=== PATIENT | female | born 1995 | race Caucasian/White ===

== ENCOUNTER 2024-06-26 19:00 | Outpatient (CLI) | payer OTHER, SELFPAY ==
[2024-06-26 19:23] VITALS: BP 116/61; PULSE 96; RESP 14; TEMP 36.6
[2024-06-26 19:30] VITALS: BMI 21.6
--- NOTE | 2024-06-30 08:58 | OB.TRI.NOTE ---
HPI - General General Date of Service: 06/26/24 Chief Complaint: fall [facility] Narrative DIANA CARMICHAEL, is a 28 F who presents after a fall on her deck onto her buttock and back. She did not hit her head or abdomen. She has no symptoms. No vb, lof, cramping, pain. Assessment & Plan (1) 21 weeks gestation of : (2) Fall: PLAN: Pt fell onto buttock and back on her deck. No trauma to abdomen. Rh positive blood type. She is asymptomatic. RN obtained FHT. D/c home with return precautions.
== END 2024-06-26 19:40 | disposition home or self-care (01) ==
LOC: WPOUT 19:14 → WP 19:14
PROVIDERS: Visit Provider Obstetrics & Gynecology
DX: Z04.3 Encounter for examination and observation following other accident (principal); W18.30XA Fall on same level, unspecified, initial encounter; Y92.008 Other place in unspecified non-institutional (private) residence as the place of occurrence of the external cause
CPT/HCPCS: 99221; G0378

== ENCOUNTER → 2024-09-05 | Outpatient (CLI) | payer OTHER, SELFPAY ==
--- NOTE | 2024-09-05 13:25 | CT_ITS ---
PROCEDURE: CTA CHEST W/WO CONTRAST 09/05/2024 REASON FOR EXAM: LEIGH TECHNIQUE: CTA axial imaging of the chest with intravenous contrast. Coronal and Sagittal reconstruction series were provided. 3D, 3D post processing, 3D reconstructions, Maximum intensity projection (MIPs) Volume rendering and Shaded surface rendering was provided. PATIENT PREPARATION: Per protocol CONTRAST: Isovue 370 VOLUME: 100 mL Gauge IV One or more dose reduction techniques were used (e.g., Automated exposure control, adjustment of the mA and/or kV according to patient size, use of iterative reconstruction technique). RADIATION DOSE SUMMARY: DLP: 356 mGycm COMPARISON: None FINDINGS: Lymph nodes: No mediastinal, hilar, or axillary lymphadenopathy. Heart: Normal heart size. No pericardial effusion. RV/LV Diameter Ratio: Subjectively normal. Thoracic Aorta: No thoracic aortic aneurysm or dissection. Pulmonary Vessels: No evidence of acute pulmonary emboli through the major subsegmental branches. Lungs and Airways: The lungs are normally expanded and clear. Pleura: No pleural effusion. No pneumothorax. Upper Abdomen: Visualized portions of the upper abdominal viscera are unremarkable. Bones: Normal thoracic vertebral alignment. CT/CTA Chest W/WO Contrast IMPRESSION: No pulmonary artery filling defect to suggest embolus. No acute abnormal finding in the chest. Reading Location: [facility]
== END | disposition home or self-care (01) ==
LOC: CT 12:57
PROVIDERS: PCP Family Medicine; Referring Provider Family Medicine; Visit Provider Family Medicine
DX: R06.09 Other forms of dyspnea (principal)
CPT/HCPCS: 71275; Q9967

== ENCOUNTER → 2024-09-20 | Outpatient (CLI) | payer OTHER, SELFPAY ==
[2024-09-20 11:42] LABS: Absolute Lymphocyte Count 1.82 X10^3/uL (0.83-4.51); Absolute Neutrophil Count 7.4 X10^3/uL (2.0-7.7); Basophil# 0.02 X10^3/uL; Basophil% 0.2 % (0-1); Eosinophil# 0.06 X10^3/uL; Eosinophils% 0.6 % (0-5); Hemoglobin 11.1 g/dL (12.0-15.0); Lymphocyte # 1.82 X10^3/ul (0.83-4.51); Lymphocyte % 18.3 % (19-41); Mean Corp Hgb Conc 31.7 g/dL (32-36); Mean Corpuscular Hgb 27.5 pg (27.0-32.0); Mean Corpuscular Volume 86.6 fL (81-99); Mean Platelet Vol. 9.6 fl (6.2-12.0); Monocyte# 0.58 X10^3/uL; Monocyte% 5.8 % (0-10); NRBC Flagged by Analyzer 0 % (0-5); Neutrophil # 7.41 X10^3/uL (2.7-7.7); Neutrophil % 74.6 % (47-70); Platelet Count 274 K/mm3 (150-450); RBC Distribution Width CV 13.8 % (11.6-14.6); RBC Distribution Width SD 42.2 fl (35.1-43.9); Red Blood Count 4.04 M/mm3 (4.2-5.4); White Blood Count 9.9 K/mm3 (4.4-11.0)
== END | disposition home or self-care (01) ==
LOC: LAB 11:08
PROVIDERS: PCP Family Medicine; Referring Provider Nurse Practitioner Women's Health; Visit Provider Nurse Practitioner Women's Health
DX: R53.83 Other fatigue (principal)
CPT/HCPCS: 36415; 85025

== ENCOUNTER → 2024-10-05 | Outpatient (CLI) | payer OTHER, SELFPAY | END | disposition home or self-care (01) | LOC: LABSPEC 15:48 | PROVIDERS: PCP Family Medicine; Referring Provider Obstetrics & Gynecology; Visit Provider Obstetrics & Gynecology | DX: Z34.03 Encounter for supervision of normal first pregnancy, third trimester (principal) | CPT/HCPCS: 87081 ==

== ENCOUNTER 2024-11-04 01:50 | Outpatient (CLI) | payer OTHER, SELFPAY ==
--- OUTSIDE RECORDS SUMMARY | 2024-11-04 01:56 | XMS RPT_ITS | CCD ---
Author Organization [facility] Care Team Providers Care Laboratory Machinist Name Role Phone SUZY LEON Unavailable Unavailable SUZY LEON Unavailable Unavailable CHRIS COLLINS Unavailable Unavailable CHRIS COLLINS Unavailable Unavailable Christina Salter DO Primary Care Provider [phone] Christina Salter DO Primary Care Provider Christina Salter Primary Care Provider CITLALI BAUER Attending Unavailable GAETANO, CHRISTINA L Primary Care Unavailable CITLALI BAUER Referring Unavailable GAETANO, CHRISTINA L Primary Care Unavailable NANCY AGUILAR Referring Unavailable GAETANO, CHRISTINA L Primary Care Unavailable ZENAIDA MITCHELL Attending Unavailable JEFF NANCY Aleksandr Referring Unavailable GAETANO, CHRISTINA L Primary Care Unavailable ZENAIDA MITCHELL Referring Unavailable GAETANO, CHRISTINA L Primary Care Unavailable NANCY AGUILAR Referring Unavailable GAETANO, CHRISTINA L Primary Care Unavailable XENIA MARIE Attending Unavailable GAETANO, CHRISTINA L Primary Care Unavailable JEFF NANCY Aleksandr Referring Unavailable GAETANO, CHRISTINA L Primary Care Unavailable NANCY AGUILAR Attending Unavailable GAETANO, CHRISTINA L Primary Care Unavailable YENNIFER COUCH Attending Unavailable GAETANO, CHRISTINA L Primary Care Unavailable ZENAIDA MITCHELL Attending Unavailable NANCY AGUILAR Attending Unavailable GAETANO, CHRISTINA L Primary Care Unavailable KATHY CLANCY Attending Unavailable GAETANO, CHRISTINA L Primary Care Unavailable GAETANO, CHRISTINA L Primary Care Unavailable Christina Salter Primary Care Provider Dr. Christina Salter DO [facility] er Gaetano MONZON, Dr. Christina Sandoval Attending Provider Dr. Jayne Carmona DO Attending Provider Chao MIGUEL, Dr. Cardoso Attending Provider [phone] Gaetano MONZON, Dr. Christina Sandoval Referring Provider Salomon DOCKET CLERK-C, Maureen Attending Provider [phone] Salomon DOCKET CLERK-C, Maureen Referring Provider Filiberto Gonzales DO, Dr. Michaels Attending Provider Filiberto Gonzales DO, Dr. Michaels Referring Provider Mable Ashley CNM Attending Provider [phone] Gaetano MONZON, Dr. Christina Sandoval [facility] er Gaetano MONZON, Dr. Christina Sandoval Attending [facility] Referring Unavailabl e Gaetano, Christina Lori Attending Unavailabl e Gaetano, [facility] Primary Care [facility] Unav[facility] Salomon DOCKET CLERKMaureen Referring Unavailable [place] DOCKET CLERKMaureen Attending Unavailable Gaetano, [facility] Unavailabl e Mable Ashley Attending Unavailable Janae Guidry Attending Un[facility] Gaet[facility] Referring Unavailabl e Mable Ashley Attending Unavailable [facility] Unavailabl e Gaetano, [facility] Referring Unavailabl e [place] DOCKET CLERKMaureen Attending Unavailable [facility] Referring Unavailabl e Janae Guidry Attending Unavailable [facility] Care Unavailabl e Gaetano, [facility] Referring Unavailabl e Xenia Edouard Attending Unavailabl e Gaetano, [facility] Unavailabl e Gaetano, [facility] Referring Unavailabl Mable Olmstead Attending Unavailable Gaetano, [facility] Referring Unavailabl e Janae Guidry Attending Unavailable Gaetano, [facility] Primary [facility] Unavailabl e Gaetano, [facility] Primary Care Unavailabl e Gaetano, [facility] Attending Unavailabl e Gaetano, [facility] Attending Unavailabl e Gaetano, [facility] Primary Care Unavailabl e Gaetano, [facility] Attending Unavailabl e Gaetano, [facility] Care Unavailabl e Gaetano, [facility] Unavailabl e Janae Guidry Attending Unavailable Gaetano, [facility] Attending Unavailabl e Gaetano, [facility] Unavailabl e Jayne Carmona Attending Unavailable Xenia Edouard Referring Unavailabl e Xenia Edouard Attending Unavailabl e Gaetano, [facility] Unavailabl e Allergies Allergy Classification Reported Allergen(s) Allergy Type Date of Onset Reaction(s) Facility (14 sources) Latex; Translations: [LATEX] Drug Allergy 03-22-2024 [facility] (6 sources) natural latex rubber Allergy to substance 10-05-2024 [facility] (1 source) natural latex rubber Drug allergy (disorder) 11-01-2024 [facility] Repository Medications Current Medications Medication Drug Class(es) Dates Sig (Normalized) Sig (Original) aspirin 81 mg delayed release oral tablet (18 sources) Platelet Aggregation Inhibitor, Nonsteroidal Anti-inflammatory Drug Start: 03-25-2024 take 1 tablet by mouth once daily Aspirin 81 mg tablet,delayed release (DR/EC) Active 81 mg PO daily September 02, 2024 12:00am cholecalciferol 0.05 mg oral capsule (6 sources) Vitamin D Start: 09-02-2024 take 1 capsule by mouth once daily Cholecalciferol (Vitamin D3) 50 mcg (2,000 unit) capsule Active 50 ug PO daily September 02, 2024 12:00am choline bitartrate 250 mg oral tablet (6 sources) Start: 09-02-2024 take 1 tablet by mouth once daily Choline 250 mg tablet Active 110 mg PO daily September 02, 2024 12:00am Ethinyl Estradiol / Ferrous fumarate / Norethindrone (2 sources) Estrogen Start: 06-12-2021 take 1 tablet by mouth once daily Norethin Kwame-Eth Estrad-FE (BLISOVI 24 FE) 1-20 MG-MCG(24) TABS TAKE 1 TABLET BY MOUTH DAILY ACTIVE PILLS ONLY 84 tablet 5 06/12/2021 Active ferrous sulfate 325 mg oral tablet (6 sources) Start: 09-02-2024 take 1 tablet by mouth every other day Ferrous Sulfate 325 mg (65 mg iron) tablet Active 325 mg PO every other day September 02, 2024 12:00am hydrOXYzine pamoate 25 mg oral capsule (6 sources) Antihistamine Start: 09-22-2024 take 1 capsule by mouth every six hours as needed for anxiety Hydroxyzine Pamoate (Vistaril) 25 mg capsule Active 25 mg PO EVERY 6 HOURS as needed for anxiety 120 September 22, 2024 12:00am 1-2 every 6 hours as needed ibuprofen 800 mg oral tablet (2 sources) Nonsteroidal Anti-inflammatory Drug Start: 10-14-2018 take 1 tablet by mouth every eight hours as needed ibuprofen (ADVIL;MOTRIN) 800 MG tablet TAKE 1 TABLET BY MOUTH EVERY 8 HOURS NEEDED 2 10/14/2018 Active Mv-Mins 33-Rdpp-Pjayu No.1-Dha (Pnv-Tollhouse) 28-1-300 mg capsule (6 sources) Start: 09-02-2024 Mv-Mins 02-Xjnu-Jlqzo No.1-Dha (Pnv-Tollhouse) 28-1-300 mg capsule Active NMA PO September 02, 2024 12:00am ondansetron 4 mg oral tablet (11 sources) Serotonin-3 Receptor Antagonist Start: 04-26-2024 take 1 tablet by mouth every eight hours as needed for nausea ondansetron (ZOFRAN) 4 mg tablet Indications: Nausea and vomiting during (HCC) Take 1 tablet by mouth every 8 hours as needed for nausea/vomiting. 30 tablet 1 04/26/2024 Active NO.167-FOLIC ACID-DHA ORAL (12 sources) NO.167-FOLIC ACID-DHA ORAL Take by mouth. Active pyridoxine HCl, vitamin B6, (VITAMIN B-6 ORAL) (6 sources) pyridoxine HCl, vitamin B6, (VITAMIN B-6 ORAL) Take by mouth once daily. Active vitamin b6 100 mg oral tablet (6 sources) Start: 09-02-2024 take 1 tablet by mouth once daily Pyridoxine (Vitamin B6) 100 mg tablet Active 100 mg PO daily September 02, 2024 12:00am zinc acetate 50 mg oral capsule (6 sources) Start: 09-02-2024 take 1 capsule by mouth once daily Zinc Acetate 50 mg (zinc) capsule Active 50 mg PO daily September 02, 2024 12:00am Completed/Discontinued Medications Medication Drug Class(es) Dates Sig (Normalized) Sig (Original) iopamidol (ISOVUE-370) 76 % injection 75 mL (1 source) Start: 11-19-2021 End: 11-19-2021 iopamidol (ISOVUE-370) 76 % injection 75 mL norethindrone-e.est radiol-iron (BLISOVI 24 FE ORAL) (2 sources) End: 03-25-2024 norethindrone-e.estr adiol-iron (BLISOVI 24 FE ORAL) Take by mouth. 03/25/2024 Discontinued norethindrone-e. estradiol-iron (BLISOVI 24 FE ORAL) Take by mouth. Active Problems Active Problems Problem Classification Problem Date Documented Da te Episodic/Chronic Abdominal pain (1 source) Right lower quadrant pain; Translations: [Right lower quadrant pain] Onset: 12-10-2017 Episodic Anxiety disorders (20 sources) Mixed anxiety and depressive disorder; Translations: [Anxiety disorder, unspecified] Onset: 10-27-2024 09-22-2024 Chronic Comment on above: start vistaril. if n o improvement recommend starting SSRI Failed buspar. Enc magnesium. referred for therapy. recommend starting medical leave now due to POTS and anxiety, severe symptoms. Appendicitis and other appendiceal conditions (2 sources) Other acute appendicitis; Translations: [Acute appendicitis with localized peritonitis] Onset: 12-10-2017 Episodic Cardiac dysrhythmias (20 sources) Postural orthostatic tachycardia syndrome ; Translations: [POTS (postural orthostatic tachycardia syndrome)] Onset: 03-25-2024 03-25-2024 Chronic Cardiac dysrhythmias (1 source) Tachycardia, unspecified; Translations: [Tachycardia, unspecified] Onset: 12-10-2017 Episodic Diseases of white blood cells (1 source) Elevated white blood cell count, unspecified; Translations: [Elevated white blood cell count, unspecified] Onset: 12-10-2017 Chronic E Codes: Fall (10 sources) Fall; Translations: [Unspecified fall, initial encounter] 09-05-2024 Episodic Genitourinary symptoms and ill-defined conditions (3 sources) Increased frequency of urination; Translations: [Frequency of micturition] Episodic Malaise and fatigue (20 sources) Fatigue; Translations: [Other fatigue] Onset: 10-27-2024 09-20-2024 Episodic Comment on above: discussed nutrition, iron supplement. Mood disorders (1 source) Mood disorders; Translations: [Depression, unspecified] Onset: 10-27-2024 Nausea and vomiting (1 source) Nausea; Translations: [Nausea] Onset: 12-10-2017 Episodic Other circulatory disease (1 source) Postural orthostatic tachycardia syndrome ; Translations: [Postural orthostatic tachycardia syndrome [POTS]] Onset: 10-27-2024 Episodic Other complications of ; puerperium affecting management of mother (20 sources) Central nervous system malformation in fetus affecting obstetrical care; Translations: [Choroid plexus cyst of fetus affecting care of mother, antepartum] 09-05-2024 Episodic Other complications of (20 sources) Maternal obesity complicating , childbirth and the puerperium, antepartum; Translations: [Obesity complicating , second trimester] Onset: 03-25-2024 05-27-2024 Chronic Other complications of (3 sources) Anemia in mother complicating , childbirth AND/OR puerperium; Translations: [Anemia complicating , third trimester] Onset: 08-12-2024 08-12-2024 Chronic Other complications of (20 sources) Anemia of ; Translations: [Anemia complicating , unspecified trimester] 09-20-2024 Chronic Other complications of (1 source) Obesity complicating , third trimester; Translations: [Obesity complicating , third trimester] Onset: 10-27-2024 Chronic Other complications of (1 source) Anemia complicating , third trimester; Translations: [Anemia complicating , third trimester] Onset: 10-27-2024 Chronic Other injuries and conditions due to external causes (1 source) Encounter for examination and observation following other accident; Translations: [Encounter for examination and observation following other accident] Onset: 09-01-2024 Episodic Other lower respiratory disease (1 source) Other forms of dyspnea; Translations: [Other forms of dyspnea] Onset: 09-09-2024 Episodic Other nutritional; endocrine; and metabolic disorders (3 sources) Body mass index 30+ - obesity; Translations: [Body mass index (BMI) 30.0-30.9, adult] Onset: 03-25-2024 03-25-2024 Chronic Other and delivery including normal (20 sources) Normal ; Translations: [Encounter for supervision of normal first , first trimester] Onset: 03-25-2024 03-25-2024 Episodic Comment on above: PRR , KHLOE , Cher' Mike QUENTIN from CC @ [facility] Other screening for suspected conditions (not mental disorders or infectious disease) (7 sources) Patient encounter status; Translations: [Encounter for screening, unspecified] Onset: 05-27-2024 04-26-2024 Episodic Residual codes; unclassified (1 source) Gestation period, 8 weeks; Translations: [8 weeks gestation of ] 03-25-2024 Episodic Residual codes; unclassified (1 source) Gestation period, 13 weeks; Translations: [13 weeks gestation of ] 04-26-2024 Episodic Residual codes; unclassified (1 source) Gestation period, 17 weeks; Translations: [17 weeks gestation of ] 05-27-2024 Episodic Residual codes; unclassified (2 sources) Gestation period, 20 weeks; Translations: [20 weeks gestation of ] 06-15-2024 Episodic Residual codes; unclassified (1 source) Gestation period, 24 weeks; Translations: [24 weeks gestation of ] 07-13-2024 Episodic Residual codes; unclassified (1 source) Gestation period, 28 weeks; Translations: [28 weeks gestation of ] 08-10-2024 Episodic Residual codes; unclassified (1 source) Gestation period, 30 weeks; Translations: [30 weeks gestation of ] 08-24-2024 Episodic Residual codes; unclassified (1 source) 13 weeks gestation of ; Translations: [13 weeks gestation of ] Onset: 06-15-2024 Episodic Residual codes; unclassified (6 sources) Family history of breast cancer; Translations: [Family history of malignant neoplasm of breast] 09-05-2024 Episodic Comment on above: Paternal Grandmother Residual codes; unclassified (4 sources) Gestation period, 21 weeks; Translations: [21 weeks gestation of ] 06-26-2024 Episodic Residual codes; unclassified (1 source) 39 weeks gestation of ; Translations: [39 weeks gestation of ] Onset: 10-27-2024 Episodic Residual codes; unclassified (1 source) 38 weeks gestation of ; Translations: [38 weeks gestation of ] Onset: 10-18-2024 Episodic Residual codes; unclassified (1 source) 37 weeks gestation of ; Translations: [37 weeks gestation of ] Onset: 10-12-2024 Episodic Residual codes; unclassified (1 source) 34 weeks gestation of ; Translations: [34 weeks gestation of ] Onset: 09-22-2024 Episodic Unclassified (1 source) Unknown / UNK(Unknown) Onset: 12-10-2017 Unclassified (1 source) Maternal care for (suspected) central nervous system malformation or damage in fetus, choroid plexus cysts, not applicable or unspecified; Translations: [Maternal care for (suspected) central nervous system malformation or damage in fetus, choroid plexus cysts, not applicable or unspecified] Onset: 10-27-2024 Past or Other Problems Problem Classification Problem Date Documented Da te Episodic/Chronic Appendicitis and other appendiceal conditions (1 source) Appendicitis and other appendiceal conditions Onset: 12-10-2017 Other complications of (12 sources) Vomiting of , unspecified; Translations: [Unspecified vomiting of , unspecified as to episode of care or not applicable] Onset: 05-27-2024 04-26-2024 Episodic Other complications of (14 sources) High risk ; Translations: [Supervision of high risk , unspecified, second trimester] Onset: 03-25-2024 05-27-2024 Episodic Other complications of (1 source) Supervision of high risk , unspecified, second trimester; Translations: [Supervision of high risk in second trimester] Onset: 05-27-2024 Episodic Residual codes; unclassified (1 source) 17 weeks gestation of ; Translations: [17 weeks gestation of ] Onset: 05-27-2024 Episodic Residual codes; unclassified (1 source) 8 weeks gestation of ; Translations: [8 weeks gestation of ] Onset: 03-25-2024 Episodic NEGATED: Highlighted row has been ruled out!Unclassified (1 source) No known active problems 12-10-2017 Results Test Name Value Interpretation Reference Range Facility Pump Assembler Office Visit Reporton 11-01-2024 Pump Assembler Office Visit Report [facility] [address], [address] [place] [address] OFFICE VISIT Date of Service: 11/01/24 MR#: [id number] Acct: [id number] Name: CANDICE CARMICHAEL Rep #: [id number] : 1995 Provider: STEPHANIE Wilhelm ams Age/Sex: 28/F [place] [facility] [place]: Signed Intake Vital Signs 09/20/24 10:23 10/27/24 10:23 11/01/24 14:06 Height 5 ft 2 in 5 ft 2 in 5 ft 2 in Weight: 199 lb 200 lb 2 oz BMI 36.3 36.6 BP 131/88 H 128/81 H Intake Visit Reasons: 40 WK OB Applications Manager Required: No Is patient in pain?: No Allergies Latex, Natural Rubber Allergy (Intermediate, Verified 11/01/24 14:10) Rash Medications ???Medication ???Instructions ???Recorded ???Confirmed ???Type aspirin 81 mg tablet,delayed 81 mg PO QDAY 09/02/24 11/01/24 Hi story release cholecalciferol (vitamin D3) 50 50 mcg PO QDAY 09/02/24 11/01/24 H istory mcg (2,000 unit) capsule choline 250 mg tablet 110 mg PO QDAY 09/02/24 11/01/24 H istory ferrous sulfate 325 mg (65 mg 325 mg PO Q OTHER DAY 09/02/2403/18 History iron) tablet multivit-min no.71-iron fum 28 cap PO 09/02/24 11/01/24 History mg-folate no.1 1 mg-dha 300 mg capsule (PNV-Tollhouse) pyridoxine (vitamin B6) 100 mg 100 mg PO QDAY 09/02/24 11/01/24 H istory tablet zinc acetate 50 mg (zinc) capsule 50 mg PO QDAY 09/02/24 11/01/24 H istory hydroxyzine pamoate 25 mg capsule 25 mg PO Q6H PRN anxiety 30 days 09/22/24 11/01/24 Rx (Vistaril) #120 caps Last Menstrual Period: 01/26/24 Zika: Zika virus screening: Negative : No PFSH PFSH Medical History Vocal cord dysfunction Tipped uterus Surgical History History of appendectomy Family History Grandmother Diabetes Paternal Breast cancer Paternal- age of onset unknown Alzheimer's dementia Maternal Grandfather Cancer, Onset Age: 75 Paternal- Lung Cancer COPD (chronic obstructive pulmonary disease) Paternal Other Sudden cardiac Social History adopted: No household members: significant other housing: house current occupational status: employed 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: No pets and animals: No history of recent travel: Yes ([place]) out of state: Yes out of country: No sexually active: Yes Smoking Status: Never smoker alcohol intake: current alcohol intake frequency: holidays/special occasions only details: Not while substance use type: does not use well-balanced diet: about half the time caffeine: Yes Type: tea Number of servings: 1 eating out: 1-3 times/week during the past year weight has: increased > 10 lbs what type of physical activity do you participate in: none debo/samaritan: Anabaptism seatbelt use: always do you feel safe at home: Yes additional social history: Allison Buchanan [facility] History 1 Elective abortions Hx Para 0 Spontaneous abortions Hx # Term Pregnancies Ectopic pregnancies Hx # Pregnancies Multiple births # of living children HPI 40 WK OB Details: CANDICE CARMICHAEL is a 28 year old who presents for routine OB visit. OB Visit KHLOE Calculator Estimated Delivery Date Method Current WG Current Estimate 11/01/24 LMP (Certain) 40w 0d Expected Delivery Route/Plan Labor Preferences- CB/BF classes: [] labor support person: Mike labor intervention preferences: [] pain management options preferred: epidural if requested cut cord/dad catch: yes : yes PP control planned: [] discussed possible routes of delivery and associated risks: [] special requests: [] Specific Issue/Plans Covid status: [] Flu vaccine: [] Tdap vaccine: given Rhogam: na LARC form signed: yes movement and labor precautions reviewed. Problem list reviewed and updated with the most current plan of care details and appropriate orders placed. Relevant counseling for the gestational age provided. Continue routine care and follow up unless otherwise noted in visit notes/problem list details Initial Weight: Not Recorded Date -???-???-???-???-???-???- ???-???-???-???-???-???- EGA Weight BP Urine Prot -???-???-???-???-???-???- ???-???-???-???-???-???- Glucose FHR FuHt Pres Dilation -???-???-???-???-???-???- ???-???-???-???-???-???- Effaced St Visit Note 09/05/24 -???-???-???-???-???-???- ???-???-???-???-???-???- 31w 6d 191 lb 119/84 Negative -???-???-???-???-???-???- ???-???-???-???-???-???- Negative 145 31 -???-???-???-???-???-???- ???-???-???-???-???-? (more content not included)... Normal [facility] - Chemistry and C hemistry - challengeOrdered By: Mable Ashley on 06-05-2025 Glucose Ql (U) Negative [facility] - UrinalysisOrder ed By: Mable Ashley on 10-27-2024 Protein Ql (U) Negative [facility] Pump Assembler Office Visit Reporton 10-27-2024 Pump Assembler Office Visit Report [facility] [address], [address] [place] [address] OFFICE VISIT Date of Service: 10/27/24 MR#: [id number] Acct: [id number] Name: CANDICE CARMICHAEL Rep #: [id number] : 1995 Provider: STEPHANIE Wilhelm ams Age/Sex: 28/F [place] [facility] [place] Status: Signed Intake Vital Signs 09/20/24 10:23 10/18/24 15:40 10/27/24 10:23 Height 5 ft 2 in 5 ft 2 in 5 ft 2 in Weight: 199 lb BMI 36.3 BP 131/88 H Intake Visit Reasons: 39 WK OB Chief Complaint: 39wk OB Applications Manager Required: No Is patient in pain?: No Allergies Latex, Natural Rubber Allergy (Intermediate, Verified 10/27/24 10:21) Rash Medications ???Medication ???Instructions ???Recorded ???Confirmed ???Type aspirin 81 mg tablet,delayed 81 mg PO QDAY 09/02/24 10/27/24 Hi story release cholecalciferol (vitamin D3) 50 50 mcg PO QDAY 09/02/24 10/27/24 H istory mcg (2,000 unit) capsule choline 250 mg tablet 110 mg PO QDAY 09/02/24 10/27/24 H istory ferrous sulfate 325 mg (65 mg 325 mg PO Q OTHER DAY 09/02/2410/16 History iron) tablet multivit-min no.71-iron fum 28 cap PO 09/02/24 10/27/24 History mg-folate no.1 1 mg-dha 300 mg capsule (PNV-Tollhouse) pyridoxine (vitamin B6) 100 mg 100 mg PO QDAY 09/02/24 10/27/24 H istory tablet zinc acetate 50 mg (zinc) capsule 50 mg PO QDAY 09/02/24 10/27/24 H istory hydroxyzine pamoate 25 mg capsule 25 mg PO Q6H PRN anxiety 30 days 09/22/24 10/27/24 Rx (Vistaril) #120 caps Last Menstrual Period: 01/26/24 : No Have you fallen in the past year?: No PFSH PFSH Medical History Vocal cord dysfunction Tipped uterus Surgical History History of appendectomy Family History Grandmother Diabetes Paternal Breast cancer Paternal- age of onset unknown Alzheimer's dementia Maternal Grandfather Cancer, Onset Age: 75 Paternal- Lung Cancer COPD (chronic obstructive pulmonary disease) Paternal Other Sudden cardiac Social History adopted: No household members: significant other housing: house current occupational status: employed 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: No pets and animals: No history of recent travel: Yes ([place]) out of state: Yes out of country: No sexually active: Yes Smoking Status: Never smoker alcohol intake: current alcohol intake frequency: holidays/special occasions only details: Not while substance use type: does not use well-balanced diet: about half the time caffeine: Yes Type: tea Number of servings: 1 eating out: 1-3 times/week during the past year weight has: increased > 10 lbs what type of physical activity do you participate in: none debo/samaritan: Anabaptism seatbelt use: always do you feel safe at home: Yes additional social history: Cher- Mike [facility]- [facility] History 1 Elective abortions Hx Para 0 Spontaneous abortions Hx # Term Pregnancies Ectopic pregnancies Hx # Pregnancies Multiple births # of living children HPI 39 WK OB Details: CANDICE CARMICHAEL is a 28 year old who presents for routine OB visit. OB Visit KHLOE Calculator Estimated Delivery Date Method Current WG Current Estimate 11/01/24 LMP (Certain) 39w 2d Expected Delivery Route/Plan Labor Preferences- CB/BF classes: [] labor support person: Mike labor intervention preferences: [] pain management options preferred: epidural if requested cut cord/dad catch: yes : yes PP control planned: [] discussed possible routes of delivery and associated risks: [] special requests: [] Specific Issue/Plans Covid status: [] Flu vaccine: [] Tdap vaccine: given Rhogam: na LARC form signed: yes movement and labor precautions reviewed. Problem list reviewed and updated with the most current plan of care details and appropriate orders placed. Relevant counseling for the gestational age provided. Continue routine care and follow up unless otherwise noted in visit notes/problem list details Initial Weight: Not Recorded Date -???-???-???-???-???-???- ???-???-???-???-???-???- EGA Weight BP Urine Prot -???-???-???-???-???-???- ???-???-???-???-???-???- Glucose FHR FuHt Pres Dilation -???-???-???-???-???-???- ???-???-???-???-???-???- Effaced St Visit Note 09/05/24 -???-???-???-???-???-???- ???-???-???-???-???-???- 31w 6d 191 lb 119/84 Negative -???-???-???-???-???-???- ???-???-???-???-???-???- Negative 145 31 -???-???-???-???-???-???- ???-???-???-???-???-???- - (more content not included)... Normal [facility] Laboratory - Chemistry and C hemistry - challengeOrdered By: Janae Guidry on 10-18-2024 Glucose Ql (U) Negative [facility] Laboratory - UrinalysisOrder ed By: Janae Guidry on 10-18-2024 Protein Ql (U) Negative [facility] Pump Assembler Office Visit Reporton 10-18-2024 Pump Assembler Office Visit Report [facility] [address], [address] [place] [address] OFFICE VISIT Date of Service: 10/18/24 MR#: [id number] Acct: [id number] Name: CANDICE CARMICHAEL Rep #: [id number] : 1995 Provider: Dr. Janae stout MD Age/Sex: 28/F [place] [facility] [place]: Signed Intake Vital Signs 09/20/24 10:23 10/12/24 15:05 10/18/24 15:40 Height 5 ft 2 in 5 ft 2 in 5 ft 2 in Weight: 195 lb 2 oz 195 lb 8 oz BMI 35.6 35.7 BP 127/86 H 118/86 H Intake Visit Reasons: 38 WK OB Applications Manager Required: No Is patient in pain?: No Allergies Latex, Natural Rubber Allergy (Intermediate, Verified 10/18/24 15:41) Rash Medications ???Medication ???Instructions ???Recorded ???Confirmed ???Type aspirin 81 mg tablet,delayed 81 mg PO QDAY 09/02/24 10/18/24 Hi story release cholecalciferol (vitamin D3) 50 50 mcg PO QDAY 09/02/24 10/18/24 H istory mcg (2,000 unit) capsule choline 250 mg tablet 110 mg PO QDAY 09/02/24 10/18/24 H istory ferrous sulfate 325 mg (65 mg 325 mg PO Q OTHER DAY 09/02/24 History iron) tablet multivit-min no.71-iron fum 28 cap PO 09/02/24 10/18/24 History mg-folate no.1 1 mg-dha 300 mg capsule (PNV-Tollhouse) pyridoxine (vitamin B6) 100 mg 100 mg PO QDAY 09/02/24 10/18/24 H istory tablet zinc acetate 50 mg (zinc) capsule 50 mg PO QDAY 09/02/24 10/18/24 H istory hydroxyzine pamoate 25 mg capsule 25 mg PO Q6H PRN anxiety 30 days 09/22/24 10/18/24 Rx (Vistaril) #120 caps Last Menstrual Period: 01/26/24 Zika: Zika virus screening: Negative : No PFSH PFSH Medical History Vocal cord dysfunction Tipped uterus Surgical History History of appendectomy Family History Grandmother Diabetes Paternal Breast cancer Paternal- age of onset unknown Alzheimer's dementia Maternal Grandfather Cancer, Onset Age: 75 Paternal- Lung Cancer COPD (chronic obstructive pulmonary disease) Paternal Other Sudden cardiac Social History adopted: No household members: significant other housing: house current occupational status: employed 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: No pets and animals: No history of recent travel: Yes ([place]) out of state: Yes out of country: No sexually active: Yes Smoking Status: Never smoker alcohol intake: current alcohol intake frequency: holidays/special occasions only details: Not while substance use type: does not use well-balanced diet: about half the time caffeine: Yes Type: tea Number of servings: 1 eating out: 1-3 times/week during the past year weight has: increased > 10 lbs what type of physical activity do you participate in: none debo/samaritan: Anabaptism seatbelt use: always do you feel safe at home: Yes additional social history: Allison Buchanan [facility] History 1 Elective abortions Hx Para 0 Spontaneous abortions Hx # Term Pregnancies Ectopic pregnancies Hx # Pregnancies Multiple births # of living children HPI 38 WK OB Details: CANDICE CARMICHAEL is a 28 year old who presents for routine OB visit. OB Visit KHLOE Calculator Estimated Delivery Date Method Current WG Current Estimate 11/01/24 LMP (Certain) 38w 0d Expected Delivery Route/Plan Labor Preferences- CB/BF classes: [] labor support person: Mike labor intervention preferences: [] pain management options preferred: epidural if requested cut cord/dad catch: yes : yes PP control planned: [] discussed possible routes of delivery and associated risks: [] special requests: [] Specific Issue/Plans Covid status: [] Flu vaccine: [] Tdap vaccine: given Rhogam: na LARC form signed: yes movement and labor precautions reviewed. Problem list reviewed and updated with the most current plan of care details and appropriate orders placed. Relevant counseling for the gestational age provided. Continue routine care and follow up unless otherwise noted in visit notes/problem list details Initial Weight: Not Recorded Date -???-???-???-???-???-???- ???-???-???-???-???-???- EGA Weight BP Urine Prot -???-???-???-???-???-???- ???-???-???-???-???-???- Glucose FHR FuHt Pres Dilation -???-???-???-???-???-???- ???-???-???-???-???-???- Effaced St Visit Note 09/05/24 -???-???-???-???-???-???- ???-???-???-???-???-???- 31w 6d 191 lb 119/84 Negative -???-???-???-???-???-???- ???-???-???-???-???-???- Negative 145 31 -???-???-???-???-???-???- ???-???- (more content not included)... Normal [facility] Laboratory - Chemistry and C hemistry - challengeOrdered By: Mable Ashley on 10-12-2024 Glucose Ql (U) Negative [facility] Laboratory - UrinalysisOrder ed By: Mable Ashley on 10-12-2024 Protein Ql (U) Negative [facility] Pump Assembler Office Visit Reporton 10-12-2024 Pump Assembler Office Visit Report [facility] [address], [address] [place] [address] OFFICE VISIT Date of Service: 10/12/24 MR#: [id number] Acct: [id number] Name: CANDICE CARMICHAEL Rep #: [id number] : 1995 Provider: STEPHANIE Wilhelm ams Age/Sex: 28/F [place] [facility] [place] Status: Signed Intake Vital Signs 09/20/24 10:23 10/05/24 14:40 10/12/24 15:05 Height 5 ft 2 in 5 ft 2 in 5 ft 2 in Weight: 195 lb 2 oz BMI 35.6 BP 127/86 H Intake Visit Reasons: 37 WK OB Chief Complaint: 37wk OB Applications Manager Required: No Is patient in pain?: No Allergies Latex, Natural Rubber Allergy (Intermediate, Verified 10/12/24 15:03) Rash Medications ???Medication ???Instructions ???Recorded ???Confirmed ???Type aspirin 81 mg tablet,delayed 81 mg PO QDAY 09/02/24 10/12/24 Hi story release cholecalciferol (vitamin D3) 50 50 mcg PO QDAY 09/02/24 10/12/24 H istory mcg (2,000 unit) capsule choline 250 mg tablet 110 mg PO QDAY 09/02/24 10/12/24 H istory ferrous sulfate 325 mg (65 mg 325 mg PO Q OTHER DAY 09/02/24 History iron) tablet multivit-min no.71-iron fum 28 cap PO 09/02/24 10/12/24 History mg-folate no.1 1 mg-dha 300 mg capsule (PNV-Tollhouse) pyridoxine (vitamin B6) 100 mg 100 mg PO QDAY 09/02/24 10/12/24 H istory tablet zinc acetate 50 mg (zinc) capsule 50 mg PO QDAY 09/02/24 10/12/24 H istory hydroxyzine pamoate 25 mg capsule 25 mg PO Q6H PRN anxiety 30 days 09/22/24 10/12/24 Rx (Vistaril) #120 caps Last Menstrual Period: 01/26/24 : No Have you fallen in the past year?: No PFSH PFSH Medical History Vocal cord dysfunction Tipped uterus Surgical History History of appendectomy Family History Grandmother Diabetes Paternal Breast cancer Paternal- age of onset unknown Alzheimer's dementia Maternal Grandfather Cancer, Onset Age: 75 Paternal- Lung Cancer COPD (chronic obstructive pulmonary disease) Paternal Other Sudden cardiac Social History adopted: No household members: significant other housing: house current occupational status: employed 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: No pets and animals: No history of recent travel: Yes ([place]) out of state: Yes out of country: No sexually active: Yes Smoking Status: Never smoker alcohol intake: current alcohol intake frequency: holidays/special occasions only details: Not while substance use type: does not use well-balanced diet: about half the time caffeine: Yes Type: tea Number of servings: 1 eating out: 1-3 times/week during the past year weight has: increased > 10 lbs what type of physical activity do you participate in: none debo/samaritan: Anabaptism seatbelt use: always do you feel safe at home: Yes additional social history: Allison Buchanan [facility] History 1 Elective abortions Hx Para 0 Spontaneous abortions Hx # Term Pregnancies Ectopic pregnancies Hx # Pregnancies Multiple births # of living children HPI 37 WK OB Details: CANDICE CARMICHAEL is a 28 year old who presents for routine OB visit. OB Visit KHLOE Calculator Estimated Delivery Date Method Current WG Current Estimate 11/01/24 LMP (Certain) 37w 1d Expected Delivery Route/Plan Labor Preferences- CB/BF classes: [] labor support person: Mike labor intervention preferences: [] pain management options preferred: epidural if requested cut cord/dad catch: yes : yes PP control planned: [] discussed possible routes of delivery and associated risks: [] special requests: [] Specific Issue/Plans Covid status: [] Flu vaccine: [] Tdap vaccine: given Rhogam: na LARC form signed: yes movement and labor precautions reviewed. Problem list reviewed and updated with the most current plan of care details and appropriate orders placed. Relevant counseling for the gestational age provided. Continue routine care and follow up unless otherwise noted in visit notes/problem list details Initial Weight: Not Recorded Date -???-???-???-???-???-???- ???-???-???-???-???-???- EGA Weight BP Urine Prot -???-???-???-???-???-???- ???-???-???-???-???-???- Glucose FHR FuHt Pres Dilation -???-???-???-???-???-???- ???-???-???-???-???-???- Effaced St Visit Note 09/05/24 -???-???-???-???-???-???- ???-???-???-???-???-???- 31w 6d 191 lb 119/84 Negative -???-???-???-???-???-???- ???-???-???-???-???-???- Negative 145 31 -???-???-???-???-???-???- ???-???-???-???-???-???- (more content not included)... Normal [facility] Rule out Beta Strep (Grp. B) on 10-07-2024 KETTY Group B Beta Streptococcus is not isolated. Normal [facility] Comment on above: Performed By: #### M [id number] #### [facility] Laboratory [address] [place], [address] Laboratory - Chemistry and C hemistry - challengeOrdered By: Xenia Gonzales on 10-05-2024 Glucose Ql (U) Negative [facility] Laboratory - UrinalysisOrder ed By: Xenia Gonzales on 10-05-2024 Protein Ql (U) Negative [facility] Pump Assembler Office Visit Reporton 10-05-2024 Pump Assembler Office Visit Report [facility] [address], [address] [place] [address] OFFICE VISIT Date of Service: 10/05/24 MR#: [id number] Acct: [id number] Name: CANDICE CARMICHAEL Rep #: [id number] : 1995 Provider: Dr. Xenia Stone DO Age/Sex: 28/F [place] [facility] [place] Status: Signed Intake Vital Signs 09/05/24 11:40 09/22/24 08:36 10/05/24 14:40 10/05/24 14:40 Height 5 ft 2 in 5 ft 2 in 5 ft 2 in 5 ft 2 in Weight: 193 lb 6 oz BMI 35.4 BP 115/72 Intake Visit Reasons: 36 wk ob Applications Manager Required: No Is patient in pain?: No Allergies Latex, Natural Rubber Allergy (Intermediate, Verified 10/05/24 14:40) Rash Medications ???Medication ???Instructions ???Recorded ???Confirmed ???Type aspirin 81 mg tablet,delayed 81 mg PO QDAY 09/02/24 10/05/24 Hi story release cholecalciferol (vitamin D3) 50 50 mcg PO QDAY 09/02/24 10/05/24 H istory mcg (2,000 unit) capsule choline 250 mg tablet 110 mg PO QDAY 09/02/24 10/05/24 H istory ferrous sulfate 325 mg (65 mg 325 mg PO Q OTHER DAY 09/02/24 History iron) tablet multivit-min no.71-iron fum 28 cap PO 09/02/24 10/05/24 History mg-folate no.1 1 mg-dha 300 mg capsule (PNV-Tollhouse) pyridoxine (vitamin B6) 100 mg 100 mg PO QDAY 09/02/24 10/05/24 H istory tablet zinc acetate 50 mg (zinc) capsule 50 mg PO QDAY 09/02/24 10/05/24 H istory hydroxyzine pamoate 25 mg capsule 25 mg PO Q6H PRN anxiety 30 days 09/22/24 10/05/24 Rx (Vistaril) #120 caps Last Menstrual Period: 01/26/24 Zika: Zika virus screening: Negative : No PFSH PFSH Medical History Vocal cord dysfunction Tipped uterus Surgical History History of appendectomy Family History Grandmother Diabetes Paternal Breast cancer Paternal- age of onset unknown Alzheimer's dementia Maternal Grandfather Cancer, Onset Age: 75 Paternal- Lung Cancer COPD (chronic obstructive pulmonary disease) Paternal Other Sudden cardiac Social History adopted: No household members: significant other housing: house current occupational status: employed 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: No pets and animals: No history of recent travel: Yes ([place]) out of state: Yes out of country: No sexually active: Yes Smoking Status: Never smoker alcohol intake: current alcohol intake frequency: holidays/special occasions only details: Not while substance use type: does not use well-balanced diet: about half the time caffeine: Yes Type: tea Number of servings: 1 eating out: 1-3 times/week during the past year weight has: increased > 10 lbs what type of physical activity do you participate in: none debo/samaritan: Anabaptism seatbelt use: always do you feel safe at home: Yes additional social history: Allison BATRES History 1 Elective abortions Hx Para 0 Spontaneous abortions Hx # Term Pregnancies Ectopic pregnancies Hx # Pregnancies Multiple births # of living children HPI 36 wk ob Details: CANDICE CARMICHAEL is a 28 year old who presents for routine OB visit. OB Visit KHLOE Calculator Estimated Delivery Date Method Current WG Current Estimate 11/01/24 LMP (Certain) 36w 1d Expected Delivery Route/Plan Labor Preferences- CB/BF classes: [] labor support person: Mike labor intervention preferences: [] pain management options preferred: epidural if requested cut cord/dad catch: yes : yes PP control planned: [] discussed possible routes of delivery and associated risks: [] special requests: [] Specific Issue/Plans Covid status: [] Flu vaccine: [] Tdap vaccine: given Rhogam: na LARC form signed: yes movement and labor precautions reviewed. Problem list reviewed and updated with the most current plan of care details and appropriate orders placed. Relevant counseling for the gestational age provided. Continue routine care and follow up unless otherwise noted in visit notes/problem list details Initial Weight: Not Recorded Date -???-???-???-???-???-???- ???-???-???-???-???-???- EGA Weight BP Urine Prot -???-???-???-???-???-???- ???-???-???-???-???-???- Glucose FHR FuHt Pres Dilation -???-???-???-???-???-???- ???-???-???-???-???-???- Effaced St Visit Note 09/05/24 -???-???-???-???-???-???- ???-???-???-???-???-???- 31w 6d 191 lb 119/84 Negative -???-???-???-???-???-???- ???-???-???-???-???-???- Negative 145 31 -???-???-???-???-???-??? (more content not included)... Normal [facility] Screening beta-hemolytic Str eptococcus cultureOrdered By: Xenia Gonzales on 10-05-2024 Beta-hemolytic Streptococcus culture Group B Beta Streptococcus is not isolated. [facility] Laboratory - Chemistry and C hemistry - challengeOrdered By: Janae Guidry on 09-22-2024 Glucose Ql (U) Negative [facility] Laboratory - UrinalysisOrder ed By: Janae Guidry on 09-22-2024 Protein Ql (U) Negative [facility] Pump Assembler Office Visit Reporton 09-22-2024 Pump Assembler Office Visit Report [address], [address] [place] [address] OFFICE VISIT Date of Service: 09/22/24 MR#: [id number] Acct: [id number] Name: CANDICE CARMICHAEL Rep #: [id number] : 1995 Provider: Dr. Janae stout MD Age/Sex: 28/F [place] [facility] [place] Status: Signed with Addenda ADDENDUM by Maureen Kulkarni on 09/22/24 at 0932 Office Procedure Documentation entered by Maureen Kulkarni 09/22/24 09:32: Immunizations Boostrix Tdap 2.5 Lf unit-8 mcg-5 Lf/0.5 mL intramuscular syringe Performing Provider: Janae Guidry MD Performing Location: [facility] Administered by: Maureen Kulkarni on 09/22/24 09:30 Dose Route Admin Location Dispensed Lot Number Expiration Date [place] Man ufacturer 0.5 mL IM Right Deltoid 0.5 mL [id number] 09/21/26 [id number] SANOFI- PREMIERP VIS Given Date VIS Provided VIS Publication Date 09/22/24 Single Vaccine 24 Eligibility Eligibility Date Funding Source Not Applicable Date cc: * Signed Intake Vital Signs 09/20/24 10:23 09/22/24 08:36 Height 5 ft 2 in 5 ft 2 in Weight: 189 lb 6 oz 191 lb 8 oz BMI 34.6 35.0 BP 117/78 112/74 Intake Visit Reasons: OB, Questions Applications Manager Required: No Is patient in pain?: No Allergies Latex, Natural Rubber Allergy (Intermediate, Verified 09/22/24 08:38) Rash Medications ???Medication ???Instructions ???Recorded ???Confirmed ???Type aspirin 81 mg tablet,delayed 81 mg PO QDAY 09/02/24 09/22/24 Hi story release cholecalciferol (vitamin D3) 50 50 mcg PO QDAY 09/02/24 09/22/24 H istory mcg (2,000 unit) capsule choline 250 mg tablet 110 mg PO QDAY 09/02/24 09/22/24 H istory ferrous sulfate 325 mg (65 mg 325 mg PO Q OTHER DAY 09/02/2406/18 History iron) tablet multivit-min no.71-iron fum 28 cap PO 09/02/24 09/22/24 History mg-folate no.1 1 mg-dha 300 mg capsule (PNV-Tollhouse) pyridoxine (vitamin B6) 100 mg 100 mg PO QDAY 09/02/24 09/22/24 H istory tablet zinc acetate 50 mg (zinc) capsule 50 mg PO QDAY 09/02/24 09/22/24 H istory hydroxyzine pamoate 25 mg capsule 25 mg PO Q6H PRN anxiety 30 days 09/22/24 09/22/24 Rx (Vistaril) #120 caps Last Menstrual Period: 01/26/24 Zika: Zika virus screening: Negative : No PFSH PFSH Medical History Vocal cord dysfunction Tipped uterus Surgical History History of appendectomy Family History Grandmother Diabetes Paternal Breast cancer Paternal- age of onset unknown Alzheimer's dementia Maternal Grandfather Cancer, Onset Age: 75 Paternal- Lung Cancer COPD (chronic obstructive pulmonary disease) Paternal Other Sudden cardiac Social History adopted: No household members: significant other housing: house current occupational status: employed 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: No pets and animals: No history of recent travel: Yes ([place]) out of state: Yes out of country: No sexually active: Yes Smoking Status: Never smoker alcohol intake: current alcohol intake frequency: holidays/special occasions only details: Not while substance use type: does not use well-balanced diet: about half the time caffeine: Yes Type: tea Number of servings: 1 eating out: 1-3 times/week during the past year weight has: increased > 10 lbs what type of physical activity do you participate in: none debo/samaritan: Anabaptism seatbelt use: always do you feel safe at home: Yes additional social history: Cher- Mike [employer]- [employer] History 1 Elective abortions Hx Para 0 Spontaneous abortions Hx # Term Pregnancies Ectopic pregnancies Hx # Pregnancies Multiple births # of living children HPI OB, Questions Details: CANDICE CARMICHAEL is a 28 year old who presents for routine OB visit. OB Visit KHLOE Calculator Estimated Delivery Date Method Current WG Current Estimate 11/01/24 LMP (Certain) 34w 2d Expected Delivery Route/Plan Labor Preferences- CB/BF classes: [] labor support person: Mike labor intervention preferences: [] pain management options preferred: epidural if requested cut cord/dad catch: yes : yes PP control planned: [] discussed possible routes of delivery and associated risks: [] special requests: [] Specific Issue/Plans Covid status: [] Flu vaccine: [] Tdap vaccine: given Rhogam: na LARC form signed: yes movement and labor precautions review (more content not included)... Normal [facility] Absolute lymphocyte countOrd ered By: Maureen Latif on 09-20-2024 Lymphocytes Auto (Unsp spec) [#/Vol] 1.82 10*3/uL 0.83-4.51 [facility] Absolute neutrophil countOrd ered By: Maureen Salomon on 09-20-2024 Neutrophils (Bld) [#/Vol] 7.4 10*3/uL 2.0-7.7 [facility] Automated lymphocyte count a s percentage of total leukocytesOrdered By: Maureen Latif on 09-20-2024 Lymphocytes/100 WBC Auto (Unsp spec) 18.3 % Low 19-41 [facility] Basophil percentageOrdered B y: Maureen [place] on 09-20-2024 Basophils/100 WBC (Bld) 0.2 % 0-1 [facility] CBC W/Diff, Automatedon 08-24 Absolute Lymph 1.82 X10 3/uL Normal 0.83-4.51 [facility] Comment on above: Performed By: #### L 100.0100 #### [facility] [place], [address] Absolute Neut 7.4 X10 3/uL Normal 2.0-7.7 [facility] Comment on above: Performed By: #### L 100.0100 #### [facility] [address] [place], [address] Basophils/100 WBC (Bld) 0.2 % Normal 0-1 [facility] Comment on above: Performed By: #### L 100.0100 #### [facility] [address] [place], [address] Eosinophils/100 WBC (Bld) 0.6 % Normal 0-5 [facility] Comment on above: Performed By: #### L 100.0100 #### [facility] [address] [place], [address] Erythrocyte distribution width (RBC) [Ratio] 13.8 % Normal 11.6-14.6 [facility] Comment on above: Performed By: #### L 100.0100 #### [facility] [address] [place], [address] Hematocrit (Bld) [Volume fraction] 35.0 % Low 37-47 [facility] Comment on above: Performed By: #### L 100.0100 #### [facility] [address] [place], [address] Hemoglobin (Bld) [Mass/Vol] 11.1 g/dL Low 12.0-15.0 [facility] Comment on above: Performed By: #### L 100.0100 #### [facility] [address] [place], [address] IG% 0.500 Normal 0.0-0.9 [facility] Comment on above: Result Comment: IG% - Immature Granulocytes (promyelocytes, myelocytes and metamyelocytes) > 1% indicates that a LEFT SHIFT is Present. Performed By: #### L 100.0100 #### [facility] [address] [place], [address] Lymphocytes/100 WBC (Bld) 18.3 % Low 19-41 [facility] Comment on above: Performed By: #### L 100.0100 #### [facility] [address] [place], [address] MCH (RBC) [Entitic mass] 27.5 pg Normal 27.0-32.0 [facility] Comment on above: Performed By: #### L 100.0100 #### [facility] [address] [place], [address] MCHC (RBC) [Mass/Vol] 31.7 g/dL Low 32-36 [facility] Comment on above: Performed By: #### L 100.0100 #### [facility] [address] [place], [address] MCV (RBC) [Entitic vol] 86.6 fL Normal 81-99 [facility] Comment on above: Performed By: #### L 100.0100 #### [facility] Laboratory [address] [place], [address] Monocytes/100 WBC (Bld) 5.8 % Normal 0-10 [facility] Comment on above: Performed By: #### L 100.0100 #### [facility] Laboratory [address] [place], [address] Neutrophils/100 WBC (Bld) 74.6 % High 47-70 [facility] Comment on above: Performed By: #### L 100.0100 #### [facility] Laboratory [address] [place], [address] Nucleated RBC (Bld) [#/Vol] 0 10*3/uL Normal 0-5 [facility] Comment on above: Performed By: #### L 100.0100 #### [facility] Laboratory [address] [place], [address] Platelet mean volume (Bld) [Entitic vol] 9.6 fL Normal 6.2-12.0 [facility] Comment on above: Performed By: #### L 100.0100 #### [facility] Laboratory [address] [place], [address] Platelets (Bld) [#/Vol] 274 10*3/uL Normal 150-450 [facility] Comment on above: Performed By: #### L 100.0100 #### [facility] Laboratory [address] [place], [address] RBC (Bld) [#/Vol] 4.04 10*6/uL Low 4.2-5.4 [facility] Comment on above: Performed By: #### L 100.0100 #### [facility] Laboratory [address] [place], [address] RDW SD 42.2 fl Normal 35.1-43.9 [facility] Comment on above: Performed By: #### L 100.0100 #### [facility] Laboratory [address] [place], [address] WBC (Bld) [#/Vol] 9.9 10*3/uL Normal 4.4-11.0 [facility] Comment on above: Performed By: #### L 100.0100 #### [facility] Laboratory [address] [place], [address] Eosinophil percentageOrdered By: Maureen Latif on 09-20-2024 Eosinophils/100 WBC (Bld) 0.6 % 0-5 [facility] Erythrocyte distribution wid th ratioOrdered By: Maureen Latif on 09-20-2024 Erythrocyte distribution width (RBC) [Ratio] 13.8 % 11.6-14.6 [facility] Erythrocyte distribution wid th standard deviationOrdered By: Maureen Latif on 09-20-2024 Erythrocyte distribution width (RBC) [Ratio] 42.2 fl 35.1-43.9 [facility] Hematocrit Auto (Bld) [Volum e fraction]Ordered By: Maureen Latif on 09-20-2024 Hematocrit (Bld) [Volume fraction] 35.0 % Low 37-47 [facility] Hemoglobin measurementOrdere d By: Maureen Latif on 09-20-2024 Hemoglobin (Bld) [Mass/Vol] 11.1 g/dL Low 12.0-15.0 [facility] Immature granulocytes/100 WB C Auto (Bld)Ordered By: Maureen Latif on 09-20-2024 Immature granulocytes/100 WBC (Bld) 0.500 % 0.0-0.9 [facility] Comment on above: IG% - Immature Granu locytes (promyelocytes, myelocytes and metamyelocytes) > 1% indicates that a LEFT SHIFT is Present. Laboratory - Chemistry and C hemistry - challengeOrdered By: Mable Ashley on 09-20-2024 Glucose Ql (U) Negative [facility] Laboratory - UrinalysisOrder ed By: Mable Ashley on 09-20-2024 Protein Ql (U) Negative [facility] MCV (mean corpuscular volume ) determinationOrdered By: Maureen Latif on 09-20-2024 MCV (RBC) [Entitic vol] 86.6 fL 81-99 [facility] Mean corpuscular hemoglobin (MCH) determinationOrdered By: Maureen Latif on 09-20-2024 MCH (RBC) [Entitic mass] 27.5 pg 27.0-32.0 [facility] Mean corpuscular hemoglobin concentration (MCHC) determinationOrdered By: Maureen Latif on 09-20-2024 MCHC (RBC) [Mass/Vol] 31.7 g/dL Low 32-36 [facility] Mean platelet volume determi nationOrdered By: Maureen Latif on 09-20-2024 Platelet mean volume (Bld) [Entitic vol] 9.6 fL 6.2-12.0 [facility] Monocyte percentageOrdered B y: Maureen Latif on 09-20-2024 Monocytes/100 WBC (Bld) 5.8 % 0-10 [facility] Neutrophil percentageOrdered By: Maureen Latif on 09-20-2024 Neutrophils/100 WBC (Bld) 74.6 % High 47-70 [facility] Nucleated red blood cell per centageOrdered By: Maureen Latif on 09-20-2024 Nucleated RBC/100 WBC (Bld) [Ratio] 0 % 0-5 [facility] Platelet countOrdered By: Jarod Latif on 09-20-2024 Platelets (Bld) [#/Vol] 274 10*3/uL 150-450 [facility] RBC Auto (Bld) [#/Vol]Ordere d By: Maureen Latif on 09-20-2024 RBC (Bld) [#/Vol] 4.04 10*6/uL Low 4.2-5.4 [facility] White blood cell (WBC) count Ordered By: Maureen Latif on 09-20-2024 WBC (Bld) [#/Vol] 9.9 10*3/uL 4.4-11.0 [facility] 36on 09-05-2024 36 S: Patient spoke to CAC nurse regarding FMLA paperwork and CT results B: Onset of symptoms/concerns today A: Patient is calling to ask what e-mail to send her FMLA paperwork to and asking if her CT results came back yet. R: Advised patient that her message about FMLA paperwork went through to the office but they will receive it when they open tomorrow morning. I advised that her results were not finished yet and that I didn't know of an email that she could use. Patient verbalized understanding. Reason for Disposition [1] Caller requesting NON-URGENT health information AND [2] PCP's office is the best resource Protocols used: Information Only Call - [id number] Chest W/WO Contraston CTA Chest W/WO Contrast [facility] Imaging Services [address] [place] [address] CTA Chest W/WO Contrast MR#: [id number] Acct: [id number] Name: CANDICE CARMICHAEL Rep #: [id number] : 1995 F 28 From: Ramiro Art MD PCP: Christina Salter DO Status: REG CLI Study: CTA Chest W/WO Contrast Date of Exam: 09/05/24 Exam# [id number] Ordering Dr: Christina Salter DO PROCEDURE: CTA CHEST W/WO CONTRAST 09/05/2024 REASON FOR EXAM: LEIGH TECHNIQUE: CTA axial imaging of the chest with intravenous contrast. Coronal and Sagittal reconstruction series were provided. 3D, 3D post processing, 3D reconstructions, Maximum intensity projection (MIPs) Volume rendering and Shaded surface rendering was provided. PATIENT PREPARATION: Per protocol CONTRAST: Isovue 370 VOLUME: 100 mL Gauge IV One or more dose reduction techniques were used (e.g., Automated exposure control, adjustment of the mA and/or kV according to patient size, use of iterative reconstruction technique). RADIATION DOSE SUMMARY: DLP: 356 mGycm COMPARISON: None FINDINGS: Lymph nodes: No mediastinal, hilar, or axillary lymphadenopathy. Heart: Normal heart size. No pericardial effusion. RV/LV Diameter Ratio: Subjectively normal. Thoracic Aorta: No thoracic aortic aneurysm or dissection. Pulmonary Vessels: No evidence of acute pulmonary emboli through the major subsegmental branches. Lungs and Airways: The lungs are normally expanded and clear. Pleura: No pleural effusion. No pneumothorax. Upper Abdomen: Visualized portions of the upper abdominal viscera are unremarkable. Bones: Normal thoracic vertebral alignment. CT/CTA Chest W/WO Contrast IMPRESSION: No pulmonary artery filling defect to suggest embolus. No acute abnormal finding in the chest. Reading Location: [facility] CC: Christina Salter DO Recruiting And Selection Consultant: Signed Normal [facility] Laboratory - Chemistry and C hemistry - challengeOrdered By: Xenia Gonzales on 09-05-2024 Glucose Ql (U) Negative [facility] Laboratory - UrinalysisOrder ed By: Xenia Gonzales on 09-05-2024 Protein Ql (U) Negative [facility] Pump Assembler Office Visit Reporton 09-05-2024 Pump Assembler Office Visit Report [address], [address] [place] [address] OFFICE VISIT Date of Service: 09/05/24 MR#: [id number] Acct: [id number] Name: BINJONATHANCANDICESORUAV MACHADO Rep #: [id number] : 1995 Provider: Dr. Janae stout MD Age/Sex: 28/F [place] [facility] Status: Signed Intake Vital Signs 06/26/24 19:30 09/05/24 11:40 Height 5 ft 2 in 5 ft 2 in Weight: 191 lb BMI 34.9 BP 119/84 H Pulse 110 H Intake Visit Reasons: NEW OB 31 WKS *PER Applications Manager Required: No Is patient in pain?: No Allergies Latex, Natural Rubber Allergy (Intermediate, Verified 09/05/24 11:38) Rash Medications ???Medication ???Instructions ???Recorded ???Confirmed ???Type aspirin 81 mg tablet,delayed 81 mg PO QDAY 09/02/24 09/05/24 Hi story release cholecalciferol (vitamin D3) 50 50 mcg PO QDAY 09/02/24 09/05/24 H istory mcg (2,000 unit) capsule choline 250 mg tablet 110 mg PO QDAY 09/02/24 09/05/24 H istory ferrous sulfate 325 mg (65 mg 325 mg PO Q OTHER DAY 09/02/24 History iron) tablet multivit-min no.71-iron fum 28 cap PO 09/02/24 09/05/24 History mg-folate no.1 1 mg-dha 300 mg capsule (PNV-[place]) pyridoxine (vitamin B6) 100 mg 100 mg PO QDAY 09/02/24 09/05/24 H istory tablet zinc acetate 50 mg (zinc) capsule 50 mg PO QDAY 09/02/24 09/05/24 H istory Last Menstrual Period: 01/26/24 Zika: Zika virus screening: Negative : No PFSH PFSH Medical History Vocal cord dysfunction Tipped uterus Surgical History History of appendectomy Family History Grandmother Diabetes Paternal Breast cancer Paternal- age of onset unknown Alzheimer's dementia Maternal Grandfather Cancer, Onset Age: 75 Paternal- Lung Cancer COPD (chronic obstructive pulmonary disease) Paternal Other Sudden cardiac Social History adopted: No household members: significant other housing: house current occupational status: employed 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: No pets and animals: No history of recent travel: Yes ([place]) out of state: Yes out of country: No sexually active: Yes Smoking Status: Never smoker alcohol intake: current alcohol intake frequency: holidays/special occasions only details: Not while substance use type: does not use well-balanced diet: about half the time caffeine: Yes Type: tea Number of servings: 1 eating out: 1-3 times/week during the past year weight has: increased > 10 lbs what type of physical activity do you participate in: none debo/samaritan: Anabaptism seatbelt use: always do you feel safe at home: Yes additional social history: Allison BATRES History 1 Elective abortions Hx Para 0 Spontaneous abortions Hx # Term Pregnancies Ectopic pregnancies Hx # Pregnancies Multiple births # of living children HPI NEW OB 31 WKS *PER SM Details: CANDICE CARMICHAEL is a 28 year old who presents for New OB visit. OB Visit KHLOE Calculator Estimated Delivery Date Method Current WG Current Estimate 11/01/24 LMP (Certain) 32w 0d Comments: HIV: Urine Culture: Sequential Screen: NIPT Screen: Estimated Due Date: 11/01/24 Expected Delivery Route/Plan Labor Preferences- CB/BF classes: [] labor support person: [] labor intervention preferences: [] pain management options preferred: [] cut cord/dad catch: [] : [] PP control planned: [] discussed possible routes of delivery and associated risks: [] special requests: [] Specific Issue/Plans Covid status: [] Flu vaccine: [] Tdap vaccine: [] Rhogam: [] LARC form signed: [] Problem list reviewed and updated with the most current plan of care details and appropriate orders placed. Relevant counseling for the gestational age provided. Continue routine care and follow up unless otherwise noted in visit notes/problem list details Initial Weight: Not Recorded Date -???-???-???-???-???-???- ???-???-???-???-???-???- EGA Weight BP Urine Prot -???-???-???-???-???-???- ???-???-???-???-???-???- Glucose FHR FuHt Pres Dilation -???-???-???-???-???-???- ???-???-???-???-???-???- Effaced St Visit Note 09/05/24 -???-???-???-???-???-???- ???-???-???-???-???-???- 31w 6d 191 lb 119/84 Negative -???-???-???-???-???-???- ???-???-???-???-???-???- Negative 145 31 -???-???-???-???-???-???- ???-???-???-???-???-???- SM- QUENTIN from [facility], co fatigue, some SOB, saw PCP and recommended CT scan, dicsussed bin oviedo (more content not included)... Normal [facility] 08-31-2024 CNPN Telephone (OBGYWM) ----- CANDICE CARMICHAEL ([id number]) 1995 F Date Time Provider Department 08/31/24 YENNIFER COUCH During your visit today, we recorded the following information about you: Magaly Gutierres LPN 08/31/2024 4:15 PM Signed Ob patient is 31w2d called stating that she was at work and was overcome with sudden dizziness and felt weak and warm. Patient left work and is going home to rest. Patient reports that she ate before leaving for work and started taking an iron supplement d/t anemia. 2 weeks ago. Denies fever. Baby has been active today. Patient told to rest, push fluids and to call if any changes. Next ob appointment is 09/07/2024 Yennifer Couch APRN.STEPHANIE 08/31/2024 4:29 PM Signed Agree with plan of care. Add in some electrolytes and increase fluid intake. Yennifer Couch APRN.Xenia Michel RN 08/31/2024 4:35 PM Signed Left message for patient to call office. Xenia Carter RN Allergies As of Date: 08/31/2024 Noted Allergy Reaction LATEX 03/22/2024 2 - Rash Date Reviewed: 08/24/2024 Reviewed by: Zenaida Mitchell APRN.TORPEDOMAN'S MATE - Fully Assessed Reason for Visit: Care [86] Prescriptions as of 09/01/2024 - pyridoxine HCl, vitamin B6, (VITAMIN B-6 ORAL) Take by mouth once daily. - ondansetron (ZOFRAN) 4 mg tablet Take 1 tablet by mouth every 8 hours as needed for nausea/vomiting. - aspirin, enteric coated (ECOTRIN LOW STRENGTH) 81 mg EC tablet Take 1 tablet by mouth once daily. - NO.167-FOLIC ACID-DHA ORAL Take by mouth. Problem List As Of Date 08/31/2024 Noted Resolved POTS (postural orthostatic tachycardia syndrome*03/25/2024 Supervision of high risk in third tri*03/25/2024 Obesity complicating , second trimeste*03/25/2024 Nausea and vomiting during [O21.9] 05/27/2024 Anemia complicating , third trimester *08/12/2024 Encounter Status:Closed by YENNIFER COUCH on 08/31/24 Normal [facility] CBC W Auto Differential pane l (Bld)on 08-10-2024 Basophils (Bld) [#/Vol] 10*3/uL Normal <0.11 [facility] Comment on above: Order Comment: Speci men Type: BLOOD SPECIMEN Ordering Facility: [facility] Address: [address] [place] [address] Performed By: #### 5 7021-8 #### [facility] CLIA [id number] [address] [place] [address] [place] Basophils/100 WBC (Bld) 0.2 % Normal [facility] Comment on above: Order Comment: Speci men Type: BLOOD SPECIMEN Ordering Facility: [facility] Address: [address] [place] [address] Performed By: #### 5 7021-8 #### [facility] CLIA [id number] [address] [place] [address] [place] Differential cell count method Nom (Bld) Auto Normal [facility] Comment on above: Order Comment: Speci men Type: BLOOD SPECIMEN Ordering Facility: [facility] Address: [address] [place] [address] Performed By: #### 5 7021-8 #### [facility] CLIA [id number] [address] [place] [address] [place] Eosinophils (Bld) [#/Vol] 0.06 10*3/uL Normal <0.46 [facility] Comment on above: Order Comment: Speci men Type: BLOOD SPECIMEN Ordering Facility: [facility] Address: [address] [place] [address] Performed By: #### 5 7021-8 #### [facility] CLIA [id number] [address] [place] [address] [place] Eosinophils/100 WBC (Bld) 0.7 % Normal [facility] Comment on above: Order Comment: Speci men Type: BLOOD SPECIMEN Ordering Facility: [facility] Address: [address] [place] [address] Performed By: #### 5 7021-8 #### [facility] CLIA [id number] [address] [place] [address] [place] Erythrocyte distribution width (RBC) [Ratio] 12.6 % Normal 11.5-15.0 [facility] Comment on above: Order Comment: Speci men Type: BLOOD SPECIMEN Ordering Facility: [facility] Address: [address] [place] [address] Performed By: #### 5 7021-8 #### [facility] CLIA [id number] [address] [place] [address] [place] Hematocrit (Bld) [Volume fraction] 30.8 % Low 36.0-46.0 [facility] Comment on above: Order Comment: Speci men Type: BLOOD SPECIMEN Ordering Facility: [facility] Address: [address] [place] [address] Performed By: #### 5 7021-8 #### [facility] CLIA [id number] [address] [place] [address] [place] Hemoglobin (Bld) [Mass/Vol] 10.2 g/dL Low 11.5-15.5 [facility] Comment on above: Order Comment: Speci men Type: BLOOD SPECIMEN Ordering Facility: [facility] Address: [address] [place] [address] Performed By: #### 5 7021-8 #### [facility] CLIA [id number] [address] [place] [address] [place] Immature granulocytes (Bld) [#/Vol] 0.05 10*3/uL Normal <0.10 [facility] Comment on above: Order Comment: Speci men Type: BLOOD SPECIMEN Ordering Facility: [facility] Address: [address] [place] [address] Performed By: #### 5 7021-8 #### [facility] CLIA [id number] [address] [place] [address] [place] Immature granulocytes/100 WBC (Bld) 0.5 % Normal [facility] Comment on above: Order Comment: Speci men Type: BLOOD SPECIMEN Ordering Facility: [facility] Address: [address] [place] [address] Performed By: #### 5 7021-8 #### [facility] CLIA [id number] [address] [place] [address] [place] Lymphocytes (Bld) [#/Vol] 1.54 10*3/uL Normal 1.00-4.00 [facility] Comment on above: Order Comment: Speci men Type: BLOOD SPECIMEN Ordering Facility: [facility] Address: [address] [place] [address] Performed By: #### 5 7021-8 #### [facility] CLIA [id number] [address] [place] [address] [place] Lymphocytes/100 WBC (Bld) 16.8 % Normal [facility] Comment on above: Order Comment: Speci men Type: BLOOD SPECIMEN Ordering Facility: [facility] Address: [address] [place] [address] Performed By: #### 5 7021-8 #### [facility] CLIA [id number] [address] [place] [address] [place] MCH (RBC) [Entitic mass] 28.3 pg Normal 26.0-34.0 [facility] Comment on above: Order Comment: Speci men Type: BLOOD SPECIMEN Ordering Facility: [facility] Address: [address] [place] [address] Performed By: #### 5 7021-8 #### [facility] CLIA [id number] [address] [place] [address] [place] MCHC (RBC) [Mass/Vol] 33.1 g/dL Normal 30.5-36.0 [facility] Comment on above: Order Comment: Speci men Type: BLOOD SPECIMEN Ordering Facility: [facility] Address: [address] [place] [address] Performed By: #### 5 7021-8 #### [facility] CLIA [id number] [address] [place] [address] [place] MCV (RBC) [Entitic vol] 85.3 fL Normal 80.0-100.0 [facility] Comment on above: Order Comment: Speci men Type: BLOOD SPECIMEN Ordering Facility: [facility] Address: [address] [place] [address] Performed By: #### 5 7021-8 #### [facility] CLIA [id number] [address] [place] [address] [place] Monocytes (Bld) [#/Vol] 0.56 10*3/uL Normal <0.87 [facility] Comment on above: Order Comment: Speci men Type: BLOOD SPECIMEN Ordering Facility: [facility] Address: [address] [place] [address] Performed By: #### 5 7021-8 #### [facility] CLIA [id number] [address] [place] [address] [place] Monocytes/100 WBC (Bld) 6.1 % Normal [facility] Comment on above: Order Comment: Speci men Type: BLOOD SPECIMEN Ordering Facility: [facility] Address: [address] [place] [address] Performed By: #### 5 7021-8 #### [facility] CLIA [id number] [address] [place] [address] [place] Neutrophils (Bld) [#/Vol] 6.93 10*3/uL Normal 1.45-7.50 [facility] Comment on above: Order Comment: Speci men Type: BLOOD SPECIMEN Ordering Facility: [facility] Address: [address] [place] [address] Performed By: #### 5 7021-8 #### [facility] CLIA [id number] [address] [place] [address] [place] Neutrophils/100 WBC (Bld) 75.7 % Normal [facility] Comment on above: Order Comment: Speci men Type: BLOOD SPECIMEN Ordering Facility: [facility] Address: [address] [place] [address] Performed By: #### 5 7021-8 #### [facility] CLIA [id number] [address] [place] [address] [place] Nucleated RBC (Bld) [#/Vol] 10*3/uL Normal <0.01 [facility] Comment on above: Order Comment: Speci men Type: BLOOD SPECIMEN Ordering Facility: [facility] Address: [address] [place] [address] Performed By: #### 5 7021-8 #### [facility] CLIA [id number] [address] [place] [address] [place] Nucleated RBC/100 WBC (Bld) [Ratio] 0.0 /100 WBC Normal [facility] Comment on above: Order Comment: Speci men Type: BLOOD SPECIMEN Ordering Facility: [facility] Address: [address] [place] [address] Performed By: #### 5 7021-8 #### [facility] CLIA [id number] [address] [place] [address] [place] Platelet mean volume (Bld) [Entitic vol] 9.7 fL Normal 9.0-12.7 [facility] Comment on above: Order Comment: Speci men Type: BLOOD SPECIMEN Ordering Facility: [facility] Address: [address] [place] [address] Performed By: #### 5 7021-8 #### [facility] CLIA [id number] [address] [place] [address] [place] Platelets (Bld) [#/Vol] 274 10*3/uL Normal 150-400 [facility] Comment on above: Order Comment: Speci men Type: BLOOD SPECIMEN Ordering Facility: [facility] Address: [address] [place] [address] Performed By: #### 5 7021-8 #### [facility] CLIA [id number] [address] [place] [address] [place] RBC (Bld) [#/Vol] 3.61 10*6/uL Low 3.90-5.20 [facility] Comment on above: Order Comment: Speci men Type: BLOOD SPECIMEN Ordering Facility: [facility] Address: [address] [place] [address] Performed By: #### 5 7021-8 #### [facility] CLIA [id number] [address] [place] [address] [place] WBC (Bld) [#/Vol] 9.16 10*3/uL Normal 3.70-11.00 [facility] Comment on above: Order Comment: Speci men Type: BLOOD SPECIMEN Ordering Facility: [facility] Address: [address] [place], [place] [address] Performed By: #### 5 7021-8 #### [facility] DORALIA [id number] [address] [place] [address] [place] GESTATIONAL GLUCOSE SCREEN, 1-HOUR, 50 GRAM, NON-FASTINGon 08-10-2024 Glucose [Mass/Vol] 113 mg/dL Normal 74-134 [facility] Comment on above: Order Comment: Speci men Type: BLOOD SPECIMEN Ordering Facility: [facility] Address: [address] [place], [place] [address] Result Comment: [facility] Congress of Obstetricians and Gynecologists (Zoe/Manohar) guidelines state a gestational diabetes mellitus positive screen is made, in women not previously diagnosed with overt diabetes, when the 1 hr plasma glucose level is equal to or above 140 mg/dL. The [place] [facility] [place] recommends a 135 mg/dL cutoff. Performed By: #### G LTGST #### [facility] CLIA [id number] [address] [place] [address] [place] Reagin and Treponema pallidu m IgG and IgM [Interp]on 08-10-2024 T. pallidum IgG+IgM IA Ql (S) Non-Reactive Normal Nonreactive [facility] Comment on above: Order Comment: Speci men Type: BLOOD SPECIMEN Ordering Facility: [facility] Address: [address] [place] [address] Performed By: #### 7 3752-8 #### [facility] CLIA [id number] [address] [place] [address] [place] Reagin+T pallidum IgG+IgM Se rPl-Impon 08-10-2024 Reagin and Treponema pallidum IgG and IgM [Interp] Cannot exclude recent Treponemal infection if specimen collected within 7-10 days after appearance of suspect lesions or 2-3 weeks after an exposure. Clinical correlation is required. Normal [facility] Comment on above: Order Comment: Speci men Type: BLOOD SPECIMEN Ordering Facility: [facility] Address: [address] [place] [address] Performed By: #### 7 3752-8 #### [facility] CLIA [id number] [address] [place] [address] [place] Bacteria Ur Culton 5 Bacteria identified Cx Nom (U) ORGANISM ID: 1 <10,000 CFU/ml Normal urogenital poli Normal [facility] Comment on above: Performed By: #### G LTGST #### [facility] CLIA [id number] [address] [place] [address] [place] UA DIP, URINE (POC)on 2024 BILIRUBIN UA (POCT) Negative Negative [facility] CLARITY UA (POCT) Clear [facility] COLOR UA (POCT) Yellow [facility] GLUCOSE UA (POCT) Negative Negative mg/dL [facility] Hemoglobin Ql (U) Negative Negative [facility] KETONE UA (POCT) Negative Negative mg/dL [facility] LEUKOCYTES UA (POCT) Negative Negative [facility] NITRITE UA (POCT) Negative Negative [facility] PH UA (POCT) 6 4.5 - 8.0 [facility] Protein Ql (U) Negative Negative mg/dL [facility] SPECIFIC GRAVITY UA (POCT) 1.025 1.005 - 1.030 [facility] UROBILINOGEN UA (POCT) 0.2 Normal E.U./dL [facility] Location:[facility], [address] [facility], [place], [address] [facility] POINT OF CARE [facility] OB Triage Physician Noteon 0 06-30-2024 OB Triage Physician Note [facility] Medical Records Department [address] [address] OB Triage Physician Note 06/30/24 0858 MR#: [id number] Acct: [id number] Name: CANDICE CARMICHAEL Rep #: [id number] : 1995 28 From: Jayne Carmona DO PCP: Status:KRISTA Peralta Location: [facility] HPI - General General Date of Service: 06/26/24 Chief Complaint: fall HPI Narrative CANDICE CARMICHAEL, is a 28 F who presents after a fall on her deck onto her buttock and back. She did not hit her head or abdomen. She has no symptoms. No vb, lof, cramping, pain. Assessment Plan (1) 21 weeks gestation of : (2) Fall: PLAN: Pt fell onto buttock and back on her deck. No trauma to abdomen. Rh positive blood type. She is asymptomatic. RN obtained FHT. D/c home with return precautions. 06/30/24 0903 Date Jayne Carmona DO Cosigner Signature (if applicable): Date CC: Dr. Jayne Carmona DO Signed Normal [facility] Examination level ultrasound on 06-15-2024 Indication Detailed anatomic survey POTS, Maternal obesity, BMI >30 Impression REMOTE READ The patient is referred for a detailed anatomic survey. - Single, live, intrauterine . - biometry is consistent with the established gestational age. - No malformations were visualized on a complete detailed anatomic survey. - The amniotic fluid volume is normal amount. - The placenta is anterior, fundal. - The Transabdominal cervical length measures 34.8 mm with no evidence of funneling or other dynamic changes. - Not all structural malformations can be detected by ultrasound examination. Recommendations Additional follow-up as clinically indicated. Maternal Assessment Height 160 cm Height (ft) 5 ft Height (in) 3 in Physical Exam Initial weight (lb) 174 lb Initial BMI 30.82 kg/m Maternal assessment other: 1 Para 0 Method Transabdominal ultrasound examination. View: Adequate visualization Schaffer . Number of fetuses: 1 Dating LMP on: 01/25/2024 GA by LMP 20 w + 2 d KHLOE by LMP: 10/31/2024 GA by prior assessment 20 w + 2 d KHLOE by prior assessment: 10/31/2024 Ultrasound examination on: 06/15/2024 GA by U/S based upon: AC, BPD, Femur, HC GA by U/S 20 w + 2 d KHLOE by U/S: 10/31/2024 Assigned: based on stated KHLOE, selected on 06/15/2024 Assigned GA 20 w + 2 d Assigned KHLOE: 10/31/2024 General Evaluation Cardiac activity present. FHR 133 bpm. movements: present. Presentation: cephalic Placenta: Placental site: anterior, fundal Umbilical cord: Cord vessels: 3 vessel cord Amniotic fluid: Amount of AF: normal amount. MVP 5.6 cm Growth Overview Exam date GA BPD (mm) HC (mm) AC (mm) FL (mm) HL (mm) EFW (g) 05/27/2024 17w 4d 37 38% 133.6 21% 121.8 58% 22 21% 24.6 63% 183 21% 06/15/2024 20w 2d 47 46% 172.9 36% 148.7 39% 34.5 82% 30 36% 347 47% Biometry Standard BPD 47.0 mm 20w 1d 46% Hadlock OFD 60.7 mm 19w 5d 40% Nicolaides HC 172.9 mm 19w 6d 36% Lawrence Cerebellum tr 20.1 mm 19w 2d 38% Hill Nuchal fold 4.5 mm AC 148.7 mm 20w 1d 39% Hadlock Femur 34.5 mm 21w 0d 82% Lawrence Humerus 30.0 mm 19w 6d 36% Lawrence EFW 347 g 20w 2d 47% Hadlock EFW (lb) 0 lb EFW (oz) 12 oz EFW by: Hadlock (HC-AC-FL) Extended Bagging Salvager 5.4 mm CM 4.3 mm 24% Nicolaides Extremities / Bony Struc FL / HC 0.20 89% Hadlock Other Structures FHR 133 bpm Anatomy Cranium: normal Lateral ventricles: normal Choroid plexus: normal Midline falx: normal Cavum septi pellucidi: normal Cerebellum: normal Cisterna magna: normal Head / Neck Vermis: normal Neck: normal Nuchal fold: normal Lips: normal Profile: normal Nose: normal Face Maxilla: normal Mandible: normal Orbits: normal Lens: normal 4-chamber view: normal RVOT view: normal LVOT view: normal 3-vessel view: normal 5-ojvgju-xjxthac view: normal Heart / Thorax Situs: situs solitus (normal) Aortic arch view: normal SVC: normal IVC: normal Cardiac axis: normal Rt lung: normal Lt lung: normal Diaphragm: normal Cord insertion: normal Stomach: normal Kidneys: normal Bladder: normal Genitals: normal Abdomen Abdom. wall: normal Cervical spine: normal Thoracic spine: normal Lumbar spine: normal Sacral spine: normal Arms: normal Legs: normal Rt upper arm: normal Rt forearm: normal Rt hand: normal Rt fingers: normal Lt upper arm: normal Lt forearm: normal Lt hand: normal Lt fingers: normal Rt upper leg: normal Rt lower leg: normal Rt foot: normal Lt upper leg: normal Lt lower leg: normal Lt foot: normal sex: female Wants to know sex: yes Maternal Structures Uterus / Cervix Uterus: Visualized Cervix: Visualized Approach: Transabdominal Cervical length 34.8 mm Other: Patient declined transvaginal ultrasound for cervical length. Ovaries / Tubes / Adnexa Rt ovary: Visualized Lt ovary: Visualized Performed By: Candi Wild RDMS, RVT Read By: Daija Ware M.D. MATERNAL MEDICINE [facility] Radiology Study observation (narrative) [facility] CBC panel Auto (Bld)on 05-27 Erythrocyte distribution width (RBC) [Ratio] 12.2 % 11.5 - 15.0 % [facility] Hematocrit (Bld) [Volume fraction] 33.5 % Low 36.0 - 46.0 % [facility] Hemoglobin (Bld) [Mass/Vol] 11.3 g/dL Low 11.5 - 15.5 g/dL [facility] Interpretation and review of laboratory results Abnormal [facility] MCH (RBC) [Entitic mass] 28.4 pg 26.0 - 34.0 pg [facility] MCHC (RBC) [Mass/Vol] 33.7 g/dL 30.5 - 36.0 g/dL [facility] MCV (RBC) [Entitic vol] 84.2 fL 80.0 - 100.0 fL [facility] Nucleated RBC (Bld) [#/Vol] NINF [facility] Platelet mean volume (Bld) [Entitic vol] 9.2 fL 9.0 - 12.7 fL [facility] Platelets (Bld) [#/Vol] 252 10*3/uL [facility] RBC (Bld) [#/Vol] 3.98 10*6/uL 3.90 - 5.2 0 m/uL [facility] WBC (Bld) [#/Vol] 10.05 10*3/uL [facility] Erythrocyte distribution width (RBC) [Ratio] 12.2 % Normal 11.5-15.0 [facility] Comment on above: Order Comment: Speci men Type: BLOOD SPECIMEN Ordering Facility: [facility] Address: [address] [place] [address] Performed By: #### 5 8410-2 #### [facility] DORALIA [id number] [address] [place] [address] [place] Hematocrit (Bld) [Volume fraction] 33.5 % Low 36.0-46.0 [facility] Comment on above: Order Comment: Speci men Type: BLOOD SPECIMEN Ordering Facility: [facility] Address: [address] [place] [address] Performed By: #### 5 8410-2 #### [facility] CLIA [id number] [address] [place] [address] [place] Hemoglobin (Bld) [Mass/Vol] 11.3 g/dL Low 11.5-15.5 [facility] Comment on above: Order Comment: Speci men Type: BLOOD SPECIMEN Ordering Facility: [facility] Address: [address] [place] [address] Performed By: #### 5 8410-2 #### [facility] CLIA [id number] [address] [place] [address] [place] MCH (RBC) [Entitic mass] 28.4 pg Normal 26.0-34.0 [facility] Comment on above: Order Comment: Speci men Type: BLOOD SPECIMEN Ordering Facility: [facility] Address: [address] [place] [address] Performed By: #### 5 8410-2 #### [facility] CLIA [id number] [address] [place] [address] [place] MCHC (RBC) [Mass/Vol] 33.7 g/dL Normal 30.5-36.0 [facility] Comment on above: Order Comment: Speci men Type: BLOOD SPECIMEN Ordering Facility: [facility] Address: [address] [place] [address] Performed By: #### 5 8410-2 #### [facility] CLIA [id number] [address] [place] [address] [place] MCV (RBC) [Entitic vol] 84.2 fL Normal 80.0-100.0 [facility] Comment on above: Order Comment: Speci men Type: BLOOD SPECIMEN Ordering Facility: [facility] Address: [address] [place] [address] Performed By: #### 5 8410-2 #### [facility] CLIA [id number] [address] [place] [address] [place] Nucleated RBC (Bld) [#/Vol] 10*3/uL Normal <0.01 [facility] Comment on above: Order Comment: Speci men Type: BLOOD SPECIMEN Ordering Facility: [facility] Address: [address] [place] [address] Performed By: #### 5 8410-2 #### [facility] CLIA [id number] [address] [place] [address] [place] Platelet mean volume (Bld) [Entitic vol] 9.2 fL Normal 9.0-12.7 [facility] Comment on above: Order Comment: Speci men Type: BLOOD SPECIMEN Ordering Facility: [facility] Address: [address] [place] [address] Performed By: #### 5 8410-2 #### [facility] CLIA [id number] [address] [place] [address] [place] Platelets (Bld) [#/Vol] 252 10*3/uL Normal 150-400 [facility] Comment on above: Order Comment: Speci men Type: BLOOD SPECIMEN Ordering Facility: [facility] Address: [address] [place] [address] Performed By: #### 5 8410-2 #### [facility] CLIA [id number] [address] [place] [address] [place] RBC (Bld) [#/Vol] 3.98 10*6/uL Normal 3.90-5.20 [facility] Comment on above: Order Comment: Speci men Type: BLOOD SPECIMEN Ordering Facility: [facility] Address: [address] [place] [address] Performed By: #### 5 8410-2 #### [facility] CLIA [id number] [address] [place] [address] [place] WBC (Bld) [#/Vol] 10.05 10*3/uL Normal 3.70-11.00 [facility] Comment on above: Order Comment: Speci men Type: BLOOD SPECIMEN Ordering Facility: [facility] Address: [address] [place] [address] [place] [address] Performed By: #### 5 8410-2 #### [facility] GERMAN [id number] [address] [place], [place] [id number] [place] nuchal translucency me asured by on 05-27-2024 Indication Early anatomic survey POTS, Maternal obesity, BMI >30 Impression REMOTE READ: Patient presents for an early anatomic survey in a complicated by class 1 obesity (BMI 31). Aneuploidy screening was declined. - Single, live, intrauterine . - biometry is consistent with the established gestational age. - Isolated bilateral choroid plexus cysts were visualized. - Otherwise no malformations were visualized on an early anatomic assessment, although some anatomical structures were suboptimally seen as detailed below. - The amniotic fluid volume is normal amount. - The placenta is anterior, fundal. - Not all structural malformations can be detected by ultrasound examination. BRIEF MFM CONSULT (with focal record review): The patient was counseled regarding the sonographic findings and the potential for non-visualized malformations. We reviewed the association of choroid plexus cysts with aneuploidy (Trisomy 18). We also reviewed that choroid plexus cysts, when found in isolation and in conjunction with risk-reducing genetic screening, are considered normal variants. The availability of genetic screening (NIPS) and diagnostic genetic testing (amniocentesis) were reviewed. We discussed the risks/benefits of genetic screening and diagnostic genetic testing and reviewed the limitations of genetic evaluation. With discussion today, she is considering genetic screening and will contact us if she would like to have screening ordered. Repeat sonographic assessment is recommended in 4 weeks for a detailed anatomic survey. All questions were addressed. Thank you for the referral. Recommendations As above Maternal Assessment Height 160 cm Height (ft) 5 ft Height (in) 3 in Physical Exam Initial weight (lb) 174 lb Initial BMI 30.82 kg/m Maternal assessment other: 1 Para 0 Method Transabdominal ultrasound examination. View: Suboptimal view: limited by early gestational age and position Schaffer . Number of fetuses: 1 Dating LMP on: 01/25/2024 GA by LMP 17 w + 4 d KHLOE by LMP: 10/31/2024 GA by prior assessment 17 w + 4 d KHLOE by prior assessment: 10/31/2024 Ultrasound examination on: 05/27/2024 GA by U/S based upon: AC, BPD, Femur, HC GA by U/S 17 w + 1 d KHLOE by U/S: 11/03/2024 Assigned: based on stated KHLOE, selected on 05/27/2024 Assigned GA 17 w + 4 d Assigned KHLOE: 10/31/2024 General Evaluation Cardiac activity present. FHR 151 bpm. movements: present. Presentation: breech Placenta: Placental site: anterior, fundal Umbilical cord: Cord vessels: 3 vessel cord Amniotic fluid: Amount of AF: normal amount. MVP 4.2 cm Biometry Standard BPD 37.0 mm 17w 2d 38% Hadlock OFD 46.8 mm 16w 1d 8% Nicolaides HC 133.6 mm 16w 4d 21% Lawrence AC 121.8 mm 17w 6d 58% Hadlock Femur 22.0 mm 16w 4d 21% Lawrence Humerus 24.6 mm 17w 5d 63% Lawrence EFW 183 g 17w 0d 21% Hadlock EFW (lb) 0 lb EFW (oz) 6 oz EFW by: Hadlock (HC-AC-FL) Extended Bagging Salvager 6.6 mm Extremities / Bony Struc FL / HC 0.16 11% Hadlock Other Structures FHR 151 bpm Anatomy Cranium: normal Lateral ventricles: normal Choroid plexus: abnormal Midline falx: normal Cerebellum: normal Cisterna magna: normal Head / Neck Rt choroid plexus: abnormal Rt choroid plexus: cyst Lt choroid plexus: abnormal Lt choroid plexus: cyst Lips: normal Profile: normal 4-chamber view: suboptimally visualized RVOT view: suboptimally visualized LVOT view: normal 3-vessel view: normal 6-mxmqxf-xjtxsaq view: normal Heart / Thorax Situs: situs solitus (normal) Diaphragm: suboptimal Cord insertion: normal Stomach: normal Kidneys: normal Bladder: normal Cervical spine: normal Thoracic spine: normal Lumbar spine: normal Sacral spine: normal Arms: normal Legs: normal Rt upper arm: normal Rt forearm: normal Rt hand: normal Lt upper arm: normal Lt forearm: normal Lt hand: normal Rt upper leg: normal Rt lower leg: normal Rt foot: normal Lt upper leg: normal Lt lower leg: normal Lt foot: normal Maternal Structures Uterus / Cervix Uterus: Visualized Cervix: Visualized Approach: Transabdominal Cervical length 34.0 mm Ovaries / Tubes / Adnexa Rt ovary: Visualized Lt ovary: Visualized Performed By: Candi Wild, JOSIAH, RVT Read By: Camilo Fraga M.D. MATERNAL MEDICINE [facility] Radiology Study observation (narrative) [facility] CBC W Auto Differential pane l (Bld)on 04-26-2024 Basophils (Bld) [#/Vol] 0.03 10*3/uL Normal <0.11 [facility] Comment on above: Order Comment: Speci men Type: BLOOD SPECIMEN Ordering Facility: [facility] Address: [address] [place] [address] Performed By: #### 5 7021-8 #### [facility] CLIA [id number] [address] [place] [address] [place] Basophils/100 WBC (Bld) 0.4 % Normal [facility] Comment on above: Order Comment: Speci men Type: BLOOD SPECIMEN Ordering Facility: [facility] Address: [address] [place] [address] Performed By: #### 5 7021-8 #### [facility] CLIA [id number] [address] [place] [address] [place] Differential cell count method Nom (Bld) Auto Normal [facility] Comment on above: Order Comment: Speci men Type: BLOOD SPECIMEN Ordering Facility: [facility] Address: [address] [place] [address] Performed By: #### 5 7021-8 #### [facility] CLIA [id number] [address] [place] [address] [place] Eosinophils (Bld) [#/Vol] 0.09 10*3/uL Normal <0.46 [facility] Comment on above: Order Comment: Speci men Type: BLOOD SPECIMEN Ordering Facility: [facility] Address: [address] [place] [address] Performed By: #### 5 7021-8 #### [facility] CLIA [id number] [address] [place] [address] [place] Eosinophils/100 WBC (Bld) 1.1 % Normal [facility] Comment on above: Order Comment: Speci men Type: BLOOD SPECIMEN Ordering Facility: [facility] Address: [address] [place] [address] Performed By: #### 5 7021-8 #### [facility] CLIA [id number] [address] [place] [address] [place] Erythrocyte distribution width (RBC) [Ratio] 12.0 % Normal 11.5-15.0 [facility] Comment on above: Order Comment: Speci men Type: BLOOD SPECIMEN Ordering Facility: [facility] Address: [address] [place] [address] Performed By: #### 5 7021-8 #### [facility] CLIA [id number] [address] [place] [address] [place] Hematocrit (Bld) [Volume fraction] 34.4 % Low 36.0-46.0 [facility] Comment on above: Order Comment: Speci men Type: BLOOD SPECIMEN Ordering Facility: [facility] Address: [address] [place] [address] Performed By: #### 5 7021-8 #### [facility] CLIA [id number] [address] [place] [address] [place] Hemoglobin (Bld) [Mass/Vol] 11.5 g/dL Normal 11.5-15.5 [facility] Comment on above: Order Comment: Speci men Type: BLOOD SPECIMEN Ordering Facility: [facility] Address: [address] [place] [address] Performed By: #### 5 7021-8 #### [facility] CLIA [id number] [address] [place] [address] [place] Immature granulocytes (Bld) [#/Vol] 0.03 10*3/uL Normal <0.10 [facility] Comment on above: Order Comment: Speci men Type: BLOOD SPECIMEN Ordering Facility: [facility] Address: [address] [place] [address] Performed By: #### 5 7021-8 #### [facility] CLIA [id number] [address] [place] [address] [place] Immature granulocytes/100 WBC (Bld) 0.4 % Normal [facility] Comment on above: Order Comment: Speci men Type: BLOOD SPECIMEN Ordering Facility: [facility] Address: [address] [place] [address] Performed By: #### 5 7021-8 #### [facility] CLIA [id number] [address] [place] [address] [place] Lymphocytes (Bld) [#/Vol] 1.99 10*3/uL Normal 1.00-4.00 [facility] Comment on above: Order Comment: Speci men Type: BLOOD SPECIMEN Ordering Facility: [facility] Address: [address] [place] [address] Performed By: #### 5 7021-8 #### [facility] CLIA [id number] [address] [place] [address] [place] Lymphocytes/100 WBC (Bld) 23.4 % Normal [facility] Comment on above: Order Comment: Speci men Type: BLOOD SPECIMEN Ordering Facility: [facility] Address: [address] [place] [address] Performed By: #### 5 7021-8 #### [facility] CLIA [id number] [address] [place] [address] [place] MCH (RBC) [Entitic mass] 28.0 pg Normal 26.0-34.0 [facility] Comment on above: Order Comment: Speci men Type: BLOOD SPECIMEN Ordering Facility: [facility] Address: [address] [place] [address] Performed By: #### 5 7021-8 #### [facility] CLIA [id number] [address] [place] [address] [place] MCHC (RBC) [Mass/Vol] 33.4 g/dL Normal 30.5-36.0 [facility] Comment on above: Order Comment: Speci men Type: BLOOD SPECIMEN Ordering Facility: [facility] Address: [address] [place] [address] Performed By: #### 5 7021-8 #### [facility] CLIA [id number] [address] [place] [address] [place] MCV (RBC) [Entitic vol] 83.9 fL Normal 80.0-100.0 [facility] Comment on above: Order Comment: Speci men Type: BLOOD SPECIMEN Ordering Facility: [facility] Address: [address] [place] [address] Performed By: #### 5 7021-8 #### [facility] CLIA [id number] [address] [place] [address] [place] Monocytes (Bld) [#/Vol] 0.48 10*3/uL Normal <0.87 [facility] Comment on above: Order Comment: Speci men Type: BLOOD SPECIMEN Ordering Facility: [facility] Address: [address] [place] [address] Performed By: #### 5 7021-8 #### [facility] CLIA [id number] [address] [place] [address] [place] Monocytes/100 WBC (Bld) 5.6 % Normal [facility] Comment on above: Order Comment: Speci men Type: BLOOD SPECIMEN Ordering Facility: [facility] Address: [address] [place] [address] Performed By: #### 5 7021-8 #### [facility] CLIA [id number] [address] [place] [address] [place] Neutrophils (Bld) [#/Vol] 5.88 10*3/uL Normal 1.45-7.50 [facility] Comment on above: Order Comment: Speci men Type: BLOOD SPECIMEN Ordering Facility: [facility] Address: [address] [place] [address] Performed By: #### 5 7021-8 #### [facility] CLIA [id number] [address] [place] [address] [place] Neutrophils/100 WBC (Bld) 69.1 % Normal [facility] Comment on above: Order Comment: Speci men Type: BLOOD SPECIMEN [facility] [facility] Address: [address] [place] [address] Performed By: #### 5 7021-8 #### [facility] CLIA [id number] [address] [place] [address] [place] Nucleated RBC (Bld) [#/Vol] 10*3/uL Normal <0.01 [facility] Comment on above: Order Comment: Speci men Type: BLOOD SPECIMEN Ordering Facility: [facility] Address: [address] [place] [address] Performed By: #### 5 7021-8 #### [facility] CLIA [id number] [address] [place] [address] [place] Nucleated RBC/100 WBC (Bld) [Ratio] 0.0 /100 WBC Normal [facility] Comment on above: Order Comment: Speci men Type: BLOOD SPECIMEN Ordering Facility: [facility] Address: [address] [place] [address] Performed By: #### 5 7021-8 #### [facility] CLIA [id number] [address] [place] [address] [place] Platelet mean volume (Bld) [Entitic vol] 9.5 fL Normal 9.0-12.7 [facility] Comment on above: Order Comment: Speci men Type: BLOOD SPECIMEN Ordering Facility: [facility] Address: [address] [place] [address] Performed By: #### 5 7021-8 #### [facility] CLIA [id number] [address] [place] [address] [place] Platelets (Bld) [#/Vol] 251 10*3/uL Normal 150-400 [facility] Comment on above: Order Comment: Speci men Type: BLOOD SPECIMEN Ordering Facility: [facility] Address: [address] [place] [address] Performed By: #### 5 7021-8 #### [facility] CLIA [id number] [address] [place] [address] [place] RBC (Bld) [#/Vol] 4.10 10*6/uL Normal 3.90-5.20 [facility] Comment on above: Order Comment: Speci men Type: BLOOD SPECIMEN Ordering Facility: [facility] Address: [address] [place] [address] Performed By: #### 5 7021-8 #### [facility] CLIA [id number] [address] [place] [address] [place] WBC (Bld) [#/Vol] 8.50 10*3/uL Normal 3.70-11.00 [facility] Comment on above: Order Comment: Speci men Type: BLOOD SPECIMEN Ordering Facility: [facility] Address: [address] [place] [address] Performed By: #### 5 7021-8 #### [facility] CLIA [id number] [address] [place] [address] [place] HBV surface Ag Ser Qlon 12-0 HBV surface Ag Ql (S) Negative Normal Negative [facility] Comment on above: Order Comment: Speci men Type: BLOOD SPECIMEN Ordering Facility: [facility] Address: [address] [place] [address] Performed By: #### 7 3752-8, 62819-8, 5195-3 #### [facility] CLIA [id number] [address] [place] [address] [place] HCV Ab Ser Qlon 04-26-2024 HCV Ab Ql (S) Negative Normal Negative [facility] Comment on above: Order Comment: Speci men Type: BLOOD SPECIMEN Ordering Facility: [facility] Address: [address] [place] [address] Result Comment: The result suggests no evidence of active infection with Hepatitis C virus. Should recent infection be suspected, repeat testing may be considered 4-6 weeks after this draw. Performed By: #### 1 6128-1 #### [facility] CLIA [id number] [address] [place] [address] [place] HIV 1+2 Ab IA Qlon HIV 1 and 2 Ab IA.rapid Nom (S/P/Bld) Normal [facility] Comment on above: Order Comment: Speci men Type: BLOOD SPECIMEN Ordering Facility: [facility] Address: [address] [place] [address] Result Comment: Test not indicated. Performed By: #### 7 3752-8, 62387-1, 5195-3 #### [facility] CLIA [id number] [address] [place] [address] [place] HIV 1+2 Ab+HIV1 p24 Ag IA Ql Non-Reactive Normal Nonreactive [facility] Comment on above: Order Comment: Speci men Type: BLOOD SPECIMEN Ordering Facility: [facility] Address: [address] [place] [address] Performed By: #### 7 3752-8, 42992-4, 5195-3 #### [facility] CLIA [id number] [address] [place] [address] [place] HIV immunoassay testing algorithm interpretation (S/P/Bld) [Interp] Normal [facility] Comment on above: Order Comment: Speci men Type: BLOOD SPECIMEN Ordering Facility: [facility] Address: [address] [place] [address] Result Comment: No e vidence of HIV-1 or HIV-2 infection. Should recent infection be suspected, repeat testing may be considered 2-3 weeks after this draw. [place] Rev. Code 3701.243(E): This information has been disclosed to you from confidential records protected from disclosure by state law. ???You shall make no further disclosure of this information without the specific, written, and informed release of the individual to whom it pertains or as otherwise permitted by state law. A general authorization for the release of medical or other information is not sufficient for the purpose of the release of HIV test results or diagnoses. Performed By: #### 7 3752-8, 73474-0, 5195-3 #### [facility] CLIA [id number] [address] [place] [address] [place] HbA1c (Bld)on 04-26-2024 Average glucose Estimated from glycated hemoglobin (Bld) [Mass/Vol] 94 mg/dL Normal [facility] Comment on above: Order Comment: [facility] Type: BLOOD SPECIMEN Ordering Facility: [facility] Address: [address] [place] [address] Result Comment: eAG: (Estimated average glucose) is a calculated value from HgbA1c and is home office representative of the average blood glucose level in the last 2-3 month period. Performed By: #### G LTGST #### [facility] [id number] [address] [place] [address] [place] HbA1c (Bld) [Mass fraction] 4.9 % Normal 4.3-5.6 [facility] Comment on above: Order Comment: [facility] Type: BLOOD SPECIMEN Ordering Facility: [facility] Address: [address] [place] [address] Result Comment: [place] Diabetes Association guidelines indicate that patients with HgbA1c in the range 5.7-6.4% are at increased risk for development of diabetes, and intervention by lifestyle modification may be beneficial. HgbA1c greater or equal to 6.5% is considered diagnostic of diabetes. Performed By: #### G LTGST #### [facility] [id number] [address] [place] [address] [place] Iron and Iron binding capaci ty panelon 04-26-2024 Iron [Mass/Vol] 67 ug/dL Normal 41-186 [facility] Comment on above: Order Comment: Speci men Type: BLOOD SPECIMEN Ordering Facility: [facility] Address: [address] [place] [address] Performed By: #### 5 0190-8 #### [facility] CLIA [id number] [address] [place] [address] [place] Iron binding capacity [Mass/Vol] 327 ug/dL Normal 232-386 [facility] Comment on above: Order Comment: Speci men Type: BLOOD SPECIMEN Ordering Facility: [facility] Address: [address] [place] [address] Performed By: #### 5 0190-8 #### [facility] CLIA [id number] [address] [place] [address] [place] Iron/TIBC [Molar ratio] 20.5 % Normal 15.0-57.0 [facility] Comment on above: Order Comment: Speci men Type: BLOOD SPECIMEN Ordering Facility: [facility] Address: [address] [place] [address] Performed By: #### 5 0190-8 #### [facility] CLIA [id number] [address] [place] [address] [place] RUBELLA IGG ANTIBODYon 04-26 RUBELLA IGG AB, QUAL Positive Normal Positive [facility] Comment on above: Order Comment: Speci men Type: BLOOD SPECIMEN Ordering Facility: [facility] Address: [address] [place] [address] Result Comment: The result suggests recent or past exposure to Rubella virus or history of Rubella vaccination. Positive result may also be seen due to presence of passively-transferred antibodies. Please correlate with patient's history. Performed By: #### G LTGST #### [facility] CLIA [id number] [address] [place] [address] [place] Reagin and Treponema pallidu m IgG and IgM [Interp]on 04-26-2024 T. pallidum IgG+IgM IA Ql (S) Non-Reactive Normal Nonreactive [facility] Comment on above: Order Comment: Speci men Type: BLOOD SPECIMEN Ordering Facility: [facility] Address: [address] [place] [address] Performed By: #### 7 3752-8, 42009-6, 5195-3 #### [facility] CLIA [id number] [address] [place] [address] [place] Reagin+T pallidum IgG+IgM Se rPl-Impon 04-26-2024 Reagin and Treponema pallidum IgG and IgM [Interp] Cannot exclude recent Treponemal infection if specimen collected within 7-10 days after appearance of suspect lesions or 2-3 weeks after an exposure. Clinical correlation is required. Normal [facility] Comment on above: Order Comment: Speci men Type: BLOOD SPECIMEN Ordering Facility: [facility] Address: [address] [place] [address] Performed By: #### 7 3752-8, 77743-7, 5195-3 #### [facility] CLIA [id number] [address] [place] [address] [place] TYPE + SCREEN PRENATALon ABO A Normal [facility] Comment on above: Order Comment: Speci men Type: BLOOD SPECIMEN Ordering Facility: [facility] Address: [address] [place] [address] Performed By: #### G LTGST #### [facility] CLIA [id number] [address] [place] [address] [place] Rh Nom (Bld) Positive Normal [facility] Comment on above: Order Comment: Speci men Type: BLOOD SPECIMEN Ordering Facility: [facility] Address: [address] [place] [address] Performed By: #### G LTGST #### [facility] CLIA [id number] [address] [place] [address] [place] TYPE AND SCREEN EXPIRATION 04/29/2024 23:59 Normal [facility] Comment on above: Order Comment: Speci men Type: BLOOD SPECIMEN Ordering Facility: [facility] Address: [address] [place] [address] Performed By: #### G LTGST #### [facility] CLIA [id number] [address] [place] [address] [place] Bacteria Ur Culton 4 Bacteria identified Cx Nom (U) ORGANISM ID: 1 <10,000 CFU/ml Normal urogenital poli Normal [facility] Comment on above: Performed By: #### G LTGST #### [facility] CLIA [id number] [address] [place] [address] [place] C. trachomatis+N. gonorrhoea e DNA MICHAEL+probe Ql (Unsp spec)on 03-25-2024 C. trachomatis rRNA MICHAEL+probe Ql (Unsp spec) Negative Normal Negative for Chlamydia trachomatis by amplificaton [facility] Comment on above: Order Comment: Speci men Type: BLOOD SPECIMEN Ordering Facility: [facility] Address: [address] [place] [address] Performed By: #### G LTGST #### [facility] CLIA [id number] [address] [place] [address] N. gonorrhoeae rRNA MICHAEL+probe Ql (Unsp spec) Negative Normal Negative for Neisseria gonorrhoeae by amplification [facility] Comment on above: Order Comment: Speci men Type: BLOOD SPECIMEN Ordering Facility: [facility] Address: [address] [place] [address] Performed By: #### G LTGST #### [facility] CLIA [id number] [address] [place] [address] [place] [facility] FARMWORK[employer] BULBS ULTRASOUNDon 03-25-20 Indication Confirmation of intrauterine . Confirmation of cardiac activity Impression CRL is appropriate for clinical dates, corresponding to KHLOE 10/31/24 cardiac activity is visualized Recommendations Follow up for NT scan if desired Method Transabdominal and transvaginal ultrasound examination. View: Adequate visualization Schaffer . Number of embryos: 1 Dating LMP on: 01/25/2024 GA by LMP 8 w + 4 d KHLOE by LMP: 10/31/2024 Ultrasound examination on: 03/25/2024 GA by U/S based upon: CRL GA by U/S 7 w + 5 d KHLOE by U/S: 11/06/2024 Assigned: based on the LMP, selected on 03/25/2024 Assigned GA 8 w + 4 d Assigned KHLOE: 10/31/2024 Biometry Standard FHR 161 bpm CRL 13.9 mm 7w 5d <1% Hadlock Assessment Gestational sac: visualized Location: intrauterine Yolk sac: visualized Embryo: visualized CRL 13.9 mm 7w 5d <1% Hadlock Cardiac activity: present FHR 161 bpm General Evaluation Cardiac activity present. FHR 161 bpm Performed By: Citlali Bauer CNP Read By: Citlali Bauer CNP MATERNAL MEDICINE [facility] Radiology Study observation (narrative) [facility] Calli 03-22-2024 MICHELLE Telephone (JUSTINGYWJodi) ----- CANDICE CARMICHAEL ([id number]) 1995 F Date Time Provider Department 03/22/24 MARLEY RIGGS During your visit today, we recorded the following information about you: Apple Nails LPN 03/22/2024 3:17 PM Signed Phone call placed brief message to contact a nurse. When patient returns call, inquire interest in Centering classes. JONATHAN Mckeon Jennifer, RN 03/22/2024 3:34 PM Signed Patient called back. States she just learned about Centering this afternoon with her PNOB. Needs to discuss with her . Her initial NOB is on Thursday. Can discuss more at that time. Xenia Carter RN Allergies As of Date: 03/22/2024 Noted Allergy Reaction LATEX 03/22/2024 2 - Rash Date Reviewed: 12/10/2017 Reviewed by: Stephanie Osoiro (Rn), RN - Fully Assessed Reason for Visit: Patient Update [1234] Prescriptions as of 03/22/2024 - NO.167-FOLIC ACID-DHA ORAL Take by mouth. - norethindrone-e.estradiol -iron (BLISOVI 24 FE ORAL) Take by mouth. Problem List As Of Date: 03/22/2024 (None) Encounter Status:Closed by XENIA CARTER on 03/22/24 Normal [facility] CT Abdomen w/ + w/o Contrast on 11-19-2021 CT Abdomen w/ + w/o Contrast Patient Name: CANDICE CARMICHAEL Computed Tomography ACCESSION EXAM DATE/TIME PROCEDURE ORDERING PROVIDER [id number] 11/19/2021 09:[address] Abdomen w/ + w/o DO SALTER HANNAH L Contrast CPT code 37764 Q9967 Reason For Exam (CT Abdomen w/ + w/o Contrast) renal lesion Report CT ABDOMEN WITHOUT AND WITH CONTRAST CLINICAL INDICATION: renal lesion TECHNIQUE: CT scan of the abdomen, without and with IV contrast. Multiplanar reformations. COMPARISON: Ultrasound abdomen, October,. FINDINGS: Abdomen: Visualized lung bases grossly unremarkable. No radiopaque gallstones. Liver without significant abnormality. Spleen without significant abnormality. Pancreas without significant abnormality. Kidneys without significant abnormality. Specifically, subcentimeter hyperechoic focus noted in left kidney on comparison study not visualized. Adrenal glands without significant abnormality. Visualized bowel grossly unremarkable. Appendix surgically absent. No significant, free peritoneal fluid or apparent adenopathy. Abdominal aorta is nonaneurysmal. Axial skeleton grossly intact. IMPRESSION: 1. No acute findings. Computed Tomography Report Report Dictated on Workstation: LAURA Final Dictating Physician: MD GARDNER WENDELL Signed Date and Time: 11/20/2021 1:42 pm Signed by: MD GARDNER WENDELL Transcribed Date and Time: 11/20/2021 1:43 [facility] US ABDOMEN COMPLETEon 2021 [id number] Ul[facility]ound ACCESSION EXAM DATE/TIME PROCEDURE ORDERING PROVIDER [id number] 11/06/2021 11:17 EDT US Abdomen Complete DO SALTER HANNAH L CPT code 49808 Reason For Exam (US Abdomen Complete) abdominal pain Report ULTRASOUND ABDOMEN COMPLETE EXAM DATE AND TIME: 11/06/2021 11:17 AM EDT INDICATION: 25 years Female with abdominal pain COMPARISON: None TECHNIQUE: Complete ultrasound of abdomen FINDINGS: Pancreas: The visualized portions of the pancreatic head and body are unremarkable. The remainder of the pancreas is obscured by bowel gas Liver: Normal echogenicity, size and contours. No focal lesion identified. Gallbladder: Normal. Per the senior nuclear medicine technologist, the sonographic Gloria's sign was negative. Bile ducts: No intrahepatic and extrahepatic biliary dilatation Common bile duct: 3 mm Right kidney: Normal size measuring 11.9 cm. Normal parenchymal echogenicity without solid mass or hydronephrosis. Left kidney: Normal size measuring 12.1 cm. Normal echogenicity. No hydronephrosis. Round echogenic lesion measuring 0.8 x 0.8 x 0.8 cm. Spleen: Normal size measuring 9.8 x 5.4 x 8.7 cm. Normal echogenicity without a lesion. Aorta and Inferior vena cava: Visualized portions are normal Ascites: None IMPRESSION: 1. No acute process. 2. 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 Ultrasound Report Report Dictated on --- Final --- Dictating Physician: MD MILLARD NICHOLAS Signed Date and Time: 11/06/2021 11:43 am Signed by: MD MILLARD NICHOLAS Transcribed Date and Time: 11/06/2021 11:44 [facility] Oliver Millard MD - 11/06/2021 Patient Name: CANDICE CARMICHAEL Ultrasound ACCESSION EXAM DATE/TIME PROCEDURE ORDERING PROVIDER [id number] 11/06/2021 11:17 EDT US Abdomen Complete DO SALTER HANNAH L CPT code 50903 Reason For Exam (US Abdomen Complete) abdominal pain Report ULTRASOUND ABDOMEN COMPLETE EXAM DATE AND TIME: 11/06/2021 11:17 AM EDT INDICATION: 25 years Female with abdominal pain COMPARISON: None TECHNIQUE: Complete ultrasound of abdomen FINDINGS: Pancreas: The visualized portions of the pancreatic head and body are unremarkable. The remainder of the pancreas is obscured by bowel gas Liver: Normal echogenicity, size and contours. No focal lesion identified. Gallbladder: Normal. Per the senior nuclear medicine technologist, the sonographic Gloria's sign was negative. Bile ducts: No intrahepatic and extrahepatic biliary dilatation Common bile duct: 3 mm Right kidney: Normal size measuring 11.9 cm. Normal parenchymal echogenicity without solid mass or hydronephrosis. Left kidney: Normal size measuring 12.1 cm. Normal echogenicity. No hydronephrosis. Round echogenic lesion measuring 0.8 x 0.8 x 0.8 cm. Spleen: Normal size measuring 9.8 x 5.4 x 8.7 cm. Normal echogenicity without a lesion. Aorta and Inferior vena cava: Visualized portions are normal Ascites: None IMPRESSION: 1. No acute process. 2. 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 Ultrasound Report Report Dictated on --- Final --- Dictating Physician: MD MILLARD NICHOLAS Signed Date and Time: 11/06/2021 11:43 am Signed by: MD MILLARD NICHOLAS Transcribed Date and Time: 11/06/2021 11:44 [facility] Work Phone: Radiology Study observation (narrative) [facility] Work Phone: US ABDOMEN COMPLETEOrdered B y: Oliver Millard on 11-06-2021 [facility] Work Phone: US Abdomen Completeon 2021 US Abdomen Complete Patient Name: CANDICE AUGUSTIN Ultrasound ACCESSION EXAM DATE/TIME PROCEDURE ORDERING PROVIDER [id number] 11/06/2021 11:17 EDT US Abdomen Complete DO SALTER HANNAH L CPT code 30531 Reason For Exam (US Abdomen Complete) abdominal pain Report ULTRASOUND ABDOMEN COMPLETE EXAM DATE AND TIME: 11/06/2021 11:17 AM EDT INDICATION: 25 years Female with abdominal pain COMPARISON: None TECHNIQUE: Complete ultrasound of abdomen FINDINGS: Pancreas: The visualized portions of the pancreatic head and body are unremarkable. The remainder of the pancreas is obscured by bowel gas Liver: Normal echogenicity, size and contours. No focal lesion identified. Gallbladder: Normal. Per the senior nuclear medicine technologist, the sonographic Gloria's sign was negative. Bile ducts: No intrahepatic and extrahepatic biliary dilatation Common bile duct: 3 mm Right kidney: Normal size measuring 11.9 cm. Normal parenchymal echogenicity without solid mass or hydronephrosis. Left kidney: Normal size measuring 12.1 cm. Normal echogenicity. No hydronephrosis. Round echogenic lesion measuring 0.8 x 0.8 x 0.8 cm. Spleen: Normal size measuring 9.8 x 5.4 x 8.7 cm. Normal echogenicity without a lesion. Aorta and Inferior vena cava: Visualized portions are normal Ascites: None IMPRESSION: 1. No acute process. 2. 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 Ultrasound Report Report Dictated on Final Dictating Physician: MD MILLARD NICHOLAS Signed Date and Time: 11/06/2021 11:43 am Signed by: MD MILLARD NICHOLAS Transcribed Date and Time: 11/06/2021 11:44 Normal [facility] US Pelvis TA/TVon 11-06-2021 US Pelvis TA/TV Patient Name: CANDICE AUGUSTIN Ultrasound ACCESSION EXAM DATE/TIME PROCEDURE ORDERING PROVIDER [id number] 11/06/2021 10:39 EDT US Pelvis TA/TV GAETANO, DO, CHRISTINA L CPT code 27413 65096 Reason For Exam (US Pelvis TA/TV) abdominal pain Report ULTRASOUND PELVIS: CLINICAL INDICATION: Abdominal pain LMP: 10/15/2021 COMPARISON: none TECHNIQUE: Transabdominal and transvaginal to optimally evaluate the ovaries and adnexal structures including color flow and spectral Doppler imaging FINDINGS: Uterus: Orientation: Anteverted Size: 7.4 x 4.2 x 2.5 cm Endometrium: 5 mm Mass: none Cervix: normal Right Ovary: Size: 4.0 x 2.8 x 2.7 cm Mass: none Cyst: none Color flow/Doppler waveform: normal Left Ovary: Size: 3.8 x 3.2 x 1.8 cm Mass: none Cyst: Follicles measuring up to 1.8 cm Color flow/Doppler waveform: normal Cul-de-sac: There is a small amount of free pelvic fluid IMPRESSION: 1. Small amount of nonspecific free pelvic fluid. Otherwise, unremarkable exam. Ultrasound Report Report Dictated on Final Dictating Physician: MD MILLARD NICHOLAS Signed Date and Time: 11/07/2021 8:04 am Signed by: MD MILLARD NICHOLAS Transcribed Date and Time: 11/07/2021 8:05 [facility] PT EDon 12-11-2017 PT ED HNO ID: [id number] thor: Stephanie (Rn) EVELYN Osorioervice: NursingAuthor Type: Registered NurseType: Patient EducationFiled: 12/10/2017 10:07 PMNote Text:POST OP LEARNING RESPONSEINSTRUCTION PROVIDED TO: Patient and family memberMETHOD OF INSTRUCTION: Individual instructionPATIENT / FAMILY RESPONSE: Verbalizes understanding of: POST-OPERATIVEINSTRUCTION S-Correct actions to take to reduce postoperative complicationsFOLLOW-UP PLAN: Patient instructed to call with any further issuesSUPPLEMENTAL MATERIAL: NoneREFERRAL (RECOMMENDATION): NoneElectronically Signed By: Stephanie Osorio, RN In Department: MEDINASPITAL SURGERYPATIENT EDUCATION TOPIC: PROCEDURE / SURGERY: Post-opTeaching:PATIENT NAME: Candice CarmichaelMRN: [id number] LOCATION: [place] Surgery/[place] SurgeryREADINESS TO LEARNCOGNITIVE ABILITY: Alert and orientedMOTIVATION TO LEARN: InterestedFAMILY SUPPORT: High - Very involved in pt careINSTRUCTION PROVIDED TO: Patient and family memberPATIENT LEARNS BEST BY: Individual InstructionFACTORS AFFECTING LEARNING: NonePHYSICAL LIMITATIONS AFFECTING LEARNING: NoneLEARNING RESPONSEDIAGNOSIS: ADULT: Well AdultPATIENT/FAMILY RESPONSE: Verbalizes understanding of: POST-OPERATIVEINSTRUCTION S-Correct actions to take to reduce postoperative complicationsMETHOD OF INSTRUCTION: Individual instructionFOLLOW-UP PLAN: Patient instructed to call with any further issuesINSTRUCTIONAL AIDS USED: NASUPPLEMENTAL MATERIAL PROVIDED TO PATIENT: NoneREFERRAL (RECOMMENDATION): NoneElectronically Signed By: Stephanie Osorio RN [facility] ANES Amandeep 12-10-2017 ANES POST HNO ID: [id number] thor: John Cooke: AnesthesiologyAuthor Type: AnesthesiologistType: Anesthesia PostOpFiled: 12/10/2017 8:37 PMNote Text:POST ANESTHESIA EVALUATION NOTESERVICE DATE: 12/10/2017SERVICE TIME: 8:37 PMDOB: 1995Vitals: Temp: (P) 37.8 ?C (100 ?F) 12/11/1819P: 125/60 (P) 144/67 12/11/1819ulse: 101 (P) 112 12/11/1819Resp: 19 (P) 18There were no vitals filed for this visit.Validated Vital Signs: YesPOST ANES STATUS: No apparent anesthetic complications. The patient isappropriately hydrated with stable respiratory and cardiovascular status.Patient has safe and adequate airway control. The patient has appropriatepain relief and no significant post operative nausea or vomiting. Thepatient has achieved baseline mental status.Further assessment by Anesthesia Service: NoneOther Remarks:SIGNATURE: John Craven MD PATIENT NAME: Candice CarmichaelDATE: December 10, 2017 : 8:37 PM PAGER/CONTACT #: [phone] [facility] ANES PREOPon 12-10-2017 ANES PREOP HNO ID: [id number] thor: John Cooke: AnesthesiologyAuthor Type: AnesthesiologistType: Anesthesia PreOpFiled: 12/10/2017 6:46 PMNote Text: ANESTHESIOLOGY DAY OF SURGERY NOTESERVICE DATE: 12/10/2017SERVICE TIME: 6:46 PMDOB: 1995Procedure(s) (LRB):LAPAROSCOPIC APPENDECTOMY ADULT (N/A)Surgeon(s):Chris Sumner body mass index is 26.56 kg/m? as calculated from the following: Height as of this encounter: 160 cm (5' 2.99). Weight as of this encounter: 68 kg (149 lb 14.6 oz).Most recent hematocrit and potassium results:Hematocrit 42.3 12/10/2017Potassium 3.4 12/10/2017ANES DOS/PREOP NOTE: Vitals: 841BP: 125/60Pulse: 101Resp: 19Weight: 68 kg (149 lb 14.6 oz)Height: 160 cm (5' 2.99)There is no problem list on file for this patient.No past medical history on file.No past surgical history on file.No family history on file.Social History:Social HistorySubstance Use Topics- Smoking status: Never Smoker- Smokeless tobacco: Never Used- Alcohol use Yes Comment: sociallyNo current facility-administered medications on file prior to encounter.Current Outpatient Prescriptions on File Prior to Encounter:norethindrone-e .estradiol-iron (BLISOVI 24 FE ORAL) Take by mouth.Current Facility-Administered Medications:lactated ringers infusion 50 mL/hr INTRAVENOUS CONTINUOUS John Hillmanergies: ALLERGIESNo Known AllergiesDOS EXAM: Adequate NPO status: YesAnesthetic risks, benefits, alternatives, personnel and consent discussed:YesPatient agrees to proceed: YesPrevious Anesthesia: No history of adverse event.Airway Assessment: MP 2; Neck ROM: Full ROM without neurologic symptoms;Airway Evaluation: No significant abnormalitiesSymptoms of Sleep Apnea: NoneDentition: Teeth intactAdditional Physical Exam:Lungs: Patient health status unchanged since recent history and physical.See history and physical for exam findings.Cardiac: Patient health status unchanged since recent history andphysical. See history and physical for exam findings.Additional Pertinent Findings: N/ABlood Products: Not anticipated for this procedure.Anesthetic Plan: General, Standard ASA MonitorsPain Management Plan: Parenteral or OralASA Class: 2Other Medical Problems: NoneI have interviewed and examined the patient. I have reviewed the medicalrecord and/or the pre-anesthesia evaluation, pertinent labs, and testresults.Significant changes in the patient's condition since the History andPhysical, not otherwise documented in primary service progress notes: NoThis contains updated information obtained within 48 hours ofSurgery/Procedure.SIGNA TURE: John Craven MD PATIENT NAME: Candice CarmichaelDATE: December 10, 2017 : 6:46 PM CSN: [id number] [facility] BRIEF OP NOTon 12-10-2017 BRIEF OP NOT HNO ID: [id number] thor: Chris Patrickvice: General SurgeryAuthor Type: PhysicianType: Brief Op NoteFiled: 12/10/2017 8:31 PMNote Text:BRIEF OPERATIVE / PROCEDURE NOTELOG ID: [id number]/PROCEDURE DATE: 12/10/2017INCISION/PROCEDU RE START TIME: 7:58 PMINCISION CLOSE/PROCEDURE END TIME: 8:21 PMSURGEON(S)/PROCEDURALIS T(S) AND BANKING ASSISTANT(S):Surgeon(s) and Role: * Chris Collins - PrimaryRegistered Nurse Bomb Squad Commander: Trudy (Rn) EVELYN ChURGERY/PROCEDURE(S): Laparoscopic appendectomyANESTHESIA: GeneralFINDINGS: acute appendicitsESTIMATED BLOOD LOSS: 10 mlsSPECIMENS: appendixCOMPLICATIONS: NonePRE-OP/PRE-PROCEDURE DIAGNOSIS: acute appendicitsPOST-OP/POST-P ROCEDURE DIAGNOSIS: sameSIGNATURE: Chris Collins MD PATIENT NAME: Candice CarmichaelDATE: December 10, 2017 : 8:30 PM PAGER/CONTACT #: [facility] CONSULT PROGon 12-10-2017 Protein mass conc HNO ID: [id number] Author: Chris Collins Service: General Surgery Author Type: Physician Type: Consult Progress Note Filed: 12/10/2017 7:28 PM Note Text: HANDP dictated Chris Collins MD [facility] CT ABDOMEN AND PELVIS WITH C ONTRAST [id number] 12-10-2017 CT ABDOMEN AND PELVIS WITH CONTRAST [id number] Performed at [facility] APPROVED BY: Onesimo Johnson MD EXAMINATION: CT ABDOMEN AND PELVIS WITH IV CONTRAST CLINICAL HISTORY: 22-year-old female presenting with right lower quadrant abdominal pain. TECHNIQUE: CT of the abdomen and pelvis was performed using standard technique, scanning from just above the dome of the diaphragm to the symphysis pubis. MQ: CTAP_3 Contrast: 135 mL Omnipaque 300 IVCT Dose-Length Product: 489.3 mGy*cmCT Dose Reduction Employed: 1. Automated exposure control (AEC) was used. COMPARISON: Pelvic ultrasound same date RESULT: Liver: No mass. Biliary: No bile duct dilation. Gallbladder appears within normal limits. Spleen: No mass. No splenomegaly. Pancreas: No mass or duct dilation. Adrenals: No mass. Kidneys: Enhance symmetrically. No hydronephrosis or hydroureter. No renal masses are seen. GI tract: Stomach appears normal. There is no dilated small bowel or evidence of obstruction. Colon appears grossly normal. However, the appendix is distended with diameter measuring approximately 8 to 9 mm. There is hyperenhancement of the appendiceal hensley which appear mildly thickened (images 16-22, series 3). Minimal surrounding inflammation. Constellation of findings raise concern for early acute appendicitis. No evidence of abscess. No perforation. Lymph nodes: There are several mildly prominent lymph nodes within the right mid and lower abdomen, most likely reactive in nature. Mesentery/Peritoneum: No ascites or mass. Retroperitoneum: No mass. Vasculature: The celiac axis and SMA are patent. The portal vein and branches, splenic vein, SMV, and hepatic veins are patent. No abdominal aortic or iliac artery aneurysm. Pelvis: No mass, ascites or fluid collection. Trace free pelvic fluid, most likely physiologic. Bones/Soft Tissues: No acute bony abnormalities seen. There is no suspicious lytic or blastic bony lesion. Lower thorax: Lung bases are grossly clear. IMPRESSION: Constellation of findings as detailed above which are concerning for early acute appendicitis. Findings were discussed with Deirdre Velasquez, emergency Department physician health center assistant at approximately 3:50 PM 12/10/2017 Normal [facility] Comprehensive Panelon 2017 Albumin 4.2 g/dL Normal 3.4-5.0 [facility] Comment on above: Performed By: #### M P14 ####[address] [address] Alkaline phosphatase (ALP) 54 U/L Normal 46-116 [facility] Comment on above: Performed By: #### M P14 ####[address] [address] ALT-SGPT Blood 32 U/L Normal 12-78 [facility] Comment on above: Performed By: #### M P14 ####[address] [address] Anion gap 14 mmol/L Normal 8-16 [facility] Comment on above: Performed By: #### M P14 ####[address] [address] AST-SGOT Blood 22 U/L Normal 15-46 [facility] Comment on above: Performed By: #### M P14 ####[address] [address] Bilirubin Ql (U) 0.7 mg/dL Normal 0.2-1.0 [facility] Comment on above: Performed By: #### M P14 ####[address] [address] BUN (urea nitrogen) 9 mg/dL Normal 7-18 [facility] Comment on above: Performed By: #### M P14 ####[address] [address] Calcium 9.3 mg/dL Normal 8.5-10.1 [facility] Comment on above: Performed By: #### M P14 ####[address] [address] Chloride 101 mmol/L Normal 98-107 [facility] Comment on above: Performed By: #### M P14 ####[address] [address] CO2 26 mmol/L Normal 21-32 [facility] Comment on above: Performed By: #### M P14 ####[address] [address] Creatinine 0.69 mg/dL Normal 0.51-0.95 [facility] Comment on above: Performed By: #### M P14 ####[facility] [place] [address] Glucose mass conc 86 mg/dL Normal 70-99 [facility] Comment on above: Performed By: #### M P14 ####[facility] [place] [address] Potassium molar conc 3.4 mmol/L Low 3.5-5.1 [facility] Comment on above: Performed By: #### M P14 ####[facility] [place] [address] Protein 8.4 g/dL High 6.4-8.2 [facility] Comment on above: Performed By: #### M P14 ####[facility] [place] [address] Sodium 138 mmol/L Normal 136-145 [facility] Comment on above: Performed By: #### M P14 ####[place] [address] ED NOTEon 12-10-2017 ED NOTE HNO ID: [id number] thor: Trev (Rn) EVELYN Maldonadoervice: Emergency MedicineAuthor Type: Registered NurseType: ED NotesFiled: 12/10/2017 5:05 PMNote Text: Patient transferring to [facility] for pending apendectomy. Patientverbalized understanding of discharge instructions, no voiced questions orconcerns. Patient leaving in no distress. Safety maintained. Patientstates they are leaving the ED with all the belongings they came with. Ptleaving with IV in place. Pt instructed to go to ED for registrationprocess. Normal [facility] ED NOTE HNO ID: [id number] thor: Trudy (Rn) EVELYN Mathurervice: Emergency MedicineAuthor Type: Registered NurseType: ED NotesFiled: 12/10/2017 1:32 PMNote Text:At about 1100 today started to have right lower quad pain with nausea butno vomiting. Last BM yesterday Normal [facility] ED PROV NOTEon 12-10-2017 Protein HNO ID: [id number] thor: Loida Clement: Emergency MedicineAuthor Type: PhysicianType: ED Provider NotesFiled: 12/10/2017 7:45 PMNote Text:HPI22 yo F who presents today w/ CC of abd pain. RLQ in nature, started thisAM. No fevers.PEGen:awake, aelrt, NADCV:RRR, no MRGPulm:CTABAbd:TTP in RLQ, no peritoneal signsDDX:acute appy, , UTI, ovarian pathologyED course and planCT w/ early appy, labs w/ leukocytosis. abx started. Pt preferred medinaadmission, so was transferred for admission.Attending NoteI have personally performed a face to face assessment of the patient andhave reviewed the PA/HISTORIOGRAPHY TEACHER note.Signature: ESHA Clementate: 12/10/2017Time: 4:06 Bautista Leon MD12/10/17 194 Normal [facility] Protein HNO ID: [id number] thor: Armando Webster (Pa): Emergency MedicineAuthocaesar Type: Physician AssistantType: ED Provider NotesFiled: 12/10/2017 5:46 PMNote Text: Attestation signed by Suzy Leon MD at 12/10/2017 6:53 PMAttending NoteI evaluated the patient and personally participated in the farias components. Iagree with the resident's findings and plan as documented and have discussedthe case and management of the patient's care with the resident.Signature: ESHA Clementate: 12/10/2017Time: 6:53 PM -------ED Provider NotePatient Name: Candice CarmichaelMRN: [id number] DATE: 12/10/17HistoryPatient presents with:Abdominal PainCandice Carmichael is a 22 year old FEMALE with insignificant PMHx presentingto the ED c/o abdominal pain x 1 day. Sudden onset at 11:00 AM thismorning. Located in RLQ. No radiation. Aggravating factors include layingflat and palpation to RLQ. Denies alleviating factors. Pain isintermittent. Admits to nausea. Denies vomiting, fevers/chills, diarrhea.Last BM was yesterday. She has not taken any medication for her symptoms.Pt also denies chest pain, SOB, cough, vision/hearing changes, dizziness,lightheadedness , syncope. Pt denies dysuria, hematuria, vaginal bleeding,vaginal discharge, pelvic pain, back pain. Pt states she is on oralcontraceptive and does not get regular periods. She states is is notcurrently sexually active.History provided by: Patient and medical recordsLanguage emergency vehicle operations instructor used: NoNo past medical history on file.No past surgical history on file.No family history on file.Social HistorySocial History Main Topics- Smoking status: Never Smoker- Smokeless tobacco: Never Used- Alcohol use Yes Comment: socially- Drug use: Yes Types: Marijuana- Sexual activity: Not on fileALLERGIESNo Known AllergiesReview of SystemsConstitutional: Negative for chills and fever.HENT: Negative for hearing loss.Eyes: Negative for visual disturbance.Respiratory: Negative for cough and shortness of breath.Cardiovascular: Negative for chest pain.Gastrointestinal: Positive for abdominal pain (RLQ) and nausea. Negativefor diarrhea and vomiting.Genitourinary: Negative for dysuria, hematuria, pelvic pain, vaginalbleeding and vaginal discharge.Musculoskeletal : Negative for back pain.Skin: Negative for color change.Neurological: Negative for dizziness, syncope and light-headedness.Physical ExamBP 142/84 Pulse 98 Temp 97.2 Resp 16 Ht 5' 3 (1.60m) Wt 150 lb(68.0kg) SpO2 100% BMI 26.58 kg/(m2).Physical ExamConstitutional: She is oriented to person, place, and time. She appearswell-developed and well-nourished. No distress.HENT:Head: Normocephalic and atraumatic.Eyes: Conjunctivae and EOM are normal.Neck: Neck supple.Cardiovascular: Regular rhythm and normal heart sounds. Tachycardiapresent.Pulmon chito/Chest: Effort normal and breath sounds normal. No stridor. Norespiratory distress. She has no wheezes.Abdominal: Soft. Bowel sounds are normal. She exhibits no distension.There is tenderness (RLQ). There is guarding and tenderness at McBurney'spoint. There is no rigidity.Pt very TTP to RLQ. + McBurney's point tenderness. Patient is tearful uponpalpation.Genitourina ry: No labial fusion. There is no rash, tenderness, lesion orinjury on the right labia. There is no rash, tenderness, lesion or injuryon the left labia. Right adnexum displays tenderness. Right adnexumdisplays no mass. Left adnexum displays no mass and no tenderness. Noerythema, tenderness or bleeding in the vagina. No foreign body in thevagina. No signs of injury around the vagina. No vaginal discharge found.Genitourinary Comments: Pt had mild TTP of right adnexa on pelvic exam. Nomasses appreciated.Musculoskelet al: She exhibits no edema (no LE edema B/L).Neurological: She is alert and oriented to person, place, and time.Skin: Skin is warm and dry. She is not diaphoretic.Nursing note and vitals reviewed.Diagnostic TestingED Labs Ordered and ReviewedCBC + AUTO DIFF (AK,AV,EU,FV,HL,RAYA,MM,SP) - Abnormal; Notable for thefollowing: Result Value Ref Range WBC 16.6 (*) 4.4 - 9.7 thou/cmm Seg Neutrophil 83.9 (*) 41.3 - 72.7 % Lymphocyte 11.3 (*) 17.3 - 43.9 % Abs. Neut(Anc) 13.92 (*) 1.35 - 7.21 thou/cmm All other components within normal limitsCOMPREHENSIVE METABOLIC PANEL (AK,AV,EU,FV,HL,RAYA,MM,SP) - Abnormal;Notable for the following: Potassium 3.4 (*) 3.5 - 5.1 mEq/L Protein, Total 8.4 (*) 6.4 - 8.2 g/dL All other components within normal limitsURINALYSIS WITH MICROSCOPIC (AK,AV,EU,FV,HL,RAYA,MM,SP) - Abnormal; Notablefor the following: Bacteria Urine (Manual) 1+ (*) None All other components within normal limitsHCG QUALITATIVE URINE (AK,AV,EU,FV,HL,RAYA,MM,SP) LIPASE BLOOD (AK,AV,EU,FV,HL,RAYA,MM,SP) MDRD GFRResults for orders placed or performed during the hospital encounter of12/10/17CT ABD/PEL W IVCONResult Value Ref Range Cloud Software Engineer EXAMINATION: CT ABDOMEN AND PELVIS WITH IV CONTRASTCLINICAL HISTORY: 22-year-old female presenting with right lower quadrantabdominal pain.TECHNIQUE: CT of the abdomen and pelvis was performed using standardtechnique,scannin g from just above the dome of the diaphragm to the symphysis pubis.MQ: CTAP_3Contrast: 135 mL Omnipaque 300 IVCT Dose-Length Product: 489.3 mGy*cmCT Dose Reduction Employed: 1. Automated exposure control (AEC) was used.COMPARISON: Pelvic ultrasound same dateRESULT:Liver: No mass.Biliary: No bile duct dilation. Gallbladder appears within normal limits.Spleen: No mass. No splenomegaly.Pancreas: No mass or duct dilation.Adrenals: No mass.Kidneys: Enhance symmetrically. No hydronephrosis or hydroureter. Norenalmasses are seen.GI tract: Stomach appears normal. There is no dilated small bowel orevidence ofobstruction. Colon appears grossly normal. However, the appendix isdistendedwith diameter measuring approximately 8 to 9 mm. There ishyperenhancement of the appendiceal hensley which appear mildly thickened (images 16-22, series 3).Minimal surrounding inflammation. Constellation of findings raise concernforearly acute appendicitis. No evidence of abscess. No perforation.Lymph nodes: There are several mildly prominent lymph nodes within theright midand lower abdomen, most likely reactive in nature.Mesentery/Peritone um: No ascites or mass.Retroperitoneum: No mass.Vasculature: The celiac axis and SMA are patent. The portal vein andbranches,splenic vein, SMV, and hepatic veins are patent. No abdominal aortic oriliacartery aneurysm.Pelvis: No mass, ascites or fluid collection. Trace free pelvic fluid,mostlikely physiologic.Bones/Soft Tissues: No acute bony abnormalities seen. There is nosuspiciouslytic or blastic bony lesion.Lower thorax: Lung bases are grossly clear.IMPR ESSION:Constellation of findings as detailed above which are concerning for earlyacuteappendicitis.Fi ndings were discussed with Deirdre Velasquez, emergency Department physicianassistant at approximately 3:50 PM 12/10/2017 US FEMALE PELVIS TRANSABD LTDResult Value Ref Range Cloud Software Engineer EXAMINATION: PELVIC ULTRASOUND, TRANSABDOMINALCLINICAL HISTORY: Pelvic painTECHNIQUE: Sonography of the pelvis was performed by transabdominaltechnique.I mages were obtained and stored in a permanent archive. Transvaginalimaging wasnot performed, as the patient is not sexually active.COMPARISON: NoneRESULT:Uterus size: 8.7 x 3.2 x 4.4 cm -Orientation: Anteverted -Myometrium: Normal sonographic appearance. -Endometrial echo complex: 0.3 cm -Cervix: normalRight ovary: 3.1 x 1.3 x 2.0 cm Normal sonographic appearance.Left ovary: 3.2 x 1.8 x 2.3 cm Normal sonographic appearance.Vascular flow to each ovary is preserved.Pelvis free fluid: Trace free fluid within the pelvis, likely physiologic.IMPRESSION:Tr ansabdominal pelvic ultrasound is within normal limits for age.CBC + AUTO DIFF (AK,AV,EU,FV,HL,RAYA,MM,SP) Result Value Ref Range WBC 16.6 (H) 4.4 - 9.7 thou/cmm RBC 4.74 3.79 - 4.93 mil/cmm HGB 14.0 11.7 - 14.7 g/dL Hematocrit 42.3 34.7 - 43.3 % MCV 89.2 82.1 - 97.4 fl MCH 29.5 27.4 - 32.8 pg MCHC 33.1 31.9 - 35.6 % RDW 12.3 11.8 - 14.5 % Platelet Count 275 150 - 370 thou/cmm MPV 9.8 8.8 - 12.1 fl Seg Neutrophil 83.9 (H) 41.3 - 72.7 % Lymphocyte 11.3 (L) 17.3 - 43.9 % Monocyte 4.2 3.6 - 13.1 % Eosinophil 0.5 0.0 - 5.4 % Basophil 0.1 0.0 - 1.1 % Abs. Neut(Anc) 13.92 (H) 1.35 - 7.21 thou/cmm Abs. Lymph 1.88 0.68 - 2.93 thou/cmm Abs. [place] 0.70 0.19 - 0.80 thou/cmm Abs. Eosin 0.08 0.00 - 0.36 thou/cmm Abs. Baso 0.02 0.00 - 0.08 thou/cmmCOMPREHENSIVE METABOLIC PANEL (AK,AV,EU,FV,HL,RAYA,MM,SP) Result Value Ref Range Sodium 138 136 - 145 mEq/L Potassium 3.4 (L) 3.5 - 5.1 mEq/L Chloride 101 98 - 107 mEq/L CO2 26 21 - 32 mEq/L Glucose 86 70 - 99 mg/dL BUN 9 7 - 18 mg/dL Creatinine 0.69 0.51 - 0.95 mg/dL Calcium 9.3 8.5 - 10.1 mg/dL Albumin 4.2 3.4 - 5.0 g/dL Protein, Total 8.4 (H) 6.4 - 8.2 g/dL AST 22 15 - 46 U/L ALT 32 12 - 78 U/L Alkaline Phosphatase 54 46 - 116 U/L Bilirubin, Total 0.7 0.2 - 1.0 mg/dL Anion Gap 14 8 - 16HCG QUALITATIVE URINE (AK,AV,EU,FV,HL,RAYA,MM,SP) Result Value Ref Range HCG Qualitative, Urine Negative NegativeURINALYSIS WITH MICROSCOPIC (AK,AV,EU,FV,HL,RAYA,MM,SP) Result Value Ref Range Glucose, Urine NEGATIVE Negative mg/dL Ketones, Urine NEGATIVE Negative mg/dL Hemoglobin, Urine NEGATIVE Negative Protein, Urine NEGATIVE Negative mg/dL Nitrites Urine NEGATIVE Negative Bilirubin, Urine NEGATIVE Negative Specific Hed[place], Ur <=1.005 1.005 - 1.030 pH, Urine 6.5 5.0 - 8.0 Urobilinogen, Urine 0.2 0.0 - 1.0 EU/dL Leukocytes Esterase NEGATIVE Negative Color STRAW Urine Appearance CLEAR RBC, Urine NONE 0 - 3 /hpf WBC, Urine 0-2 0 - 5 /hpf EP Cells Urine 2-5 0 - 5 /hpf Bacteria Urine (Manual) 1+ (A) NoneLIPASE BLOOD (AK,AV,EU,FV,HL,RAYA,MM,SP) Result Value Ref Range Lipase 113 73 - 393 U/LMDRD GFRResult Value Ref Range eGFR >60 >60mL/min/1.64n1Pgvmwimey sED Course / Clinical ImpressionCourse:Vital signs were reviewed.Triage records were reviewed.Medical records were reviewed.Nursing notes were reviewed and incorporated.The attending who evaluated and managed this patient was Dr. Leon .22 y/o F c/o abd pain x 1 day, sudden onset at 11:00 AM this morning. Ptis afebrile and tachycardic. Non-toxic appearing, in no acute cardiac orrespiratory distress.BP 142/84 Pulse (!) 98 Temp 36.2 ?C (97.2 ?F) Resp 16 Ht 160cm (5' 3) Wt 68 kg (150 lb) SpO2 100% BMI 26.57 kg/m?Labs/Imaging results at this time: - CT abd: Concern for early appendicitis, appendix distended withdiameter measuring 8-9 mm with hyperenhancement of appendiceal hensley whichappear mildly thickened. No evidence of abscess or perforation - Pelvic US: no ovarian torsion, US wnl for pt's age - CBC: leukocytosis 16.6, no anemia - CMP: K 3.4, otherwise no electrolyte abnormality, no RAYRAY - Lipase: 113, low suspicion for pancreatitis - UA: no UTI or hematuria - hcg urine preg: negativePt given 1L IV NS fluids, 4mg IV Zofran, 650mg PO Tylenol, 15mg IV Toradolfor symptom management in ED, with improvement. Pt given 3.375g IV Zosynin ED at request of general surgeon.MedicationsNaCl 0.9% 1,000 mL iv bolus (0 mL INTRAVENOUS Infusion Complete 415)iv contrast (radiology procedure) (not administered)piperacillin -tazobactam 3.375 g in NaCl 0.9% 100 mL (ZOSYN) (0 gINTRAVENOUS Infusion Complete 12/10/17 1700)ondansetron (PF) 4 mg injection (ZOFRAN) (4 mg INTRAVENOUS Given 415)acetaminophen 650 mg tab(s) (TYLENOL) (650 mg ORAL Given 12/10/17 5324)ketorolac 15 mg injection (TORADOL) (15 mg INTRAVENOUS Given 12/10/17 5313)Upon re-evaluation, patient states pain has improved but she can stillfeel it there. Denies further need for pain/nausea medication at thistime. Tachycardia has improved from arrival to ED. Patient wishes to betransferred to [facility]. Awaiting to hear from general surgery at4:10 PM.At 4:30, [facility] returned page and plan is for patient to betransferred to [facility] under gen surgery for further mgmt andsurgery.Close to the completion of Zosyn administration, providers were called topatient's room by patient's father for concern of hive on patient's leftcheek. Upon evaluation, patient had developed white, macular lesion thatdid not resemble urticarial lesion. IV site was clear of skin changes. Ptdenied difficulty breathing, other skin rash, tongue swelling. Pt appearsstable, NAD. Pt stable for transport to [facility] for surgicalevaluation.Clinic al Impressions as of Dec 11 1739Other acute appendicitisLeukocytosis, unspecified typeRLQ abdominal painNauseaTachycardiaMDM / Disposition / Plan At this time, the most likely Dx is appendicitis, nausea, RLQ pain,tachycardia, leukocytosis. Will treat with admission for appendectomy andgeneral surgery mgmt. Other Dxs considered but unlikely d/t HANDP, labs andimaging findings: ovarian torsion, PID, UTI, . Plan is forpatient to be admitted to [facility] under general surgery forfurther mgmt and surgery. Patient's [facility] has [facility]. Private transportation is appropriate as patient hasbeen stable throughout ED visit. Patient expressed understanding and isamendable to this course of action. Patient understood suspected diagnosisand instruction. No barriers of communication were apparent and I answeredall questions.The patient was DISCHARGED: Counseled patient and father regarding labresults AND radiology results AND suspected diagnosis AND need for follow-up.Discharged home with verbal and written instructions. They wereinstructed to return as needed for persistent or worsening symptoms or anynew concerns.Condition at time of disposition: improved and stablePt was instructed to go straight to [facility] for surgical admissionfor appendicitis mgmt.SIGNATURE: Maci Webster PA (Pa)12/10/17 1746Acindy Leon MD12/10/17 1853 Normal [facility] HISTORY PHYSICALon 8 HISTORY PHYSICAL HNO ID: [id number] thor: Chris CollinsService: General SurgeryAuthor Type: PhysicianType: HANDPFiled: 12/28/2017 1:09 PMNote Text:[facility]- Surgical History and Physical CANDICE CARMICHAEL KDOB: 1995 AGE: 22 SEX: FMRN: [id number] ACCTNUM: [id number] SV: [facility] LOCATION: [address] PHYSICIAN: Chris Collins M.D.ADMIT DATE: 12/10/2017REASON FOR ADMISSION: Acute appendicitis.HISTORY OF PRESENT ILLNESS: The patient is a 22-year-old female, whopresented to a local emergency room with right lower quadrant pain thatstarted early this morning. She had some nausea, as well as somesubjective chills, but no significant fevers. No vomiting. Shecontinued to have pain and presented to the emergency room for furtherevaluation and treatment. She had a white count of 16.6. She underwenta CT scan of the abdomen and pelvis that was consistent with acuteappendicitis and was transferred to [facility] for definitivesurgical treatment. She states she is comfortable at this time, stillhaving some pain in the right lower quadrant. Otherwise, no issues.PAST MEDICAL HISTORY: Really no past medical history.PAST SURGICAL HISTORY: No surgeries.FAMILY HISTORY: Unremarkable.ALLERGIES: None.SOCIAL HISTORY: She admits to some occasional alcohol. Nonsmoker.REVIEW OF SYSTEMS: Constitutional: Positive for some subjective chills.HEENT: Negative. Eyes: Negative for any visual disturbances.Respiratory: Negative for cough or shortness of breath. Cardiovascular: Negative chest pains or palpitations. GI: Right lower quadrant painand nausea. Negative for diarrhea or vomiting. : Unremarkable fordysuria.PHYSICAL EXAM: Vital Signs: She is afebrile. Vital signs are stable.General: She is alert and oriented x3, in no acute distress. HEENT:Head normocephalic and atraumatic. Pupils equal, round and reactive tolight. Extraocular muscles intact. No visible JVD. Lungs: Clearbilaterally. Heart: Regular rate and rhythm. Abdomen: Soft,nondistended. She does have some zxxz-pt-ephzoiog tenderness in theright lower quadrant. No rebound. No guarding.ASSESSMENT AND PLAN: A 22-year-old female with leukocytosis and CAT scanevidence suggestive of acute appendicitis. Her clinical picture appearsconsistent with appendicitis as well. I recommend a laparoscopicappendectomy as treatment. We discussed the details of the plannedprocedure including risks, benefits, and alternatives, and she wishes toproceed. Surgery will begin shortly.Chris Collins M.D.General SurgerySAW:[id number]: 12/10/2017 19:28:27T: 12/11/2017 05:27:41Job #: [id number] [facility] HOSPon 12-10-2017 Body weight Measured Patient:April Carmichael KMRN: Height:5' 2.992(1.6 m)Weight:149 lb 14.6 oz (68 kg)Outpatient Medications as of 12/10/17:norethindrone-e.e stradiol-iron (BLISOVI 24 FE ORAL)Admission/Clinic Administered Medications as of 12/10/17:lactated ringers infusionProblem List:No problem list on file for this patient.Allergies:No Known AllergiesDate Verified:12/10/17Lab ValuesLab Value Units Date High LowPOTA* 3.4 mEq/L 12/10/2017 5.1 3.5HEMA* 42.3 % 12/10/2017 43.3 34.7No progress notes entered within the past 30 days [facility] Hemogram/Diffon 12-10-2017 Abs. Baso 0.02 thou/cmm Normal 0.00-0.08 [facility] Comment on above: Result Comment: Diff erential scan done Performed By: #### N CBCD ####[place] [address] Abs. [place] 0.70 thou/cmm Normal 0.19-0.80 [facility] Comment on above: Performed By: #### N CBCD ####[address] [address] Abs. Neut (ANC) 13.92 thou/cmm High 1.35-7.21 [facility] Comment on above: Performed By: #### N CBCD ####[place] [address] Basophils/100 WBC Auto (Bld) 0.1 % Normal 0.0-1.1 [facility] Comment on above: Performed By: #### N CBCD ####[place] [address] Eosinophils 0.08 thou/cmm Normal 0.00-0.36 [facility] Comment on above: Performed By: #### N CBCD ####[place] [address] Eosinophils/100 leukocytes 0.5 % Normal 0.0-5.4 [facility] Comment on above: Performed By: #### N CBCD ####[place] [address] Erythrocyte distribution width Auto Ratio (RBC) 12.3 % Normal 11.8-14.5 [facility] Comment on above: Performed By: #### N CBCD ####[address] [address] Erythrocytes (RBC) 4.74 mil/cmm Normal 3.79-4.93 [facility] Comment on above: Performed By: #### N CBCD ####[address] [address] Hematocrit (HCT) 42.3 % Normal 34.7-43.3 [facility] Comment on above: Performed By: #### N CBCD ####[address] [address] Hemoglobin mass conc (Bld) 14.0 g/dL Normal 11.7-14.7 [facility] Comment on above: Performed By: #### N CBCD ####[facility] [place], [place] [address] Lymphocytes 1.88 thou/cmm Normal 0.68-2.93 [facility] Comment on above: Performed By: #### N CBCD ####[address] [address] Lymphocytes/100 leukocytes 11.3 % Low 17.3-43.9 [facility] Comment on above: Performed By: #### N CBCD ####[address] [address] MCH 29.5 pg Normal 27.4-32.8 [facility] Comment on above: Performed By: #### N CBCD ####[address] [address] MCHC mass conc (RBC) 33.1 % Normal 31.9-35.6 [facility] Comment on above: Performed By: #### N CBCD ####[address] [address] MCV 89.2 fL Normal 82.1-97.4 [facility] Comment on above: Performed By: #### N CBCD ####[address] [address] Monocytes/100 leukocytes 4.2 % Normal 3.6-13.1 [facility] Comment on above: Performed By: #### N CBCD ####[address] [address] Platelet mean volume (PMV) 9.8 fL Normal 8.8-12.1 [facility] Comment on above: Performed By: #### N CBCD ####[address] [address] Platelets 275 thou/cmm Normal 150-370 [facility] Comment on above: Performed By: #### N CBCD ####[address] [address] Seg Neutrophil 83.9 % High 41.3-72.7 [facility] Comment on above: Performed By: #### N CBCD ####[address], [place] [address] WBC (Leukocytes) 16.6 thou/cmm High 4.4-9.7 [facility] Comment on above: Performed By: #### N CBCD ####[facility] [place], [place] [address] Lipase Bloodon 12-10-2017 Lipase Blood 113 U/L Normal 73-393 [facility] Comment on above: Performed By: #### M LIP ####[facility] [place], [place] [address] MDRD eGFRon 12-10-2017 eGFR (non-black) mL/min/{1.73_m2} Normal >60mL/m in/1.73 m2 [facility] Comment on above: Result Comment: If t he patient is , multiply the result by 1.210. Performed By: #### M GFR ####[address] [address] OPERATIVE NOon 12-10-2017 OPERATIVE NO HNO ID: [id number] thor: Chris CollinsService: General SurgeryAuthor Type: PhysicianType: Operative ReportFiled: 12/28/2017 1:09 PMNote Text:[facility]- Operative ReportSCANDICE WETZEL KDOB: 1995 AGE: 22 SEX: FMRN: [id number] ACCTNUM: [id number] SVC: [facility] LOCATION: [address] PHYSICIAN: Chris Collins M.D.DATE OF PROCEDURE: 12/10/2017SURGEON: Chris Collins M.D.BANKING ASSISTANT: NONEANESTHESIA: General.PREOPERATIVE DIAGNOSIS(ES): Acute appendicitis.POSTOPERATIV E DIAGNOSIS(ES): Acute appendicitis.NAME OF OPERATION: Laparoscopic appendectomy.INDICATIONS: The patient is a 22-year-old female who presented to theemergency room with right lower quadrant pain for about 12 hours. Shewas seen and evaluated by the ER staff and was found to haveappendicitis. [place] treatment.We discussed details of the planned procedure including risks, benefits,and alternatives, and she wished to proceed.ESTIMATED BLOOD LOSS: Minimal.SPECIMENS: Appendix.PROCEDURE: She was brought to the operating room today following informed consent. Preoperative antibiotics were already in place. A 5 mmincision was made just below the umbilicus through which a 5 mm trocarwas placed optically. This was placed without incident. Once in place,the abdomen was then fully insufflated with CO2 gas. A 5-mm 0-degreescope was inserted. No signs of bowel or vascular injury were noted.The abdomen was fully insufflated with CO2 gas. A 5 mm trocar was thenplaced in the left lower quadrant. I was then able to identify theappendix. It was mildly thickened. I then upsized the umbilical trocarto a 12 mm trocar and then placed another 5 mm in the left upper quadrant. The appendix was grasped. A [place] was then used to create a smallwindow in the base of the appendix, and then after this, an Echelonregular tissue stapler was then used to fire across the base of theappendix, flushed with the cecum. A vascular load was then fired acrossthe mesoappendix. The specimen was then placed in a bag and brought outthrough the 12 mm trocar site. The trocar was replaced. The right lowerquadrant was examined. Hemostasis was excellent. The 12 mm trocar wasthen removed, and the fascia was then closed using 0 Maxon with the aidof the boat pilot guide. The remaining trocars were opened up and insufflation was allowed to escape. Local anesthetic was injected into eachincisions. The trocars were removed. The incisions were then closedwith 5-0 Polysorb. Exofin skin glue was applied as dressing. She wasawakened from anesthesia and taken to the PACU in good condition.Chris Collins M.D.General SurgerySAW:[id number]: 12/10/2017 20:34:48T: 12/11/2017 06:07:33Job #: [id number] [facility] SURGICAL PATHOLOGYon 018 SURGICAL PATHOLOGY [facility]: [id number] Physician: Chris Collins M.D. ___FINAL DIAGNOSISAppendix, appendectomy - Acute suppurative appendicitis with acuteserositis and fibrinopurulent exudate.JJ/sanket/12/15/17Marisol Smalls M.D.(Electronic Signature) __SPECIMEN SUBMITTEDA: APPENDIX CLINICAL DATAAPPENDICITIS, UNSPECIFIED APPENDICITIS TYPE, LMP: HCG NEGGROSS DESCRIPTIONA. Received in formalin is an appendix measuring 5.0 cm in length and 0.6cm in greatest width. The serosal aspect is smooth and glistening. Aperforation is not present. The appendix is sectioned, and the lumenappears mildly dilated measuring 0.2 cm in diameter. The hensley of theappendix average 0.2 cm in thickness. Fecaliths are not present. Purulentmaterial is not present. A focal lesion is not identified. The specimen istotally submitted as follows: A1 line of resection, section from middle,and entire distal tip, A2-A3 remainder of appendix.JOSAFAT/danisha 12/11/2017 Gross examination performed at [facility], [address] [place] [address] of Report: 12/16/2017Date of Procedure: 12/10/2017Date of Receipt: 12/11/2017Submitted by: Chris Collins M.D.Location: MEORDiagnostic interpretation performed at [facility], [address] [place] [id number]. [facility] Comment on above: Performed By: #### P ATHS ####[facility] [address] [place], [place] [phone] US FEMALE PELVIS TRANSABD LT Don 12-10-2017 US FEMALE PELVIS TRANSABD LTD Performed at [facility] APPROVED BY: Onesimo Johnson MD EXAMINATION: PELVIC ULTRASOUND, TRANSABDOMINAL CLINICAL HISTORY: Pelvic pain TECHNIQUE: Sonography of the pelvis was performed by transabdominal technique. Images were obtained and stored in a permanent archive. Transvaginal imaging was not performed, as the patient is not sexually active. COMPARISON: None RESULT: Uterus size: 8.7 x 3.2 x 4.4 cm -Orientation: Anteverted -Myometrium: Normal sonographic appearance. -Endometrial echo complex: 0.3 cm -Cervix: normal Right ovary: 3.1 x 1.3 x 2.0 cm Normal sonographic appearance. Left ovary: 3.2 x 1.8 x 2.3 cm Normal sonographic appearance. Vascular flow to each ovary is preserved. Pelvis free fluid: Trace free fluid within the pelvis, likely physiologic. IMPRESSION: Transabdominal pelvic ultrasound is within normal limits for age. Normal [facility] Urinalysis Routineon 018 Ep Cells Urine 2-5 Normal 0-5 [facility] Comment on above: Performed By: #### M URIN ####[facility] [place], [place] [address] Urine, appearance CLEAR Normal [facility] Comment on above: Performed By: #### M URIN ####[facility] [place] [address] Urine, bacteria in sediment 1+ Abnormal None [facility] Comment on above: Performed By: #### M URIN ####[facility] [place] [address] Urine, color STRAW Normal [facility] Comment on above: Performed By: #### M URIN ####[facility] [place], [place] [address] Urine, erythrocytes in sediment by area NONE Normal 0-3 [facility] Comment on above: Performed By: #### M URIN ####[facility] [place], [place] [address] Urine, leukocytes in sedmiment 0-2 Normal 0-5 [facility] Comment on above: Performed By: #### M URIN ####[address] [address] Bilirubin Urine Negative Normal Negative [facility] Comment on above: Performed By: #### M URIN ####[address] [address] Hemoglobin,Urine Negative Normal Negative [facility] Comment on above: Performed By: #### M URIN ####[place] [address] Ketone Urine Negative Normal Negative [facility] Comment on above: Performed By: #### M URIN ####[place] [address] Leukocytes Esterase Negative Normal Negative [facility] Comment on above: Performed By: #### M URIN ####[place] [address] Nitrites Urine Negative Normal Negative [facility] Comment on above: Performed By: #### M URIN ####[place] [address] Protein Urine Negative Normal Negative [facility] Comment on above: Performed By: #### M URIN ####[place] [address] Specific [place], Ur <=1.005 Normal 1.005-1.030 [facility] Comment on above: Performed By: #### M URIN ####[place] [address] Urine, glucose presence Negative Normal Negative [facility] Comment on above: Performed By: #### M URIN ####[place] [address] Urine, pH 6.5 [pH] Normal 5.0-8.0 [facility] Comment on above: Performed By: #### M URIN ####[place] [address] Urobilinogen,Ur 0.2 EU/dL Normal 0.0-1.0 [facility] Comment on above: Performed By: #### M URIN ####[place] [address] Urine HCG, Qual.on 8 HCG.beta subunit ( test) Ql (U) Negative Normal Negative [facility] Comment on above: Performed By: #### M HCGU ####[address] [address] Vital Signs Date Time Vital Sign Value Performing Clinician Mallorie ramirez 11-01-2024 14:06-0400 Body height 157.[address] Christina Saltre DO Work Phone: [facility] 11-01-2024 14:06-0400 Body mass index (BMI) [Ratio] 36.6 kg/m2 Dr. Christina Salter DO Work Phone: [facility] 11-01-2024 14:06-0400 Body weight 90.[address] Christina Salter DO Work Phone: [facility] 11-01-2024 14:06-0400 Diastolic blood pressure 81 mm[Hg] Dr. Christina Salter DO Work Phone: [facility] 11-01-2024 14:06-0400 Systolic blood pressure 128 mm[Hg] Dr. Christina Salter DO Work Phone: [facility] 10-27-2024 10:23-0400 Body height 157.[address] Christina Salter DO Work Phone: [facility] 10-27-2024 10:23-0400 Body mass index (BMI) [Ratio] 36.3 kg/m2 Dr. Christina Salter DO Work Phone: [facility] 10-27-2024 10:23-0400 Body weight 90.[address] Christina Salter DO Work Phone: [facility] 10-27-2024 10:23-0400 Diastolic blood pressure 88 mm[Hg] Dr. Christina Salter DO Work Phone: [facility] 10-27-2024 10:23-0400 Systolic blood pressure 131 mm[Hg] Dr. Christina Salter DO Work Phone: [facility] 10-18-2024 15:40-0400 Body height 157.[address] Christina Salter DO Work Phone: [facility] 10-18-2024 15:40-0400 Body mass index (BMI) [Ratio] 35.7 kg/m2 Dr. Christina Salter DO Work Phone: [facility] 10-18-2024 15:40-0400 Body weight 88.[address] Christina Salter DO Work Phone: 0(606)977-799605 [address] 10-18-2024 15:40-0400 Diastolic blood pressure 86 mm[Hg] Dr. Christina Salter DO Work Phone: 2(303)521-260605 [address] 10-18-2024 15:40-0400 Systolic blood pressure 118 mm[Hg] Dr. Christina Salter DO Work Phone: 3(301)104-005125 [place] [address] 10-12-2024 15:05-0400 Body height 157.[address] Christina Salter DO Work Phone: 2(475)489-481905 [address] 10-12-2024 15:05-0400 Body mass index (BMI) [Ratio] 35.6 kg/m2 Dr. Christina Salter DO Work Phone: [facility] 10-12-2024 15:05-0400 Body weight 88.[address] Christina Salter DO Work Phone: [facility] 10-12-2024 15:05-0400 Diastolic blood pressure 86 mm[Hg] Dr. Christina Salter DO Work Phone: [facility] 10-12-2024 15:05-0400 Systolic blood pressure 127 mm[Hg] Dr. Christina Salter DO Work Phone: [facility] 10-05-2024 14:40-0400 Body height 157.[address] Christina Salter DO Work Phone: [facility] 10-05-2024 14:40-0400 Body mass index (BMI) [Ratio] 35.4 kg/m2 Dr. Christina Salter DO Work Phone: [facility] 10-05-2024 14:40-0400 Body weight 87.[address] Christina Salter DO Work Phone: 4(825)855-381925 [place] [address] 10-05-2024 14:40-0400 Diastolic blood pressure 72 mm[Hg] Dr. Christina Salter DO Work Phone: 5(523)274-009325 [place] [address] 10-05-2024 14:40-0400 Systolic blood pressure 115 mm[Hg] Dr. Christina Salter DO Work Phone: 8(718)700-760325 [place] [address] 09-22-2024 08:36-0400 Body mass index (BMI) [Ratio] 35 kg/m2 Dr. Christina Salter DO Work Phone: 8(189)173-827805 [address] 09-22-2024 08:36-0400 Body weight 86.[address] Christina Salter DO Work Phone: 6(598)071-650405 [address] 09-22-2024 08:36-0400 Diastolic blood pressure 74 mm[Hg] Dr. Christina Salter DO Work Phone: 1(717)370-262105 [address] 09-22-2024 08:36-0400 Systolic blood pressure 112 mm[Hg] Dr. Christina Salter DO Work Phone: 8(696)905-321325 [place] [address] 09-20-2024 10:23-0400 Body mass index (BMI) [Ratio] 34.6 kg/m2 Dr. Christina Salter DO Work Phone: 6(137)339-326525 [place] [address] 09-20-2024 10:23-0400 Body weight 85.[address] Christina Salter DO Work Phone: 7(895)369-255325 [place] [address] 09-20-2024 10:23-0400 Diastolic blood pressure 78 mm[Hg] Dr. Christina Salter DO Work Phone: 6(755)899-798125 [place] [address] 09-20-2024 10:23-0400 Systolic blood pressure 117 mm[Hg] Dr. Christina Salter DO Work Phone: [facility] 09-05-2024 11:40-0400 Body mass index (BMI) [Ratio] 34.9 kg/m2 Dr. Christina Salter DO Work Phone: [facility] 09-05-2024 11:40-0400 Body weight 86.[address] Christina Salter DO Work Phone: [facility] 09-05-2024 11:40-0400 Diastolic blood pressure 84 mm[Hg] Dr. Christina Salter DO Work Phone: [facility] 09-05-2024 11:40-0400 Heart rate 110 /min Dr. Christina Salter DO Work Phone: [facility] 09-05-2024 11:40-0400 Systolic blood pressure 119 mm[Hg] Dr. Christina Salter DO Work Phone: [facility] 08-24-2024 14:32-0400 Body mass index (BMI) [Ratio] 34.02 kg/m2 Zenaida Mitchell PROFESSOR OF PHILOSOPHY.TORPEDOMAN'S MATE Work Phone: [facility] 08-24-2024 14:32-0400 Body weight 87.09 kg Zenaida Habrionna PROFESSOR OF PHILOSOPHY.TORPEDOMAN'S MATE Work Phone: [facility] 08-24-2024 14:32-0400 Diastolic blood pressure 68 mm[Hg] Zenaida Haury PROFESSOR OF PHILOSOPHY.TORPEDOMAN'S MATE Work Phone: [facility] 08-24-2024 14:32-0400 Systolic blood pressure 118 mm[Hg] Zenaida Haury PROFESSOR OF PHILOSOPHY.TORPEDOMAN'S MATE Work Phone: [facility] 08-10-2024 14:25-0400 Body mass index (BMI) [Ratio] 33.63 kg/m2 Yennifer Couch PROFESSOR OF PHILOSOPHY.CNM Work Phone: [facility] 08-10-2024 14:25-0400 Body weight 86.09 kg Yennifer Couch PROFESSOR OF PHILOSOPHY.CNM Work Phone: [facility] 08-10-2024 14:25-0400 Diastolic blood pressure 66 mm[Hg] Yennifer Couch PROFESSOR OF PHILOSOPHY.CNM Work Phone: [facility] 08-10-2024 14:25-0400 Systolic blood pressure 122 mm[Hg] Yennifer Couch PROFESSOR OF PHILOSOPHY.CNM Work Phone: [facility] 07-26-2024 09:41-0500 Body mass index (BMI) [Ratio] 32.43 kg/m2 Kathy Clancy MD Work Phone: [facility] 07-26-2024 09:41-0500 Body weight 83.01 kg Kathy Clancy MD Work Phone: [facility] 07-26-2024 09:41-0500 Diastolic blood pressure 60 mm[Hg] Kathy Clancy MD Work Phone: [facility] 07-26-2024 09:41-0500 Systolic blood pressure 110 mm[Hg] Kathy Clancy MD Work Phone: [facility] 07-13-2024 14:29-0500 Body mass index (BMI) [Ratio] 32.67 kg/m2 Nancy Aguilar MD Work Phone: [facility] 07-13-2024 14:29-0500 Body weight 83.64 kg Nancy Aguilar MD Work Phone: [facility] 07-13-2024 14:29-0500 Diastolic blood pressure 64 mm[Hg] Nancy Aguilar MD Work Phone: [facility] 07-13-2024 14:29-0500 Systolic blood pressure 118 mm[Hg] Nancy Aguilar MD Work Phone: [facility] 06-26-2024 19:30-0500 Body mass index (BMI) [Ratio] 21.6 kg/m2 Dr. Christina Salter DO Work Phone: [facility] 06-26-2024 19:30-0500 Body weight 53.[address] Christina Salter DO Work Phone: [facility] 06-26-2024 19:23-0500 Body temperature 97.8 [degF] Dr. Christina Salter DO Work Phone: [facility] 06-26-2024 19:23-0500 Diastolic blood pressure 61 mm[Hg] Dr. Christina Salter DO Work Phone: [facility] 06-26-2024 19:23-0500 Heart rate 96 /min Dr. Christina Salter DO Work Phone: [facility] 06-26-2024 19:23-0500 Respiratory rate 14 /min Dr. Christina Salter DO Work Phone: [facility] 06-26-2024 19:23-0500 Systolic blood pressure 116 mm[Hg] Dr. Christina Salter DO Work Phone: [facility] 06-15-2024 14:32-0500 Body mass index (BMI) [Ratio] 31.72 kg/m2 Nancy Aguilar MD Work Phone: [facility] 06-15-2024 14:32-0500 Body weight 81.19 kg Nancy Aguilar MD Work Phone: [facility] 06-15-2024 14:32-0500 Diastolic blood pressure 64 mm[Hg] Nancy Aguilar MD Work Phone: [facility] 06-15-2024 14:32-0500 Systolic blood pressure 114 mm[Hg] Nancy Aguilar MD Work Phone: [facility] 05-27-2024 08:43-0500 Body mass index (BMI) [Ratio] 31.72 kg/m2 Zenaida Mitchell APRN.[employer] Work Phone: [facility] 05-27-2024 08:43-0500 Body weight 81.19 kg Zenaida Mitchell APRN.[employer] Work Phone: [facility] 05-27-2024 08:43-0500 Diastolic blood pressure 64 mm[Hg] Zenaida Haury PROFESSOR OF PHILOSOPHY.[employer] Work Phone: [facility] 05-27-2024 08:43-0500 Systolic blood pressure 118 mm[Hg] Zenaida Haury PROFESSOR OF PHILOSOPHY.[employer] Work Phone: [facility] 04-26-2024 13:16-0500 Body mass index (BMI) [Ratio] 31.18 kg/m2 Nancy Aguilar MD Work Phone: [facility] 04-26-2024 13:16-0500 Body weight 79.83 kg Nancy Aguilar MD Work Phone: [facility] 04-26-2024 13:16-0500 Diastolic blood pressure 68 mm[Hg] Nancy Aguilar MD Work Phone: [facility] 04-26-2024 13:16-0500 Systolic blood pressure 116 mm[Hg] Nancy Aguilar MD Work Phone: [facility] 03-25-2024 08:04-0400 Body mass index (BMI) [Ratio] 30.87 kg/m2 Citlali Ginger PROFESSOR OF PHILOSOPHY.[employer] Work Phone: [facility] 03-25-2024 08:04-0400 Body weight 79.02 kg Citlali Ginger PROFESSOR OF PHILOSOPHY.[employer] Work Phone: [facility] 03-25-2024 08:04-0400 Diastolic blood pressure 64 mm[Hg] Citlali Ginger PROFESSOR OF PHILOSOPHY.[employer]ATE Work Phone: [facility] 03-25-2024 08:04-0400 Systolic blood pressure 116 mm[Hg] Citlali Ginger PROFESSOR OF PHILOSOPHY.[employer] Work Phone: [facility] 06-13-2022 14:14-0500 Body height 157.5 cm Linad Lilly MD Work Phone: [facility] 06-13-2022 14:14-0500 Body mass index (BMI) [Ratio] 27.25 kg/m2 Linda Lilly MD Work Phone: [facility] 06-13-2022 14:14-0500 Body weight 67.59 kg Linda Lilly MD Work Phone: [facility] 06-13-2022 14:14-0500 Diastolic blood pressure 78 mm[Hg] Linda Lilly MD Work Phone: [facility] 06-13-2022 14:14-0500 Heart rate 98 /min Linda Lilly MD Work Phone: [facility] 06-13-2022 14:14-0500 Systolic blood pressure 133 mm[Hg] Linda Lilly MD Work Phone: [facility] Encounters Encounter Date Encounter Type Care Provider Facility Start: 11-01-2024 End: 11-01-2024 Patient encounter procedure Mable Ashley CNM -[facility] Work Phone: Start: 11-01-2024 End: 11-01-[address] Christina Salter DO Work Phone: [facility] Work Phone: Start: 10-27-2024 End: 10-27-2024 Patient encounter procedure Mable Ashley CNM -[facility] Work Phone: Start: 10-27-2024 End: 10-27-[address] Christina Salter DO Work Phone: [facility] Work Phone: Start: 10-18-2024 End: 10-18-[address] Janae Guidry MD -[facility] Work Phone: Start: 10-18-2024 End: 10-18-[address] Christina Salter DO Work Phone: [facility] Work Phone: Start: 10-12-2024 End: 10-12-2024 Patient encounter procedure Mable Ashley CNM -[facility] Work Phone: Start: 10-12-2024 End: 10-12-[address] Christina Salter DO Work Phone: [facility] Work Phone: Start: 10-05-2024 End: 10-05-[address] Christina Salter DO Work Phone: [facility] Work Phone: Start: 10-05-2024 End: 10-05-[address] Xenia Edouard DO -Laboratory Specimen Work Phone: Start: 10-05-2024 End: 10-05-[address] Xenia Edouard DO -[facility] Work Phone: Start: 10-05-2024 End: 10-05-[address] Christina Salter DO Work Phone: [facility] Work Phone: Start: 10-05-2024 End: 10-05-2024 ambulatory Xenia Edouard Facility:[facility] Start: 09-22-2024 End: 09-22-[address] Janae Guidry MD -[facility] Work Phone: Start: 09-22-2024 End: 09-22-2024 ambulatory Christina Salter Facility:[facility] Start: 09-21-2024 ambulatory Christina Sandoval Gaetano Fa cility:[facility] Start: 09-20-2024 End: 09-20-2024 Patient encounter procedure Maureen ALLAN -[facility] Work Phone: Start: 09-20-2024 End: 09-20-2024 ambulatory Christina Salter Facility:[facility] Start: 09-20-2024 End: 09-20-2024 ambulatory Christina Salter Facility:[facility] Start: 09-05-2024 End: 09-05-2024 [facility] encounter [facility] Start: 09-05-2024 End: 09-05-2024 ambulatory Agnelica Harrison Clinical Communication Start: 09-05-2024 End: 09-05-2024 ambulatory Christina Sandoval Gaetano Facility:[facility] Start: 08-31-2024 End: 08-31-2024 Telephone encounter Yennifer Couch APRN.CNM Work Phone: OB/Gynecology Comment on above: Care Start: 08-24-2024 End: 08-24-2024 ambulatory CHRISTINA Brandon GAETANO Facility:[facility] Start: 08-24-2024 End: 08-24-2024 Patient encounter procedure Zenaida Mitchell APRN.CNP Work Phone: OB/Gynecology Comment on above: Supervision of high risk in third trimester (HCC) (Primary Dx); 30 weeks gestation of (HCC); Obesity affecting in third trimester, unspecified obesity type (HCC) Start: 08-10-2024 End: 08-10-2024 Patient encounter procedure Yennifer Couch APRN.CNM Work Phone: OB/Gynecology Comment on above: 28 weeks gestation o f (Primary Dx); Encounter for supervision of normal in second trimester, unspecified ; Obesity affecting in second trimester, unspecified obesity type; Supervision of high risk in second trimester Start: 08-10-2024 End: 08-10-2024 ambulatory CHRISTINA SALTER Facility:[facility] Start: 07-27-2024 End: 09-26-2024 Follow-up encounter Zenaida Mitchell APRN.[employer] Work Phone: OB/Gynecology Start: 07-26-2024 End: 07-26-2024 ambulatory KATHY CLANCY Facility:[facility] Start: 07-26-2024 End: 07-26-2024 Patient encounter procedure Kathy Clancy MD Work Phone: OB/Gynecology Comment on above: Encounter for superv ision of normal in second trimester, unspecified (Primary Dx); Dysuria Start: 07-13-2024 End: 07-13-2024 ambulatory CHRISTINA SALTER Facility:[facility] Start: 07-13-2024 End: 07-13-2024 Patient encounter procedure Nancy Aguilar MD Work Phone: OB/Gynecology Comment on above: Screening for diabet es mellitus (Primary Dx); 24 weeks gestation of Start: 06-26-2024 End: 06-26-2024 ambulatory Jayne Carmona Facility:[facility] Start: 06-26-2024 End: 06-26-[address] Jayne Carmona DO [facility] Work Phone: Start: 06-15-2024 Non-patient / Non-visit Christina beyer [facility] Work Phone: Start: 06-15-2024 End: 06-15-2024 ambulatory XENIA MARIE Facility:[facility] Start: 06-15-2024 End: 06-15-2024 Patient encounter procedure Nancy Aguilar MD Work Phone: OB/Gynecology Comment on above: Supervision of high risk in second trimester (Primary Dx); 20 weeks gestation of ; Obesity affecting in second trimester, unspecified obesity type Start: 06-15-2024 End: 06-15-2024 ambulatory NANCY AGUILAR Facility:[facility] Start: 06-15-2024 End: 06-15-2024 Patient encounter procedure [employer] [facility] [employer] Comment on above: Encounter for anatomic survey (Primary Dx); 20 weeks gestation of ; Obesity affecting in second trimester, unspecified obesity type Start: 05-27-2024 ambulatory Christina Salter Fa cility:[facility] Start: 05-27-2024 End: 05-27-2024 ambulatory ZENAIDA MITCHELL Facility:[facility] Start: 05-27-2024 End: 05-27-2024 Patient encounter procedure Zenaida Mitchell APRN.[employer] Work Phone: OB/Gynecology Comment on above: Supervision of high risk in second trimester (Primary Dx); 17 weeks gestation of ; Obesity affecting in second trimester, unspecified obesity type; Nausea and vomiting during Encounter for anatomic survey (Primary Dx); Encounter for supervision of normal first in first trimester; Encounter for screening of mother Start: 04-26-2024 End: 04-26-2024 ambulatory [facility] Facility:[facility] Start: 04-26-2024 End: 04-26-2024 Patient encounter procedure Nancy Aguilar MD Work Phone: OB/Gynecology Comment on above: Encounter for superv ision of normal first in first trimester (Primary Dx); 13 weeks gestation of ; Encounter for screening of mother; Nausea and vomiting during Start: 04-26-2024 ambulatory Christina Sandoval Gaetano Fa cility:[facility] Start: 03-25-2024 ambulatory Christina Sandoval Gaetano Fa cility:[facility] Start: 03-25-2024 End: 03-25-2024 ambulatory [facility] Facility:[facility] Start: 03-25-2024 End: 03-25-2024 Patient encounter procedure [facility] Work Phone: OB/Gynecology Comment on above: 8 weeks gestation of (Primary Dx); Encounter for supervision of normal first in first trimester; POTS (postural orthostatic tachycardia syndrome); BMI 30.0-30.9,adult Start: 03-22-2024 End: 03-22-2024 Telephone encounter Marley Riggs APRN.CNM Work Phone: OB/Gynecology Comment on above: Patient Update Start: 06-16-2022 Telephone encounter Linda Ca Work Phone: [facility] MULTIMEDIA PRODUCTION ASSISTANT Comment on above: Results Start: 06-15-2022 Orders Only Linda Basurto Work Phone: [facility] MULTIMEDIA PRODUCTION ASSISTANT Comment on above: Frequent urination ( Primary Dx) Start: 06-13-2022 End: 06-13-2022 Initial preventive medicine new pt age 18-39yrs Linda Lilly MD Work Phone: [facility] MULTIMEDIA PRODUCTION ASSISTANT Comment on above: Well woman exam with routine gynecological exam (Primary Dx); Frequent urination Start: 06-13-2022 End: 06-13-2022 Patient encounter procedure Linda Lilly MD Work Phone: [facility] MULTIMEDIA PRODUCTION ASSISTANT Start: 11-19-2021 End: 11-19-2021 Subsequent hospital visit by physician Christina Salter DO Work Phone: [facility] Start: 11-06-2021 End: 11-06-2021 Subsequent hospital visit by physician Christina Salter DO Work Phone: [facility] Comment on above: Arrived Start: 12-10-2017 End: 12-11-2017 Patient encounter [facility] Latoya [facility] Start: 12-10-2017 End: 12-10-2017 Emergency department patient visit [facility] Facility:[facility] Procedures Date Procedure Procedure Detail Performing Clinician Start: 10-05-2024 Beta-hemolytic Streptococcus culture Dr. Christina Salter DO Work Phone: Start: 09-05-2024 CT angiography of ch est with contrast Dr. Christina Salter DO Work Phone: Start: 07-26-2024 Urnls dip stick/tabl et rgnt auto w/o microscopy Kathy Clancy MD Work Phone: Start: 06-15-2024 Us preg uterus after 1st trimest 1/ gestation Nancy Aguilar MD Work Phone: Start: 05-27-2024 Us nuchal translucency 1st gestation Nancy Aguilar MD Work Phone: Start: 04-26-2024 Antibody screen CITLALI M ETCALF Comment on above: Order Comment: Speci men Type: BLOOD SPECIMEN Ordering Facility: [facility] Address: [address] [place] [address] Performed By: #### G LTGST #### [facility] CLIA [id number] [address] [place] [id number] [place] Start: 03-25-2024 Us uterus l imited 1/> fetuses Citlali Bauer PROFESSOR OF PHILOSOPHY.[employer] MATE Work Phone: Start: 03-25-2024 Adult depression scr eening assessment Nancy Aguilar MD Work Phone: Start: 06-13-2022 Microscopic observat ion [Identifier] in Cervix by Cyto stain Angelica Tran RN Start: 11-06-2021 Us abdominal real ti me w/image documentation [employer] DO Work Phone: Start: 12-08-2019 Microscopic observat ion [Identifier] in Cervix by Cyto stain Christina [employer] DO Work Phone: Plan of Treatment Date Care Activity Detail Author Start: 2072 RSV Immunization for Adults (1 - 1-dose 75+ series) RSV Immunization for Adults (1 - 1-dose 75+ series) [facility] Start: 2072 RSV Vaccine (1 - 1-d ose 75+ series) RSV Vaccine (1 - 1-dose 75+ series) [facility] Start: 11-22-2047 Zoster Vaccines (1 of 2) Zoster Vacc leonidas (1 of 2) [facility] Start: 12-18-2029 DTaP/Tdap/Td vaccine (8 - Td or Tdap) DTaP/Tdap/Td vaccine (8 - Td or Tdap) [facility] Start: 12-18-2029 DTaP/Tdap/Td Vaccine s (8 - Td or Tdap) DTaP/Tdap/Td Vaccines (8 - Td or Tdap) [facility] Start: 12-18-2029 Urine microalbumin profile DTaP,Tdap,Td Vaccine (8 - Td or Tdap) [facility] Start: 06-13-2025 Screening for malign ant neoplasm of cervix [facility] Start: 03-25-2025 Anxiety Screening Anxiety Screening [facility] Start: 03-25-2025 Depression Screening Depression Scre ening [facility] Start: 01-23-2025 Influenza vaccination Influenz a Vaccine (Season Ended) [facility] Start: 10-05-2024 End: 10-05-2024 Patient encounter procedure 10/05/2024 2:30 PM EDT Routine Office Visit OB/Gynecology [address] [place] [address] Yennifer Couch APRN.CNM [address] [place] [address] OB OB/Gynecology Comment on above: OB Start: 09-21-2024 End: 09-21-2024 Patient encounter procedure 09/21/2024 2:50 PM EDT Routine Office Visit OB/Gynecology [address] [place] [address] Kathe Florentino MD [address] [place] [address] OB OB/Gynecology Comment on above: OB Start: 09-07-2024 End: 09-07-2024 Patient encounter procedure 09/07/2024 2:40 PM EDT Routine Office Visit OB/Gynecology [address] [place] [address] Kathe Florentino MD [address] [place] [address] OB OB/Gynecology Comment on above: OB Start: 08-24-2024 End: 08-24-2024 Patient encounter procedure 08/24/2024 2:30 PM EDT Routine Office Visit OB/Gynecology [address] [place] [address] Zenaida Mitchell APRN.[employer] [address] [place] [address] OB OB/Gynecology Comment on above: OB Start: 08-10-2024 End: 08-10-2024 Patient encounter procedure 08/10/2024 2:30 PM EDT Routine Office Visit OB/Gynecology [address] [place] [address] Yennifer Couch APRN.CNM [address] [place] [address] OB Routine OB/Gynecology Comment on above: OB Routine Start: 08-10-2024 End: 08-10-2024 ambulatory 08/10/2024 2:15 PM EDT Results [facility] [place] [facility] [address] [place] [address] Glucose test and Labs [facility] Comment on above: Glucose test and Lab s Start: 07-13-2024 End: 07-13-2024 Patient encounter procedure 07/13/2024 2:20 PM EST Routine Office Visit OB/Gynecology [address] [place] [id number] Nancy Aguilar MD [address] [place] [id number] OB Routine OB/Gynecology Comment on above: OB Routine Start: 07-13-2024 End: 10-12-2024 ANEMIA REFLEX PANEL ANEMIA REFLEX PANEL Lab Routine Screening for diabetes mellitus Expected: 07/13/2024, Expires: 10/12/2024 [facility] Comment on above: Expected: 07/13/2024 , Expires: 10/12/2024 Start: 07-13-2024 End: 07-13-2025 GESTATIONAL GLUCOSE SCREEN, 1-HOUR, 50 GRAM, NON-FASTING GESTATIONAL GLUCOSE SCREEN, 1-HOUR, 50 GRAM, NON-FASTING Lab Routine Screening for diabetes mellitus Expected: 07/13/2024, Expires: 07/13/2025 [facility] Work Phone: Comment on above: Expected: 07/13/2024 , Expires: 07/13/2025 Start: 07-13-2024 End: 07-13-2025 SYPHILIS TREPONEMAL W/REFLEX SYPHILIS TREPONEMAL W/REFLEX Lab Routine Screening for diabetes mellitus Expected: 07/13/2024, Expires: 07/13/2025 [facility] Comment on above: Expected: 07/13/2024 , Expires: 07/13/2025 Start: 06-26-2024 Nonstress test [facility] Start: 06-26-2024 Obstetric monitoring [facility] Start: 06-26-2024 Vital signs measurements [facility] Start: 06-26-2024 [facility] Start: 06-26-2024 Patient discharge [facility] Start: 06-15-2024 End: 06-15-2024 Patient encounter procedure 06/15/2024 9:40 AM EST Routine Office Visit OB/Gynecology [address] [place] [address] Xenia Marie MD [address] [place] [address] OB Routine OB/Gynecology Comment on above: OB Routine Start: 06-15-2024 End: 06-15-2024 Patient encounter procedure 06/15/2024 8:30 AM EST Routine Office Visit Maternal Medicine [address] [place], [place] [phone] Anatomy Scan [facility] Comment on above: Anatomy Scan Start: 05-27-2024 End: 05-27-2024 Patient encounter procedure [facility] Comment on above: Early Anatomy OB Routine Start: 04-26-2024 End: 04-26-2025 NUCHAL TRANSLUCENCY WHI NUCHAL TRANSLUCENCY WHI Anc Imaging Routine Encounter for supervision of normal first in first trimester Encounter for screening of mother Expected: 04/26/2024, Expires: 04/26/2025 [facility] Comment on above: Expected: 04/26/2024 , Expires: 04/26/2025 Start: 04-26-2024 End: 04-26-2025 OBSTETRIC ULTRASOUND WHI OBSTETRIC ULTRASOUND WHI Anc Imaging Routine Encounter for supervision of normal first in first trimester 13 weeks gestation of Encounter for screening of mother Expected: 04/26/2024, Expires: 04/26/2025 [facility] Work Phone: Comment on above: Expected: 04/26/2024 , Expires: 04/26/2025 Start: 04-26-2024 End: 04-26-2024 Patient encounter procedure 04/26/2024 1:10 PM EST Routine Office Visit OB/Gynecology [address] [place] [address] Nancy Aguilar MD [address] [place] [address] 2nd OB OB/Gynecology Comment on above: 2nd OB Start: 03-25-2024 End: 06-24-2024 CBC W Auto Differential panel - Blood COMPLETE BLOOD COUNT AND DIFFERENTIAL Lab Routine 8 weeks gestation of Expected: 03/25/2024, Expires: 06/24/2024 [facility] Comment on above: Expected: 03/25/2024 , Expires: 06/24/2024 Start: 03-25-2024 End: 06-24-2024 Hemoglobin A1c in Blood HEMOGLOBIN A1C Lab Routine 8 weeks gestation of Expected: 03/25/2024, Expires: 06/24/2024 [facility] Comment on above: Expected: 03/25/2024 , Expires: 06/24/2024 Start: 03-25-2024 End: 06-24-2024 Hepatitis B virus surface Ag [Presence] in Serum HEPATITIS B SURFACE ANTIGEN Lab Routine 8 weeks gestation of Expected: 03/25/2024, Expires: 06/24/2024 [facility] Comment on above: Expected: 03/25/2024 , Expires: 06/24/2024 Start: 03-25-2024 End: 06-24-2024 Hepatitis C virus Ab [Presence] in Serum HEPATITIS C ANTIBODY IA WITH CONFIRMATION Lab Routine 8 weeks gestation of Expected: 03/25/2024, Expires: 06/24/2024 [facility] Comment on above: Expected: 03/25/2024 , Expires: 06/24/2024 Start: 03-25-2024 End: 06-24-2024 HIV 1+2 Ab [Presence] in Serum or Plasma by Immunoassay HIV 1/2 COMBO WITH REFLEX TO DIFFERENTIATION Lab Routine 8 weeks gestation of Expected: 03/25/2024, Expires: 06/24/2024 [facility] Comment on above: Expected: 03/25/2024 , Expires: 06/24/2024 Start: 03-25-2024 End: 06-24-2024 Iron and Iron binding capacity panel - Serum or Plasma IRON AND TIBC Lab Routine 8 weeks gestation of Expected: 03/25/2024, Expires: 06/24/2024 [facility] Comment on above: Expected: 03/25/2024 , Expires: 06/24/2024 Start: 03-25-2024 End: 06-24-2024 RUBELLA IGG ANTIBODY RUBELLA IGG ANTIBODY Lab Routine 8 weeks gestation of Expected: 03/25/2024, Expires: 06/24/2024 [facility] Comment on above: Expected: 03/25/2024 , Expires: 06/24/2024 Start: 03-25-2024 End: 06-24-2024 SYPHILIS TREPONEMAL W/REFLEX SYPHILIS TREPONEMAL W/REFLEX Lab Routine 8 weeks gestation of Expected: 03/25/2024, Expires: 06/24/2024 [facility] Work Phone: Comment on above: Expected: 03/25/2024 , Expires: 06/24/2024 Start: 03-25-2024 End: 06-24-2024 TYPE + SCREEN TYPE + SCREEN Blood Bank Routine 8 weeks gestation of Expected: 03/25/2024, Expires: 06/24/2024 [facility] Comment on above: Expected: 03/25/2024 , Expires: 06/24/2024 Start: 03-25-2024 End: 03-25-2024 Patient encounter procedure 03/25/2024 8:15 AM EDT Initial Office Visit OB/Gynecology [address] [place], [place] [id number] Citlali Bauer APRN.[employer] [address] [place] [address] OB/Gynecology Start: 01-24-2024 Covid-19 Vaccine ( season) Covid-19 Vaccine ( season) [facility] Start: 01-24-2024 Influenza vaccination Influenza Vacc ine (#1) [facility] Start: 06-17-2023 End: 06-17-2023 Patient encounter procedure 06/17/2023 Office Visit Obstetrics and Gynecology Linda Lilly MD [address] [place] [id number] [facility] MULTIMEDIA PRODUCTION ASSISTANT Start: 12-07-2022 Screening for malign ant neoplasm of cervix Pap smear [facility] Start: 06-18-2022 End: 06-18-2022 Patient encounter procedure 06/18/2022 Office Visit Obstetrics and Gynecology Linda Lilly MD [address] [place] [phone] [facility] MULTIMEDIA PRODUCTION ASSISTANT Start: 06-12-2022 Screening for Chlamy reji trachomatis Chlamydia screen [facility] Start: 01-23-2022 Influenza vaccination S [facility] Start: 01-24-2020 Varicella vaccination [facility] Start: 2016 Hepatitis B Vaccine (1 of 3 - 19+ 3-dose series) Hepatitis B Vaccine (1 of 3 - 19+ 3-dose series) [facility] Start: 2016 Urine microalbumin profile DTaP,Tdap,Td Vaccine (1 - Tdap) [facility] Start: 11-22-2015 Anxiety Screening Anxiety Screening [facility] Start: 11-22-2015 Depression Screening Depression Scre [facility] Start: 11-22-2015 Hepatitis C screening [facility] Start: 11-22-2015 HIV screening HIV Screening [facility] Start: 2012 HIV screening HIV screen [facility] Start: 2012 HPV Vaccine (1 - 3-d ose series) HPV Vaccine (1 - 3-dose series) [facility] Start: 11-22-2011 Peds To Adult Transi tion Annual Assessment Peds To Adult Transition Annual Assessment [facility] Start: 2009 Depression Screen Depression Screen [facility] Start: 2009 Depression Screening Depression Scre ing [facility] Start: 2009 Peds To Adult Transi tion Initial Discussion Peds To Adult Transition Initial Discussion [facility] Start: 2002 COVID-19 Vaccine (1) COVID-19 Vaccin e (1) [facility] Start: 1998 Varicella vaccine (1 of 2 - 2-dose childhood series) Varicella vaccine (1 of 2 - 2-dose childhood series) [facility] Start: 05-23-1998 COVID-19 Vaccine (#1) COVID-19 Vacci ne (#1) [facility] Start: 1997 HIV screening HIV Screening [facility]ima [facility]adez Start: 1997 Lipid panel Lipid Panel [facility] Bacteria identified in Urine by Culture URINE CULTURE Microbiology Routine 8 weeks gestation of 03/25/2024 9:11 AM EDT [facility] Bacteria identified in Urine by Culture Urine culture Microbiology Routine Frequent urination Ordered: 06/13/2022 [facility] Comment on above: Ordered: 06/13/2022 Bacteria identified in Urine by Culture BACTERIAL CULTURE, URINE Microbiology Routine Dysuria 07/26/2024 10:39 AM EST [facility] Work Phone: Chlamydia trachomatis+Neisseria gonorrhoeae DNA [Presence] in Unspecified specimen by MICHAEL with probe detection GONORRHEA/CHLAMYDIA NAAT Lab Routine 8 weeks gestation of 03/25/2024 9:11 AM EDT [facility] End: 11-19-2021 CT ABDOMEN W WO CONTRAST Additional Contrast? None [facility] Work Phone: Comment on above: Once for 1 Occurrenc es starting 11/19/2021 until 11/19/2021 Cytology Cervical or vaginal smear or scraping study Pap Smear Pathology and Cytology Routine Well woman exam with routine gynecological exam Ordered: 06/13/2022 [facility] Work Phone: Comment on above: Ordered: 06/13/2022 Patient Education Kick Counts ED False Labor OB Triage: Return to Hospital or Notify Physician if you Experience: [facility] Work Phone: Streptococcus agalac tiae [Presence] in Unspecified specimen by Organism specific culture [facility] End: 11-06-2021 US PELVIS COMPLETE NON-OB TRANSABDOMINAL AND TRANSVAGINAL [facility] Work Phone: Comment on above: Once for 1 Occurrenc es starting 11/06/2021 until 11/06/2021 Immunizations Immunization Date Immunization Notes Care Provider Fa cili 09-22-2024 tetanus toxoid, redu satnam diphtheria toxoid, and acellular pertussis vaccine, adsorbed Dr. Christina Salter DO Work Phone: [facility] 05-21-2023 influenza, injectabl e, quadrivalent, preservative free Nancy Aguilar MD Work Phone: [facility] 05-21-2023 influenza virus vacc ine, unspecified formulation Citlali Bauer DUNCAN Work Phone: [facility] 12-27-2021 tuberculin skin test ; purified protein derivative solution, intradermal Nancy Aguilar MD Work Phone: [facility] 08-10-2020 hepatitis B vaccine, adult dosage Nancy Aguilar MD Work Phone: [facility] 03-10-2020 Influenza, injectabl e, Madin Ashlee Canine Kidney, preservative free, quadrivalent Nancy Aguilar MD Work Phone: [facility] 03-10-2020 influenza virus vacc ine, unspecified formulation Linda Lilly MD Work Phone: [facility] 01-24-2020 hepatitis B vaccine, adult dosage Nancy Aguilar MD Work Phone: [facility] 12-27-2019 measles, mumps and rubella virus vaccine Nancy Aguilar MD Work Phone: [facility] 12-27-2019 tuberculin skin test ; purified protein derivative solution, intradermal Nancy Aguilar MD Work Phone: [facility] 12-21-2019 hepatitis B vaccine, adult dosage Nancy Aguilar MD Work Phone: [facility] 12-19-2019 meningococcal polysaccharide (groups A, C, Y and W-135) diphtheria toxoid conjugate vaccine (MCV4P) Nancy Aguilar MD Work Phone: [facility] 12-19-2019 tetanus toxoid, redu satnam diphtheria toxoid, and acellular pertussis vaccine, adsorbed Nancy Aguilar MD Work Phone: [facility] 12-19-2019 tuberculin skin test ; purified protein derivative solution, intradermal Nancy Aguilar MD Work Phone: [facility] 03-04-2012 hepatitis A vaccine, pediatric/adolescent dosage, 2 dose schedule Nancy Aguilar MD Work Phone: [facility] 03-04-2012 human papilloma viru s vaccine, quadrivalent Nancy Aguilar MD Work Phone: [facility] 03-10-2011 human papilloma viru s vaccine, quadrivalent Nancy Aguilar MD Work Phone: [facility] 01-06-2011 hepatitis A vaccine, pediatric/adolescent dosage, 2 dose schedule Nancy Aguilar MD Work Phone: [facility] 01-06-2011 human papilloma viru s vaccine, quadrivalent Nancy Aguilar MD Work Phone: [facility] 01-06-2011 meningococcal polysaccharide (groups A, C, Y and W-135) diphtheria toxoid conjugate vaccine (MCV4P) Nancy Aguilar MD Work Phone: [facility] 10-03-2009 diphtheria, tetanus toxoids and acellular pertussis vaccine Nancy Aguilar MD Work Phone: [facility] 04-13-2009 novel influenza-H1N1 -09, preservative-free, injectable Nancy Aguilar MD Work Phone: [facility] 12-20-2002 diphtheria, tetanus toxoids and acellular pertussis vaccine Nancy Aguilar MD Work Phone: [facility] 12-20-2002 measles, mumps and rubella virus vaccine Nancy Aguilar MD Work Phone: [facility] 12-20-2002 poliovirus vaccine, inactivated Nancy Aguilar MD Work Phone: [facility] 03-04-1999 diphtheria, tetanus toxoids and acellular pertussis vaccine Nancy Aguilar MD Work Phone: [facility] 03-04-1999 haemophilus influenz ae type b vaccine, PRP-T conjugate Nancy Aguilar MD Work Phone: [facility] 03-04-1999 measles, mumps and rubella virus vaccine Nancy Aguilar MD Work Phone: [facility] 03-04-1999 poliovirus vaccine, inactivated Nancy Aguilar MD Work Phone: [facility] 12-03-1998 hepatitis B vaccine, pediatric or pediatric/adolescent dosage Nancy Aguilar MD Work Phone: [facility] 07-12-1998 diphtheria, tetanus toxoids and acellular pertussis vaccine aNncy Aguilar MD Work Phone: [facility] 07-12-1998 haemophilus influenz ae type b vaccine, PRP-T conjugate Nancy Aguilar MD Work Phone: [facility] 03-19-1998 diphtheria, tetanus toxoids and acellular pertussis vaccine Nancy Aguilar MD Work Phone: [facility] 03-19-1998 haemophilus influenz ae type b vaccine, PRP-T conjugate Nancy Aguilar MD Work Phone: [facility] 03-19-1998 poliovirus vaccine, inactivated Nancy Aguilar MD Work Phone: [facility] 02-15-1998 diphtheria, tetanus toxoids and acellular pertussis vaccine Nancy Aguilar MD Work Phone: [facility] 02-15-1998 haemophilus influenz ae type b vaccine, PRP-T conjugate Nancy Aguilar MD Work Phone: [facility] 02-15-1998 poliovirus vaccine, inactivated Nancy Aguilar MD Work Phone: [facility] 01-09-1998 hepatitis B vaccine, pediatric or pediatric/adolescent dosage Nancy Aguilar MD Work Phone: [facility] 1997 hepatitis B vaccine, pediatric or pediatric/adolescent dosage Nancy Aguilar MD Work Phone: [facility] Payers Date Payer Category Payer Private Health Insurance MMO SUP ERMED PPO [id number] 2024 Self-pay 2024 Unknown [id number] 2022 Blue Cross Blue Lolye ld Managed Care - O ALESSIO BLUE CROSS [id number] 2022 Unknown [id number]. [id number] 2019 Unknown [employer] M [employer] [address] [id number] 2019-Present [address] [place] [address] [id number] Unknown [id number] Unknown [id number]. 462 Unknown [id number]. 462 Unknown [id number]. 462 Unknown [id number]. 462 Unknown [id number] 2.16.840.1.924219.3.579.2. 462 Unknown [id number] 2.16.840.1.964757.3.579.2. 462 Unknown [id number] 2.16.840.1.102506.3.579.2. 462 Unknown [id number] 2.16.840.1.030175.3.579.2. 462 Unknown [id number] 2.16.840.1.322059.3.579.2. 462 Unknown [id number] 2.16.840.1.749460.3.579.2. 462 Unknown [id number] 2.16.840.1.995754.3.579.2. 462 Unknown [id number] 2.16.840.1.748591.3.579.2. 462 Unknown [id number] 2.16.840.1.264460.3.579.2. 462 Unknown [id number] 2.16.840.1.071783.3.579.2. 462 Unknown [id number] 2.16.840.1.031277.3.579.2. 462 Unknown [id number] 2.16.840.1.764718.3.579.2. 462 Unknown [id number]. 462 Social History Date Type Detail Facility Start: 01-07-2015 End: 09-02-2024 Tobacco smoking status [facility] Never smoked tobacco [employer] Work Phone: Start: 01-07-2015 End: 06-15-2024 Tobacco use and exposure Smokeless tobacco non-user [employer] Work Phone: Start: 11-06-2021 End: 06-13-2022 Alcohol intake Current drinker of alcohol (finding) [employer] Work Phone: Start: 11-26-2018 History SDOH Alcohol Frequency 2 [employer] Work Phone: Start: 1995 Sex Assigned At Not on file [facility] Work Phone: Start: 03-22-2024 End: 07-26-2024 Alcoholic beverage intake Ex-drinker (finding) [facility] Start: 03-22-2024 End: 04-26-2024 History of Social function [facility] Start: 03-22-2024 End: 04-26-2024 Tobacco use panel [facility] Start: 03-22-2024 Education 17 [facility] Start: 12-10-2017 Alcohol [facility] Start: 02-08-2024 [facility] National Score (1-10 0), lower number is lower risk 71 [facility] Start: 12-23-2021 Sex Female (finding) [facility] Start: 1995 Sex Assigned At Female [facility] Clinical Notes 06-13-2022 to 10-27-2024 Note Date & Type Note Facility 10-27-2024 Progress note [facility] 10-18-2024 Progress note [facility] 10-18-2024 Progress note Note Date/Time October 18, 2024 3:54pm [facility] [address], [address] [place] [address] OFFICE VISIT Date of Service: 10/18/24 MR#: [id number] Acct: [id number] Name: CANDICE CARMICHAEL Rep #: [id number] : 1995 Provider: Dr. Gilson Guidry MD Age/Sex: 28/F Location: [facility] Status: Signed Intake Vital Signs 09/20/24 10:23 10/12/24 15:05 10/18/24 15:40 Height 5 ft 2 in 5 ft 2 in 5 ft 2 in Weight: 195 lb 2 oz 195 lb 8 oz BMI 35.6 35.7 BP 127/86 H 118/86 H Intake Visit Reasons: 38 WK OB Applications Manager Required: No Is patient in pain?: No Allergies Latex, Natural Rubber Allergy (Intermediate, Verified 10/18/24 15:41) Rash Medications ?Medication ?Instructions ?Recorded ?Confirmed ?Type aspirin 81 mg tablet,delayed 81 mg PO QDAY 09/02/24 History release cholecalciferol (vitamin D3) 50 50 mcg PO QDAY 5 10/18/24 History mcg (2,000 unit) capsule choline 250 mg tablet 110 mg PO QDAY 09/02/2409/23 History ferrous sulfate 325 mg (65 mg 325 mg PO Q OTHER DAY 10/18/24 History iron) tablet multivit-min no.71-iron fum 28 cap PO 09/02/24 5 History mg-folate no.1 1 mg-dha 300 mg capsule (PNV-Tollhouse) pyridoxine (vitamin B6) 100 mg 100 mg PO QDAY 09/02/24 10/18/24 History tablet zinc acetate 50 mg (zinc) capsule 50 mg PO QDAY 10/18/24 History hydroxyzine pamoate 25 mg capsule 25 mg PO Q6H PRN anx iety 30 days 09/22/24 10/18/24 Rx (Vistaril) #120 caps Last Menstrual Period: 01/26/24 Zika: Zika virus screening: Negative : No PFSH PFSH Medical History Vocal cord dysfunction Tipped uterus Surgical History History of appendectomy Family History Grandmother Diabetes Paternal Breast cancer Paternal- age of onset unknown Alzheimer's dementia Maternal Grandfather Cancer, Onset Age: 75 Paternal- Lung Cancer COPD (chronic obstructive pulmonary disease) Paternal Other Sudden cardiac Social History adopted: No household members: significant other housing: house current occupational status: employed 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: No pets and animals: No history of recent travel: Yes ([place]) out of state: Yes out of country: No sexually active: Yes Smoking Status: Never smoker alcohol intake: current alcohol intake frequency: holidays/special occasions only details: Not while substance use type: does not use well-balanced diet: about half the time caffeine: Yes Type: tea Number of servings: 1 eating out: 1-3 times/week during the past year weight has: increased > 10 lbs what type of physical activity do you participate in: none debo/samaritan: Anabaptism seatbelt use: always do you feel safe at home: Yes additional social history: Allison Garcianer- WC History 1 Elective abortions Hx Para 0 Spontaneous abortions Hx # Term Pregnancies Ectopic pregnancies Hx # Pregnancies Multiple births # of living children HPI 38 WK OB Details: CANDICE CARMICHAEL is a 28 year old who presents for routine OB visit. OB Visit KHLOE Calculator Estimated Delivery Date Method Current WG Current Estimate 11/01/24 LMP (Certain) 38w 0d Expected Delivery Route/Plan Labor Preferences- CB/BF classes: [] labor support person: Mike labor intervention preferences: [] pain management options preferred: epidural if requested cut cord/dad catch: yes : yes PP control planned: [] discussed possible routes of delivery and associated risks: [] special requests: [] Specific Issue/Plans Covid status: [] Flu vaccine: [] Tdap vaccine: given Rhogam: na LARC form signed: yes movement and labor precautions reviewed. Problem list reviewed and updated with the most current plan of care details and appropriate orders placed. Relevant counseling for the gestational age provided. Continue routine care and follow up unless otherwise noted in visit notes/problem list details Initial Weight: Not Recorded Date -?-?-?-?-?-?-?-?-?-?-?-?- EGA Weight BP Urine Prot -?-?-?-?-?-?-?-?-?-?-?-?- Glucose FHR FuHt Pres Dilation -?-?-?-?-?-?-?-?-?-?-?-?- Effaced St Visit Note 09/05/24 -?-?-?-?-?-?-?-?-?-?-?-?- 31w 6d 191 lb 119/84 Negative -?-?-?-?-?-?-?-?-?-?-?-?- Negative 145 31 -?-?-?-?-?-?-?-?-?-?-?-?- SM- QUENTIN from [facility] , co fatigue, some SOB, saw PCP and recommended CT scan, dicsussed she can have if she wants, per calculator she is in low risk category. reviewed continuing iron supplement, nutrition, sleep patterns. may be POTS contributing also to symptoms. supportive care at this time. fu in 2 weeks repeat cbc at that time 09/20/24 -?-?-?-?-?-?-?-?-?-?-?-?- 34w 0d 189 lb 6 oz 117/78 Nega tive -?-?-?-?-?-?-?-?-?-?-?-?- Negative 152 34 -?-?-?-?-?-?-?-?-?-?-?-?- MH-No VB, LOF. G ood FM. Some anxiety but declines meds. Reviewed magnesium. Recheck CBC, hx of anemia. Reviewed FE supp. 09/22/24 -?-?-?-?-?-?-?-?-?-?-?-?- 34w 2d 191 lb 8 oz 112/74 Nega tive -?-?-?-?-?-?-?-?-?-?-?-?- Negative 140 34 -?-?-?-?-?-?-?-?--?-?-?-?- SM- feeling fati gued- any movement is challenging, feels short of breath, CT of chest was negative, she feels lethargic, on 09/17- started feeling anxious- she has spiraling, negative thoughts about her health and the baby's health, and she has overwhelming episodes where she feels like she cant do anything, and she has had a few occasional episodes before but this is new. she took zoloft in the past. SM- feeling fatigued- any mo vement is challenging, feels short of breath, CT of chest was negative, she feels lethargic, on 09/17- started feeling anxious- she has spiraling, negative thoughts about her health and the baby's health, and she has overwhelming episodes where she feels like she cant do anything, and she has had a few occasional episodes before but this is new. she took zoloft in the past. recommend starting FMLA now, start vistaril and if no improvement within 2 weeks recommend starting medical terminologist medication SSRI. recommend therapy. 10/05/24 -?-?-?-?-?-?-?-?-?-?-?-?- 36w 1d 193 lb 6 oz 115/72 Nega tive -?-?-?-?-?-?-?-?-?-?-?-?- Negative 145 36 Cephalic -?-?-?-?-?--?-?-?-?-?-?-?- JV- gbs collect ed today. declines pelvic check. feels better now that is on maternity leave. no complaints as above. 10/12/24 -?-?-?-?-?-?-?-?-?-?-?-?- 37w 1d 195 lb 2 oz 127/86 Nega tive -?-?-?-?-?-?-?-?-?-?-?-?- Negative 150 38 Cephalic -?-?-?-?-?-?-?-?-?-?-?-?- KW- no vb/lof/ct x. good fm.no concerns 10/18/24 -?-?-?-?-?-?-?-?-?-?-?-?- 38w 0d 195 lb 8 oz 118/86 Nega tive -?-?-?-?-?-?-?-?-?-?-?-?- Negative 140 38 Cephalic -?-?--?-?-?-?-?-?-?-?-?-?- SM- no vb lof go od fm no regular ctx feeling better. ACOG First Trimester First Trimester: Discussed Results POC Urinalysis 2 Dip (Clinic) Office Urine Glucose Negative Last Edit by Maureen Kulkarni on 10/18/24 15:47 Office Urine Protein Negative Last Edit by Maureen Kulkarni on 10/18/24 15:47 Coding Level of Care Code OB Routine Diagnoses Choroid plexus cyst of fetus affecting care of mother, antepartum O35.03X0 Fatigue, unspecified type R53.83 Fatigue type: unspecified Obesity affecting in third trimester, unspecified obesity type O99.213 Obesity type affecting : unspecified obesity Trimester: third trimester Encounter for supervision of normal first in third trimester Z34.03 Trimester: third trimester POTS (postural orthostatic tachycardia syndrome) G90.A Anxiety and depression F41.9; F32.A 38 weeks gestation of Z3A.38 Weeks of gestation: 38 weeks Anemia affecting in third trimester O99.013 Trimester: third trimester Assessment and Plan Assessment and Plan (1) Choroid plexus cyst of fetus affecting care of mother, antepartum: Status: Acute (2) Fatigue: Status: Acute Qualifiers: Fatigue type: unspecified Qualified Code(s): R53.83 - Other fatigue Comment: discussed nutrition, iron supplement. (3) Obesity affecting : Status: Acute Qualifiers: Obesity type affecting : unspecified obesity Trimester: third trimester Qualified Code(s): O99.213 - Obesity complicating , third trimester (4) Supervision of normal first : Status: Acute Qualifiers: Trimester: third trimester Qualified Code(s): Z34.03 - Encounter for supervision of normal first , third trimester Comment: PRR , KHLOE 10/31/24, Rohini Mckeon (5) POTS (postural orthostatic tachycardia syndrome): Status: Acute (6) Anxiety and depression: Status: Acute Comment: start vistaril. if no improvement recommend starting SSRI Failed buspar. Enc magnesium. referred for therapy. recommend starting medical leave now due to POTS and anxiety, severe symptoms. (7) : Status: Acute Qualifiers: Weeks of gestation: 38 weeks Qualified Code(s): Z3A.38 - 38 weeks gestation of Comment: QUENTIN from [facility] @ 31wks (8) Anemia affecting : Status: Acute Qualifiers: Trimester: third trimester Qualified Code(s): O99.013 - Anemia complicating , third trimester 10/18/24 6168 <Electronically signed by Janae marcano MD> Date _ Janae Guidry MD Cosigner Signature: Date (if applicable) CC: ~ [facility] Work Phone: 1(343) 198-772205-21-2025 Progress [facility] [address] [place] [address], [address] [place] [id number] OFFICE VISIT Date of Service: 10/12/24 MR#: [id number] Acct: [id number] Name: CANDICE CARMICHAEL Rep #: [id number] : 1995 Provider: STEPHANIE Ashley Age/Sex: 28/F Location: [facility] Status: Signed Intake Vital Signs 09/20/24 10:23 10/05/24 14:40 10/12/24 15:05 Height 5 ft 2 in 5 ft 2 in 5 ft 2 in Weight: 195 lb 2 oz BMI 35.6 BP 127/86 H Intake Visit Reasons: 37 WK OB Chief Complaint: 37wk OB Applications Manager Required: No Is patient in pain?: No Allergies Latex, Natural Rubber Allergy (Intermediate, Verified 10/12/24 15:03) Rash Medications ?Medication ?Instructions ?Recorded ?Confirmed ?Type aspirin 81 mg tablet,delayed 81 mg PO QDAY 09/02/24 History release cholecalciferol (vitamin D3) 50 50 mcg PO QDAY 5 10/12/24 History mcg (2,000 unit) capsule choline 250 mg tablet 110 mg PO QDAY 09/02/2409/23 History ferrous sulfate 325 mg (65 mg 325 mg PO Q OTHER DAY 10/12/24 History iron) tablet multivit-min no.71-iron fum 28 cap PO 09/02/24 5 History mg-folate no.1 1 mg-dha 300 mg capsule (PNV-Tollhouse) pyridoxine (vitamin B6) 100 mg 100 mg PO QDAY 09/02/24 10/12/24 History tablet zinc acetate 50 mg (zinc) capsule 50 mg PO QDAY 10/12/24 History hydroxyzine pamoate 25 mg capsule 25 mg PO Q6H PRN anx iety 30 days 09/22/24 10/12/24 Rx (Vistaril) #120 caps Last Menstrual Period: 01/26/24 : No Have you fallen in the past year?: No PFSH PFSH Medical History Vocal cord dysfunction Tipped uterus Surgical History History of appendectomy Family History Grandmother Diabetes Paternal Breast cancer Paternal- age of onset unknown Alzheimer's dementia Maternal Grandfather Cancer, Onset Age: 75 Paternal- Lung Cancer COPD (chronic obstructive pulmonary disease) Paternal Other Sudden cardiac Social History adopted: No household members: significant other housing: house current occupational status: employed 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: No pets and animals: No history of recent travel: Yes ([place]) out of state: Yes out of country: No sexually active: Yes Smoking Status: Never smoker alcohol intake: current alcohol intake frequency: holidays/special occasions only details: Not while substance use type: does not use well-balanced diet: about half the time caffeine: Yes Type: tea Number of servings: 1 eating out: 1-3 times/week during the past year weight has: increased > 10 lbs what type of physical activity do you participate in: none debo/samaritan: Anabaptism seatbelt use: always do you feel safe at home: Yes additional social history: Allison BATRES History 1 Elective abortions Hx Para 0 Spontaneous abortions Hx # Term Pregnancies Ectopic pregnancies Hx # Pregnancies Multiple births # of living children HPI 37 WK OB Details: CANDICE CAMRICHAEL is a 28 year old who presents for routine OB visit. OB Visit KHLOE Calculator Estimated Delivery Date Method Current WG Current Estimate 11/01/24 LMP (Certain) 37w 1d Expected Delivery Route/Plan Labor Preferences- CB/BF classes: [] labor support person: Mike labor intervention preferences: [] pain management options preferred: epidural if requested cut cord/dad catch: yes : yes PP control planned: [] discussed possible routes of delivery and associated risks: [] special requests: [] Specific Issue/Plans Covid status: [] Flu vaccine: [] Tdap vaccine: given Rhogam: na LARC form signed: yes movement and labor precautions reviewed. Problem list reviewed and updated with the most current plan of care details and appropriate ordersplaced. Relevant counseling for the gestational age provided. Continue routine care and follow up unless otherwise noted in visit notes/problem list details Initial Weight: Not Recorded Date -?-?-?-?-?-?-?-?-?-?-?-?- EGA Weight BP Urine Prot -?-?-?-?-?-?-?-?-?-?-?-?- Glucose FHR FuHt Pres Dilation -?-?-?-?-?-?-?-?-?-?-?-?- Effaced St Visit Note 09/05/24 -?-?-?-?-?-?-?-?-?-?-?-?- 31w 6d 191 lb 119/84 Negative -?-?-?-?-?-?-?-?-?-?-?-?- Negative 145 31 -?-?-?-?-?-?-?-?-?-?-?-?- SM- QUENTIN from [facility] , co fatigue, some SOB, saw PCP and recommended CT scan, dicsussed she can have if she wants, per calculator she is in low risk category. reviewed continuing iron supplement, nutrition, sleep patterns. may be POTS contributing also to symptoms. supportive care at this time. fu in 2 weeks repeat cbc at that time 09/20/24 -?-?-?-?-?-?-?-?-?-?-?-?- 34w 0d 189 lb 6 oz 117/78 Nega tive -?-?-?-?-?-?-?-?-?--?-?-?- Negative 152 34 -?-?-?-?-?-?-?-?-?-?-?-?- MH-No VB, LOF. G ood FM. Some anxiety but declines meds. Reviewed magnesium. Recheck CBC, hx of anemia. Reviewed FE supp. 09/22/24 -?-?-?-?-?-?-?-?-?-?-?-?- 34w 2d 191 lb 8 oz 112/74 Nega tive -?-?-?-?-?-?-?-?-?-?-?-?- Negative 140 34 -?-?-?--?-?-?-?-?-?-?-?-?- SM- feeling fati gued- any movement is challenging, feels short of breath, CT of chest was negative, she feels lethargic, on 09/17- started feeling anxious- she has spiraling, negative thoughts about her health and the baby's health, and she has overwhelming episodes where she feels like she cant do anything, and she has had a few occasional episodes before but thisis new. she took zoloft in the past. SM- feeling fatigued- any mo vement is challenging, feels short of breath, CT of chest was negative, she feels lethargic, on 09/17- started feeling anxious- she has spiraling, negative thoughts about her health and the baby's health, and she has overwhelming episodes where she feels like she cant do anything, and she has had a few occasional episodes before but this isnew. she took zoloft in the past. recommend starting FMLA now, start vistaril and if no improvementwithin 2 weeks recommend starting medical terminologist medication SSRI. recommend therapy. 10/05/24 -?-?-?-?-?-?-?-?-?-?-?-?- 36w 1d 193 lb 6 oz 115/72 Nega tive -?-?-?-?-?-?-?-?-?-?-?-?- Negative 145 36 Cephalic -?-?-?-?-?-?-?-?-?-?-?-?- JV- gbs collect ed today. declines pelvic check. feels better now that is on maternity leave. no complaints as above. 10/12/24 -?-?-?-?-?-?-?-?-?-?-?-?- 37w 1d 195 lb 2 oz 127/86 Nega tive -?-?-?-?-?-?-?-?-?-?-?-?- Negative 150 38 Cephalic -?-?-?-?-?-?-?-?-?-?-?-?- KW- no vb/lof/ct x. good fm.no concerns ACOG First Trimester First Trimester: Discussed ROS Const Reports system reviewed and no additional complaints, except as documented Eyes Reports system reviewed and no additional complaints, except as documented ENT Reports system reviewed and no additional complaints, except as documented Card Reports system reviewed and no additional complaints, except as documented Resp Reports system reviewed and no additional complaints, except as documented GI Reports system reviewed and no additional complaints, except as documented, Denies nausea and Denies vomiting Reports system reviewed and no additional complaints, except as documented Musc Reports system reviewed and no additional complaints, except as documented Skin/Breast Reports system reviewed and no additional complaints, except as documented Neuro Yes system reviewed and no additional complaints, except as documented Psych Reports system reviewed and no additional complaints, except as documented Endo Reports system reviewed and no additional complaints, except as documented [place]/Lymph Reports system reviewed and no additional complaints, except as documented Aller/Immun Reports system reviewed and no additional complaints, except as documented Exam Const General: cooperative, healthy appearing and no acute distress Orientation: alert, awake and oriented x3 Neck Neck: normal visual inspection and full ROM Resp Effort & Inspection: normal respiratory effort, able to speak in complete sentences and symmetric chest movement GI Inspection: normal to inspection Palpation: soft and other Other: gravid Skin General: no rashes or lesions noted Neuro General: patient alert, patient awake and patient oriented x3 Cognition: normal cognition Speech: speech normal Gait: normal gait Motor: muscle tone normal throughout Extrem General: normal to inspection and full ROM Psych Appearance: grossly normal Mental Status: mental status grossly normal Mood: congruent mood Affect: normal affect Speech and Movement: speech and movement normal Attitude: cooperative Thought Process: normal Thought Content: normal Judgment: judgment good Results POC Urinalysis 2 Dip (Clinic) Office Urine Glucose Negative Last Edit by Renu Potter on 10/12/24 15:11 Office Urine Protein Negative Last Edit by Renu Potter on 10/12/24 15:11 Coding Level of Care Code OB Routine Diagnoses Choroid plexus cyst of fetus affecting care of mother, antepartum O35.03X0 Fatigue, unspecified type R53.83 Fatigue type: unspecified Obesity affecting in third trimester, unspecified obesity type O99.213 Obesity type affecting : unspecified obesity Trimester: third trimester Encounter for supervision of normal first in third trimester Z34.03 Trimester: third trimester POTS (postural orthostatic tachycardia syndrome) G90.A Anxiety and depression F41.9; F32.A 37 weeks gestation of Z3A.37 Weeks of gestation: 37 weeks Anemia affecting in third trimester O99.013 Trimester: third trimester Assessment and Plan Assessment and Plan (1) Choroid plexus cyst of fetus affecting care of mother, antepartum: Status: Acute (2) Fatigue: Status: Acute Qualifiers: Fatigue type: unspecified Qualified Code(s): R53.83 - Other fatigue Comment: discussed nutrition, iron supplement. (3) Obesity affecting : Status: Acute Qualifiers: Obesity type affecting : unspecified obesity Trimester: third trimester Qualified Code(s):O99.213 - Obesity complicating , third trimester (4) Supervision of normal first : Status: Acute Qualifiers: Trimester: third trimester Qualified Code(s): Z34.03 - Encounter for supervision of normal first , third trimester Comment: PRR , KHLOE 10/31/24, Rohini Mckeon (5) POTS (postural orthostatic tachycardia syndrome): Status: Acute (6) Anxiety and depression: Status: Acute Comment: start vistaril. if no improvement recommend starting SSRI Failed buspar. Enc magnesium. referred for therapy. recommend starting medical leave now due to POTS and anxiety, severe symptoms. (7) : Status: Acute Qualifiers: Weeks of gestation: 37 weeks Qualified Code(s): Z3A.37 - 37 weeks gestation of Comment: QUENTIN from [facility] @ 31wks (8) Anemia affecting : Status: Acute Qualifiers: Trimester: third trimester Qualified Code(s): O99.013 - Anemia complicating , third trimester Orders: Orders POC Urinalysis 2 Dip (Clinic) Today Plan Details Additional Comments: ACOG trimester education reviewed and updated. see problem list details for updated plan management information and see below for orders placed atthis visit. [place] appropriate handout given. Clinical Quality Measures Falls Risk Screening/Assistive Devices Have you fallen in the past year?: No 10/12/24 1530 s STEPHANIE> Date _ Mable Ashley CNM Cosigner Signature: Date (if applicable) CC: ~ [facility]05-21-2025 Progress note Author Mable Ashley [facility] Note Date/Time October 12, 2024 3:30p m [facility] [address], [address] [place] [address] OFFICE VISIT Date of Service: 10/12/24 MR#: [id number] Acct: [id number] Name: CANDICE CARMICHAEL Rep #: [id number] : 1995 Provider: STEPHANIE Ashley Age/Sex: 28/F [place] [facility] [place] Status: Signed Intake Vital Signs 09/20/24 10:23 10/05/24 14:40 10/12/24 15:05 Height 5 ft 2 in 5 ft 2 in 5 ft 2 in Weight: 195 lb 2 oz BMI 35.6 BP 127/86 H Intake Visit Reasons: 37 WK OB Chief Complaint: 37wk OB Applications Manager Required: No Is patient in pain?: No Allergies Latex, Natural Rubber Allergy (Intermediate, Verified 10/12/24 15:03) Rash Medications ?Medication ?Instructions ?Recorded ?Confirmed ?Type aspirin 81 mg tablet,delayed 81 mg PO QDAY 09/02/24 History release cholecalciferol (vitamin D3) 50 50 mcg PO QDAY 5 10/12/24 History mcg (2,000 unit) capsule choline 250 mg tablet 110 mg PO QDAY 09/02/2409/23 History ferrous sulfate 325 mg (65 mg 325 mg PO Q OTHER DAY 10/12/24 History iron) tablet multivit-min no.71-iron fum 28 cap PO 09/02/24 5 History mg-folate no.1 1 mg-dha 300 mg capsule (PNV-Tollhouse) pyridoxine (vitamin B6) 100 mg 100 mg PO QDAY 09/02/24 10/12/24 History tablet zinc acetate 50 mg (zinc) capsule 50 mg PO QDAY 10/12/24 History hydroxyzine pamoate 25 mg capsule 25 mg PO Q6H PRN anx iety 30 days 09/22/24 10/12/24 Rx (Vistaril) #120 caps Last Menstrual Period: 01/26/24 : No Have you fallen in the past year?: No PFSH PFSH Medical History Vocal cord dysfunction Tipped uterus Surgical History History of appendectomy Family History Grandmother Diabetes Paternal Breast cancer Paternal- age of onset unknown Alzheimer's dementia Maternal Grandfather Cancer, Onset Age: 75 Paternal- Lung Cancer COPD (chronic obstructive pulmonary disease) Paternal Other Sudden cardiac Social History adopted: No household members: significant other housing: house current occupational status: employed 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: No pets and animals: No history of recent travel: Yes ([place]) out of state: Yes out of country: No sexually active: Yes Smoking Status: Never smoker alcohol intake: current alcohol intake frequency: holidays/special occasions only details: Not while substance use type: does not use well-balanced diet: about half the time caffeine: Yes Type: tea Number of servings: 1 eating out: 1-3 times/week during the past year weight has: increased > 10 lbs what type of physical activity do you participate in: none debo/samaritan: Anabaptism seatbelt use: always do you feel safe at home: Yes additional social history: Allison [facility]- [facility] History 1 Elective abortions Hx Para 0 Spontaneous abortions Hx # Term Pregnancies Ectopic pregnancies Hx # Pregnancies Multiple births # of living children HPI 37 WK OB Details: CANDICE CARMICHAEL is a 28 year old who presents for routine OB visit. OB Visit KHLOE Calculator Estimated Delivery Date Method Current WG Current Estimate 11/01/24 LMP (Certain) 37w 1d Expected Delivery Route/Plan Labor Preferences- CB/BF classes: [] labor support person: Mike labor intervention preferences: [] pain management options preferred: epidural if requested cut cord/dad catch: yes : yes PP control planned: [] discussed possible routes of delivery and associated risks: [] special requests: [] Specific Issue/Plans Covid status: [] Flu vaccine: [] Tdap vaccine: given Rhogam: na LARC form signed: yes movement and labor precautions reviewed. Problem list reviewed and updated with the most current plan of care details and appropriate orders placed. Relevant counseling for the gestational age provided. Continue routine care and follow up unless otherwise noted in visit notes/problem list details Initial Weight: Not Recorded Date -?-?-?-?-?-?-?-?-?-?-?-?- EGA Weight BP Urine Prot -?-?-?-?-?-?-?-?-?-?-?-?- Glucose FHR FuHt Pres Dilation -?-?-?-?-?-?-?-?-?-?-?-?- Effaced St Visit Note 09/05/24 -?-?-?-?-?-?-?-?-?-?-?-?- 31w 6d 191 lb 119/84 Negative -?-?-?-?-?-?-?-?-?-?-?-?- Negative 145 31 -?-?-?-?-?-?-?-?-?-?-?-?- SM- QUENTIN from [facility] , co fatigue, some SOB, saw PCP and recommended CT scan, dicsussed she can have if she wants, per calculator she is in low risk category. reviewed continuing iron supplement, nutrition, sleep patterns. may be POTS contributing also to symptoms. supportive care at this time. fu in 2 weeks repeat cbc at that time 09/20/24 -?-?-?-?-?-?-?-?-?-?-?-?- 34w 0d 189 lb 6 oz 117/78 Nega tive -?-?-?-?-?-?-?-?-?--?-?-?- Negative 152 34 -?-?-?-?-?-?-?-?-?-?-?-?- MH-No VB, LOF. G ood FM. Some anxiety but declines meds. Reviewed magnesium. Recheck CBC, hx of anemia. Reviewed FE supp. 09/22/24 -?-?-?-?-?-?-?-?-?-?-?-?- 34w 2d 191 lb 8 oz 112/74 Nega tive -?-?-?-?-?-?-?-?-?-?-?-?- Negative 140 34 -?-?-?--?-?-?-?-?-?-?-?-?- SM- feeling fati gued- any movement is challenging, feels short of breath, CT of chest was negative, she feels lethargic, on 09/17- started feeling anxious- she has spiraling, negative thoughts about her health and the baby's health, and she has overwhelming episodes where she feels like she cant do anything, and she has had a few occasional episodes before but this is new. she took zoloft in the past. SM- feeling fatigued- any mo vement is challenging, feels short of breath, CT of chest was negative, she feels lethargic, on 09/17- started feeling anxious- she has spiraling, negative thoughts about her health and the baby's health, and she has overwhelming episodes where she feels like she cant do anything, and she has had a few occasional episodes before but this is new. she took zoloft in the past. recommend starting FMLA now, start vistaril and if no improvement within 2 weeks recommend starting alf medication SSRI. recommend therapy. 10/05/24 -?-?-?-?-?-?-?-?-?-?-?-?- 36w 1d 193 lb 6 oz 115/72 Nega tive -?-?-?-?-?-?-?-?-?-?-?-?- Negative 145 36 Cephalic -?-?-?-?-?-?-?-?-?-?-?-?- JV- gbs collect ed today. declines pelvic check. feels better now that is on maternity leave. no complaints as above. 10/12/24 -?-?-?-?-?-?-?-?-?-?-?-?- 37w 1d 195 lb 2 oz 127/86 Nega tive -?-?-?-?-?-?-?-?-?-?-?-?- Negative 150 38 Cephalic -?-?-?-?-?-?-?-?-?-?-?-?- KW- no vb/lof/ct x. good fm.no concerns ACOG First Trimester First Trimester: Discussed ROS Const Reports system reviewed and no additional complaints, except as documented Eyes Reports system reviewed and no additional complaints, except as documented ENT Reports system reviewed and no additional complaints, except as documented Card Reports system reviewed and no additional complaints, except as documented Resp Reports system reviewed and no additional complaints, except as documented GI Reports system reviewed and no additional complaints, except as documented, Denies nausea and Denies vomiting Reports system reviewed and no additional complaints, except as documented Musc Reports system reviewed and no additional complaints, except as documented Skin/Breast Reports system reviewed and no additional complaints, except as documented Neuro Yes system reviewed and no additional complaints, except as documented Psych Reports system reviewed and no additional complaints, except as documented Endo Reports system reviewed and no additional complaints, except as documented [place]/Lymph Reports system reviewed and no additional complaints, except as documented Aller/Immun Reports system reviewed and no additional complaints, except as documented Exam Const General: cooperative, healthy appearing and no acute distress Orientation: alert, awake and oriented x3 Neck Neck: normal visual inspection and full ROM Resp Effort & Inspection: normal respiratory effort, able to speak in complete sentences and symmetric chest movement GI Inspection: normal to inspection Palpation: soft and other Other: gravid Skin General: no rashes or lesions noted Neuro General: patient alert, patient awake and patient oriented x3 Cognition: normal cognition Speech: speech normal Gait: normal gait Motor: muscle tone normal throughout Extrem General: normal to inspection and full ROM Psych Appearance: grossly normal Mental Status: mental status grossly normal Mood: congruent mood Affect: normal affect Speech and Movement: speech and movement normal Attitude: cooperative Thought Process: normal Thought Content: normal Judgment: judgment good Results POC Urinalysis 2 Dip (Clinic) Office Urine Glucose Negative Last Edit by Renu Potter on 10/12/24 15:11 Office Urine Protein Negative Last Edit by Renu Potter on 10/12/24 15:11 Coding Level of Care Code OB Routine Diagnoses Choroid plexus cyst of fetus affecting care of mother, antepartum O35.03X0 Fatigue, unspecified type R53.83 Fatigue type: unspecified Obesity affecting in third trimester, unspecified obesity type O99.213 Obesity type affecting : unspecified obesity Trimester: third trimester Encounter for supervision of normal first in third trimester Z34.03 Trimester: third trimester POTS (postural orthostatic tachycardia syndrome) G90.A Anxiety and depression F41.9; F32.A 37 weeks gestation of Z3A.37 Weeks of gestation: 37 weeks Anemia affecting in third trimester O99.013 Trimester: third trimester Assessment and Plan Assessment and Plan (1) Choroid plexus cyst of fetus affecting care of mother, antepartum: Status: Acute (2) Fatigue: Status: Acute Qualifiers: Fatigue type: unspecified Qualified Code(s): R53.83 - Other fatigue Comment: discussed nutrition, iron supplement. (3) Obesity affecting : Status: Acute Qualifiers: Obesity type affecting : unspecified obesity Trimester: third trimester Qualified Code(s): O99.213 - Obesity complicating , third trimester (4) Supervision of normal first : Status: Acute Qualifiers: Trimester: third trimester Qualified Code(s): Z34.03 - Encounter for supervision of normal first , third trimester Comment: PRR , KHLOE 10/31/24, Rohini Mckeon (5) POTS (postural orthostatic tachycardia syndrome): Status: Acute (6) Anxiety and depression: Status: Acute Comment: start vistaril. if no improvement recommend starting SSRI Failed buspar. Enc magnesium. referred for therapy. recommend starting medical leave now due to POTS and anxiety, severe symptoms. (7) : Status: Acute Qualifiers: Weeks of gestation: 37 weeks Qualified Code(s): Z3A.37 - 37 weeks gestation of Comment: QUENTIN from [facility] @ 31wks (8) Anemia affecting : Status: Acute Qualifiers: Trimester: third trimester Qualified Code(s): O99.013 - Anemia complicating , third trimester Orders: Orders POC Urinalysis 2 Dip (Clinic) Today Plan Details Additional Comments: ACOG trimester education reviewed and updated. see problem list details for updated plan management information and see below for orders placed at this visit. [place] appropriate handout given. Clinical Quality Measures Falls Risk Screening/Assistive Devices Have you fallen in the past year?: No 10/12/24 1530 <Electronically signed by Mable garcia CNM> Date _ Mable Andino Signature: Date (if applicable) CC: ~ [facility] Work Phone: [phone] Progress [facility] [address], [address] [place] [address] OFFICE VISIT Date of Service: 10/05/24 MR#: [id number] Acct: [id number] Name: CANDICE CARMICHAEL Rep #: [id number] : 1995 Provider: Dr. Clair Edouard DO Age/Sex: 28/F [place] [facility] [place] Status: Signed Intake Vital Signs 09/05/24 11:40 09/22/24 08:36 10/05/24 14:40 10/05/24 14:40 Height 5 ft 2 in 5 ft 2 in 5 ft 2 in 5 ft 2 in Weight: 193 lb 6 oz BMI 35.4 BP 115/72 Intake Visit Reasons: 36 wk ob Applications Manager Required: No Is patient in pain?: No Allergies Latex, Natural Rubber Allergy (Intermediate, Verified 10/05/24 14:40) Rash Medications ?Medication ?Instructions ?Recorded ?Confirmed ?Type aspirin 81 mg tablet,delayed 81 mg PO QDAY 09/02/24 History release cholecalciferol (vitamin D3) 50 50 mcg PO QDAY 5 10/05/24 History mcg (2,000 unit) capsule choline 250 mg tablet 110 mg PO QDAY 09/02/2409/22 History ferrous sulfate 325 mg (65 mg 325 mg PO Q OTHER DAY 10/05/24 History iron) tablet multivit-min no.71-iron fum 28 cap PO 09/02/24 5 History mg-folate no.1 1 mg-dha 300 mg capsule (PNV-Tollhouse) pyridoxine (vitamin B6) 100 mg 100 mg PO QDAY 09/02/24 10/05/24 History tablet zinc acetate 50 mg (zinc) capsule 50 mg PO QDAY 10/05/24 History hydroxyzine pamoate 25 mg capsule 25 mg PO Q6H PRN anx iety 30 days 09/22/24 10/05/24 Rx (Vistaril) #120 caps Last Menstrual Period: 01/26/24 Zika: Zika virus screening: Negative : No PFSH PFSH Medical History Vocal cord dysfunction Tipped uterus Surgical History History of appendectomy Family History Grandmother Diabetes Paternal Breast cancer Paternal- age of onset unknown Alzheimer's dementia Maternal Grandfather Cancer, Onset Age: 75 Paternal- Lung Cancer COPD (chronic obstructive pulmonary disease) Paternal Other Sudden cardiac Social History adopted: No household members: significant other housing: house current occupational status: employed 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: No pets and animals: No history of recent travel: Yes ([place]) out of state: Yes out of country: No sexually active: Yes Smoking Status: Never smoker alcohol intake: current alcohol intake frequency: holidays/special occasions only details: Not while substance use type: does not use well-balanced diet: about half the time caffeine: Yes Type: tea Number of servings: 1 eating out: 1-3 times/week during the past year weight has: increased > 10 lbs what type of physical activity do you participate in: none debo/samaritan: Anabaptism seatbelt use: always do you feel safe at home: Yes additional social history: Allison BATRES History 1 Elective abortions Hx Para 0 Spontaneous abortions Hx # Term Pregnancies Ectopic pregnancies Hx # Pregnancies Multiple births # of living children HPI 36 wk ob Details: CANDICE CARMICHAEL is a 28 year old who presents for routine OB visit. OB Visit KHLOE Calculator Estimated Delivery Date Method Current WG Current Estimate 11/01/24 LMP (Certain) 36w 1d Expected Delivery Route/Plan Labor Preferences- CB/BF classes: [] labor support person: Mike labor intervention preferences: [] pain management options preferred: epidural if requested cut cord/dad catch: yes : yes PP control planned: [] discussed possible routes of delivery and associated risks: [] special requests: [] Specific Issue/Plans Covid status: [] Flu vaccine: [] Tdap vaccine: given Rhogam: na LARC form signed: yes movement and labor precautions reviewed. Problem list reviewed and updated with the most current plan of care details and appropriate ordersplaced. Relevant counseling for the gestational age provided. Continue routine care and follow up unless otherwise noted in visit notes/problem list details Initial Weight: Not Recorded Date -?-?-?-?-?-?-?-?-?-?-?-?- EGA Weight BP Urine Prot -?-?-?-?-?-?-?-?-?-?-?-?- Glucose FHR FuHt Pres Dilation -?-?-?-?-?-?-?-?-?-?-?-?- Effaced St Visit Note 09/05/24 -?-?-?-?-?-?-?-?-?-?-?-?- 31w 6d 191 lb 119/84 Negative -?-?-?-?-?-?-?-?-?-?-?-?- Negative 145 31 -?-?-?-?-?-?-?-?-?-?-?-?- SM- QUENTIN from [facility] , co fatigue, some SOB, saw PCP and recommended CT scan, dicsussed she can have if she wants, per calculator she is in low risk category. reviewed continuing iron supplement, nutrition, sleep patterns. may be POTS contributing also to symptoms. supportive care at this time. fu in 2 weeks repeat cbc at that time 09/20/24 -?-?-?-?-?-?-?-?-?-?-?-?- 34w 0d 189 lb 6 oz 117/78 Nega tive -?-?-?-?-?-?-?-?-?-?-?-?- Negative 152 34 -?-?-?-?-?-?-?-?-?-?-?-?- MH-No VB, LOF. G ood FM. Some anxiety but declines meds. Reviewed magnesium. Recheck CBC, hx of anemia. Reviewed FE supp. 09/22/24 -?-?-?-?-?-?-?-?-?-?-?-?- 34w 2d 191 lb 8 oz 112/74 Nega tive -?-?-?-?-?-?-?-?-?-?-?-?- Negative 140 34 -?-?-?-?-?-?-?-?-?-?-?-?- SM- feeling fati gued- any movement is challenging, feels short of breath, CT of chest was negative, she feels lethargic, on 09/17- started feeling anxious- she has spiraling, negative thoughts about her health and the baby's health, and she has overwhelming episodes where she feels like she cant do anything, and she has had a few occasional episodes before but thisis new. she took zoloft in the past. SM- feeling fatigued- any mo vement is challenging, feels short of breath, CT of chest was negative, she feels lethargic, on 09/17- started feeling anxious- she has spiraling, negative thoughts about her health and the baby's health, and she has overwhelming episodes where she feels like she cant do anything, and she has had a few occasional episodes before but this isnew. she took zoloft in the past. recommend starting FMLA now, start vistaril and if no improvementwithin 2 weeks recommend starting medical terminologist medication SSRI. recommend therapy. 10/05/24 -?-?-?-?-?-?-?-?-?-?-?-?- 36w 1d 193 lb 6 oz 115/72 Nega tive -?-?-?-?-?-?-?-?-?-?-?-?- Negative 145 36 Cephalic -?-?-?-?-?-?-?-?-?-?-?-?- JV- gbs collect ed today. declines pelvic check. feels better now that is on maternity leave. no complaints as above. ACOG First Trimester First Trimester: Discussed Results POC Urinalysis 2 Dip (Clinic) Office Urine Glucose Negative Last Edit by Christina Hargrove on 10/05/24 15: 17 Office Urine Protein Negative Last Edit by Christina Hargrove on 10/05/24 15: 17 Coding Level of Care Code OB Routine Diagnoses Choroid plexus cyst of fetus affecting care of mother, antepartum O35.03X0 Fatigue, unspecified type R53.83 Fatigue type: unspecified Obesity affecting in third trimester, unspecified obesity type O99.213 Obesity type affecting : unspecified obesity Trimester: third trimester Encounter for supervision of normal first in third trimester Z34.03 Trimester: third trimester POTS (postural orthostatic tachycardia syndrome) G90.A Anxiety and depression F41.9; F32.A 36 weeks gestation of Z3A.36 Weeks of gestation: 36 weeks Anemia affecting in third trimester O99.013 Trimester: third trimester Assessment and Plan Assessment and Plan (1) Choroid plexus cyst of fetus affecting care of mother, antepartum: Status: Acute (2) Fatigue: Status: Acute Qualifiers: Fatigue type: unspecified Qualified Code(s): R53.83 - Other fatigue Comment: discussed nutrition, iron supplement. (3) Obesity affecting : Status: Acute Qualifiers: Obesity type affecting : unspecified obesity Trimester: third trimester Qualified Code(s):O99.213 - Obesity complicating , third trimester (4) Supervision of normal first : Status: Acute Qualifiers: Trimester: third trimester Qualified Code(s): Z34.03 - Encounter for supervision of normal first , third trimester Comment: PRR , KHLOE 10/31/24, Rohini Mckeon (5) POTS (postural orthostatic tachycardia syndrome): Status: Acute (6) Anxiety and depression: Status: Acute Comment: start vistaril. if no improvement recommend starting SSRI Failed buspar. Enc magnesium. referred for therapy. recommend starting medical leave now due to POTS and anxiety, severe symptoms. (7) : Status: Acute Qualifiers: Weeks of gestation: 36 weeks Qualified Code(s): Z3A.36 - 36 weeks gestation of Comment: [facility]IN from [facility] @ 31wks (8) Anemia affecting : Status: Acute Qualifiers: Trimester: third trimester Qualified Code(s): O99.013 - Anemia complicating , third trimester Orders: Orders POC Urinalysis 2 Dip (Clinic) Today Culture, Group B Streptococcus Today Z34.03 - Encounter for supervision of normal first , third trimester 10/05/24 1536 e Janet DO> Date _ Xenia Edouard DO Cosigner Signature: Date (if applicable) CC: ~ [facility]05-14-2025 Progress note Author Xenia Gonzales [facility] Note Date/Time October 05, 2024 3:36p [facility] [address], [address] [place] [address] OFFICE VISIT Date of Service: 10/05/24 MR#: [id number] Acct: [id number] Name: CANDICE CARMICHAEL Rep #: [id number] : 1995 Provider: Dr. Clair Edouard DO Age/Sex: 28/F Location[place] [facility] [place] Status: Signed Intake Vital Signs 09/05/24 11:40 09/22/24 08:36 10/05/24 14:40 10/05/24 14:40 Height 5 ft 2 in 5 ft 2 in 5 ft 2 in 5 ft 2 in Weight: 193 lb 6 oz BMI 35.4 BP 115/72 Intake Visit Reasons: 36 wk ob Applications Manager Required: No Is patient in pain?: No Allergies Latex, Natural Rubber Allergy (Intermediate, Verified 10/05/24 14:40) Rash Medications ?Medication ?Instructions ?Recorded ?Confirmed ?Type aspirin 81 mg tablet,delayed 81 mg PO QDAY 09/02/24 History release cholecalciferol (vitamin D3) 50 50 mcg PO QDAY 5 10/05/24 History mcg (2,000 unit) capsule choline 250 mg tablet 110 mg PO QDAY 09/02/2409/2225 History ferrous sulfate 325 mg (65 mg 325 mg PO Q OTHER DAY 10/05/24 History iron) tablet multivit-min no.71-iron fum 28 cap PO 09/02/24 5 History mg-folate no.1 1 mg-dha 300 mg capsule (PNV-[place]) pyridoxine (vitamin B6) 100 mg 100 mg PO QDAY 09/02/24 10/05/24 History tablet zinc acetate 50 mg (zinc) capsule 50 mg PO QDAY 10/05/24 History hydroxyzine pamoate 25 mg capsule 25 mg PO Q6H PRN anx iety 30 days 09/22/24 10/05/24 Rx (Vistaril) #120 caps Last Menstrual Period: 01/26/24 Zika: Zika virus screening: Negative : No PFSH PFSH Medical History Vocal cord dysfunction Tipped uterus Surgical History History of appendectomy Family History Grandmother Diabetes Paternal Breast cancer Paternal- age of onset unknown Alzheimer's dementia Maternal Grandfather Cancer, Onset Age: 75 Paternal- Lung Cancer COPD (chronic obstructive pulmonary disease) Paternal Other Sudden cardiac Social History adopted: No household members: significant other housing: house current occupational status: employed 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: No pets and animals: No history of recent travel: Yes ([place]) out of state: Yes out of country: No sexually active: Yes Smoking Status: Never smoker alcohol intake: current alcohol intake frequency: holidays/special occasions only details: Not while substance use type: does not use well-balanced diet: about half the time caffeine: Yes Type: tea Number of servings: 1 eating out: 1-3 times/week during the past year weight has: increased > 10 lbs what type of physical activity do you participate in: none debo/samaritan: Anabaptism seatbelt use: always do you feel safe at home: Yes additional social history: Allison [facility]- [facility] History 1 Elective abortions Hx Para 0 Spontaneous abortions Hx # Term Pregnancies Ectopic pregnancies Hx # Pregnancies Multiple births # of living children HPI 36 wk ob Details: CANDICE CARMICHAEL is a 28 year old who presents for routine OB visit. OB Visit KHLOE Calculator Estimated Delivery Date Method Current WG Current Estimate 11/01/24 LMP (Certain) 36w 1d Expected Delivery Route/Plan Labor Preferences- CB/BF classes: [] labor support person: Mike labor intervention preferences: [] pain management options preferred: epidural if requested cut cord/dad catch: yes : yes PP control planned: [] discussed possible routes of delivery and associated risks: [] special requests: [] Specific Issue/Plans Covid status: [] Flu vaccine: [] Tdap vaccine: given Rhogam: na LARC form signed: yes movement and labor precautions reviewed. Problem list reviewed and updated with the most current plan of care details and appropriate orders placed. Relevant counseling for the gestational age provided. Continue routine care and follow up unless otherwise noted in visit notes/problem list details Initial Weight: Not Recorded Date -?-?-?-?-?-?-?-?-?-?-?-?- EGA Weight BP Urine Prot -?-?-?-?-?-?-?-?-?-?-?-?- Glucose FHR FuHt Pres Dilation -?-?-?-?-?-?-?-?-?-?-?-?- Effaced St Visit Note 09/05/24 -?-?-?-?-?-?-?-?-?-?-?-?- 31w 6d 191 lb 119/84 Negative -?-?-?-?-?-?-?-?-?-?-?-?- Negative 145 31 -?-?-?-?-?-?-?-?-?-?-?-?- SM- QUENTIN from [facility] , co fatigue, some SOB, saw PCP and recommended CT scan, dicsussed she can have if she wants, per calculator she is in low risk category. reviewed continuing iron supplement, nutrition, sleep patterns. may be POTS contributing also to symptoms. supportive care at this time. fu in 2 weeks repeat cbc at that time 09/20/24 -?-?-?-?-?-?-?-?-?-?-?-?- 34w 0d 189 lb 6 oz 117/78 Nega tive -?-?-?-?-?-?-?-?-?-?-?-?- Negative 152 34 -?-?-?-?-?-?-?-?-?-?-?-?- MH-No VB, LOF. G ood FM. Some anxiety but declines meds. Reviewed magnesium. Recheck CBC, hx of anemia. Reviewed FE supp. 09/22/24 -?-?-?-?-?-?-?-?-?-?-?-?- 34w 2d 191 lb 8 oz 112/74 Nega tive -?-?-?-?-?-?-?-?-?-?-?-?- Negative 140 34 -?-?-?-?-?-?-?-?-?-?-?-?- SM- feeling fati gued- any movement is challenging, feels short of breath, CT of chest was negative, she feels lethargic, on 09/17- started feeling anxious- she has spiraling, negative thoughts about her health and the baby's health, and she has overwhelming episodes where she feels like she cant do anything, and she has had a few occasional episodes before but this is new. she took zoloft in the past. SM- feeling fatigued- any mo vement is challenging, feels short of breath, CT of chest was negative, she feels lethargic, on 09/17- started feeling anxious- she has spiraling, negative thoughts about her health and the baby's health, and she has overwhelming episodes where she feels like she cant do anything, and she has had a few occasional episodes before but this is new. she took zoloft in the past. recommend starting FMLA now, start vistaril and if no improvement within 2 weeks recommend starting alf medication SSRI. recommend therapy. 10/05/24 -?-?-?-?-?-?-?-?-?-?-?-?- 36w 1d 193 lb 6 oz 115/72 Nega tive -?-?-?-?-?-?-?-?-?-?-?-?- Negative 145 36 Cephalic -?-?-?-?-?-?-?-?-?-?-?-?- JV- gbs collect ed today. declines pelvic check. feels better now that is on maternity leave. no complaints as above. ACOG First Trimester First Trimester: Discussed Results POC Urinalysis 2 Dip (Clinic) Office Urine Glucose Negative Last Edit by Christina Hargrove on 10/05/24 15: 17 Office Urine Protein Negative Last Edit by Christina Hargrove on 10/05/24 15: 17 Coding Level of Care Code OB Routine Diagnoses Choroid plexus cyst of fetus affecting care of mother, antepartum O35.03X0 Fatigue, unspecified type R53.83 Fatigue type: unspecified Obesity affecting in third trimester, unspecified obesity type O99.213 Obesity type affecting : unspecified obesity Trimester: third trimester Encounter for supervision of normal first in third trimester Z34.03 Trimester: third trimester POTS (postural orthostatic tachycardia syndrome) G90.A Anxiety and depression F41.9; F32.A 36 weeks gestation of Z3A.36 Weeks of gestation: 36 weeks Anemia affecting in third trimester O99.013 Trimester: third trimester Assessment and Plan Assessment and Plan (1) Choroid plexus cyst of fetus affecting care of mother, antepartum: Status: Acute (2) Fatigue: Status: Acute Qualifiers: Fatigue type: unspecified Qualified Code(s): R53.83 - Other fatigue Comment: discussed nutrition, iron supplement. (3) Obesity affecting : Status: Acute Qualifiers: Obesity type affecting : unspecified obesity Trimester: third trimester Qualified Code(s): O99.213 - Obesity complicating , third trimester (4) Supervision of normal first : Status: Acute Qualifiers: Trimester: third trimester Qualified Code(s): Z34.03 - Encounter for supervision of normal first , third trimester Comment: PRR , KHLOE 10/31/24, Rohini Mckeon (5) POTS (postural orthostatic tachycardia syndrome): Status: Acute (6) Anxiety and depression: Status: Acute Comment: start vistaril. if no improvement recommend starting SSRI Failed buspar. Enc magnesium. referred for therapy. recommend starting medical leave now due to POTS and anxiety, severe symptoms. (7) : Status: Acute Qualifiers: Weeks of gestation: 36 weeks Qualified Code(s): Z3A.36 - 36 weeks gestation of Comment: [facility]IN from [facility] @ 31wks (8) Anemia affecting : Status: Acute Qualifiers: Trimester: third trimester Qualified Code(s): O99.013 - Anemia complicating , third trimester Orders: Orders POC Urinalysis 2 Dip (Clinic) Today Culture, Group B Streptococcus Today Z34.03 - Encounter for supervision of normal first , third trimester 10/05/24 1536 <Electronically signed by Xenia Amaral DO> Date _ Xenia Edouard DO Cosigner Signature: Date (if applicable) CC: ~ [place] Work Phone: 1(555) 150-248604-14-2025 Telephone encounter Note* Telephone Encounter - Angelica Tran RN - 09/05/2024 4:36 PM EDT S: Patient spoke to CAC nurse regarding FMLA paperwork and CT results B: Onset of symptoms/concerns today A: Patient is calling to ask what e-mail to send her FMLA paperwork to and asking if her CT resultscame back yet. R: Advised patient that her message about FMLA paperwork went through to the office but they will receive it when they open tomorrow morning. I advised that her results were not finished yet and thatI didn't know of an email that she could use. Patient verbalized understanding. Reason for Disposition [1] Caller requesting NON-URGENT health information AND [2] PCP's office is the best resource Protocols used: Information Only Call - No [id number] [id number] Miscellaneous Notes* Telephone Encounter - Angelica Tran RN - 09/05/2024 4:36 PM EDT S: Patient spoke to [facility] nurse regarding FMLA paperwork and CT results B: Onset of symptoms/concerns today A: Patient is calling to ask what e-mail to send her FMLA paperwork to and asking if her CT resultscame back yet. R: Advised patient that her message about FMLA paperwork went through to the office but they will receive it when they open tomorrow morning. I advised that her results were not finished yet and thatI didn't know of an email that she could use. Patient verbalized understanding. Reason for Disposition [1] Caller requesting NON-URGENT health information AND [2] PCP's office is the best resource Protocols used: Information Only Call - No [id number]-[id number]-TE documented in this encounterSMagruder Memorial [id number] Evaluation note* Diagnosis Onset Date Resolution Status Admit Date Anemia affecting acute September 05, 2024 12:18pm Anxiety and depression acute Ap 2024 12:18pm Choroid plexus cyst of fetus affecting care of mother, antepartum acute September 05, 2024 12:18pm Fatigue acute September 05 12:18pm Obesity affecting acute September 05, 2024 12:18pm POTS (postural orthostatic tachycardia syndrome) acute August 12:18pm acute September 05 12:18pm Supervision of normal first acute September 05, 2024 12:18pm Anemia affecting acute September 20, 2024 10:16am Anxiety and depression acute Ap 2024 10:16am Fatigue acute September 20 10:16am Obesity affecting acute September 20, 2024 10:16am acute September 20 10:16am Supervision of normal first acute September 20, 2024 10:16am Anemia affecting acute September 22, 2024 8:30am Anxiety and depression acute Ma 2024 8:30am Choroid plexus cyst of fetus affecting care of mother, antepartum acute September 22, 2024 8: 30am Fatigue acute September 22, 2024 8:30am Obesity affecting acute September 22, 2024 8:30am POTS (postural orthostatic tachycardia syndrome) acute September 22, 8:30am acute September 22, 2024 8:30am Supervision of normal first acute September 22, 2024 8: 30am Anemia affecting acute October 05, 2024 2:26pm Anxiety and depression acute 2024 2:26pm Choroid plexus cyst of fetus affecting care of mother, antepartum acute October 05, 2024 2 :26pm Fatigue acute October 05, 2024 2:26pm Obesity affecting acute October 05, 2024 2:26pm POTS (postural orthostatic tachycardia syndrome) acute October 05, 2024 2:26pm acute October 05, 2024 2:26pm Supervision of normal first acute October 05, 2024 2 :26pm Anemia affecting acute October 12, 2024 2:56pm Anxiety and depression acute 2024 2:56pm Choroid plexus cyst of fetus affecting care of mother, antepartum acute October 12, 2024 2 :56pm Fatigue acute October 12, 2024 2:56pm Obesity affecting acute October 12, 2024 2:56pm POTS (postural orthostatic tachycardia syndrome) acute October 12, 2024 2:56pm acute October 12, 2024 2:56pm Supervision of normal first acute October 12, 2024 2 :56pm Anemia affecting acute October 18, 2024 3:37pm Anxiety and depression acute 2024 3:37pm Choroid plexus cyst of fetus affecting care of mother, antepartum acute October 18, 2024 3 :37pm Fatigue acute October 18, 2024 3:37pm Obesity affecting acute October 18, 2024 3:37pm POTS (postural orthostatic tachycardia syndrome) acute October 18, 2024 3:37pm acute October 18, 2024 3:37pm Supervision of normal first acute October 18, 2024 3 :37pm Anemia affecting acute October 27, 2024 10:20am Anxiety and depression acute 2024 10:20am Choroid plexus cyst of fetus affecting care of mother, antepartum acute October 27, 2024 1 0:20am Fatigue acute October 27, 2024 10:20am Obesity affecting acute October 27, 2024 10:20am POTS (postural orthostatic tachycardia syndrome) acute October 27, 2024 10:20am acute October 27, 2024 10:20am Supervision of normal first acute October 27, 2024 1 0:20am [facility] Work Phone: 1(410) 839-660904-14-2025 Evaluation note* Diagnosis Onset Date Resolution Status Admit Date Anemia affecting acute September 05, 2024 12:18pm Anxiety and depression acute Ap ril 2024 12:18pm Choroid plexus cyst of fetus affecting care of mother, antepartum acute September 05, 2024 12:18pm Fatigue acute September 05 12:18pm Obesity affecting acute September 05, 2024 12:18pm POTS (postural orthostatic tachycardia syndrome) acute August 12:18pm acute September 05 12:18pm Supervision of normal first acute September 05, 2024 12:18pm Anemia affecting acute September 20, 2024 10:16am Anxiety and depression acute Ap ril 2024 10:16am Fatigue acute September 20 10:16am Obesity affecting acute September 20, 2024 10:16am acute September 20 10:16am Supervision of normal first acute September 20, 2024 10:16am Anemia affecting acute September 22, 2024 8:30am Anxiety and depression acute 2024 8:30am Choroid plexus cyst of fetus affecting care of mother, antepartum acute September 22, 2024 8: 30am Fatigue acute September 22, 2024 8:30am Obesity affecting acute September 22, 2024 8:30am POTS (postural orthostatic tachycardia syndrome) acute September 22, 2 025 8:30am acute September 22, 2024 8:30am Supervision of normal first acute September 22, 2024 8: 30am Anemia affecting acute October 05, 2024 2:26pm Anxiety and depression acute Ma 2024 2:26pm Choroid plexus cyst of fetus affecting care of mother, antepartum acute October 05, 2024 2 :26pm Fatigue acute October 05, 2024 2:26pm Obesity affecting acute October 05, 2024 2:26pm POTS (postural orthostatic tachycardia syndrome) acute October 05, 2024 2:26pm acute October 05, 2024 2:26pm Supervision of normal first acute October 05, 2024 2 :26pm Anemia affecting acute October 12, 2024 2:56pm Anxiety and depression acute 2024 2:56pm Choroid plexus cyst of fetus affecting care of mother, antepartum acute October 12, 2024 2 :56pm Fatigue acute October 12, 2024 2:56pm Obesity affecting acute October 12, 2024 2:56pm POTS (postural orthostatic tachycardia syndrome) acute October 12, 2024 2:56pm acute October 12, 2024 2:56pm Supervision of normal first acute October 12, 2024 2 :56pm Anemia affecting acute October 18, 2024 3:37pm Anxiety and depression acute 2024 3:37pm Choroid plexus cyst of fetus affecting care of mother, antepartum acute October 18, 2024 3 :37pm Fatigue acute October 18, 2024 3:37pm Obesity affecting acute October 18, 2024 3:37pm POTS (postural orthostatic tachycardia syndrome) acute October 18, 2024 3:37pm acute October 18, 2024 3:37pm Supervision of normal first acute October 18, 2024 3 :37pm Anemia affecting acute October 27, 2024 10:20am Anxiety and depression acute 2024 10:20am Choroid plexus cyst of fetus affecting care of mother, antepartum acute October 27, 2024 1 0:20am Fatigue acute October 27, 2024 10:20am Obesity affecting acute October 27, 2024 10:20am POTS (postural orthostatic tachycardia syndrome) acute October 27, 2024 10:20am acute October 27, 2024 10:20am Supervision of normal first acute October 27, 2024 1 0:20am Anemia affecting acute November 01, 2024 2:03pm Anxiety and depression acute 2024 2:03pm Choroid plexus cyst of fetus affecting care of mother, antepartum acute November 01, 2024 2:03pm Fatigue acute November 01 2:03pm Obesity affecting acute November 01, 2024 2:03pm POTS (postural orthostatic tachycardia syndrome) acute November 01, 2024 2:03pm acute November 01 2:03pm Supervision of normal first acute November 01, 2024 2:03pm [facility] Work Phone: [phone] Telephone encounter Note* Telephone Encounter - Xenia Carter RN - 08/31/2024 4:34 PM EDT Left message for patient to call office. Xenia Carter RN [facility]04-09-2025 Miscellaneous Notes* Telephone Encounter - Xenia Carter RN - 08/31/2024 4:34 PM EDT Left message for patient to call office. Xenia Carter RN * Telephone Encounter - Yennifer Couch APRN.CNM - 08/31/2024 4:26 PM EDT Agree with plan of care. Add in some electrolytes and increase fluid intake. Yennifer Couch APRN.CNM * Telephone Encounter - Magaly Gutierres LPN - 08/31/2024 4:03 PM EDT Ob patient is 31w2d called stating that she was at work and was overcome with sudden dizziness and felt weak and warm. Patient left work and is going home to rest. Patient reports that she ate beforeleaving for work and started taking an iron supplement d/t anemia. 2 weeks ago. Denies fever. Baby has been active today. Patient told to rest, push fluids and to call if any changes. Next ob appointment is 09/07/2024 documented in [facility]Ad[facility] Telephone encounter Note * Telephone Encounter - Yennifer Couch APRN.CNM - 08/31/2024 4:26 PM EDT Agree with plan of care. Add in some electrolytes and increase fluid intake. Yennifer Couch APRN.CNM [facility] Work Phone: 1(978) 162-566104-09-2025 Telephone encounter Note* Telephone Encounter - Magaly Gutierres LPN - 08/31/2024 4:03 PM EDT Ob patient is 31w2d called stating that she was at work and was overcome with sudden dizziness and felt weak and warm. Patient left work and is going home to rest. Patient reports that she ate beforeleaving for work and started taking an iron supplement d/t anemia. 2 weeks ago. Denies fever. Baby has been active today. Patient told to rest, push fluids and to call if any changes. Next ob appointment is 09/07/2024 [facility]04-02-2025 Progress note* Quick Notes - Zenaida Mitchell APRN.CNP - 08/24/2024 2:48 PM EDT EH - S: Candice is a 28 year old female who presents at 30w2d for a routine visit. Feeling movement. Denies headache, visual changes, chest pain, shortness of breath, vaginal bleeding, leakage offluid, or dysuria. Feeling well, no complaints. O: See flow sheet Gen: No apparent distress Abd: Gravid, nontender, S>D ASSESSMENT/PLAN: 1. Supervision of high risk in third trimester (HCC) - ICD9: V23.9, ICD10: O09.93 (primary diagnosis) - Continue LDA and PNV - Recommend starting oral iron (Hemoglobin 10.2) - Reviewed how to pre register through [facility] - Discussed TDAP vaccine, wants to think about it 2. 30 weeks gestation of (HCC) - ICD9: V22.2, ICD10: Z3A.30 - Declines LARC, form signed - Reviewed 28 week labs 3. Obesity affecting in third trimester, unspecified obesity type (HCC) - ICD9: 649.13, ICD10: O99.213 - Pre BMI 30 PTL precautions and kick counts reviewed. RTO in 2 weeks or sooner as needed. Zenaida Mitchell APRN.CNP [facility]04-02-2025 Miscellaneous Notes* Quick Notes - Zenaida Mitchell APRN.CNP - 08/24/2024 2:48 PM EDT EH - S: Candice is a 28 year old female who presents at 30w2d for a routine visit. Feeling movement. Denies headache, visual changes, chest pain, shortness of breath, vaginal bleeding, leakage offluid, or dysuria. Feeling well, no complaints. O: See flow sheet Gen: No apparent distress Abd: Gravid, nontender, S>D ASSESSMENT/PLAN: 1. Supervision of high risk in third trimester (HCC) - ICD9: V23.9, ICD10: O09.93 (primary diagnosis) - Continue LDA and PNV - Recommend starting oral iron (Hemoglobin 10.2) - Reviewed how to pre register through [facility] - Discussed TDAP vaccine, wants to think about it 2. 30 weeks gestation of (HCC) - ICD9: V22.2, ICD10: Z3A.30 - Declines LARC, form signed - Reviewed 28 week labs 3. Obesity affecting in third trimester, unspecified obesity type (HCC) - ICD9: 649.13, ICD10: O99.213 - Pre BMI 30 PTL precautions and kick counts reviewed. RTO in 2 weeks or sooner as needed. Zenaida Mitchell APRN.CNP documented in this encounterAd[facility]04-02-2025 Instructions* Patient Instructions* Zenaida Mitchell APRN.CNP - 08/24/2024 2:27 PM EDT Please call [phone] to pre-register for your and labor and delivery stay at [facility]. They will want to know your due date, insurance and contact information. This isimportant to do before you go into labor to help with the efficiency of the admission process when you arrive. Thank you so much! SEQUENTIAL SCREENINGS The [facility] offers sequential screenings for women who are interested in screenings for chromosomal abnormalities and certain defects during a . The sequential screen combinesultrasound and blood tests to determine the risk of chromosomal abnormalities, including Down's Syndrome (Trisomy 21) and Trisomy 18, as well as open neural tube defects including spina bifida. Ultrasound examination is performed between 11 weeks and 13 weeks gestational age. Blood tests are drawn after the ultrasound and again later in the between 15 and 21 weeks gestational age. Please let your physician know if you are interested in this testing. It will require an appointment withour tool rental technician. This is not an ultrasound performed by a physician in our office during a routine visit. SIGNS AND SYMPTOMS OF LABOR 1. Contractions every 10 minutes or more often 2. Clear, pink, or brownish fluid (water) leaking from vagina 3. Feeling that baby is pushing down, pressure 4. Low, dull backache 5. Cramps that feel like a period 6. Cramps with or without diarrhea If you notice any of the above symptoms, contact our office at [phone] and ask to speak with anurse. After hours, you can call doctors registry at [phone] OR call [facility] at [phone] ask to have the doctor diamond die driller paged. If you consider this an emergency, dial 9-1-7 or go to your nearest emergency department. NEED HELP? Are you dealing with a violent or abusive relationship? Are you a victim of rape or sexual assult? Call [facility] ([place]) 24 hour Crisis Hotline: 612.336.2914 or [phone]. MANUAL Your Guide to a Healthy manual is now on-line. Visit [email or web address] to download your free copy documented in this encounterAdams [facility]03-19-2025 Progress note* Quick Notes - Yennifer Couch APRN.CNM - 08/10/2024 2:46 PM EDT S: Candice Carmichael is a 28 year old female who presents at 28 weeks gestation for a routine visit. Just completed 1 hour GCT. Positive movements. NO issues to report. 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 Denies headache, visual changes, chest pain, shortness of breath, vaginal bleeding, leakage of fluid,or dysuria. O: See flow sheet Gen: No apparent distress Abd: Gravid, nontender ASSESSMENT/PLAN: 1. 28 weeks gestation of 2. Encounter for supervision of normal in second trimester, unspecified 3. Obesity affecting in second trimester, unspecified obesity type - 1 hour GCT, CBC, and RPR today - Rh positive - TDAP unsure- reevaluate @ 30 weeks - LARC form NEEDS SIGNED- patient had to leave - plan form discussed and given to patient. Patient desires possible unmedicated labor and delivery and - PTL precautions and kick counts reviewed - RTO- 2 weeks or sooner if needed Yennfier Couch APRN.CNM [facility]03-19-2025 Miscellaneous Notes* Quick Notes - Yennifer Couch APRN.CNM - 08/10/2024 2:46 PM EDT S: Candice Carmichael is a 28 year old female who presents at 28 weeks gestation for a routine visit. Just completed 1 hour GCT. Positive movements. NO issues to report. 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 Denies headache, visual changes, chest pain, shortness of breath, vaginal bleeding, leakage of fluid,or dysuria. O: See flow sheet Gen: No apparent distress Abd: Gravid, nontender ASSESSMENT/PLAN: 1. 28 weeks gestation of 2. Encounter for supervision of normal in second trimester, unspecified 3. Obesity affecting in second trimester, unspecified obesity type - 1 hour GCT, CBC, and RPR today - Rh positive - TDAP unsure- reevaluate @ 30 weeks - LARC form NEEDS SIGNED- patient had to leave - plan form discussed and given to patient. Patient desires possible unmedicated labor and delivery and - PTL precautions and kick counts reviewed - RTO- 2 weeks or sooner if needed Yennifer Couch APRN.CNM documented in this encounterAdams County [facility] Center03-19-2025 Instructions* Patient Instructions* Apple Nails LPN - 08/10/2024 2:22 PM EDT SEQUENTIAL SCREENINGS The [facility] offers sequential screenings for women who are interested in screenings for chromosomal abnormalities and certain defects during a . The sequential screen combinesultrasound and blood tests to determine the risk of chromosomal abnormalities, including Down's Syndrome (Trisomy 21) and Trisomy 18, as well as open neural tube defects including spina bifida. Ultrasound examination is performed between 11 weeks and 13 weeks gestational age. Blood tests are drawn after the ultrasound and again later in the between 15 and 21 weeks gestational age. Please let your physician know if you are interested in this testing. It will require an appointment withour tool rental technician. This is not an ultrasound performed by a physician in our office during a routine visit. SIGNS AND SYMPTOMS OF LABOR 1. Contractions every 10 minutes or more often 2. Clear, pink, or brownish fluid (water) leaking from vagina 3. Feeling that baby is pushing down, pressure 4. Low, dull backache 5. Cramps that feel like a period 6. Cramps with or without diarrhea If you notice any of the above symptoms, contact our office at [phone] and ask to speak with anurse. After hours, you can call doctors registry at [phone] OR call [facility] at [phone] ask to have the doctor diamond die driller paged. If you consider this an emergency, dial 9--1 or go to your nearest emergency department. NEED HELP? Are you dealing with a violent or abusive relationship? Are you a victim of rape or sexual assult? Call [facility] ([place]) 24 hour Crisis Hotline: 814.367.6053 or 659-219-9816. MANUAL Your Guide to a Healthy manual is now on-line. Visit [email or web address] to download your free copy documented in this encounterAdams County [facility] Center03-04-2025 Progress note* Quick Notes - Kathy Clancy MD - 07/26/2024 9:52 AM EST KJ - S: Candice denies LOF, contractions or vaginal bleeding. Patient reports feeling dysuria and irritation after intercourse. Also she is feeling FM but it is less that before. Patient gets 3-6 movements per hour when counts. O: 26w1d, see flow sheet SENSITIVE EXAM: Sensitive exam not performed. A/P: Assessment & Plan Encounter for supervision of normal in second trimester, unspecified Dysuria Orders: UA DIP, URINE (POC) BACTERIAL CULTURE, URINE Check NST. Discussed FM expectations. All questions answered. Kathy Clancy MD [facility]03-04-2025 Miscellaneous Notes* Quick Notes - Kathy Clancy MD - 07/26/2024 9:52 AM EST KJ - S: Candice denies LOF, contractions or vaginal bleeding. Patient reports feeling dysuria and irritation after intercourse. Also she is feeling FM but it is less that before. Patient gets 3-6 movements per hour when counts. O: 26w1d, see flow sheet SENSITIVE EXAM: Sensitive exam not performed. A/P: Assessment & Plan Encounter for supervision of normal in second trimester, unspecified Dysuria Orders: UA DIP, URINE (POC) BACTERIAL CULTURE, URINE Check NST. Discussed FM expectations. All questions answered. Kathy Clancy MD documented in this encounterAdams County [facility] Center03-04-2025 Instructions* Patient Instructions* Ashley Li MA - 07/26/2024 9:41 AM EST SEQUENTIAL SCREENINGS The [facility] offers sequential screenings for women who are interested in screenings for chromosomal abnormalities and certain defects during a . The sequential screen combinesultrasound and blood tests to determine the risk of chromosomal abnormalities, including Down's Syndrome (Trisomy 21) and Trisomy 18, as well as open neural tube defects including spina bifida. Ultrasound examination is performed between 11 weeks and 13 weeks gestational age. Blood tests are drawn after the ultrasound and again later in the between 15 and 21 weeks gestational age. Please let your physician know if you are interested in this testing. It will require an appointment withour tool rental technician. This is not an ultrasound performed by a physician in our office during a routine visit. SIGNS AND SYMPTOMS OF LABOR 1. Contractions every 10 minutes or more often 2. Clear, pink, or brownish fluid (water) leaking from vagina 3. Feeling that baby is pushing down, pressure 4. Low, dull backache 5. Cramps that feel like a period 6. Cramps with or without diarrhea If you notice any of the above symptoms, contact our office at [phone] and ask to speak with anurse. After hours, you can call doctors registry at [phone] OR call [facility] at [phone] ask to have the doctor diamond die driller paged. If you consider this an emergency, dial 9-1-1 or go to your nearest emergency department. NEED HELP? Are you dealing with a violent or abusive relationship? Are you a victim of rape or sexual assult? Call [facility] ([place]) 24 hour Crisis Hotline: 730.628.4701 or 134-781-4356. MANUAL Your Guide to a Healthy manual is now on-line. Visit [email or web address] to download your free copy documented in this encounterAdams County [facility] Medical Center02-19-2025 Progress note* Quick Notes - Nancy Aguilar MD - 07/13/2024 2:47 PM EST RR- VB No. LOF No. CTXS No. Movement: present. Other c/o: No. Medication list reviewed. SENSITIVE EXAM: Sensitive exam not performed. Physical Exam See Flow Sheet Abd: soft, nontender, gravid A/P 24w2d Estimated Date of Delivery: 10/31/24 (Z13.1) Screening for diabetes mellitus (primary encounter diagnosis) Comment: 28 week labs next visit Plan: GESTATIONAL GLUCOSE SCREEN, 1-HOUR, 50 GRAM, NON-FASTING, SYPHILIS TREPONEMAL W/REFLEX, ANEMIA REFLEX PANEL (Z3A.24) 24 weeks gestation of Comment: Plan: cont. PNV f/u in 4 weeks or prn Nancy Aguilar M.D. [facility]02-19-2025 Miscellaneous Notes* Quick Notes - Nancy Aguilar MD - 07/13/2024 2:47 PM EST RR- VB No. LOF No. CTXS No. Movement: present. Other c/o: No. Medication list reviewed. SENSITIVE EXAM: Sensitive exam not performed. Physical Exam See Flow Sheet Abd: soft, nontender, gravid A/P 24w2d Estimated Date of Delivery: 10/31/24 (Z13.1) Screening for diabetes mellitus (primary encounter diagnosis) Comment: 28 week labs next visit Plan: GESTATIONAL GLUCOSE SCREEN, 1-HOUR, 50 GRAM, NON-FASTING, SYPHILIS TREPONEMAL W/REFLEX, ANEMIA REFLEX PANEL (Z3A.24) 24 weeks gestation of Comment: Plan: cont. PNV f/u in 4 weeks or prn Nancy Aguilar M.D. documented in this encounterAdams County [facility] Center02-19-2025 Instructions* Patient Instructions* Apple Nails LPN - 07/13/2024 2:24 PM EST SEQUENTIAL SCREENINGS The [facility] offers sequential screenings for women who are interested in screenings for chromosomal abnormalities and certain defects during a . The sequential screen combinesultrasound and blood tests to determine the risk of chromosomal abnormalities, including Down's Syndrome (Trisomy 21) and Trisomy 18, as well as open neural tube defects including spina bifida. Ultrasound examination is performed between 11 weeks and 13 weeks gestational age. Blood tests are drawn after the ultrasound and again later in the between 15 and 21 weeks gestational age. Please let your physician know if you are interested in this testing. It will require an appointment withour tool rental technician. This is not an ultrasound performed by a physician in our office during a routine visit. SIGNS AND SYMPTOMS OF LABOR 1. Contractions every 10 minutes or more often 2. Clear, pink, or brownish fluid (water) leaking from vagina 3. Feeling that baby is pushing down, pressure 4. Low, dull backache 5. Cramps that feel like a period 6. Cramps with or without diarrhea If you notice any of the above symptoms, contact our office at [phone] and ask to speak with anurse. After hours, you can call doctors registry at [phone] OR call [facility] at [phone] ask to have the doctor diamond die driller paged. If you consider this an emergency, dial 91-0 or go to your nearest emergency department. NEED HELP? Are you dealing with a violent or abusive relationship? Are you a victim of rape or sexual assult? Call [facility] [place] ([place]) 24 hour Crisis Hotline: 574.259.3859 or 002-112-5720. MANUAL Your Guide to a Healthy manual is now on-line. Visit [email or web address] to download your free copy documented in this encounterAdams County [facility] Center02-02-2025 Evaluation note* Diagnosis Onset Date Resolution Status Admit Date Fall resolved June 26, 2024 7:00pm 21 weeks gestation of deleted June 26 7:00pm Anemia affecting acute September 05, 2024 12:18pm Anxiety and depression acute Ap ril 2024 12:18pm Choroid plexus cyst of fetus affecting care of mother, antepartum acute September 05, 2024 12:18pm Fatigue acute September 05 12:18pm Obesity affecting acute September 05, 2024 12:18pm POTS (postural orthostatic tachycardia syndrome) acute August 12:18pm acute September 05 12:18pm Supervision of normal first acute September 05, 2024 12:18pm Anemia affecting acute September 20, 2024 10:16am Anxiety and depression acute Ap ril 2024 10:16am Fatigue acute September 20 10:16am Obesity affecting acute September 20, 2024 10:16am acute September 20 10:16am Supervision of normal first acute September 20, 2024 10:16am Anemia affecting acute September 22, 2024 8:30am Anxiety and depression acute Ma 2024 8:30am Choroid plexus cyst of fetus affecting care of mother, antepartum acute September 22, 2024 8: 30am Fatigue acute September 22, 2024 8:30am Obesity affecting acute September 22, 2024 8:30am POTS (postural orthostatic tachycardia syndrome) acute September 22, 8:30am acute September 22, 2024 8:30am Supervision of normal first acute September 22, 2024 8: 30am Anemia affecting acute October 05, 2024 2:26pm Anxiety and depression acute Ma y 2024 2:26pm Choroid plexus cyst of fetus affecting care of mother, antepartum acute October 05, 2024 2 :26pm Fatigue acute October 05, 2024 2:26pm Obesity affecting acute October 05, 2024 2:26pm POTS (postural orthostatic tachycardia syndrome) acute October 05, 2024 2:26pm acute October 05, 2024 2:26pm Supervision of normal first acute October 05, 2024 2 :26pm [facility] Work Phone: 1(932) 625-293102-02-2025 Evaluation note* Diagnosis Onset Date Resolution Status Admit Date Fall resolved June 26, 2024 7:00pm 21 weeks gestation of deleted June 26 7:00pm Anemia affecting acute September 05, 2024 12:18pm Anxiety and depression acute Ap ril 2024 12:18pm Choroid plexus cyst of fetus affecting care of mother, antepartum acute September 05, 2024 12:18pm Fatigue acute September 05 12:18pm Obesity affecting acute September 05, 2024 12:18pm POTS (postural orthostatic tachycardia syndrome) acute August 12:18pm acute September 05 12:18pm Supervision of normal first acute September 05, 2024 12:18pm Anemia affecting acute September 20, 2024 10:16am Anxiety and depression acute Ap 2024 10:16am Fatigue acute September 20 10:16am Obesity affecting acute September 20, 2024 10:16am acute September 20 10:16am Supervision of normal first acute September 20, 2024 10:16am Anemia affecting acute September 22, 2024 8:30am Anxiety and depression acute 2024 8:30am Choroid plexus cyst of fetus affecting care of mother, antepartum acute September 22, 2024 8: 30am Fatigue acute September 22, 2024 8:30am Obesity affecting acute September 22, 2024 8:30am POTS (postural orthostatic tachycardia syndrome) acute September 22, 8:30am acute September 22, 2024 8:30am Supervision of normal first acute September 22, 2024 8: 30am Anemia affecting acute October 05, 2024 2:26pm Anxiety and depression acute Ma 2024 2:26pm Choroid plexus cyst of fetus affecting care of mother, antepartum acute October 05, 2024 2 :26pm Fatigue acute October 05, 2024 2:26pm Obesity affecting acute October 05, 2024 2:26pm POTS (postural orthostatic tachycardia syndrome) acute October 05, 2024 2:26pm acute October 05, 2024 2:26pm Supervision of normal first acute October 05, 2024 2 :26pm Anemia affecting acute October 12, 2024 2:56pm Anxiety and depression acute Ma 2024 2:56pm Choroid plexus cyst of fetus affecting care of mother, antepartum acute October 12, 2024 2 :56pm Fatigue acute October 12, 2024 2:56pm Obesity affecting acute October 12, 2024 2:56pm POTS (postural orthostatic tachycardia syndrome) acute October 12, 2024 2:56pm acute October 12, 2024 2:56pm Supervision of normal first acute October 12, 2024 2 :56pm [facility] Work Phone: 1(899) 498-568102-02-2025 Evaluation note* Diagnosis Onset Date Resolution Status Admit Date Fall resolved June 26, 2024 7:00pm 21 weeks gestation of deleted June 26 7:00pm Anemia affecting acute September 05, 2024 12:18pm Anxiety and depression acute Ap 2024 12:18pm Choroid plexus cyst of fetus affecting care of mother, antepartum acute September 05, 2024 12:18pm Fatigue acute September 05 12:18pm Obesity affecting acute September 05, 2024 12:18pm POTS (postural orthostatic tachycardia syndrome) acute August 12:18pm acute September 05 12:18pm Supervision of normal first acute September 05, 2024 12:18pm Anemia affecting acute September 20, 2024 10:16am Anxiety and depression acute Ap ril 2024 10:16am Fatigue acute September 20 10:16am Obesity affecting acute September 20, 2024 10:16am acute September 20 10:16am Supervision of normal first acute September 20, 2024 10:16am Anemia affecting acute September 22, 2024 8:30am Anxiety and depression acute Ma y 2024 8:30am Choroid plexus cyst of fetus affecting care of mother, antepartum acute September 22, 2024 8: 30am Fatigue acute September 22, 2024 8:30am Obesity affecting acute September 22, 2024 8:30am POTS (postural orthostatic tachycardia syndrome) acute September 22, 2 025 8:30am acute September 22, 2024 8:30am Supervision of normal first acute September 22, 2024 8: 30am Anemia affecting acute October 05, 2024 2:26pm Anxiety and depression acute Ma y 2024 2:26pm Choroid plexus cyst of fetus affecting care of mother, antepartum acute October 05, 2024 2 :26pm Fatigue acute October 05, 2024 2:26pm Obesity affecting acute October 05, 2024 2:26pm POTS (postural orthostatic tachycardia syndrome) acute October 05, 2024 2:26pm acute October 05, 2024 2:26pm Supervision of normal first acute October 05, 2024 2 :26pm Anemia affecting acute October 12, 2024 2:56pm Anxiety and depression acute Ma y 2024 2:56pm Choroid plexus cyst of fetus affecting care of mother, antepartum acute October 12, 2024 2 :56pm Fatigue acute October 12, 2024 2:56pm Obesity affecting acute October 12, 2024 2:56pm POTS (postural orthostatic tachycardia syndrome) acute October 12, 2024 2:56pm acute October 12, 2024 2:56pm Supervision of normal first acute October 12, 2024 2 :56pm Anemia affecting acute October 18, 2024 3:37pm Anxiety and depression acute Ma y 2024 3:37pm Choroid plexus cyst of fetus affecting care of mother, antepartum acute October 18, 2024 3 :37pm Fatigue acute October 18, 2024 3:37pm Obesity affecting acute October 18, 2024 3:37pm POTS (postural orthostatic tachycardia syndrome) acute October 18, 2024 3:37pm acute October 18, 2024 3:37pm Supervision of normal first acute October 18, 2024 3 :37pm [place] Work Phone: 1(600) 803-631501-22-2025 Progress note* Result Encounter Note - Nancy Aguilar MD - 06/15/2024 4:59 PM EST Anatomy ultrasound reviewed. No abnormalities identified. Follow up as clinically indicated. Pleaseplace copy in ob chart. Nancy Aguilar MD [facility]01-22-2025 Miscellaneous Notes* Result Encounter Note - Nancy Aguilar MD - 06/15/2024 4:59 PM EST Anatomy ultrasound reviewed. No abnormalities identified. Follow up as clinically indicated. Pleaseplace copy in ob chart. Nancy Aguilar MD documented in this encounterAdams County [facility] Center01-22-2025 NoteOutside Reference US ProcedureJanuary 2024 4:31pmApril 2024 11[facility] NoteOutside Reference US ProcedureJanuary 2024 4:31pmApril 2024 11[facility]25 NoteOutside Reference US ProcedureJanuary 2024 4:31pmApril 2024 11:[facility] Progress note* Quick Notes - Nancy Aguilar MD - 06/15/2024 2:43 PM EST RR- VB No. LOF No. CTXS No. Movement: present. Other c/o: some fatigue Medication list reviewed. SENSITIVE EXAM: Sensitive exam not performed. Physical Exam See Flow Sheet Abd: soft, nontender, gravid Ext: edema: Trace A/P 20w2d Estimated Date of Delivery: 10/31/24 anatomy US done push fluids f/u in 4 weeks or prn Supervision of high risk in second trimester 20 weeks gestation of Nancy Aguilar M.D. [facility]01-22-2025 Miscellaneous Notes* Quick Notes - Nancy Aguilar MD - 06/15/2024 2:43 PM EST RR- VB No. LOF No. CTXS No. Movement: present. Other c/o: some fatigue Medication list reviewed. SENSITIVE EXAM: Sensitive exam not performed. Physical Exam See Flow Sheet Abd: soft, nontender, gravid Ext: edema: Trace A/P 20w2d Estimated Date of Delivery: 10/31/24 anatomy US done push fluids f/u in 4 weeks or prn <!--RTF_S--> Supervision of high risk in second trimester 20 weeks gestation of <!--RTF_E--> Nancy Aguilar M.D. documented in this encounterAdams County [facility] Center01-22-2025 Instructions* Patient Instructions* Ashley Li MA - 06/15/2024 2:23 PM EST SEQUENTIAL SCREENINGS The [facility] offers sequential screenings for women who are interested in screenings for chromosomal abnormalities and certain defects during a . The sequential screen combinesultrasound and blood tests to determine the risk of chromosomal abnormalities, including Down's Syndrome (Trisomy 21) and Trisomy 18, as well as open neural tube defects including spina bifida. Ultrasound examination is performed between 11 weeks and 13 weeks gestational age. Blood tests are drawn after the ultrasound and again later in the between 15 and 21 weeks gestational age. Please let your physician know if you are interested in this testing. It will require an appointment withour tool rental technician. This is not an ultrasound performed by a physician in our office during a routine visit. SIGNS AND SYMPTOMS OF LABOR 1. Contractions every 10 minutes or more often 2. Clear, pink, or brownish fluid (water) leaking from vagina 3. Feeling that baby is pushing down, pressure 4. Low, dull backache 5. Cramps that feel like a period 6. Cramps with or without diarrhea If you notice any of the above symptoms, contact our office at [phone] and ask to speak with anurse. After hours, you can call doctors registry at [phone] OR call [facility] at [phone] ask to have the doctor diamond die driller paged. If you consider this an emergency, dial 9-1-1 or go to your nearest emergency department. NEED HELP? Are you dealing with a violent or abusive relationship? Are you a victim of rape or sexual assult? Call [facility] [place] ([facility] 24 hour Crisis Hotline: 502.630.1806 or 915-884-5927. MANUAL Your Guide to a Healthy manual is now on-line. Visit [email or web address] to download your free copy documented in this encounterAdams County [facility] Center01-03-2025 Instructions* Patient Instructions* Ashley Li MA - 05/27/2024 8:40 AM EST SEQUENTIAL SCREENINGS The [facility] offers sequential screenings for women who are interested in screenings for chromosomal abnormalities and certain defects during a . The sequential screen combinesultrasound and blood tests to determine the risk of chromosomal abnormalities, including Down's Syndrome (Trisomy 21) and Trisomy 18, as well as open neural tube defects including spina bifida. Ultrasound examination is performed between 11 weeks and 13 weeks gestational age. Blood tests are drawn after the ultrasound and again later in the between 15 and 21 weeks gestational age. Please let your physician know if you are interested in this testing. It will require an appointment withour tool rental technician. This is not an ultrasound performed by a physician in our office during a routine visit. SIGNS AND SYMPTOMS OF LABOR 1. Contractions every 10 minutes or more often 2. Clear, pink, or brownish fluid (water) leaking from vagina 3. Feeling that baby is pushing down, pressure 4. Low, dull backache 5. Cramps that feel like a period 6. Cramps with or without diarrhea If you notice any of the above symptoms, contact our office at [phone] and ask to speak with anurse. After hours, you can call doctors registry at [phone] OR call [facility] at [phone] ask to have the doctor diamond die driller paged. If you consider this an emergency, dial 3-0-8 or go to your nearest emergency department. NEED HELP? Are you dealing with a violent or abusive relationship? Are you a victim of rape or sexual assult? Call [facility] ([place]) 24 hour Crisis Hotline: 417.968.3971 or 724-989-5866. MANUAL Your Guide to a Healthy manual is now on-line. Visit [email or web address] to download your free copy documented in this encounterAdams County [facility] Center01-03-2025 Progress note* Quick Notes - Zenaida Mitchell APRN.TORPEDOMAN'S MATE - 05/27/2024 7:57 AM EST EH - S: Candice is a 28 year old female who presents at 17w4d for a routine visit. Starting to feel movement. Denies headache, visual changes, chest pain, shortness of breath, vaginal bleeding, leakage of fluid, or dysuria. Has noted frequent illness and extreme fatigue. O: See flow sheet Gen: No apparent distress Abd: Gravid, nontender ASSESSMENT/PLAN: 1. Supervision of high risk in second trimester - ICD9: V23.9, ICD10: O09.92 (primary diagnosis) - Continue LDA 2. 17 weeks gestation of - ICD9: V22.2, ICD10: Z3A.17 - Early anatomy today, report pending - Plan for complete anatomy ultrasound next visit 3. Obesity affecting in second trimester, unspecified obesity type - ICD9: 649.13, ICD10:O99.212 - Pre BMI 30 4. 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 RTO in 4 weeks or sooner as needed. Zenaida Mitchell APRN.WENDY [facility]01-03-2025 Miscellaneous Notes* Quick Notes - Zenaida Mitchell APRN.CNP - 05/27/2024 7:57 AM EST EH - S: Candice is a 28 year old female who presents at 17w4d for a routine visit. Starting to feel movement. Denies headache, visual changes, chest pain, shortness of breath, vaginal bleeding, leakage of fluid, or dysuria. Has noted frequent illness and extreme fatigue. O: See flow sheet Gen: No apparent distress Abd: Gravid, nontender ASSESSMENT/PLAN: 1. Supervision of high risk in second trimester - ICD9: V23.9, ICD10: O09.92 (primary diagnosis) - Continue LDA 2. 17 weeks gestation of - ICD9: V22.2, ICD10: Z3A.17 - Early anatomy today, report pending - Plan for complete anatomy ultrasound next visit 3. Obesity affecting in second trimester, unspecified obesity type - ICD9: 649.13, ICD10:O99.212 - Pre BMI 30 4. 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 RTO in 4 weeks or sooner as needed. Zenaida Mitchell APRN.TORPEDOMAN'S MATE documented in this encounterAdams County [facility] Center12-03-2024 Progress note* Quick Notes - Nancy Aguilar MD - 04/26/2024 1:38 PM EST RR- VB No. LOF No. CTXS No. Movement: absent. Other c/o: No. Medication list reviewed. still w/ nausea, unisom makes her tired. Taking PNV. Hasn;'t started ASA Physical Exam See Flow Sheet Gen: no accute distress, well appearing A/P 13w1d Estimated Date of Delivery: 10/31/24 Labs: routine labs, declines aneuploidy screening. start asa prophylaxis f/u in 4 weeks or prn cont. pnv early anatomy and 20 week anatomy US ordered n/v of , not improved w/ OTC meds, will send rx for zofran \ Assessment & Plan Encounter for supervision of normal first in first trimester Orders: OBSTETRIC ULTRASOUND WHI; Future NUCHAL TRANSLUCENCY WHI; Future 13 weeks gestation of Orders: OBSTETRIC ULTRASOUND WHI; Future Encounter for screening of mother Orders: OBSTETRIC ULTRASOUND WHI; Future NUCHAL TRANSLUCENCY WHI; Future Nausea and vomiting during Orders: ondansetron (ZOFRAN) 4 mg tablet; Take 1 tablet by mouth every 8 hours as needed for nausea/vomiting. Nancy Aguilar M.D. [facility]12-03-2024 Miscellaneous Notes* Quick Notes - Nancy Aguilar MD - 04/26/2024 1:38 PM EST RR- VB No. LOF No. CTXS No. Movement: absent. Other c/o: No. Medication list reviewed. still w/ nausea, unisom makes her tired. Taking PNV. Hasn;'t started ASA Physical Exam See Flow Sheet Gen: no accute distress, well appearing A/P 13w1d Estimated Date of Delivery: 10/31/24 Labs: routine labs, declines aneuploidy screening. start asa prophylaxis f/u in 4 weeks or prn cont. pnv early anatomy and 20 week anatomy US ordered n/v of , not improved w/ OTC meds, will send rx for zofran \ Assessment & Plan Encounter for supervision of normal first in first trimester Orders: OBSTETRIC ULTRASOUND WHI; Future NUCHAL TRANSLUCENCY WHI; Future 13 weeks gestation of Orders: OBSTETRIC ULTRASOUND WHI; Future Encounter for screening of mother Orders: OBSTETRIC ULTRASOUND WHI; Future NUCHAL TRANSLUCENCY WHI; Future Nausea and vomiting during Orders: ondansetron (ZOFRAN) 4 mg tablet; Take 1 tablet by mouth every 8 hours as needed for nausea/vomiting. Nancy Aguilar M.D. documented in this encounterAdams County [facility] Center12-03-2024 Instructions* Patient Instructions* Sandrita Nance MA - 04/26/2024 1:18 PM EST SEQUENTIAL SCREENINGS The [facility] offers sequential screenings for women who are interested in screenings for chromosomal abnormalities and certain defects during a . The sequential screen combinesultrasound and blood tests to determine the risk of chromosomal abnormalities, including Down's Syndrome (Trisomy 21) and Trisomy 18, as well as open neural tube defects including spina bifida. Ultrasound examination is performed between 11 weeks and 13 weeks gestational age. Blood tests are drawn after the ultrasound and again later in the between 15 and 21 weeks gestational age. Please let your physician know if you are interested in this testing. It will require an appointment withour tool rental technician. This is not an ultrasound performed by a physician in our office during a routine visit. SIGNS AND SYMPTOMS OF LABOR 1. Contractions every 10 minutes or more often 2. Clear, pink, or brownish fluid (water) leaking from vagina 3. Feeling that baby is pushing down, pressure 4. Low, dull backache 5. Cramps that feel like a period 6. Cramps with or without diarrhea If you notice any of the above symptoms, contact our office at [phone] and ask to speak with anurse. After hours, you can call doctors registry at [phone] OR call [facility] at [phone] ask to have the doctor diamond die driller paged. If you consider this an emergency, dial 9-1-8 or go to your nearest emergency department. NEED HELP? Are you dealing with a violent or abusive relationship? Are you a victim of rape or sexual assult? Call [facility] ([place]) 24 hour Crisis Hotline: 308.839.4788 or 402-645-5727. MANUAL Your Guide to a Healthy manual is now on-line. Visit [email or web address] to download your free copy documented in this encounterAdams County Regional Medical Center11-01-2024 Instructions* Patient Instructions* Apple Nails LPN - 03/25/2024 8:00 AM EDT Please select the following link to access the [facility] Your Guide to a Healthy . [email or web address] documented in this encounterAdams County Regional Medical Center10-29-2024 Miscellaneous Notes* Telephone Encounter - Xenia Carter RN - 03/22/2024 3:34 PM EDT Patient called back. States she just learned about Centering this afternoon with her PNOB. Needs todiscuss with her . Her initial NOB is on Thursday. Can discuss more at that time. Xenia Carter RN * Telephone Encounter - Apple Nails LPN - 03/22/2024 3:14 PM EDT Phone call placed brief message to contact a nurse. When patient returns call, inquire interest in Centering classes. Apple Nails LPN documented in this encounterAdams County Regional Medical Center10-29-2024 Telephone encounter Note * Telephone Encounter - Xenia Carter RN - 03/22/2024 3:34 PM EDT Patient called back. States she just learned about Centering this afternoon with her PNOB. Needs todiscuss with her . Her initial NOB is on Thursday. Can discuss more at that time. Xenia Carter RN [facility]10-29-2024 Telephone encounter Note* Telephone Encounter - Apple Nails LPN - 03/22/2024 3:14 PM EDT Phone call placed brief message to contact a nurse. When patient returns call, inquire interest in Centering classes. Apple Nails LPN [facility]10-29-2024 NoteHNO ID: [id number] Author: CITLALI BAUER APRN.TORPEDOMAN'S MATE Service: ? Author Type: Nurse Practitioner Type: Progress Notes Filed: 03/25/2024 09:36 Note Text: Patient declined enforcement manager. *Patient diagnosed in [address] Godinez in [place] with POTS syndrome. Had cardiology consult with [facility] Dr. Tipton on November 06, 2021.Dr Tipton's note:Positional tachycardia: This is relatively mild. She has not had syncope or near syncope. She does not have significant hypotension with standing. I recommend with starting with liberalizing salt intake. If her symptoms worsen we could add medicines. However, I suspect she will grow out of this. I will see her back on an as-needed basis. *Patient has a history of depression and anxiety diagnosed in 2018 and treated by [facility]. She has been off medication for 4 years. Believes she is feeling well off medication. Denies ever having any suicidal thoughts or thoughts of hurting others.Discussed increased risks of depression during and and importance of reporting the development or worsening of symptoms should they occur. *Patient considering carrier screening testing and aneuploidy testing. Contact information for [employer] and [facility] given to patient to check on insurance coverage. INITIAL OB ASSESSMENT HPI: Candice is a 28 year old White here to establish Obstetrical Care. Patient's last menstrual period was 01/25/2024 (exact date). from OB Dating Form. was unplanned but accepted Complaints: No OB History T0 L0 SAB0 IAB0 Ectopic0 Multiple0 Live Births0 Previous history: Prior : never History of 4th degree laceration: No History of shoulder dystocia: No History of Hypertensive disorders including pre-eclampsia or gestational hypertension: No History of gestational diabetes: No Patient's Risk Screening for delivery: Have you had a prior schaffer between 20w and 36w6d? No How many pregnancies have you had before? 0 Did you have a previous baby with a GBS Infection? No Please select all that apply for any prior : N/A MEDICAL/PSYCHOSOCIAL HISTORY: History of hemorrhage or bleeding concerns: No Thyroid Disease: No History of chronic hypertension: No History of pre-existing diabetes: No No results found for: ABORHD No weight on file for this encounter. Last Pap: 06/20/2022 History of abnormal pap: No Prior treatment for cervical dysplasia: none. Last HPV: History of STDs: None Partner History of STDs: None Did you have a partner with Herpes? No Tobacco use: No E-Cigarette/Vaping Use: No Caffeine use: Yes 1 cup of coffee 2-3 times a week Drug use: No Alcohol use: No Multivitamin with Folic acid: Yes Would refuse blood transfusion if medically necessary: No Social Needs: How often does this describe you? I don't have enough money to pay my bills: Never Within the past 12 months, have you worried that your food would run out before you had money to buy more? Never In the past 12 months, has lack of reliable transportation kept you from going to medical appointments or work, or from getting things needed for daily living? Never In the past 12 months, have you had any concerns about having a place to live, or about the condition or quality of your housing? Never Would you like more information on any of the following (please check all that apply)? Centering (group care classes) Social History: Do you have any history of depression, anxiety, PTSD, or other mood problems? No Do you have a history of abuse or trauma that may impact your experience? No Are you currently employed? Yes Depression/Anxiety Screening: denies symptoms of depression. OB Depression and Anxiety Screening- This Encounter (since 03/21/2024) Over the past 2 weeks have you felt down, depressed, or hopeless? Negative Over the past two weeks, have you felt little interest or pleasure in doing things?? Negative Feeling nervous, anxious or on edge 0-Not at all Not being able to stop or control worrying 0-Not al all Anxiety Pre-Screening Total (If >/= 3 additional questions will be reviewed) 0 Genetic Screening: Partner present: No Patient verbalized knowledge of partner family health history: No Do you or your partner have any personal or family history of defects not previously discussed: No Do you have history of a complicated by anomaly, genetic condition, or demise: No Low Dose ASA Screening: Screening for low dose aspirin use for the prevention of pre-eclampsia: High risk factors: None Moderate risk ractors: Nulliparity OB Risk Screening: Completed, no positive findings documented. 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 *Patient diagnosed in [address] Godinez in [place] with POTS syndrome. Had cardiology consult with [facility] Dr. Tipton on November 06, 2021.Dr Tipton's note:Positional tachycardia: This is relatively mild. She has not had syncope or near syncope. She does not have significant hypotension with standing. I recommend with starting with liberalizing salt intake. If her symptoms worsen we could addmedicines. However, I suspect she will grow out of this. I will see her back on an as-needed basis. *Patient has a history of depression and anxiety diagnosed in 2018 and treated by [facility]. She has been off medication for 4 years. Believes she is feeling well off medication. Deniesever having any suicidal thoughts or thoughts of hurting others.Discussed increased risks of depression during and and importance of reporting the development or worsening of symptoms should they occur. *Patient considering carrier screening testing and aneuploidy testing. Contact information for [employer] and [facility] given to patient to check on insurance coverage. INITIAL OB ASSESSMENT HPI: Candice is a 28 year old White here to establish Obstetrical Care. Patient's last menstrual period was 01/25/2024 (exact date). from OB Dating Form. was unplanned but accepted Complaints: No OB History T0 L0 SAB0 IAB0 Ectopic0 Multiple0 Live Births0 Previous history: Prior : never History of 4th degree laceration: No History of shoulder dystocia: No History of Hypertensive disorders including pre-eclampsia or gestational hypertension: No History of gestational diabetes: No Patient's Risk Screening for delivery: Have you had a prior schaffer between 20w and 36w6d? No How many pregnancies have you had before? 0 Did you have a previous baby with a GBS Infection? No Please select all that apply for any prior : N/A MEDICAL/PSYCHOSOCIAL HISTORY: History of hemorrhage or bleeding concerns: No Thyroid Disease: No History of chronic hypertension: No History of pre-existing diabetes: No No results found for: ABORHD No weight on file for this encounter. Last Pap: 06/20/2022 History of abnormal pap: No Prior treatment for cervical dysplasia: none. Last HPV: History of STDs: None Partner History of STDs: None Did you have a partner with Herpes? No Tobacco use: No E-Cigarette/Vaping Use: No Caffeine use: Yes 1 cup of coffee 2-3 times a week Drug use: No Alcohol use: No Multivitamin with Folic acid: Yes Would refuse blood transfusion if medically necessary: No Social Needs: How often does this describe you? I don't have enough money to pay my bills: Never Within the past 12 months, have you worried that your food would run out before you had money to buy more? Never In the past 12 months, has lack of reliable transportation kept you from going to medical appointments or work, or from getting things needed for daily living? Never In the past 12 months, have you had any concerns about having a place to live, or about the condition or quality of your housing? Never Would you like more information on any of the following (please check all that apply)? Centering (group care classes) Social History: Do you have any history of depression, anxiety, PTSD, or other mood problems? No Do you have a history of abuse or trauma that may impact your experience? No Are you currently employed? Yes Depression/Anxiety Screening: denies symptoms of depression. OB Depression and Anxiety Screening- This Encounter (since 03/21/2024) Over the past 2 weeks have you felt down, depressed, or hopeless? Negative Over the past two weeks, have you felt little interest or pleasure in doing things? Negative Feeling nervous, anxious or on edge 0-Not at all Not being able to stop or control worrying 0-Not al all Anxiety Pre-Screening Total (If >/= 3 additional questions will be reviewed) 0 Genetic Screening: Partner present: No Patient verbalized knowledge of partner family health history: No Do you or your partner have any personal or family history of defects not previously discussed: No Do you have history of a complicated by anomaly, genetic condition, or demise: No Low Dose ASA Screening: Screening for low dose aspirin use for the prevention of pre-eclampsia: High risk factors: None Moderate risk ractors: Nulliparity OB Risk Screening: Completed, no positive findings documented. 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 norethindrone-e.estradiol-iron (BLISOVI 24 FE ORAL) Take by mouth. (Patient not taking: Reported on03/22/2024) No current facility-administered medications for this visit. Allergies As of Date: 03/25/2024 Allergen Noted Reaction LATEX 03/22/2024 Rash Fully Assessed 12/10/2017 Does patient have penicillin allergy: No REVIEW OF SYSTEMS: GENERAL: Negative for: Fever or Chills HEENT: Negative for: Headache, Impaired Vision, Ringing in Ears, Nosebleeds NECK: Negative for: Swelling, Pain, Stiffness RESPIRATORY: Negative for: Cough, Shortness of breath, Wheezing GASTROINTESTINAL: Positive for: Constipation and Positive for: Nausea MUSCULOSKELETAL: Negative for: Muscle or joint pain, stiffness, Joint swelling NEUROLOGIC/PSYCHIATRIC: Negative for: Weakness, Paralysis, Numbness, Tingling, Tremor, Anxiety, Depression, Memory loss SKIN: Negative for: Rash, Itching GENITOURINARY: Negative for: vaginal itching, vaginal discharge, hematuria or dysuria SENSITIVE EXAM: The sensitive examination was discussed with the Patient or Patient's Authorized Healthcare Representative. As applicable, any other physician, advance practice provider, medical student, or other health professional student that will be observing or involved in the sensitive examination for educational or training purposes was discussed with the Patient or Authorized Healthcare Representative. The Patient or Authorized Healthcare Representative has agreed to proceed with the sensitive examination. (Sensitive examination includes inspection and/or palpation of the breasts, pelvis, prostate and anorectal regions). PHYSICAL EXAM: LMP 01/25/2024 GENERAL: pleasant in no apparent distress DERMATOLOGY: Normal, without lesions, non-icteric, and non-hirsute NECK: Supple, full range of motion, no adenopathy, and thyroid normal CHEST: Normal inspiratory effort BREAST: soft, non-tender, symmetric, no dominant mass, normal nipple-areolar complex, no lymphadenopathy, and no nipple discharge ABDOMEN: soft, non-tender, and no masses NEURO: alert and oriented x3,exam grossly non-focal PELVIS: External genitalia normal without lesions. Perineal body intact. No vaginal or cervical lesions. Cervix closed. No adnexal masses or tenderness. Clinical Pelvimetry: Pelvimetry clinically assessed as adequate Limited OB ultrasound exam: single intrauterine , positive cardiac activity, and POCUS performed. +cardiac activity, CRL consistent with LMP. Citlali Bauer, PROFESSOR OF PHILOSOPHY.TORPEDOMAN'S MATE ASSESSMENT: 28 year old at 8w1d wks gestational age PLAN: 1) Patient oriented to practice. Patient given new OB orientation folder. Discussed nutrition, folic acid supplementation, dietary guidelines, exercise, smoking, alcohol, caffeine, and drug use. Discussed gestational weight gain guidelines. Discussed routine OB labs including STD/HIV. Discussed how to access Your guide to a health and the Aircraft Lay Out Worker. Reviewed midwifery and paint and table edger services that are available. 2) Screening: Hemoglobin A1C: ordered Baby Aspirin: The patient has been counseled about the potential benefits of low dose aspirin in and our recommendation that this be offered to all patients, regardless of whether they meet the high risk criteria specified above. She Accepts Aneuploidy Screening: Discussed aneuploidy screening, nuchal translucency/first trimester early anatomy ultrasound and NIPT. The risks/benefits and limitations of NIPT/aneuploidy screening were reviewed including the potential for false negative and false positive results. The availability of genetic counseling was reviewed. Information on aneuploidy screening was provided. The patient is uncertain. She will call back if she wants to proceed with screening. Pt aware of timing. Myriad Carrier Screening: Discussed myriad carrier screening. We discussed the availability of professional-society guided carrier screening and reviewed the conditions screened and limitations of screening. The availability of genetic counseling was reviewed. Information on carrier screening was provided. The patient Declines 3) Patient offered option of Virtual Visits. Patient unsure. May consider in future. 4) DX of POTS Follow up in 4 weeks or sooner prn. Citlali Bauer APRN.WENDY documented in this encounterAdams County [facility] Medical Center01-23-2023 Telephone encounter Note * Telephone Encounter - Jillian Eduardo - 06/16/2022 10:00 AM EST Message released to patient as written. Patient's further questions if applicable: Were all questions from office addressed or relayed to the patient from encounter: Yes [id number] Miscellaneous Notes* Telephone Encounter - Jillian Eduardo - 06/16/2022 10:00 AM EST Message released to patient as written. Patient's further questions if applicable: Were all questions from office addressed or relayed to the patient from encounter: Yes * Telephone Encounter - Mable Mesa LPN - 06/16/2022 9:45 AM EST Left message to return call * Telephone Encounter - Mable Mesa LPN - 06/16/2022 9:45 AM EST ----- Message from Linda Lilly MD sent at 06/15/2022 9:32 PM EST ----- Please notify Candice that her urine culture was normal. I have placed a referral to uro-swimming coach or instructor. If she is not interested in additional work up she may decline a visit. Thank you documented in this encounterSMagruder Memorial [id number] Telephone encounter Note* Telephone Encounter - Mable Mesa LPN - 06/16/2022 9:45 AM EST Left message to return call [facility] [id number] Telephone encounter Note* Telephone Encounter - Mable Mesa LPN - 06/16/2022 9:45 AM EST ----- Message from Linda Lilly MD sent at 06/15/2022 9:32 PM EST ----- Please notify Candice that her urine culture was normal. I have placed a referral to uro-swimming coach or instructor. If she is not interested in additional work up she may decline a visit. Thank you [facility] [id number] History of Present illness Narrative* Katlin Gregory MA - 06/13/2022 2:00 PM EST A enforcement manager was offered to be present during her exam. The patient: declined * Linda Lilly MD - 06/13/2022 2:00 PM EST Candice Carmichael 06/13/2020 26 y.o. Primary Care Physician: Christina Salter Chief Complaint Patient presents with Annual Exam HPI : Candice Carmichael is a 26 y.o. female here for annual exam Gynecologic History: Patient's last menstrual period was 05/30/2022 (exact date). Menses are regular. Menses occur every regular every 35 days. Flow is moderate. Intermenstrual bleeding: No Dysmenorrhea: No Sexually Active: No STD History: No Reversible Control: No HPV vaccination completed: Yes PAP: 2020 She c/o frequent urination with nocturia for about 1 yr. She denies pelvic pain, fever, chills, nausea or vomiting. She also denies hematuria. OB History Para Term AB Living 0 0 0 0 0 0 SAB IAB Ectopic Multiple Live Births 0 0 0 0 0 Past Medical History: Diagnosis Date Depression Past Surgical History: Procedure Laterality Date APPENDECTOMY 11/2017 WISDOM TOOTH EXTRACTION Family History Problem Relation Name Age of Onset Diabetes Maternal Grandfather Heart disease Paternal Grandfather Colon cancer Paternal Grandfather Heart disease Father's Sister Breast cancer Paternal Grandmother Stroke Maternal Grandfather Cancer Maternal Grandfather lung Social History Socioeconomic History Marital status: Single Spouse name: Not on file Number of children: Not on file Years of education: Not on file Highest education level: Not on file Occupational History Not on file Tobacco Use Smoking status: Never Smokeless tobacco: Never Substance and Sexual Activity Alcohol use: Yes Drug use: Never Sexual activity: Not on file Comment: none Other Topics Concern Not on file Social History Narrative Not on file Social Determinants of Health Financial Resource Strain: Not on file Food Insecurity: Not on file Transportation Needs: Not on file Physical Activity: Not on file Stress: Not on file Social Connections: Not on file Intimate Partner Violence: Not on file Housing Stability: Not on file MEDICATIONS: No current outpatient medications on file. No current facility-administered medications for this visit. ALLERGIES: Allergies as of 06/13/2022 (No Known Allergies) REVIEW OF SYSTEMS: CONSTIUTIONAL: No fever, chills or malaise; No weight change or fatigue CV: No Chest Pain with Exertion, Palpitations, Syncope, Edema, Arrhythmia RESPIRATORY: No SOB, Pneumoniae,Cough, BREAST: No breast abnormalities or lumps GI: No Indigestion, Heartburn, Nausea, vomiting, Diarrhea, Constipation,Bloating or Bowel Changes; No Bloody Stools or melena : No Dysuria, Hematuria or Nocturia. No Urinary Incontinence or Vaginal Discharge,vaginal bleeding, or dysparuenia. NEURO: No CVA, Migraines, Epilepsy, Seizure Hx, or Limb Weakness DERM: No Rash, Itching, Hives, Mole Changes or Cancer PSYCH: No Depression, Homicidal thoughts,suicidal thoughts, or anxiety MUSCULOSKELETAL: No Arthralgia, Arthritis,Gout,Osteoporosis or Rheumatism HEME and LYMPH :No Lymphoma, Von Willebrand's, Hemophillia or Bleeding History PHYSICAL EXAM: Vitals: 06/13/22 1414 BP: 133/78 Pulse: 98 Weight: 149 lb (67.6 kg) Height: 5' 2 (1.575 m) Body mass index is 27.25 kg/m . VACATION GUIDE EXAM: BREASTS: normal, no masses, tenderness or skin changes. EXTERNAL GENITALIA: normal female structures VAGINA: normal ruggae, no lesions, normal discharge CERVIX: no lesions, no cervical motion tenderness, normal appearance. VAGINA VAULT: normal. Minimal relaxation UTERUS: normal mobility, nontender, normal size, shape and consistency. ADNEXA: normal, non tender no masses URETHRA: normal. nontender BLADDER: non tender. ANUS/PERINEUM: no hemorrhoids, masses or warts noted. GENERAL EXAM CONSTITUTIONAL: Well developed, well nourished, well groomed. no acute distress NECK: no thyromegaly, supple. CARDIOVASCULAR: normal rate and rhythm, no edema RESPIRATORY: Normal effort, normal lung sounds ABDOMEN:soft, non-tender, non-distended, no hepatospleenomegaly SKIN: intact, dry NEUROLOGICAL: no gross motor or sensory deficits noted. . MUSCULOSKETAL: normal gait, no cyanosis. PSYCHIATRIC Normal mood and affect, A&O x3. ASSESSMENT/PLAN: There are no diagnoses linked to this encounter. No follow-ups on file. control and barrier recommendations discussed. STD counseling and prevention reviewed. Gardisil counseling completed for all patients 9-26 yo. Routine health maintenance per patients PCP. Osteoporosis is a disease process that begins in young women. Recommended daily intake is Calcium 1000mg and Vitamin D 600IU daily to help build strong bones for later in life. Healthy diet and exercise is encouraged, goal is a normal BMI of <25. ACOG Pap smear guidelines not recommended for women under the age of 21.An annual exam with pelvic exam and physician discussion is still recommended. Recommended screening for STDs to help ensure future fertility and decrease risk of pelvic inflammatory disease. Respect your body and protect it from STDs and by requesting your partner to wear a condom. It is recommended to obtain the HPV vaccine for cervical cancer prevention. Be up to date on vaccines including Tetanus (DPT), Rubella, and Varicella (chicken pox). PAP [facility] Diagnosis 8 weeks gestation of - Primary state, incidental Encounter for supervision of normal first in first trimester Supervision of normal first POTS (postural orthostatic tachycardia syndrome) Tachycardia, unspecified BMI 30.0-30.9,adult Body Mass Index 30.0-30.9, adult documented in this encounter [facility] note* Diagnosis Encounter for supervision of normal first in first trimester- Primary Supervision of normal first 13 weeks gestation of state, incidental Encounter for screening of mother Unspecified screening Nausea and vomiting during * Assessment & Plan Note - Nancy Aguilar MD - 04/26/2024 1:45 PM EST Associated Problem(s): Encounter for supervision of normal first in first trimester Orders: OBSTETRIC ULTRASOUND WHI; Future NUCHAL TRANSLUCENCY WHI; Future documented in this encounter [facility] note* Diagnosis Well woman exam with routine gynecological exam- Primary Routine gynecological examination Frequent urination Urinary frequency documented in this encounter [facility] note* Diagnosis Frequent urination- Primary Urinary frequency documented in this encounter [facility] note* Diagnosis Encounter for supervision of normal first in first trimester- Primary Supervision of normal first 13 weeks gestation of state, incidental Encounter for screening of mother Unspecified screening Nausea and vomiting during Supervision of high risk in second trimester- Primary Unspecified high-risk 17 weeks gestation of state, incidental Obesity affecting in second trimester, unspecified obesity type Nausea and vomiting during documented in this encounter [facility] note* Diagnosis Encounter for supervision of normal first in first trimester- Primary Supervision of normal first 13 weeks gestation of state, incidental Encounter for screening of mother Unspecified screening Nausea and vomiting during Encounter for anatomic survey- Primary Encounter for supervision of normal first in first trimester Supervision of normal first Encounter for screening of mother Unspecified screening documented in this encounter [facility] note* Diagnosis Encounter for supervision of normal first in first trimester- Primary Supervision of normal first 13 weeks gestation of state, incidental Encounter for screening of mother Unspecified screening Nausea and vomiting during Supervision of high risk in second trimester- Primary Unspecified high-risk 20 weeks gestation of state, incidental Obesity affecting in second trimester, unspecified obesity type * Assessment & Plan Note - Nancy Agiular MD - 06/15/2024 2:44 PM EST Associated Problem(s): Supervision of high risk in second trimester documented in this encounter [facility] note* Diagnosis Encounter for supervision of normal first in first trimester- Primary Supervision of normal first 13 weeks gestation of state, incidental Encounter for screening of mother Unspecified screening Nausea and vomiting during Encounter for anatomic survey- Primary 20 weeks gestation of state, incidental Obesity affecting in second trimester, unspecified obesity type Supervision of high risk in second trimester- Primary Unspecified high-risk 20 weeks gestation of state, incidental Obesity affecting in second trimester, unspecified obesity type documented in this encounter [facility] note* Diagnosis Encounter for supervision of normal first in first trimester- Primary Supervision of normal first 13 weeks gestation of state, incidental Encounter for screening of mother Unspecified screening Nausea and vomiting during Supervision of high risk in second trimester- Primary Unspecified high-risk 20 weeks gestation of state, incidental Obesity affecting in second trimester, unspecified obesity type Screening for diabetes mellitus- Primary 24 weeks gestation of state, incidental [facility] Diagnosis Encounter for supervision of normal first in first trimester- Primary Supervision of normal first 13 weeks gestation of state, incidental Encounter for screening of mother Unspecified screening Nausea and vomiting during Supervision of high risk in second trimester- Primary Unspecified high-risk 20 weeks gestation of state, incidental Obesity affecting in second trimester, unspecified obesity type Encounter for supervision of normal in second trimester, unspecified - Primary Dysuria [facility] Diagnosis Encounter for supervision of normal first in first trimester- Primary Supervision of normal first 13 weeks gestation of state, incidental Encounter for screening of mother Unspecified screening Nausea and vomiting during Supervision of high risk in second trimester- Primary Unspecified high-risk 20 weeks gestation of state, incidental Obesity affecting in second trimester, unspecified obesity type 28 weeks gestation of - Primary state, incidental Encounter for supervision of normal in second trimester, unspecified Obesity affecting in second trimester, unspecified obesity type Supervision of high risk in second trimester Unspecified high-risk [facility] Diagnosis Encounter for supervision of normal first in first trimester (HCC)- Primary Supervision of normal first 13 weeks gestation of (HCC) state, incidental Encounter for screening of mother (HCC) Unspecified screening Nausea and vomiting during (HCC) Supervision of high risk in second trimester (HCC)- Primary Unspecified high-risk 20 weeks gestation of (HCC) state, incidental Obesity affecting in second trimester, unspecified obesity type (HCC) Supervision of high risk in third trimester (HCC)- Primary Unspecified high-risk 30 weeks gestation of (HCC) state, incidental Obesity affecting in third trimester, unspecified obesity type (HCC) documented [facility] encounter [facility] Author Mable Ashley [facility] Note Date/Time October 27, 2024 10:41 am [facility] [address] [place] [address], [address] [place] [address] OFFICE VISIT Date of Service: 10/27/24 MR#: [id number] Acct: [id number] Name: CANDICE CARMICHAEL Rep #: [id number] : 1995 Provider: STEPHANIE Ashley Age/Sex: 28/F [place] [facility] Status: Signed Intake Vital Signs 09/20/24 10:23 10/18/24 15:40 10/27/24 10:23 Height 5 ft 2 in 5 ft 2 in 5 ft 2 in Weight: 199 lb BMI 36.3 BP 131/88 H Intake Visit Reasons: 39 WK OB Chief Complaint: 39wk OB Applications Manager Required: No Is patient in pain?: No Allergies Latex, Natural Rubber Allergy (Intermediate, Verified 10/27/24 10:21) Rash Medications ?Medication ?Instructions ?Recorded ?Confirmed ?Type aspirin 81 mg tablet,delayed 81 mg PO QDAY 09/02/24 History release cholecalciferol (vitamin D3) 50 50 mcg PO QDAY 5 10/27/24 History mcg (2,000 unit) capsule choline 250 mg tablet 110 mg PO QDAY 09/02/2410/16 History ferrous sulfate 325 mg (65 mg 325 mg PO Q OTHER DAY 10/27/24 History iron) tablet multivit-min no.71-iron fum 28 cap PO 09/02/24 5 History mg-folate no.1 1 mg-dha 300 mg capsule (PNV-[place]) pyridoxine (vitamin B6) 100 mg 100 mg PO QDAY 09/02/24 10/27/24 History tablet zinc acetate 50 mg (zinc) capsule 50 mg PO QDAY 10/27/24 History hydroxyzine pamoate 25 mg capsule 25 mg PO Q6H PRN anx iety 30 days 09/22/24 10/27/24 Rx (Vistaril) #120 caps Last Menstrual Period: 01/26/24 : No Have you fallen in the past year?: No PFSH PFSH Medical History Vocal cord dysfunction Tipped uterus Surgical History History of appendectomy Family History Grandmother Diabetes Paternal Breast cancer Paternal- age of onset unknown Alzheimer's dementia Maternal Grandfather Cancer, Onset Age: 75 Paternal- Lung Cancer COPD (chronic obstructive pulmonary disease) Paternal Other Sudden cardiac Social History adopted: No household members: significant other housing: house current occupational status: employed 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: No pets and animals: No history of recent travel: Yes ([place]) out of state: Yes out of country: No sexually active: Yes Smoking Status: Never smoker alcohol intake: current alcohol intake frequency: holidays/special occasions only details: Not while substance use type: does not use well-balanced diet: about half the time caffeine: Yes Type: tea Number of servings: 1 eating out: 1-3 times/week during the past year weight has: increased > 10 lbs what type of physical activity do you participate in: none debo/samaritan: Anabaptism seatbelt use: always do you feel safe at home: Yes additional social history: Cher- Mike BATRES History 1 Elective abortions Hx Para 0 Spontaneous abortions Hx # Term Pregnancies Ectopic pregnancies Hx # Pregnancies Multiple births # of living children HPI 39 WK OB Details: CANDICE CARMICHAEL is a 28 year old who presents for routine OB visit. OB Visit KHLOE Calculator Estimated Delivery Date Method Current WG Current Estimate 11/01/24 LMP (Certain) 39w 2d Expected Delivery Route/Plan Labor Preferences- CB/BF classes: [] labor support person: Mike labor intervention preferences: [] pain management options preferred: epidural if requested cut cord/dad catch: yes : yes PP control planned: [] discussed possible routes of delivery and associated risks: [] special requests: [] Specific Issue/Plans Covid status: [] Flu vaccine: [] Tdap vaccine: given Rhogam: na LARC form signed: yes movement and labor precautions reviewed. Problem list reviewed and updated with the most current plan of care details and appropriate orders placed. Relevant counseling for the gestational age provided. Continue routine care and follow up unless otherwise noted in visit notes/problem list details Initial Weight: Not Recorded Date -?-?-?-?-?-?-?-?-?-?-?-?- EGA Weight BP Urine Prot -?-?-?-?-?-?-?-?-?-?-?-?- Glucose FHR FuHt Pres Dilation -?-?-?-?-?-?-?-?-?-?-?-?- Effaced St Visit Note 09/05/24 -?-?-?-?-?-?-?-?-?-?-?-?- 31w 6d 191 lb 119/84 Negative -?-?-?-?-?-?-?-?-?-?-?-?- Negative 145 31 -?-?-?-?-?-?-?-?-?-?-?-?- SM- QUENTIN from [facility] , co fatigue, some SOB, saw PCP and recommended CT scan, dicsussed she can have if she wants, per calculator she is in low risk category. reviewed continuing iron supplement, nutrition, sleep patterns. may be POTS contributing also to symptoms. supportive care at this time. fu in 2 weeks repeat cbc at that time 09/20/24 -?-?-?-?-?-?-?-?-?-?-?-?- 34w 0d 189 lb 6 oz 117/78 Nega tive -?-?-?-?-?-?-?-?-?-?-?-?- Negative 152 34 -?-?-?-?-?-?-?-?-?-?-?-?- MH-No VB, LOF. G ood FM. Some anxiety but declines meds. Reviewed magnesium. Recheck CBC, hx of anemia. Reviewed FE supp. 09/22/24 -?-?-?-?-?-?-?-?-?-?-?-?- 34w 2d 191 lb 8 oz 112/74 Nega tive -?-?-?-?-?-?-?-?-?-?-?-?- Negative 140 34 -?-?-?-?-?-?-?-?--?-?-?-?- SM- feeling fati gued- any movement is challenging, feels short of breath, CT of chest was negative, she feels lethargic, on 09/17- started feeling anxious- she has spiraling, negative thoughts about her health and the baby's health, and she has overwhelming episodes where she feels like she cant do anything, and she has had a few occasional episodes before but this is new. she took zoloft in the past. SM- feeling fatigued- any mo vement is challenging, feels short of breath, CT of chest was negative, she feels lethargic, on 09/17- started feeling anxious- she has spiraling, negative thoughts about her health and the baby's health, and she has overwhelming episodes where she feels like she cant do anything, and she has had a few occasional episodes before but this is new. she took zoloft in the past. recommend starting FMLA now, start vistaril and if no improvement within 2 weeks recommend starting alf medication SSRI. recommend therapy. 10/05/24 -?-?-?-?-?-?-?-?-?-?-?-?- 36w 1d 193 lb 6 oz 115/72 Nega tive -?-?-?-?-?-?-?-?-?-?-?-?- Negative 145 36 Cephalic -?-?-?-?-?--?-?-?-?-?-?-?- JV- gbs collect ed today. declines pelvic check. feels better now that is on maternity leave. no complaints as above. 10/12/24 -?-?-?-?-?-?-?-?-?-?-?-?- 37w 1d 195 lb 2 oz 127/86 Nega tive -?-?-?-?-?-?-?-?-?-?-?-?- Negative 150 38 Cephalic -?-?-?-?-?-?-?-?-?-?-?-?- KW- no vb/lof/ct x. good fm.no concerns 10/18/24 -?-?-?-?-?-?-?-?-?-?-?-?- 38w 0d 195 lb 8 oz 118/86 Nega tive -?-?-?-?-?-?-?-?-?-?-?-?- Negative 140 38 Cephalic -?-?--?-?-?-?-?-?-?-?-?-?- SM- no vb lof go od fm no regular ctx feeling better. 10/27/24 -?-?-?-?-?-?-?-?-?-?-?-?- 39w 2d 199 lb 131/88 Negative -?-?-?-?-?-?-?-?-?--?-?-?- Negative 145 39 Cephalic -?-?-?-?-?-?-?-?-?-?-?-?- KW- no vb/lof/ct x. good fm. declines cervical check today. discussed options for IOL at 41 weeks ACOG First Trimester First Trimester: Discussed ROS Const Reports system reviewed and no additional complaints, except as documented Eyes Reports system reviewed and no additional complaints, except as documented ENT Reports system reviewed and no additional complaints, except as documented Card Reports system reviewed and no additional complaints, except as documented Resp Reports system reviewed and no additional complaints, except as documented GI Reports system reviewed and no additional complaints, except as documented, Denies nausea and Denies vomiting Reports system reviewed and no additional complaints, except as documented Musc Reports system reviewed and no additional complaints, except as documented Skin/Breast Reports system reviewed and no additional complaints, except as documented Neuro Yes system reviewed and no additional complaints, except as documented Psych Reports system reviewed and no additional complaints, except as documented Endo Reports system reviewed and no additional complaints, except as documented [place]/Lymph Reports system reviewed and no additional complaints, except as documented Aller/Immun Reports system reviewed and no additional complaints, except as documented Exam Const General: cooperative, healthy appearing and no acute distress Orientation: alert, awake and oriented x3 Neck Neck: normal visual inspection and full ROM Resp Effort & Inspection: normal respiratory effort, able to speak in complete sentences and symmetric chest movement GI Inspection: normal to inspection Palpation: soft and other Other: gravid Skin General: no rashes or lesions noted Neuro General: patient alert, patient awake and patient oriented x3 Cognition: normal cognition Speech: speech normal Gait: normal gait Motor: muscle tone normal throughout Extrem General: normal to inspection and full ROM Psych Appearance: grossly normal Mental Status: mental status grossly normal Mood: congruent mood Affect: normal affect Speech and Movement: speech and movement normal Attitude: cooperative Thought Process: normal Thought Content: normal Judgment: judgment good Results POC Urinalysis 2 Dip (Clinic) Office Urine Glucose Negative Last Edit by Renu Potter on 10/27/24 10:29 Office Urine Protein Negative Last Edit by Renu Potter on 10/27/24 10:29 Coding Level of Care Code OB Routine Diagnoses Choroid plexus cyst of fetus affecting care of mother, antepartum O35.03X0 Fatigue, unspecified type R53.83 Fatigue type: unspecified Obesity affecting in third trimester, unspecified obesity type O99.213 Obesity type affecting : unspecified obesity Trimester: third trimester Encounter for supervision of normal first in third trimester Z34.03 Trimester: third trimester POTS (postural orthostatic tachycardia syndrome) G90.A Anxiety and depression F41.9; F32.A Anemia affecting in third trimester O99.013 Trimester: third trimester 39 weeks gestation of Z3A.39 Weeks of gestation: 39 weeks Assessment and Plan Assessment and Plan (1) Choroid plexus cyst of fetus affecting care of mother, antepartum: Status: Acute (2) Fatigue: Status: Acute Qualifiers: Fatigue type: unspecified Qualified Code(s): R53.83 - Other fatigue Comment: discussed nutrition, iron supplement. (3) Obesity affecting : Status: Acute Qualifiers: Obesity type affecting : unspecified obesity Trimester: third trimester Qualified Code(s): O99.213 - Obesity complicating , third trimester (4) Supervision of normal first : Status: Acute Qualifiers: Trimester: third trimester Qualified Code(s): Z34.03 - Encounter for supervision of normal first , third trimester Comment: PRR , KHLOE 10/31/24, Cher' Mike (5) POTS (postural orthostatic tachycardia syndrome): Status: Acute (6) Anxiety and depression: Status: Acute Comment: start vistaril. if no improvement recommend starting SSRI Failed buspar. Enc magnesium. referred for therapy. recommend starting medical leave now due to POTS and anxiety, severe symptoms. (7) Anemia affecting : Status: Acute Qualifiers: Trimester: third trimester Qualified Code(s): O99.013 - Anemia complicating , third trimester (8) : Status: Acute Qualifiers: Weeks of gestation: 39 weeks Qualified Code(s): Z3A.39 - 39 weeks gestation of Comment: QUENTIN from [facility] @ 31wks Orders: Orders POC Urinalysis 2 Dip (Clinic) Today Plan Details Additional Comments: ACOG trimester education reviewed and updated. see problem list details for updated plan management information and see below for orders placed at this visit. GA appropriate handout given. Clinical Quality Measures Falls Risk Screening/Assistive Devices Have you fallen in the past year?: No 10/27/24 1041 <Electronically signed by Mable garcia CNM> Date _ Mable Ashley CNM Cosigner Signature: Date (if applicable) CC: ~ [place] [employer] Work Phone: Reason for referral (narrative)* Diagnostic Procedure Only (Routine) - Pending Review Specialty Diagnoses / Procedures Referred By Talisha harris Referred To Contact [facility] Diagnoses Encounter for supervision of normal first in first trimester Encounter for screening of mother Procedures NUCHAL TRANSLUCENCY WHI US NUCHAL TRANSLUCENCY 1ST GESTATION Nancy Aguilar MD [address] [place], [place] [address] [place] [address] [address] Referral ID Status Reason Start Date Expiration Date Visits Requested Visits Authorized [id number] Pending Review Auto-Generat ed Referral 04/26/2024 04/26/2025 1 1 * Diagnostic Procedure Only (Routine) - Pending Review Specialty Diagnoses / Procedures Referred By Talisha harris Referred To Contact [facility] Diagnoses Encounter for supervision of normal first in first trimester 13 weeks gestation of Encounter for screening of mother Procedures OBSTETRIC ULTRASOUND WHI US PREG UTERUS AFTER 1ST TRIMEST GESTATION Nancy Aguilar MD [address] [place] [address] [facility] [address] [place] [address] Referral ID Status Reason Start Date Expiration Date Visits Requested Visits Authorized [id number] Pending Review Auto-Generat ed Referral 04/26/2024 04/26/2025 1 1 [facility] Consultation (Routine) - Pending Review Specialty Diagnoses / Procedures Referred By Talisha harris Referred To Contact Urology / Urogynecology Diagnoses Frequent urination Procedures [place] OFFICE/OUTPATIENT NEW HIGH MDM 60-74 MINUTES Linda Lilly MD [address] [facility] [address] [place] [address] Referral ID Status Reason Start Date Expiration Date Visits Requested Visits Authorized [id number] Pending Review Specialty Services Required 06/15/2022 06/15/2023 1 1 Summ HealthReason for referral (narrative)No reason for referral information availableSanta Rosa Beach [facility] Services Work Phone: Summary Purpose Family History No Family History Records Found Relationship Condition Age at Onset Recorded Date/T jennifer Not Specified Sudden cardiac Unknown grandmother Diabetes mellitus Unknown Malignant neoplasm of breast Unknown Alzheimer's dementia Unknown grandfather Malignant neoplasm 77 Chronic obstructive pulmonary disease Unk nown Advance Directives No Advanced Directives Records FoundDocuments on File Type Date Recorded Patient Healthcare Representative Expl anation ACP-Advance Directive ACP-Power of Pillowcase Folder Chief Complaint and Reason for Visit Chief Complaint Admit Date fallJune 26, 2024 7 :00pm NEW OB 31 WKS *PER SM September 05, 2024 1 2:18pm Other forms of dyspnea September 05, 2024 12:56pm 34 WK OB September 20, 2024 10: 16am INT LAB ORDER September 20, 2024 11: 08am OB, Questions September 22, 2024 8:30am 36 wk ob October 05, 2024 2:26p m Reason for Visit Admit Date fallJune 26, 2024 7 :00pm 21 weeks gestation of June 26, 2024 7:00pm Anemia affecting September 05, 2 025 12:18pm Anxiety and depression September 05, 2024 12:18pm Choroid plexus cyst of fetus affecting care of mother, antepartum September 05, 2024 12:18pm Fatigue September 05, 2024 12: 18pm Obesity affecting September 05, 2024 12:18pm POTS (postural orthostatic tachycardia s yndrome) September 05, 2024 12:18pm September 05, 2024 12: 18pm Supervision of normal first Ap ril 2024 12:18pm Anemia affecting September 20, 2 025 10:16am Anxiety and depression September 20, 2024 10:16am Fatigue September 20, 2024 10: 16am Obesity affecting September 20, 2024 10:16am September 20, 2024 10: 16am Supervision of normal first Ap ril 2024 10:16am Anemia affecting September 22, 2024 8:30am Anxiety and depression September 22, 2024 8:3 0am Choroid plexus cyst of fetus affecting care of mother, antepartum September 22, 2024 8:30am Fatigue September 22, 2024 8:30am Obesity affecting September 22 8:30am POTS (postural orthostatic tachycardia s yndrome) September 22, 2024 8:30am September 22, 2024 8:30am Supervision of normal first Ma y 2024 8:30am Anemia affecting October 05 2:26pm Anxiety and depression October 05, 2024 2: 26pm Choroid plexus cyst of fetus affecting care of mother, antepartum October 05, 2024 2:26pm Fatigue October 05, 2024 2:26p m Obesity affecting October 05 2:26pm POTS (postural orthostatic tachycardia s yndrome) October 05, 2024 2:26pm October 05, 2024 2:26p m Supervision of normal first Ma y 2024 2:26pm Chief Complaint Admit Date fallJune 26, 2024 7 :00pm NEW OB 31 WKS *PER SM September 05, 2024 1 2:18pm Other forms of dyspnea September 05, 2024 12:56pm 34 WK OB September 20, 2024 10: 16am INT LAB ORDER September 20, 2024 11: 08am OB, Questions September 22, 2024 8:30am 36 wk ob October 05, 2024 2:26p m 37 WK OB October 12, 2024 2:56p m Reason for Visit Admit Date fallJune 26, 2024 7 :00pm 21 weeks gestation of June 26, 2024 7:00pm Anemia affecting September 05, 2 025 12:18pm Anxiety and depression September 05, 2024 12:18pm Choroid plexus cyst of fetus affecting care of mother, antepartum September 05, 2024 12:18pm Fatigue September 05, 2024 12: 18pm Obesity affecting September 05, 2024 12:18pm POTS (postural orthostatic tachycardia s yndrome) September 05, 2024 12:18pm September 05, 2024 12: 18pm Supervision of normal first Ap ril 2024 12:18pm Anemia affecting September 20, 2 025 10:16am Anxiety and depression September 20, 2024 10:16am Fatigue September 20, 2024 10: 16am Obesity affecting September 20, 2024 10:16am September 20, 2024 10: 16am Supervision of normal first Ap ril 2024 10:16am Anemia affecting September 22, 2024 8:30am Anxiety and depression September 22, 2024 8:3 0am Choroid plexus cyst of fetus affecting care of mother, antepartum September 22, 2024 8:30am Fatigue September 22, 2024 8:30am Obesity affecting September 22 8:30am POTS (postural orthostatic tachycardia s yndrome) September 22, 2024 8:30am September 22, 2024 8:30am Supervision of normal first Ma 2024 8:30am Anemia affecting October 05 2:26pm Anxiety and depression October 05, 2024 2: 26pm Choroid plexus cyst of fetus affecting care of mother, antepartum October 05, 2024 2:26pm Fatigue October 05, 2024 2:26p m Obesity affecting October 05 2:26pm POTS (postural orthostatic tachycardia s yndrome) October 05, 2024 2:26pm October 05, 2024 2:26p m Supervision of normal first Ma y 2024 2:26pm Anemia affecting October 12 2:56pm Anxiety and depression October 12, 2024 2: 56pm Choroid plexus cyst of fetus affecting care of mother, antepartum October 12, 2024 2:56pm Fatigue October 12, 2024 2:56p m Obesity affecting October 12 2:56pm POTS (postural orthostatic tachycardia s yndrome) October 12, 2024 2:56pm October 12, 2024 2:56p m Supervision of normal first Ma y 2024 2:56pm Chief Complaint Admit Date fallJune 26, 2024 7 :00pm NEW OB 31 WKS *PER SM September 05, 2024 1 2:18pm Other forms of dyspnea September 05, 2024 12:56pm 34 WK OB September 20, 2024 10: 16am INT LAB ORDER September 20, 2024 11: 08am OB, Questions September 22, 2024 8:30am 36 wk ob October 05, 2024 2:26p m 37 WK OB October 12, 2024 2:56p m 38 WK OB October 18, 2024 3:37p m Reason for Visit Admit Date fallJune 26, 2024 7 :00pm 21 weeks gestation of June 26, 2024 7:00pm Anemia affecting September 05, 2 025 12:18pm Anxiety and depression September 05, 2024 12:18pm Choroid plexus cyst of fetus affecting care of mother, antepartum September 05, 2024 12:18pm Fatigue September 05, 2024 12: 18pm Obesity affecting September 05, 2024 12:18pm POTS (postural orthostatic tachycardia s yndrome) September 05, 2024 12:18pm September 05, 2024 12: 18pm Supervision of normal first Ap ril 2024 12:18pm Anemia affecting September 20, 2 025 10:16am Anxiety and depression September 20, 2024 10:16am Fatigue September 20, 2024 10: 16am Obesity affecting September 20, 2024 10:16am September 20, 2024 10: 16am Supervision of normal first Ap ril 2024 10:16am Anemia affecting September 22, 2024 8:30am Anxiety and depression September 22, 2024 8:3 0am Choroid plexus cyst of fetus affecting care of mother, antepartum September 22, 2024 8:30am Fatigue September 22, 2024 8:30am Obesity affecting September 22 8:30am POTS (postural orthostatic tachycardia s yndrome) September 22, 2024 8:30am September 22, 2024 8:30am Supervision of normal first Ma y 2024 8:30am Anemia affecting October 05 2:26pm Anxiety and depression October 05, 2024 2: 26pm Choroid plexus cyst of fetus affecting care of mother, antepartum October 05, 2024 2:26pm Fatigue October 05, 2024 2:26p m Obesity affecting October 05 2:26pm POTS (postural orthostatic tachycardia s yndrome) October 05, 2024 2:26pm October 05, 2024 2:26p m Supervision of normal first Ma y 2024 2:26pm Anemia affecting October 12 2:56pm Anxiety and depression October 12, 2024 2: 56pm Choroid plexus cyst of fetus affecting care of mother, antepartum October 12, 2024 2:56pm Fatigue October 12, 2024 2:56p m Obesity affecting October 12 2:56pm POTS (postural orthostatic tachycardia s yndrome) October 12, 2024 2:56pm October 12, 2024 2:56p m Supervision of normal first Ma y 2024 2:56pm Anemia affecting October 18 3:37pm Anxiety and depression October 18, 2024 3: 37pm Choroid plexus cyst of fetus affecting care of mother, antepartum October 18, 2024 3:37pm Fatigue October 18, 2024 3:37p m Obesity affecting October 18 3:37pm POTS (postural orthostatic tachycardia s yndrome) October 18, 2024 3:37pm October 18, 2024 3:37p m Supervision of normal first Ma y 2024 3:37pm Chief Complaint Admit Date NEW OB 31 WKS *PER SM September 05, 2024 1 2:18pm Other forms of dyspnea September 05, 2024 12:56pm 34 WK OB September 20, 2024 10: 16am INT LAB ORDER September 20, 2024 11: 08am OB, Questions September 22, 2024 8:30am 36 wk ob October 05, 2024 2:26p m 37 WK OB October 12, 2024 2:56p m 38 WK OB October 18, 2024 3:37p m 39 WK OB October 27, 2024 10:20 am Reason for Visit Admit Date Anemia affecting September 05, 2 025 12:18pm Anxiety and depression September 05, 2024 12:18pm Choroid plexus cyst of fetus affecting care of mother, antepartum September 05, 2024 12:18pm Fatigue September 05, 2024 12: 18pm Obesity affecting September 05, 2024 12:18pm POTS (postural orthostatic tachycardia s yndrome) September 05, 2024 12:18pm September 05, 2024 12: 18pm Supervision of normal first Ap [facility] 2024 12:18pm Anemia affecting September 20, 2 025 10:16am Anxiety and depression September 20, 2024 10:16am Fatigue September 20, 2024 10: 16am Obesity affecting September 20, 2024 10:16am September 20, 2024 10: 16am Supervision of normal first Ap [facility] 2024 10:16am Anemia affecting September 22, 2024 8:30am Anxiety and depression September 22, 2024 8:3 0am Choroid plexus cyst of fetus affecting care of mother, antepartum September 22, 2024 8:30am Fatigue September 22, 2024 8:30am Obesity affecting September 22 8:30am POTS (postural orthostatic tachycardia s yndrome) September 22, 2024 8:30am September 22, 2024 8:30am Supervision of normal first Ma 2024 8:30am Anemia affecting October 05 2:26pm Anxiety and depression October 05, 2024 2: 26pm Choroid plexus cyst of fetus affecting care of mother, antepartum October 05, 2024 2:26pm Fatigue October 05, 2024 2:26p m Obesity affecting October 05 2:26pm POTS (postural orthostatic tachycardia s yndrome) October 05, 2024 2:26pm October 05, 2024 2:26p m Supervision of normal first Ma y 2024 2:26pm Anemia affecting October 12 2:56pm Anxiety and depression October 12, 2024 2: 56pm Choroid plexus cyst of fetus affecting care of mother, antepartum October 12, 2024 2:56pm Fatigue October 12, 2024 2:56p m Obesity affecting October 12 2:56pm POTS (postural orthostatic tachycardia s yndrome) October 12, 2024 2:56pm October 12, 2024 2:56p m Supervision of normal first Ma y 2024 2:56pm Anemia affecting October 18 3:37pm Anxiety and depression October 18, 2024 3: 37pm Choroid plexus cyst of fetus affecting care of mother, antepartum October 18, 2024 3:37pm Fatigue October 18, 2024 3:37p m Obesity affecting October 18 3:37pm POTS (postural orthostatic tachycardia s yndrome) October 18, 2024 3:37pm October 18, 2024 3:37p m Supervision of normal first Ma y 2024 3:37pm Anemia affecting October 27 10:20am Anxiety and depression October 27, 2024 10 :20am Choroid plexus cyst of fetus affecting care of mother, antepartum October 27, 2024 10:20am Fatigue October 27, 2024 10:20 am Obesity affecting October 27 10:20am POTS (postural orthostatic tachycardia s yndrome) October 27, 2024 10:20am October 27, 2024 10:20 am Supervision of normal first Ju 2024 10:20am Chief Complaint Admit Date NEW OB 31 WKS *PER SM September 05, 2024 1 2:18pm Other forms of dyspnea September 05, 2024 12:56pm 34 WK OB September 20, 2024 10: 16am INT LAB ORDER September 20, 2024 11: 08am OB, Questions September 22, 2024 8:30am 36 wk ob October 05, 2024 2:26p m 37 WK OB October 12, 2024 2:56p m 38 WK OB October 18, 2024 3:37p m 39 WK OB October 27, 2024 10:20 am 40 WK OB November 01, 2024 2:03 pm Reason for Visit Admit Date Anemia affecting September 05, 2 025 12:18pm Anxiety and depression September 05, 2024 12:18pm Choroid plexus cyst of fetus affecting care of mother, antepartum September 05, 2024 12:18pm Fatigue September 05, 2024 12: 18pm Obesity affecting September 05, 2024 12:18pm POTS (postural orthostatic tachycardia s yndrome) September 05, 2024 12:18pm September 05, 2024 12: 18pm Supervision of normal first Ap ril 2024 12:18pm Anemia affecting September 20, 025 10:16am Anxiety and depression September 20, 2024 10:16am Fatigue September 20, 2024 10: 16am Obesity affecting September 20, 2024 10:16am September 20, 2024 10: 16am Supervision of normal first Ap ril 2024 10:16am Anemia affecting September 22, 2024 8:30am Anxiety and depression September 22, 2024 8:3 0am Choroid plexus cyst of fetus affecting care of mother, antepartum September 22, 2024 8:30am Fatigue September 22, 2024 8:30am Obesity affecting September 22 8:30am POTS (postural orthostatic tachycardia s yndrome) September 22, 2024 8:30am September 22, 2024 8:30am Supervision of normal first Ma y 2024 8:30am Anemia affecting October 05 2:26pm Anxiety and depression October 05, 2024 2: 26pm Choroid plexus cyst of fetus affecting care of mother, antepartum October 05, 2024 2:26pm Fatigue October 05, 2024 2:26p m Obesity affecting October 05 2:26pm POTS (postural orthostatic tachycardia s yndrome) October 05, 2024 2:26pm October 05, 2024 2:26p m Supervision of normal first Ma y 2024 2:26pm Anemia affecting October 12 2:56pm Anxiety and depression October 12, 2024 2: 56pm Choroid plexus cyst of fetus affecting care of mother, antepartum October 12, 2024 2:56pm Fatigue October 12, 2024 2:56p m Obesity affecting October 12 2:56pm POTS (postural orthostatic tachycardia s yndrome) October 12, 2024 2:56pm October 12, 2024 2:56p m Supervision of normal first Ma y 2024 2:56pm Anemia affecting October 18 3:37pm Anxiety and depression October 18, 2024 3: 37pm Choroid plexus cyst of fetus affecting care of mother, antepartum October 18, 2024 3:37pm Fatigue October 18, 2024 3:37p m Obesity affecting October 18 3:37pm POTS (postural orthostatic tachycardia s yndrome) October 18, 2024 3:37pm October 18, 2024 3:37p m Supervision of normal first Ma y 2024 3:37pm Anemia affecting October 27 10:20am Anxiety and depression October 27, 2024 10 :20am Choroid plexus cyst of fetus affecting care of mother, antepartum October 27, 2024 10:20am Fatigue October 27, 2024 10:20 am Obesity affecting October 27 10:20am POTS (postural orthostatic tachycardia s yndrome) October 27, 2024 10:20am October 27, 2024 10:20 am Supervision of normal first Ju 2024 10:20am Anemia affecting November 01 2:03pm Anxiety and depression November 01, 2024 2 :03pm Choroid plexus cyst of fetus affecting care of mother, antepartum November 01, 2024 2:03pm Fatigue November 01, 2024 2:03 pm Obesity affecting November 01, 2:03pm POTS (postural orthostatic tachycardia s yndrome) November 01, 2024 2:03pm November 01, 2024 2:03 pm Supervision of normal first Ju ne 2024 2:03pm Additional Source Comments INFORMATION SOURCE (unrecogn ized section and content) DATE CREATED AUTHOR 12/12/2017 [facility] DATE CREATED AUTHOR AUTHOR'S ORGANIZ ATION 12/12/2017 [facility] DATE CREATED AUTHOR AUTHOR'S ORGANIZ ATION 01/05/2018 [facility] DATE CREATED AUTHOR AUTHOR'S ORGANIZ ATION 2021 [facility] DATE CREATED AUTHOR AUTHOR'S ORGANIZ ATION 09/02/2024 [facility] DATE CREATED AUTHOR AUTHOR'S ORGANIZ ATION 09/07/2024 [facility] DATE CREATED AUTHOR AUTHOR'S ORGANIZ ATION 11/03/2024 [facility] Care Teams (unrecognized sec tion and content) Team Status: Active Member Role Status Dates Dr. Christina Salter , DO Primary Care Provider Ac tive Team Status: Inactive Member Role Status Dates Dr. Jayne Carmona , Attending Provider Active Start: June 26, 2024 End: June 26, 2024 Team Status: Inactive Member Role Status Dates Dr. Janae Guidry MD Attending Provider Active Start: September 05, 2024 End: September 05, 2024 Team Status: Inactive Member Role Status Dates Dr. Christina Salter DO Primary Care Provider Ac tive Start: September 05, 2024 End: September 05, 2024 Dr. Christina Salter DO Attending Provider Activ e Start: September 05, 2024 End: September 05, 2024 Dr. Christina Salter , DO Referring Provider Activ e Start: September 05, 2024 End: September 05, 2024 Team Status: Inactive Member Role Status Dates Dr. Christina Salter DO Primary Care Provider Ac tive Start: September 20, 2024 End: September 20, 2024 Dr. Christina Salter DO Referring Provider Activ e Start: September 20, 2024 End: September 20, 2024 Maureen Latif NP, DOCKET CLERK-C Attending Provider Active Start: September 20, 2024 End: September 20, 2024 Team Status: Inactive Member Role Status Dates Dr. Christina Salter DO Primary Care Provider Ac tive Start: September 20, 2024 End: September 20, 2024 Maureen Latif NP, DOCKET CLERK-C Attending Provider Active Start: September 20, 2024 End: September 20, 2024 Maureen [place] DOCKET CLERK, DOCKET CLERK-C Referring Provider Active Start: September 20, 2024 End: September 20, 2024 Team Status: Inactive Member Role Status Dates Dr. Christina Salter , DO Primary Care Provider Ac tive Start: September 22, 2024 End: September 22, 2024 Dr. Christina Salter , DO Referring Provider Activ e Start: September 22, 2024 End: September 22, 2024 Dr. Janae Guidry MD Attending Provider Active Start: September 22, 2024 End: September 22, 2024 Team Status: Inactive Member Role Status Dates Dr. Xenia Edouard , DO Attending Provider Activ e Start: October 05, 2024 End: October 05, 2024 Dr. Christina Salter , DO Primary Care Provider Ac tive Start: October 05, 2024 End: October 05, 2024 Dr. Christina Salter , DO Referring Provider Activ e Start: October 05, 2024 End: October 05, 2024 Team Status: Inactive Member Role Status Dates Dr. Christina Salter , DO Primary Care Provider Ac tive Start: October 05, 2024 End: October 05, 2024 Dr. Xenia Edouard , DO Attending Provider Activ e Start: October 05, 2024 End: October 05, 2024 Dr. Xenia Edouard , DO Referring Provider Activ e Start: October 05, 2024 End: October 05, 2024 Team Status: Inactive Member Role Status Dates Dr. Christina Salter , DO Primary Care Provider Ac tive Start: October 12, 2024 End: October 12, 2024 Dr. Christina Salter , DO Referring Provider Activ e Start: October 12, 2024 End: October 12, 2024 Mable Ashley CNM Attending Provider Active S tart: October 12, 2024 End: October 12, 2024 Team Status: Inactive Member Role Status Dates Dr. Christina Salter , DO Primary Care Provider Ac tive Start: October 18, 2024 End: October 18, 2024 Dr. Christina Salter , DO Referring Provider Activ e Start: October 18, 2024 End: October 18, 2024 Dr. Janae Guidry MD Attending Provider Active Start: October 18, 2024 End: October 18, 2024 Laboratory Machinist Relationship Specialty Start Date End Date Christina Salter DO [address] [place] [address] PCP - General Family Medicine 11/06/21 Laboratory Machinist Relationship Specialty Start Date End Date Christina [place] [address] PCP - General Family Medicine 11/06/21 Laboratory Machinist Relationship Specialty Start Date End Date [place] [place] [address] PCP - General Family Medicine 03/21/24 Laboratory Machinist Relationship Specialty Start Date End Date Christina Salter DO [address] [place] [address] PCP - General Family Medicine 03/21/24 Laboratory Machinist Relationship Specialty Start Date End Date [place] [address] PCP - General Family Medicine 03/21/24 Laboratory Machinist Relationship Specialty Start Date End Date Christina Salter [address] [place] [phone] PCP - General 11/06/21 Laboratory Machinist Relationship Specialty Start Date End [place] [phone] PCP - General 11/06/21 Laboratory Machinist Relationship Specialty Start Date End [place] [phone] PCP - General 11/06/21 Laboratory Machinist Relationship Specialty Start Date End Date Christina Salter DO [address] [place] [address] PCP - General Family Medicine 03/21/24 Laboratory Machinist Relationship Specialty Start Date End Date Christina Salter DO [address] [place] [address] PCP - General Family Medicine 03/21/24 Laboratory Machinist Relationship Specialty Start Date End Date Christina Salter DO [address] [place] [address] PCP - General Family Medicine 03/21/24 Laboratory Machinist Relationship Specialty Start Date End Date Christina Salter DO [address] [place] [address] PCP - General Family Medicine 03/21/24 Laboratory Machinist Relationship Specialty Start Date End Date Christina Salter DO [address] [place] [address] PCP - General Family Medicine 03/21/24 Laboratory Machinist Relationship Specialty Start Date End Date Christina Salter DO [address] [place] [address] PCP - General Family Medicine 03/21/24 Laboratory Machinist Relationship Specialty Start Date End Date Christina Salter DO [address] [place] [address] PCP - General Family Medicine 03/21/24 Laboratory Machinist Relationship Specialty Start Date End Date Christina Salter [address] [place] [phone] PCP - General 11/06/21 Laboratory Machinist Relationship Specialty Start Date End Date Christina Salter DO [address] [place] [address] PCP - General Family Medicine 03/21/24 Team Status: Active Member Role Status Dates Dr. Christina Salter DO Primary Care Provider Ac tive Start: June 15, 2024 Dr. Christina Salter DO Attending Provider Activ e Start: June 15, 2024 Team Status: Inactive Member Role Status Dates Dr. Christina Salter DO Primary Care Provider Ac tive Start: October 27, 2024 End: October 27, 2024 Dr. Christina Salter DO Referring Provider Activ e Start: October 27, 2024 End: October 27, 2024 Mable Ashley CNM Attending Provider Active S tart: October 27, 2024 End: October 27, 2024 Team Status: Inactive Member Role Status Dates Dr. Christina Salter DO Primary Care Provider Ac tive Start: November 01, 2024 End: November 01, 2024 Dr. Christina Salter DO Referring Provider Activ e Start: November 01, 2024 End: November 01, 2024 Mable Ashley CNM Attending Provider Active S tart: November 01, 2024 End: November 01, 2024 Source Comments (unrecognize d section and content) In the event this informatio n is protected by the Federal Confidentiality of Alcohol and Drug Abuse Patient Records regulations: The Federal rules restrict any use of the information to criminally investigate or prosecute any alcohol or drug abuse patient.[facility] Center[facility] the event this information is protected by the Federal Confidentiality of Alcohol and Drug Abuse Patient Records regulations: The Federal rules restrict any use of the information to criminally investigate or prosecute any alcohol or drug abuse patient.[facility] CenterIn the event this information is protected by the Federal Confidentiality of Alcohol and Drug Abuse Patient Records regulations: The Federal rules restrict any use of the information to criminally investigate or prosecute any alcohol or drug abuse patient.[facility] Center[facility] the event this information is protected by the Federal Confidentiality of Alcohol and Drug Abuse Patient Records regulations: The Federal rules restrict any use of the information to criminally investigate or prosecute any alcohol or drug abuse patient.[facility] CenterIn the event this information is protected by the Federal Confidentiality of Alcohol and Drug Abuse Patient Records regulations: The Federal rules restrict any use of the information to criminally investigate or prosecute any alcohol or drug abuse patient.[facility] Center[facility] the event this information is protected by the Federal Confidentiality of Alcohol and Drug Abuse Patient Records regulations: The Federal rules restrict any use of the information to criminally investigate or prosecute any alcohol or drug abuse patient.[facility] CenterIn the event this information is protected by the Federal Confidentiality of Alcohol and Drug Abuse Patient Records regulations: The Federal rules restrict any use of the information to criminally investigate or prosecute any alcohol or drug abuse patient.[facility] CenterIn the event this information is protected by the Federal Confidentiality of Alcohol and Drug Abuse Patient Records regulations: The Federal rules restrict any use of the information to criminally investigate or prosecute any alcohol or drug abuse patient.[facility] CenterIn the event this information is protected by the Federal Confidentiality of Alcohol and Drug Abuse Patient Records regulations: The Federal rules restrict any use of the information to criminally investigate or prosecute any alcohol or drug abuse patient.[facility] Center[facility] the event this information is protected by the Federal Confidentiality of Alcohol and Drug Abuse Patient Records regulations: The Federal rules restrict any use of the information to criminally investigate or prosecute any alcohol or drug abuse patient.[facility] Center[facility] the event this information is protected by the Federal Confidentiality of Alcohol and Drug Abuse Patient Records regulations: The Federal rules restrict any use of the information to criminally investigate or prosecute any alcohol or drug abuse patient.[facility] Center[facility] the event this information is protected by the Federal Confidentiality of Alcohol and Drug Abuse Patient Records regulations: The Federal rules restrict any use of the information to criminally investigate or prosecute any alcohol or drug abuse patient.[facility] CenterIn the event this information is protected by the Federal Confidentiality of Alcohol and Drug Abuse Patient Records regulations: The Federal rules restrict any use of the information to criminally investigate or prosecute any alcohol or drug abuse patient.[facility] Reason for Visit (unrecogniz ed section and content) Reason Comments Patient Update Reason Comments First OB Specialty Diagnoses / Procedures Referred By Talisha t Referred To Contact [facility] Diagnoses and needs to do her first two appts as self pay as her insurance does not kick in until May sometime. Procedures consult test and treat Self [address] [address] Referral ID Status Reason Start Date Expiration Date Visits Requested Visits Authorized [id number] Authorized Financial Clearance Required - Self Pay Patient Cleared - Qualified 100% FAS 4 05/25/2024 99 99 Reason Onset Date Comments Care 04/26/2024 Specialty Diagnoses / Procedures [facility] Diagnoses and needs to do her first two appts as self pay as her insurance does not kick in until May sometime. Procedures consult test and treat Self [address] [address] Reason Comments Annual Exam Reason Onset Date Comments Results 06/16/2022 Reason Onset Date Comments Care 05/27/2024 Reason Comments US Specialty Diagnoses / Procedures [facility] Diagnoses Encounter for supervision of normal first in first trimester Encounter for screening of mother Procedures NUCHAL TRANSLUCENCY WHI US NUCHAL TRANSLUCENCY 1ST GESTATION Nancy Aguilar MD [address] [place] [address] [address] Referral ID Status Reason Start Date Expiration Date Visits Requested Visits Authorized [id number] New Request Auto-Generate d Referral Clearance Not Met -Financial Clearance Bypassed 04/26/2024 04/26/2025 1 1 Reason Onset Date Comments Care 06/15/2024 Specialty Diagnoses / Procedures Referred By Talisha t Referred To Contact [facility] Diagnoses Encounter for supervision of normal first in first trimester 13 weeks gestation of Encounter for screening of mother Procedures OBSTETRIC ULTRASOUND WHI US PREG UTERUS AFTER 1ST TRIMEST GESTATION Nancy Aguilar MD [address] [place] [address] [facility] [address] [place] [address] Referral ID Status Reason Start Date Expiration Date V isits Requested Visits Authorized [id number] Closed Auto-Generate d Referral 04/26/2024 04/26/2025 1 1 Reason Onset Date Comments Care 07/13/2024 Reason Onset Date Comments Care 07/26/2024 Reason Onset Date Comments Care 08/10/2024 Reason Onset Date Comments Care 08/24/2024 Reason Comments Care Reason Onset Date Comments Advice Only 09/05/2024 Results 09/05/2024 Goals (unrecognized section and content) Goals may be documented in a n alternate sectionGoals may be documented in an alternate sectionGoals may be documented in an alternate sectionGoals may be documented in an alternate sectionGoals may be documented in an alternate sectionGoals may be documented in an alternate section FOR RECORDS PERTAINING TO PATIENTS WHO ARE OR HAVE BEEN ENROLLED IN A CHEMICAL DEPENDENCY/SUBSTANCEABUSE PROGRAM, SOME INFORMATION MAY BE OMITTED. This clinical summary was aggregated from multiple sources. Caution should be exercised in using it in the provision of clinical care. This summary normalizes information from multiple sources, and as a consequence, information in this document may materially change the coding, format and clinical context of patient data. In addition, data may be omitted in some cases. CLINICAL DECISIONS SHOULD BE BASED ON THE PRIMARY CLINICAL RECORDS. [facility] [employer] [facility]. provides no warranty or guarantee of the accuracy or completeness of information in this document.
[2024-11-04 02:09] VITALS: BP 129/77; PULSE 105; PULSE 107; RESP 16; TEMP 37.2; O2SAT 96
[2024-11-04 02:17] VITALS: BMI 35.9
--- NOTE | 2024-11-04 03:00 | OB.TRI.PN_ITS ---
Progress Notes Date of Service: 11/04/24 Progress Note: Patient presents for triage evaluation secondary to uterine contractions at 40 weeks FHT: 125 Moderate variability reactive no decelerations category I tracing [place]: irregular Contractions Assessment and plan: no cervical change, Reactive NST, reassuring maternal and status patient discharged to home to follow-up in office or when contractions become stronger. See problem list details for additional plan information. Charges/Coding Multi Select Codes Urinary/Genital Urinary/Genital CPT Codes: 58753-95 non-stress test Interp Assessment & Plan (1) False labor: COMMENT: unchanged cervical exam (2) Fatigue: QUALIFIERS: Fatigue type: unspecified Qualified Code(s): R53.83 - Other fatigue COMMENT: discussed nutrition, iron supplement. (3) Obesity affecting : QUALIFIERS: Trimester: third trimester Obesity type affecting : unspecified obesity Qualified Code(s): O99.213 - Obesity complicating , third trimester (4) Supervision of normal first : QUALIFIERS: Trimester: third trimester Qualified Code(s): Z34.03 - Encounter for supervision of normal first , third trimester COMMENT: PRR , KHLOE 10/31/24, Cher' Mike (5) Choroid plexus cyst of fetus affecting care of mother, antepartum: (6) POTS (postural orthostatic tachycardia syndrome): (7) Anxiety and depression: COMMENT: start vistaril. if no improvement recommend starting SSRI Failed buspar. Enc magnesium. referred for therapy. recommend starting medical leave now due to POTS and anxiety, severe symptoms. (8) : QUALIFIERS: Weeks of gestation: 40 weeks Qualified Code(s): Z3A.40 - 40 weeks gestation of COMMENT: QUENTIN from [facility] @ 31wks (9) Anemia affecting : QUALIFIERS: Trimester: third trimester Qualified Code(s): O99.013 - Anemia complicating , third trimester
[2024-11-04 20:20] VITALS: BP 122/72; PULSE 101; RESP 16; TEMP 36.7; O2SAT 98
[2024-11-04] MEDS: DiphenhydrAMINE 25 MG Capsule 50 MG PO (21:42)
== END 2024-11-04 21:45 | disposition home or self-care (01) ==
LOC: WPOUT 01:53 → WP 01:55
PROVIDERS: PCP Family Medicine; Visit Provider Registered Nurse
DX: O47.1 False labor at or after 37 completed weeks of gestation (principal); Z3A.40 40 weeks gestation of pregnancy; O99.213 Obesity complicating pregnancy, third trimester; F41.9 Anxiety disorder, unspecified; F32.A Depression, unspecified; Z79.899 Other long term (current) drug therapy; O99.343 Other mental disorders complicating pregnancy, third trimester; O99.013 Anemia complicating pregnancy, third trimester
CPT/HCPCS: 59025; 59050; 99221; G0378

== ENCOUNTER 2024-11-05 13:00 | Inpatient (IN) | payer OTHER, SELFPAY ==
[2024-11-05] VITALS (64 sets, daily range): BP systolic 111–154; BP diastolic 58–90; PULSE 80–116; RESP 13–20; TEMP 36.3–38.1; O2SAT 94–100; BMI 35.4
--- OUTSIDE RECORDS SUMMARY | 2024-11-05 06:10 | XMS RPT_ITS | CCD ---
Author Organization [facility] CliniSynv Care Team Providers Care Magazine Writer Name Role Phone SUZY LEON Unavailable Unavailable SUZY LEON Unavailable Unavailable WANEK, CHRIS A Unavailable Unavailable WANEK, CHRIS A Unavailable Unavailable Gaetano Christina MONZON Primary Care Provider GaetanoChristina ennis DO Primary Care Provider Christina Salter Primary Care Provider [phone] CITLALI BAUER Attending Unavailable GAETANO, CHRISTINA L Primary Care Unavailable CITLALI BAUER Referring Unavailable GAETANO, CHRISTINA L Primary Care Unavailable NANCY AGUILAR Referring Unavailable GAETANO, CHRISTINA L Primary Care Unavailable ZENAIDA MITCHELL Attending Unavailable JEFF NANCY Aleksandr Referring Unavailable GAETANO, CHRISTINA L Primary Care Unavailable SONDRA, ZENAIDA Referring Unavailable GAETANO, CHRISTINA L Primary Care [...] Unavailable GAETANO, CHRISTINA L Primary Care Unavailable Gaetano, Christina Primary Care Provider [phone] Dr. Christina Salter DO Primary Care Provid er Gaetano MONZON, Dr. Christina Sandoval Attending Provider Dr. Jayne Carmona DO Attending Provider Chao MIGUEL, Dr. Cardoso Attending Provider [phone] Gaetano MONZON, Dr. Christina Sandoval Referring Provider Salomon DIGITAL CAMPAIGN MANAGER-C, Maureen Attending Provider [phone] Salomon DIGITAL CAMPAIGN MANAGER-C, Maureen Referring Provider [phone] Filiberto Gonzales DO, Dr. Michaels Attending Provider Filiberto Gonzales DO, Dr. Michaels Referring Provider Mable Ashley CNM Attending Provider [phone] Gaetano MONZON, Dr. Christina Sandoval Primary Care [facility] er Gaetano MONZON, Dr. Christina Sandoval Attending [facility] Referring Unavailabl e Gaetano Christina Lori Attending Unavailabl e Gaetano [facility] Primary Care Unavailabl e Gaetano [facility] Primary [facility] Unavailabl e Salomon DIGITAL CAMPAIGN MANAGER, Maureen Referring Unavailable Salomon DIGITAL CAMPAIGN MANAGERMaureen Attending Unavailable [facility] Referring Unavailabl e Gaetano [facility] Primary Care Unavailabl e Mable Ashley Attending Unavailable Janae Guidry Attending Unavailable Gaetano, [facility] Unavailabl e Gaetano, [place] Lori Referring Unavailabl e Mable Ashley Attending Unavailable [facility] Care Unavailabl e Gaetano [facility] Referring Unavailabl e [place] DIGITAL CAMPAIGN MANAGER, Maureen Attending Unavailable Gaetano, [facility] Care Unavailabl e Gaetano, [facility] Referring Unavailabl e Janae Guidry Attending Unavailable [facility] Primary Care Unavailabl e Gaetano, [facility] Referring Unavailabl e Xenia Edouard Attending Unavailabl e Gaetano, [facility] Care Unavailabl e Gaetano, [facility] Referring Unavailabl e Mable Ashley Attending Unavailable Gaetano [facility] Referring Unavailabl e Janae Guidry Attending Unavailable Gaetano, [facility] Unavailabl e Gaetano, [facility] Care Unavailabl e Gaetano, [facility] Attending Unavailabl e Gaetano, [facility] Attending Unavailabl e Gaetano, [facility] Care Unavailabl e Gaetano, [facility] Attending Unavailabl e Gaetano, [facility] Care Unavailabl e Gaetano, [facility] Unavailabl e Janae Guidry Attending Unavailable Gaetano, [facility] Attending Unavailabl e Gaetano, [facility] Unavailabl e Jayne Carmona Attending Unavailable Xenia Edouard Referring Unavailabl e Xenia Edouadr Attending Unavailabl e Gaetano, [facility] Unavailsobeida e Mable Ashley CNM Other Provider Pati Martinez CNM Attending Provider Allergies Allergy Classification Reported Allergen(s) Allergy Type Date of Onset Reaction(s) Facility (14 sources) Latex; Translations: [LATEX] Drug Allergy 03-22-2024 [facility] (8 sources) natural latex rubber Allergy to substance 10-05-2024 [facility] (1 source) natural latex rubber Drug allergy (disorder) 11-01-2024 [facility] Repository Medications Current Medications Medication Drug Class(es) Dates Sig (Normalized) Sig (Original) aspirin 81 mg delayed release oral tablet (20 sources) Platelet Aggregation Inhibitor, Nonsteroidal Anti-inflammatory Drug Start: 03-25-2024 take 1 tablet by mouth once daily Aspirin 81 mg tablet,delayed release (DR/EC) Active 81 mg PO daily September 02, 2024 12:00am cholecalciferol 0.05 mg oral capsule (8 sources) Vitamin D Start: 09-02-2024 take 1 capsule by mouth once daily Cholecalciferol (Vitamin D3) 50 mcg (2,000 unit) capsule Active 50 ug PO daily September 02, 2024 12:00am On Hold: Pt has been DC'd Ethinyl Estradiol / Ferrous fumarate / Norethindrone (2 sources) Estrogen Start: 06-12-2021 take 1 tablet by mouth once daily Norethin Kwame-Eth Estrad-FE (BLISOVI 24 FE) 1-20 MG-MCG(24) TABS TAKE 1 TABLET BY MOUTH DAILY ACTIVE PILLS ONLY 84 tablet 5 06/12/2021 Active ferrous sulfate 325 mg oral tablet (8 sources) Start: 09-02-2024 take 1 tablet by mouth every other day Ferrous Sulfate 325 mg (65 mg iron) tablet Active 325 mg PO every other day September 02, 2024 12:00am hydrOXYzine pamoate 25 mg oral capsule (8 sources) Antihistamine Start: 09-22-2024 take 1 capsule by mouth every six hours as needed for anxiety Hydroxyzine Pamoate (Vistaril) 25 mg capsule Active 25 mg PO EVERY 6 HOURS as needed for anxiety 120 September 22, 2024 12:00am On Hold: Pt has been DC'd 1-2 every 6 hours as needed ibuprofen 800 mg oral tablet (2 sources) Nonsteroidal Anti-inflammatory Drug Start: 10-14-2018 take 1 tablet by mouth every eight hours as needed ibuprofen (ADVIL;MOTRIN) 800 MG tablet TAKE 1 TABLET BY MOUTH EVERY 8 HOURS NEEDED 2 10/14/2018 Active Mv-Mins 48-Litk-Ascwn No.1-Dha (Pnv-[place]) 28-1-300 mg capsule (8 sources) Start: 09-02-2024 Mv-Mins 83-Icsx-Hudcc No.1-Dha (Pnv-[place]) 28-1-300 mg capsule Active 1 NMA PO DAILY September 02, 2024 12:00am Start: 09-02-2024 Mv-Mins 71-Iro n-Folic No.1-Dha (Pnv-[place]) 28-1-300 mg capsule Active NMA PO September [...] 04/26/2024 Active NO.167-FOLIC ACID-DHA ORAL (12 sources) NO.167- FOLIC ACID-DHA ORAL Take by mouth. Active pyridoxine HCl, vitamin B6, (VITAMIN B-6 ORAL) (6 sources) pyridoxine HCl, vitamin B6, (VITAMIN B-6 ORAL) Take by mouth once daily. Active vitamin b6 100 mg oral tablet (8 sources) Start: 09-02-2024 take 1 tablet by mouth once daily Pyridoxine (Vitamin B6) 100 mg tablet Active 100 mg PO daily September 02, 2024 12:00am zinc acetate 50 mg oral capsule (8 sources) Start: 09-02-2024 take 1 capsule by mouth once daily Zinc Acetate 50 mg (zinc) capsule Active 50 mg PO daily September 02, 2024 12:00am On Hold: Pt has been DC'd Completed/Discontinued Medications Medication Drug Class(es) Dates Sig (Normalized) Sig (Original) choline bitartrate 250 mg oral tablet (8 sources) Start: 09-02-2024 End: 11-04-2024 take 1 tablet by mouth once daily Choline 250 mg tablet Discontinued 110 mg PO daily September 02, 2024 12:00am November 04, 2024 2:18am iopamidol (ISOVUE-370) 76 % injection 75 mL (1 source) Start: 11-19-2021 End: 11-19-2021 iopamidol (ISOVUE-370) 76 % injection 75 mL norethindrone-e.es tradiol-iron (BLISOVI 24 FE ORAL) (2 sources) End: 03-25-2024 norethindrone-e.est radiol-iron (BLISOVI 24 FE ORAL) Take by mouth. [...] unspecified] Onset: 12-10-2017 Chronic E Codes: Fall (12 sources) Fall; Translations: [Unspecified fall, initial encounter] [...] , KHLOE , Cher' Mike QUENTIN from [facility] @ [facility] Other screening for suspected conditions (not mental [...] ] Onset: 06-15-2024 Episodic Residual codes; unclassified (8 sources) Family history of breast cancer; Translations: [...] Test Name Value Interpretation Reference Range Facility Construction Carpenter Office Visit Reporton 11-01-2024 Construction Carpenter Office Visit Report [facility]'s [address], [address] [place] [address] OFFICE VISIT Date of Service: 11/01/24 MR#: [id number] Acct: [id number] Name: CANDICE CARMICHAEL Rep #: [id number] : 1995 Provider: STEPHANIE Wilhelm ams Age/Sex: 28/F [place] [facility] [place]: Signed Intake Vital Signs 09/20/24 10:23 10/27/24 10:23 11/01/24 14:06 Height 5 ft 2 in 5 ft 2 in 5 ft 2 in Weight: 199 lb 200 lb 2 oz BMI 36.3 36.6 BP 131/88 H 128/81 H Intake Visit Reasons: 40 WK OB Final Inspector Movement Assembly Required: No Is patient in pain?: No Allergies Latex, Natural Rubber Allergy (Intermediate, Verified 11/01/24 14:10) Rash Medications ???Medication ???Instructions ???Recorded ???Confirmed ???Type aspirin 81 mg tablet,delayed 81 mg PO QDAY 09/02/24 11/01/24 Hi story release cholecalciferol (vitamin D3) 50 50 mcg PO QDAY 09/02/24 11/01/24 H istory mcg (2,000 unit) capsule choline 250 mg tablet 110 mg PO QDAY 04/11/25 06/10/25 H istory ferrous sulfate 325 mg (65 mg 325 mg PO Q OTHER DAY 09/02/2403/18 History iron) tablet multivit-min no.71-iron fum 28 cap PO 09/02/24 11/01/24 History mg-folate no.1 1 mg-dha 300 mg capsule (PNV-[place]) pyridoxine (vitamin B6) 100 mg 100 mg [...] physical activity do you participate in: none debo/temple: Mandaeism seatbelt use: always do you feel safe at home: Yes additional social history: Fiance- Mike Bryan- [employer] History 1 Elective abortions Hx Para 0 [...] -???-???-???-???-???-???- ???-???-???-???-???-? (more content not included)... Normal [facility] Laboratory - Chemistry and C hemistry - challengeOrdered By: Mable Ashley on 10-27-2024 Glucose Ql (U) Negative [facility] Laboratory - UrinalysisOrder ed By: Mable Ashley on 10-27-2024 Protein Ql (U) Negative [facility] Construction Carpenter Office Visit Reporton 10-27-2024 Construction Carpenter Office Visit Report [facility], [address] [place] [address] OFFICE VISIT Date of Service: 10/27/24 MR#: [id number] Acct: [id number] Name: CANDICE CARMICHAEL Rep #: [id number] : 1995 Provider: STEPHANIE Wilhelm ams Age/Sex: 28/F [place] [facility] [place]: Signed Intake Vital Signs 09/20/24 10:23 10/18/24 15:40 10/27/24 10:23 Height 5 ft 2 in 5 ft 2 in 5 ft 2 in Weight: 199 lb BMI 36.3 BP 131/88 H Intake Visit Reasons: 39 WK OB Chief Complaint: 39wk OB Final Inspector Movement Assembly Required: No Is patient in pain?: No [...] mg-folate no.1 1 mg-dha 300 mg capsule (PNV-[place]) pyridoxine (vitamin B6) 100 mg 100 mg [...] physical activity do you participate in: none debo/temple: Mandaeism seatbelt use: always do you feel safe [...] ???-???-???-???-???-???- Negative 145 31 -???-???-???-???-???-???- ???-???-???-???-???-???- SM- (more content not included)... Normal [facility] Laboratory - Chemistry and C hemistry - challengeOrdered By: Janae Guidry on 10-18-2024 Glucose Ql (U) Negative [facility] Laboratory - UrinalysisOrder ed By: Janae Guidry on 10-18-2024 Protein Ql (U) Negative [facility] Construction Carpenter Office Visit Reporton 10-18-2024 Construction Carpenter Office Visit Report [facility] [address], [address] [place] [address] OFFICE VISIT Date of Service: 10/18/24 MR#: [id number] Acct: [id number] Name: CANDICE CARMICHAEL Rep #: [id number] : 1995 Provider: Dr. Janae stout MD Age/Sex: 28/F [place] [facility]: Signed Intake Vital Signs 09/20/24 10:23 10/12/24 15:05 10/18/24 15:40 Height 5 ft 2 in 5 ft 2 in 5 ft 2 in Weight: 195 lb 2 oz 195 lb 8 oz BMI 35.6 35.7 BP 127/86 H 118/86 H Intake Visit Reasons: 38 WK OB Final Inspector Movement Assembly Required: No Is patient in pain?: No [...] mg-folate no.1 1 mg-dha 300 mg capsule (PNV-[place]) pyridoxine (vitamin B6) 100 mg 100 mg [...] physical activity do you participate in: none debo/temple: Mandaeism seatbelt use: always do you feel safe [...] -???-???-???-???-???-???- ???-???- (more content not included)... Normal [facility] Laboratory - Chemistry and C hemistry - challengeOrdered By: Mable Ashley on 10-12-2024 Glucose Ql (U) Negative [facility] Laboratory - UrinalysisOrder ed By: Mable Ashley on 10-12-2024 Protein Ql (U) Negative [facility] Construction Carpenter Office Visit Reporton 10-12-2024 Construction Carpenter Office Visit Report [facility] [address], [address] [place] [address] OFFICE VISIT Date of Service: 10/12/24 MR#: [id number] Acct: [id number] Name: CANDICE CARMICHAEL Rep #: [id number] : 1995 Provider: STEPHANIE Wilhelm ams Age/Sex: 28/F Location: [facility] Status: Signed Intake Vital Signs 09/20/24 10:23 10/05/24 14:40 10/12/24 15:05 Height 5 ft 2 in 5 ft 2 in 5 ft 2 in Weight: 195 lb 2 oz BMI 35.6 BP 127/86 H Intake Visit Reasons: 37 WK OB Chief Complaint: 37wk OB Final Inspector Movement Assembly Required: No Is patient in pain?: No [...] mg-folate no.1 1 mg-dha 300 mg capsule (PNV-[place]) pyridoxine (vitamin B6) 100 mg 100 mg [...] physical activity do you participate in: none debo/temple: Mandaeism seatbelt use: always do you feel safe at home: Yes additional social history: Allison [facility]- [facility] History 1 Elective abortions Hx Para 0 [...] -???-???-???-???-???-???- ???-???-???-???-???-???- (more content not included)... Normal [facility] Rule out Beta Strep (Grp. B) on 10-07-2024 KETTY Group B Beta Streptococcus is not isolated. Normal [facility] Comment on above: Performed By: #### M 100.0900 #### [facility] [address] [place], [address] Laboratory - Chemistry and C hemistry - challengeOrdered By: Xenia Gonzales on 10-05-2024 Glucose Ql (U) Negative [facility] Laboratory - UrinalysisOrder ed By: Xenia Gonzales on 10-05-2024 Protein Ql (U) Negative [facility] Office Visit Reporton 10-05-2024 Construction Carpenter Office Visit Report [facility] [address], [address] [place] [address] OFFICE VISIT Date of Service: 10/05/24 MR#: [id number] Acct: [id number] Name: CANDICE CARMICHAEL Rep #: [id number] : 1995 Provider: Dr. Xenia Stone DO Age/Sex: 28/F Location: [facility] Status: Signed Intake Vital Signs 09/05/24 11:40 09/22/24 08:36 10/05/24 14:40 10/05/24 14:40 Height 5 ft 2 in 5 ft 2 in 5 ft 2 in 5 ft 2 in Weight: 193 lb 6 oz BMI 35.4 BP 115/72 Intake Visit Reasons: 36 wk ob Final Inspector Movement Assembly Required: No Is patient in pain?: No [...] mg-folate no.1 1 mg-dha 300 mg capsule (PNV-[place]) pyridoxine (vitamin B6) 100 mg 100 mg [...] physical activity do you participate in: none debo/temple: Mandaeism seatbelt use: always do you feel safe [...] 31 -???-???-???-???-???-??? (more content not included)... Normal [facility] Screening beta-hemolytic Str eptococcus cultureOrdered By: Xenia Gonzales on 10-05-2024 Beta-hemolytic Streptococcus culture Group B Beta Streptococcus is not isolated. [facility] Laboratory - Chemistry and C hemistry - challengeOrdered By: Janae Guidry on 09-22-2024 Glucose Ql (U) Negative [facility] Laboratory - UrinalysisOrder ed By: Janae Guidry on 09-22-2024 Protein Ql (U) Negative [facility] Construction [facility] Office Visit Reporton 09-22-2024 Construction Carpenter Office Visit Report [address], [address] [place] [address] OFFICE VISIT Date of Service: 09/22/24 MR#: [id number] Acct: [id number] Name: CANDICE CARMICHAEL Rep #: [id number] : 1995 Provider: Dr. Janae stout MD Age/Sex: 28/F Location: [facility] Status: Signed with Addenda ADDENDUM by Maureen Kulkarni on 09/22/24 at 0932 Office Procedure Documentation entered by Maureen Kulkarni 09/22/24 09:32: Immunizations Boostrix Tdap 2.5 Lf unit-8 mcg-5 Lf/0.5 mL intramuscular syringe Performing Provider: Janae Guidry MD Performing Location: [facility][1] Administered by: Maureen Kulkarni on 09/22/24 09:30 Dose Route Admin Location Dispensed Lot Number Expiration Date NDC Man ufacturer 0.5 mL IM Right Deltoid 0.5 mL [id number] 09/21/26 14166-103-48 [employer] VIS Given Date VIS Provided VIS Publication Date 09/22/24 Single Vaccine 24 Eligibility Eligibility Date Funding Source Not Applicable Date cc: * Signed Intake Vital Signs 09/20/24 10:23 09/22/24 08:36 Height 5 ft 2 in 5 ft 2 in Weight: 189 lb 6 oz 191 lb 8 oz BMI 34.6 35.0 BP 117/78 112/74 Intake Visit Reasons: OB, Questions Final Inspector Movement Assembly Required: No Is patient in pain?: No [...] mg-folate no.1 1 mg-dha 300 mg capsule (PNV-[place]) pyridoxine (vitamin B6) 100 mg 100 mg [...] physical activity do you participate in: none debo/temple: Mandaeism seatbelt use: always do you feel safe [...] precautions review (more content not included)... Normal [facility] Absolute lymphocyte countOrd ered By: Maureen Latif on 09-20-2024 Lymphocytes Auto (Unsp spec) [#/Vol] 1.82 10*3/uL 0.83-4.51 [facility] Absolute neutrophil countOrd ered By: Maureen Latif on 09-20-2024 Neutrophils (Bld) [#/Vol] 7.4 10*3/uL 2.0-7.7 [facility] Automated lymphocyte count a s percentage of total leukocytesOrdered By: Maureen Latif on 09-20-2024 Lymphocytes/100 WBC Auto (Unsp spec) 18.3 % Low 19-41 [facility] Basophil percentageOrdered B y: Maureen Latif on 09-20-2024 Basophils/100 WBC (Bld) 0.2 % 0-1 [facility] CBC W/Diff, Automatedon 04-2 Absolute Lymph 1.82 X10 3/uL Normal 0.83-4.51 [facility] Comment on above: Performed By: #### L 100.0100 #### [facility] [address] [place], [address] Absolute Neut 7.4 X10 3/uL Normal 2.0-7.7 [facility] Comment on above: Performed By: #### L 100.0100 #### [facility] [address] [place], [address] Basophils/100 WBC (Bld) 0.2 % Normal 0-1 [facility] Comment on above: Performed By: #### L 100.0100 #### [facility] [address] [place], [address] Eosinophils/100 WBC (Bld) 0.6 % Normal 0-5 [facility] Comment on above: Performed By: #### L 100.0100 #### [facility] [address] [place], [address] Erythrocyte distribution width (RBC) [Ratio] 13.8 % Normal 11.6-14.6 [facility] Comment on above: Performed By: #### L 100.0100 #### [facility] [address] [place], [address] Hematocrit (Bld) [Volume fraction] 35.0 % Low 37-47 [facility] Comment on above: Performed By: #### L 100.0100 #### [facility] [address] [place], [address] Hemoglobin (Bld) [Mass/Vol] 11.1 g/dL Low 12.0-15.0 [facility] Comment on above: Performed By: #### L 100.0100 #### [facility] [address] [place], [address] IG% 0.500 Normal 0.0-0.9 [facility] Comment on above: Result Comment: IG% - Immature Granulocytes (promyelocytes, myelocytes and metamyelocytes) > 1% indicates that a LEFT SHIFT is Present. Performed By: #### L 100.0100 #### [facility] [address] [place], [address] Lymphocytes/100 WBC (Bld) 18.3 % Low 19-41 [facility] Comment on above: Performed By: #### L 100.0100 #### [facility] [place], [address] MCH (RBC) [Entitic mass] 27.5 pg Normal 27.0-32.0 [facility] Comment on above: Performed By: #### L 100.0100 #### [facility] [place], [address] MCHC (RBC) [Mass/Vol] 31.7 g/dL Low 32-36 [facility] Comment on above: Performed By: #### L 100.0100 #### [facility] [place], [address] MCV (RBC) [Entitic vol] 86.6 fL Normal 81-99 [facility] Comment on above: Performed By: #### L 100.0100 #### [facility] [address] [place], [address] Monocytes/100 WBC (Bld) 5.8 % Normal 0-10 [facility] Comment on above: Performed By: #### L 100.0100 #### [facility] [place], [address] Neutrophils/100 WBC (Bld) 74.6 % High 47-70 [facility] Comment on above: Performed By: #### L 100.0100 #### [facility] [address] [place], [address] Nucleated RBC (Bld) [#/Vol] 0 10*3/uL Normal 0-5 [facility] Comment on above: Performed By: #### L 100.0100 #### [facility] [address] [place], [address] Platelet mean volume (Bld) [Entitic vol] 9.6 fL Normal 6.2-12.0 [facility] Comment on above: Performed By: #### L 100.0100 #### [facility] [address] [place], [address] Platelets (Bld) [#/Vol] 274 10*3/uL Normal 150-450 [facility] Comment on above: Performed By: #### L 100.0100 #### [facility] [address] [place], [address] RBC (Bld) [#/Vol] 4.04 10*6/uL Low 4.2-5.4 [facility] Comment on above: Performed By: #### L 100.0100 #### [facility] [address] [place], [address] RDW SD 42.2 fl Normal 35.1-43.9 [facility] Comment on above: Performed By: #### L 100.0100 #### [facility] [address] [place], [address] WBC (Bld) [#/Vol] 9.9 10*3/uL Normal 4.4-11.0 [facility] Comment on above: Performed By: #### L 100.0100 #### [facility] [address] [place], [address] Eosinophil percentageOrdered By: Maureen Latif on 09-20-2024 Eosinophils/100 WBC (Bld) 0.6 % 0-5 [facility] Erythrocyte distribution wid th ratioOrdered By: Maureen Latif on 09-20-2024 Erythrocyte distribution width (RBC) [Ratio] 13.8 % 11.6-14.6 [facility] Erythrocyte distribution wid th standard deviationOrdered By: Maureen Latif on 09-20-2024 Erythrocyte distribution width (RBC) [Ratio] 42.2 fl 35.1-43.9 [facility] Hematocrit Auto (Bld) [Volum e fraction]Ordered By: Maureen Latif on 09-20-2024 Hematocrit (Bld) [Volume fraction] 35.0 % Low 37-47 [facility] Hemoglobin measurementOrdere d By: Maureen Latif on 09-20-2024 Hemoglobin (Bld) [Mass/Vol] 11.1 g/dL Low 12.0-15.0 [facility] Immature granulocytes/100 WB C Auto (Bld)Ordered By: Maureen Latif on 09-20-2024 Immature granulocytes/100 WBC (Bld) 0.500 % 0.0-0.9 [facility] Comment on above: IG% - Immature Granu locytes (promyelocytes, myelocytes and metamyelocytes) > 1% indicates that a LEFT SHIFT is Present. Laboratory - Chemistry and C hemistry - challengeOrdered By: Mable Ashley on 09-20-2024 Glucose Ql (U) Negative [facility] Laboratory - UrinalysisOrder ed By: Mable Ashley on 09-20-2024 Protein Ql (U) Negative [facility] MCV (mean corpuscular volume ) determinationOrdered By: Maureen Latif on 09-20-2024 MCV (RBC) [Entitic vol] 86.6 fL 81-99 [facility] Mean corpuscular hemoglobin (MCH) determinationOrdered By: Maureen Latif on 09-20-2024 MCH (RBC) [Entitic mass] 27.5 pg 27.0-32.0 [facility] Mean corpuscular hemoglobin concentration (MCHC) determinationOrdered By: Maureen Latif on 09-20-2024 MCHC (RBC) [Mass/Vol] 31.7 g/dL Low 32-36 [facility] Mean platelet volume determi nationOrdered By: Maureen Latif on 09-20-2024 Platelet mean volume (Bld) [Entitic vol] 9.6 fL 6.2-12.0 [facility] Monocyte percentageOrdered B y: Maureen Latif on 09-20-2024 Monocytes/100 WBC (Bld) 5.8 % 0-10 [facility] Neutrophil percentageOrdered By: Maureen Latif on 09-20-2024 Neutrophils/100 WBC (Bld) 74.6 % High 47-70 [facility] Nucleated red blood cell per centageOrdered By: Maureen Latif on 09-20-2024 Nucleated RBC/100 WBC (Bld) [Ratio] 0 % 0-5 [facility] Platelet countOrdered By: Jarod Latif on 09-20-2024 Platelets (Bld) [#/Vol] 274 10*3/uL 150-450 [facility] RBC Auto (Bld) [#/Vol]Ordere d By: Maureen Latif on 09-20-2024 RBC (Bld) [#/Vol] 4.04 10*6/uL Low 4.2-5.4 [facility] White blood cell (WBC) count Ordered By: Maureen Latif on 09-20-2024 WBC (Bld) [#/Vol] 9.9 10*3/uL 4.4-11.0 [facility] 36on 09-05-2024 36 S: Patient spoke [...] Protocols used: Information Only Call - No [id number] Normal [facility] CTA Chest W/WO Contraston CTA Chest W/WO Contrast [facility] Imaging Services [address] [place] [address] CTA Chest W/WO Contrast MR#: [id number] Acct: [id number] Name: CANDICE CARMICHAEL Rep #: [id number] : 1995 F 28 From: Ramiro Art MD PCP: Christina Salter DO Status: REG CLI Study: CTA Chest W/WO Contrast Date of Exam: 09/05/24 Exam# [id number] Ordering Dr: Christina Salter DO PROCEDURE: CTA [...] abnormal finding in the chest. Reading [facility] CC: Christina Salter DO Progressive Care Manager: Signed Normal [facility] Laboratory - Chemistry and C hemistry - challengeOrdered By: Xenia Gonzales on 09-05-2024 Glucose Ql (U) Negative [facility] Laboratory - UrinalysisOrder ed By: Xenia Gonzales on 09-05-2024 Protein Ql (U) Negative [facility] Construction [employer] Office Visit Reporton 09-05-2024 Construction Carpenter Office Visit Report [facility] [address], [address] [place] [address] OFFICE VISIT Date of Service: 09/05/24 MR#: [id number] Acct: [id number] Name: CANDICE CARMICHAEL Rep #: [id number] : 1995 Provider: Dr. Janae stout MD Age/Sex: 28/F [place] [facility] [place]: Signed Intake Vital Signs 06/26/24 19:30 09/05/24 11:40 Height 5 ft 2 in 5 ft 2 in Weight: 191 lb BMI 34.9 BP 119/84 H Pulse 110 H Intake Visit Reasons: NEW OB 31 WKS *PER Final Inspector Movement Assembly Required: No Is patient in pain?: No [...] mg-folate no.1 1 mg-dha 300 mg capsule (PNV-[place]) pyridoxine (vitamin B6) 100 mg 100 mg [...] physical activity do you participate in: none debo/temple: Mandaeism seatbelt use: always do you feel safe at home: Yes additional social history: Allison BATRES History 1 Elective abortions Hx Para 0 Spontaneous abortions Hx # Term Pregnancies Ectopic pregnancies Hx # Pregnancies Multiple births # of living children HPI NEW OB 31 WKS *PER Details: CANDICE CARMICHAEL is a 28 year [...] PCP and recommended CT scan, dicsussed she c (more content not included)... Normal [facility] Calli 08-31-2024 WENDYN Telephone (OBGYWM) ----- CANDICE CARMICHAEL ([id number]) 1995 F Date Time Provider Department 08/31/24 YENNIFER COUCH OBSAMMIEWJodi During your visit today, we recorded the following information about you: Lucilaaj MagalyJONATHAN 08/31/2024 4:15 PM Signed Ob patient is [...] Date Reviewed: 08/24/2024 Reviewed by: Zenaida Mitchell APRN.ASSAYER HELPER - Fully Assessed Reason for Visit: Care [...] Status:Closed by YENNIFER COUCH on 08/31/24 Normal [facility] CBC W Auto Differential pane l (Bld)on 08-10-2024 Basophils (Bld) [#/Vol] 10*3/uL Normal <0.11 [facility] Comment on above: Order Comment: Speci men Type: BLOOD SPECIMEN [facility] Facility[facility] Address: [address] [place] [address] Performed By: #### 5 7021-8 #### [facility] CLIA [id number] [address] [place] [address] [place] Basophils/100 WBC (Bld) 0.2 % Normal [facility] Comment on above: Order Comment: Speci men Type: BLOOD SPECIMEN [facility]ing Facility[facility] Address: [address] [place] [address] Performed By: #### 5 7021-8 #### [facility] CLIA [id number] [address] [place] [address] [place] Differential cell count method Nom (Bld) Auto Normal [facility] Comment on above: Order Comment: Speci men Type: BLOOD SPECIMEN [facility] Address: [address] [place] [address] Performed By: #### 5 7021-8 #### [facility] CLIA [id number] [address] [place] [address] [place] Eosinophils (Bld) [#/Vol] 0.06 10*3/uL Normal <0.46 [facility] Comment on above: Order Comment: Speci men Type: BLOOD SPECIMEN [facility] Address: [address] [place] [address] Performed By: #### 5 7021-8 #### [facility] CLIA [id number] [address] [place] [address] [place] Eosinophils/100 WBC (Bld) 0.7 % Normal [facility] Comment on above: Order Comment: Speci men Type: BLOOD SPECIMEN [facility] Address: [address] [place] [address] Performed By: #### 5 7021-8 #### [facility] CLIA [id number] [address] [place] [address] [place] Erythrocyte distribution width (RBC) [Ratio] 12.6 % Normal 11.5-15.0 [facility] Comment on above: Order Comment: Speci men Type: BLOOD SPECIMEN [facility] Address: [address] [place] [address] Performed By: #### 5 7021-8 #### [facility] [id number] [address] [place] [address] [place] Hematocrit (Bld) [Volume fraction] 30.8 % Low 36.0-46.0 [facility] Comment on above: Order Comment: Speci men Type: BLOOD SPECIMEN Ordering Facility[facility] Address: [address] [place] [address] Performed By: #### 5 7021-8 #### [facility] [id number] [address] [place] [address] [place] Hemoglobin (Bld) [Mass/Vol] 10.2 g/dL Low 11.5-15.5 [facility] Comment on above: Order Comment: Speci men Type: BLOOD SPECIMEN [facility] Address: [address] [place] [address] Performed By: #### 5 7021-8 #### [facility] [id number] [address] [place] [address] [place] Immature granulocytes (Bld) [#/Vol] 0.05 10*3/uL Normal <0.10 [facility] Comment on above: Order Comment: Speci men Type: BLOOD SPECIMEN Order[facility] Facility[facility] Address: [address] [id number] Performed By: #### 5 7021-8 #### [facility] CLIA [id number] [address] [place] [address] [place] Immature granulocytes/100 WBC (Bld) 0.5 % Normal [facility] Comment on above: Order Comment: Speci men Type: BLOOD SPECIMEN [facility] Address: [address] [place] [address] Performed By: #### 5 7021-8 #### [facility] CLIA [id number] [address] [place] [address] [place] Lymphocytes (Bld) [#/Vol] 1.54 10*3/uL Normal 1.00-4.00 [facility] Comment on above: Order Comment: Speci men Type: BLOOD SPECIMEN [facility] Address: [address] [place] [address] Performed By: #### 5 7021-8 #### [facility] CLIA [id number] [address] [place] [address] [place] Lymphocytes/100 WBC (Bld) 16.8 % Normal [facility] Comment on above: Order Comment: Speci men Type: BLOOD SPECIMEN [facility] Address: [address] [place] [address] Performed By: #### 5 7021-8 #### [facility] CLIA [id number] [address] [place] [address] [place] MCH (RBC) [Entitic mass] 28.3 pg Normal 26.0-34.0 [facility] Comment on above: Order Comment: Speci men Type: BLOOD SPECIMEN [facility] Address: [address] [place] [address] Performed By: #### 5 7021-8 #### [facility] CLIA [id number] [address] [place] [address] [place] MCHC (RBC) [Mass/Vol] 33.1 g/dL Normal 30.5-36.0 [facility] Comment on above: Order Comment: Speci men Type: BLOOD SPECIMEN [facility] Address: [address] [place] [address] Performed By: #### 5 7021-8 #### [facility] CLIA [id number] [address] [place] [address] [place] MCV (RBC) [Entitic vol] 85.3 fL Normal 80.0-100.0 [facility] Comment on above: Order Comment: Speci men Type: BLOOD SPECIMEN [facility] Address: [address] [place] [address] Performed By: #### 5 7021-8 #### [facility] CLIA [id number] [address] [place] [address] [place] Monocytes (Bld) [#/Vol] 0.56 10*3/uL Normal <0.87 [facility] Comment on above: Order Comment: Speci men Type: BLOOD SPECIMEN [facility] Address: [address] [place] [address] Performed By: #### 5 7021-8 #### [facility] CLIA [id number] [address] [place] [address] [place] Monocytes/100 WBC (Bld) 6.1 % Normal [facility] Comment on above: Order Comment: Speci men Type: BLOOD SPECIMEN [facility] Address: [address] [place] [address] Performed By: #### 5 7021-8 #### [facility] CLIA [id number] [address] [place] [address] [place] Neutrophils (Bld) [#/Vol] 6.93 10*3/uL Normal 1.45-7.50 [facility] Comment on above: Order Comment: Speci men Type: BLOOD SPECIMEN Order[facility] Address: [address] [place] [address] Performed By: #### 5 7021-8 #### [facility] CLIA [id number] [address] [place] [address] [place] Neutrophils/100 WBC (Bld) 75.7 % Normal [facility] Comment on above: Order Comment: Speci men Type: BLOOD SPECIMEN [facility] Address: [address] [place] [address] Performed By: #### 5 7021-8 #### [facility] CLIA [id number] [address] [place] [address] [place] Nucleated RBC (Bld) [#/Vol] 10*3/uL Normal <0.01 [facility] Comment on above: Order Comment: Speci men Type: BLOOD SPECIMEN Order[facility] Address: [address] [place], [place] [phone] Performed By: #### 5 7021-8 #### [facility] [id number] [address] [place] [address] [place] Nucleated RBC/100 WBC (Bld) [Ratio] 0.0 /100 WBC Normal [facility] Comment on above: Order Comment: Speci men Type: BLOOD SPECIMEN [facility] Address: [address] [place] [address] Performed By: #### 5 7021-8 #### [facility] [id number] [address] [place] [address] [place] Platelet mean volume (Bld) [Entitic vol] 9.7 fL Normal 9.0-12.7 [facility] Comment on above: Order Comment: Speci men Type: BLOOD SPECIMEN [facility] Address: [address] [place] [address] Performed By: #### 5 7021-8 #### [facility] CLIA [id number] [address] [place] [address] [place] Platelets (Bld) [#/Vol] 274 10*3/uL Normal 150-400 [facility] Comment on above: Order Comment: Speci men Type: BLOOD SPECIMEN [facility] Address: [address] [place] [address] Performed By: #### 5 7021-8 #### [facility] CLIA [id number] [address] [place] [address] [place] RBC (Bld) [#/Vol] 3.61 10*6/uL Low 3.90-5.20 [facility] Comment on above: Order Comment: Speci men Type: BLOOD SPECIMEN [facility] Address: [address] [place] [address] Performed By: #### 5 7021-8 #### [facility] CLIA [id number] [address] [place] [address] [place] WBC (Bld) [#/Vol] 9.16 10*3/uL Normal 3.70-11.00 [facility] Comment on above: Order Comment: Speci men Type: BLOOD SPECIMEN [facility] Address: [address] [place] [address] Performed By: #### 5 7021-8 #### [facility] CLIA [id number] [address] [place] [address] [place] GESTATIONAL GLUCOSE SCREEN, 1-HOUR, 50 GRAM, NON-FASTINGon 08-10-2024 Glucose [Mass/Vol] 113 mg/dL Normal 74-134 [facility] Comment on above: Order Comment: Speci men Type: BLOOD SPECIMEN [facility] Address: [address] [place] [address] Result Comment: [facility] Congress of Obstetricians and Gynecologists (Zoe/Manohar) guidelines state a gestational diabetes mellitus positive screen is made, in women not previously diagnosed with overt diabetes, when the 1 hr plasma glucose level is equal to or above 140 mg/dL. [facility] [place] recommends a 135 mg/dL cutoff. Performed By: #### G LTGST #### [facility] CLIA [id number] [address] [place] [address] [place] Reagin and Treponema pallidu m IgG and IgM [Interp]on 08-10-2024 T. pallidum IgG+IgM IA Ql (S) Non-Reactive Normal Nonreactive [facility] Comment on above: Order Comment: Speci men Type: BLOOD SPECIMEN [facility] Address: [address] [place] [address] Performed By: #### 7 3752-8 #### [facility] CLIA [id number] [address] [place] [address] [place] Reagin+T pallidum IgG+IgM Se rPl-Impon 08-10-2024 Reagin and Treponema pallidum IgG and IgM [Interp] Cannot exclude recent Treponemal infection if specimen collected within 7-10 days after appearance of suspect lesions or 2-3 weeks after an exposure. Clinical correlation is required. Normal [facility] Comment on above: Order Comment: Speci men Type: BLOOD SPECIMEN [facility] Address: [address] [place] [address] Performed By: #### 7 3752-8 #### [facility] CLIA [id number] [address] [place] [address] [place] Bacteria Ur Culton Bacteria identified Cx Nom (U) ORGANISM ID: 1 <10,000 CFU/ml Normal urogenital poli Normal [facility] Comment on above: Performed By: #### G LTGST #### [facility] CLIA [id number] [address] [place] [address] [place] UA DIP, URINE (POC)on 2024 BILIRUBIN UA (POCT) Negative Negative [facility] CLARITY UA (POCT) Clear [facility] COLOR UA (POCT) Yellow [facility] GLUCOSE UA (POCT) Negative Negative mg/dL [facility] Hemoglobin Ql (U) Negative Negative [facility] KETONE UA (POCT) Negative Negative mg/dL [facility] LEUKOCYTES UA (POCT) Negative Negative [facility] NITRITE UA (POCT) Negative Negative [facility] PH UA (POCT) 6 4.5 - 8.0 [facility] Protein Ql (U) Negative Negative mg/dL [facility] SPECIFIC GRAVITY UA (POCT) 1.025 1.005 - 1.030 [facility] UROBILINOGEN UA (POCT) 0.2 Normal E.U./dL [facility] Location:[facility], [address], [place], [place], [address] [place] [address] POINT OF CARE [facility] OB Triage Physician Noteon 0 06-30-2024 OB Triage Physician Note [facility] Medical Records Department [address] [place] [address] OB Triage Physician Note 06/30/24 0858 MR#: [id number] Acct: [id number] Name: CANDICE CARMICHAEL Rep #: [id number] : 1995 28 From: Jayne Carmona DO PCP: Status:KRISTA CLI Y Location: [facility] Date of Service: 06/26/24 Chief Complaint: [...] blood type. She is asymptomatic. RN obtained T. D/c home with return precautions. 06/30/24 0903 Date Jayne Wiswell DO Cosigner Signature (if applicable): Date CC: Dr. Jayne Carmona DO Signed Normal [facility] Examination level ultrasound on 06-15-2024 Indication Detailed [...] 12 oz EFW by: Hadlock (HC-AC-FL) Extended Personnel Arbitrator 5.4 mm CM 4.3 mm 24% Nicolaides [...] normal LVOT view: normal 3-vessel view: normal 6-aiuvmj-iccxuby view: normal Heart / Thorax Situs: situs [...] Read By: Daija Ware M.D. MATERNAL MEDICINE [facility] Radiology Study observation (narrative) [facility] CBC panel Auto (Bld)on 05-27 Erythrocyte distribution width (RBC) [Ratio] 12.2 % 11.5 - 15.0 % [facility] Hematocrit (Bld) [Volume fraction] 33.5 % Low 36.0 - 46.0 % [facility] Hemoglobin (Bld) [Mass/Vol] 11.3 g/dL Low 11.5 - 15.5 g/dL [facility] Interpretation and review of laboratory results Abnormal [facility] MCH (RBC) [Entitic mass] 28.4 pg 26.0 - 34.0 pg [facility] MCHC (RBC) [Mass/Vol] 33.7 g/dL 30.5 - 36.0 g/dL [facility] MCV (RBC) [Entitic vol] 84.2 fL 80.0 - 100.0 fL [facility] Nucleated RBC (Bld) [#/Vol] NINF [facility] Platelet mean volume (Bld) [Entitic vol] 9.2 fL 9.0 - 12.7 fL [facility] Platelets (Bld) [#/Vol] 252 10*3/uL [facility] RBC (Bld) [#/Vol] 3.98 10*6/uL 3.90 - 5.2 0 m/uL [facility] WBC (Bld) [#/Vol] 10.05 10*3/uL [facility] Erythrocyte distribution width (RBC) [Ratio] 12.2 % Normal 11.5-15.0 [facility] Comment on above: Order Comment: Speci men Type: BLOOD SPECIMEN [facility] Address: [address] [place] [address] Performed By: #### 5 8410-2 #### [facility] CLIA [id number] [address] [place] [address] [place] Hematocrit (Bld) [Volume fraction] 33.5 % Low 36.0-46.0 [facility] Comment on above: Order Comment: Speci men Type: BLOOD SPECIMEN [facility] Address: [address] [place] [address] Performed By: #### 5 8410-2 #### [facility] CLIA [id number] [address] [place] [address] [place] Hemoglobin (Bld) [Mass/Vol] 11.3 g/dL Low 11.5-15.5 [facility] Comment on above: Order Comment: Speci men Type: BLOOD SPECIMEN [facility] Address: [address] [place] [address] Performed By: #### 5 8410-2 #### [facility] [id number] [address] [place] [address] [place] MCH (RBC) [Entitic mass] 28.4 pg Normal 26.0-34.0 [facility] Comment on above: Order Comment: Speci men Type: BLOOD SPECIMEN [facility] Address: [address] [place] [address] Performed By: #### 5 8410-2 #### [facility] [id number] [address] [place] [address] [place] MCHC (RBC) [Mass/Vol] 33.7 g/dL Normal 30.5-36.0 [facility] Comment on above: Order Comment: Speci men Type: BLOOD SPECIMEN [facility] Address: [address] [place] [address] Performed By: #### 5 8410-2 #### [facility] [id number] [address] [place] [address] [place] MCV (RBC) [Entitic vol] 84.2 fL Normal 80.0-100.0 [facility] Comment on above: Order Comment: Speci men Type: BLOOD SPECIMEN [facility] Address: [address] [place] [address] Performed By: #### 5 8410-2 #### [facility] CLIA [id number] [address] [place] [address] [place] Nucleated RBC (Bld) [#/Vol] 10*3/uL Normal <0.01 [facility] Comment on above: Order Comment: Speci men Type: BLOOD SPECIMEN [facility] Address: [address] [place] [address] Performed By: #### 5 8410-2 #### [facility] CLIA [id number] [address] [place] [address] [place] Platelet mean volume (Bld) [Entitic vol] 9.2 fL Normal 9.0-12.7 [facility] Comment on above: Order Comment: Speci men Type: BLOOD SPECIMEN [facility] Address: [address] [place], [place] [address] Performed By: #### 5 8410-2 #### [facility] CLIA [id number] [address] [place] [address] [place] Platelets (Bld) [#/Vol] 252 10*3/uL Normal 150-400 [facility] Comment on above: Order Comment: Speci men Type: BLOOD SPECIMEN [facility] Address: [address] [place] [address] Performed By: #### 5 8410-2 #### [facility] CLIA [id number] [address] [place] [address] [place] RBC (Bld) [#/Vol] 3.98 10*6/uL Normal 3.90-5.20 [facility] Comment on above: Order Comment: Speci men Type: BLOOD SPECIMEN [facility] Address: [address] [place] [address] Performed By: #### 5 8410-2 #### [facility] CLIA [id number] [address] [place] [address] [place] WBC (Bld) [#/Vol] 10.05 10*3/uL Normal 3.70-11.00 [facility] Comment on above: Order Comment: Speci men Type: BLOOD SPECIMEN [facility] Address: [facility] [place] [address] Performed By: #### 5 8410-2 #### [facility] CLIA [id number] [address] [place] [address] [place] nuchal translucency me asured by USon 05-27-2024 Indication Early anatomic survey POTS, Maternal [...] by LMP 19 w + 4 d HKLOE by LMP: 10/31/2024 [place] by prior assessment [...] 6 oz EFW by: Hadlock (HC-AC-FL) Extended Personnel Arbitrator 6.6 mm Extremities / Bony Struc [place] [...] visualized LVOT view: normal 3-vessel view: normal 5-zgcxsd-vyqsxmh view: normal Heart / Thorax Situs: situs [...] By: Candi Wild RDMS, RVT Read By: Camilo Fraga M.D. MATERNAL MEDICINE [facility] Radiology Study observation (narrative) [facility] CBC W Auto Differential pane l (Bld)on 04-26-2024 Basophils (Bld) [#/Vol] 0.03 10*3/uL Normal <0.11 [facility] Comment on above: Order Comment: Speci men Type: BLOOD SPECIMEN [facility] Facility[facility] Address: [address] [place] [address] Performed By: #### 5 7021-8 #### [facility] CLIA [id number] [address] [place] [address] [place] Basophils/100 WBC (Bld) 0.4 % Normal [facility] Comment on above: Order Comment: Speci men Type: BLOOD SPECIMEN [facility]ing Facility[facility] Address: [address] [place] [address] Performed By: #### 5 7021-8 #### [facility] CLIA [id number] [address] [place] [address] [place] Differential cell count method Nom (Bld) Auto Normal [facility] Comment on above: Order Comment: Speci men Type: BLOOD SPECIMEN [facility] Address: [address] [place] [address] Performed By: #### 5 7021-8 #### [facility] CLIA [id number] [address] [place] [address] [place] Eosinophils (Bld) [#/Vol] 0.09 10*3/uL Normal <0.46 [facility] Comment on above: Order Comment: Speci men Type: BLOOD SPECIMEN [facility] Facility[facility] Address: [address] [place] [address] Performed By: #### 5 7021-8 #### [facility] CLIA [id number] [address] [place] [address] [place] Eosinophils/100 WBC (Bld) 1.1 % Normal [facility] Comment on above: Order Comment: Speci men Type: BLOOD SPECIMEN [facility] Address: [address] [place] [address] Performed By: #### 5 7021-8 #### [facility] CLIA [id number] [address] [place] [address] [place] Erythrocyte distribution width (RBC) [Ratio] 12.0 % Normal 11.5-15.0 [facility] Comment on above: Order Comment: Speci men Type: BLOOD SPECIMEN [facility] Address: [address] [place] [address] Performed By: #### 5 7021-8 #### [facility] CLIA [id number] [address] [place] [address] [place] Hematocrit (Bld) [Volume fraction] 34.4 % Low 36.0-46.0 [facility] Comment on above: Order Comment: Speci men Type: BLOOD SPECIMEN [facility]ing Facility[facility] Address: [address] [place] [address] Performed By: #### 5 7021-8 #### [facility] CLIA [id number] [address] [place] [address] [place] Hemoglobin (Bld) [Mass/Vol] 11.5 g/dL Normal 11.5-15.5 [facility] Comment on above: Order Comment: Speci men Type: BLOOD SPECIMEN [facility] Facility[facility] Address: [address] [place] [address] Performed By: #### 5 7021-8 #### [facility] CLIA [id number] [address] [place] [address] [place] Immature granulocytes (Bld) [#/Vol] 0.03 10*3/uL Normal <0.10 [facility] Comment on above: Order Comment: Speci men Type: BLOOD SPECIMEN [facility] Address: [address] [place] [address] Performed By: #### 5 7021-8 #### [facility] CLIA [id number] [address] [place] [address] [place] Immature granulocytes/100 WBC (Bld) 0.4 % Normal [facility] Comment on above: Order Comment: Speci men Type: BLOOD SPECIMEN [facility] Address: [address] [place] [address] Performed By: #### 5 7021-8 #### [facility] CLIA [id number] [address] [place] [address] [place] Lymphocytes (Bld) [#/Vol] 1.99 10*3/uL Normal 1.00-4.00 [facility] Comment on above: Order Comment: Speci men Type: BLOOD SPECIMEN [facility] Facility[facility] Address: [address] [place], [place] [address] Performed By: #### 5 7021-8 #### [facility] CLIA [id number] [address] [place] [address] [place] Lymphocytes/100 WBC (Bld) 23.4 % Normal [facility] Comment on above: Order Comment: Speci men Type: BLOOD SPECIMEN [facility] Address: [address] [place] [address] Performed By: #### 5 7021-8 #### [facility] CLIA [id number] [address] [place] [address] [place] MCH (RBC) [Entitic mass] 28.0 pg Normal 26.0-34.0 [facility] Comment on above: Order Comment: Speci men Type: BLOOD SPECIMEN [facility] Address: [address] [place] [address] Performed By: #### 5 7021-8 #### [facility] CLIA [id number] [address] [place] [address] [place] MCHC (RBC) [Mass/Vol] 33.4 g/dL Normal 30.5-36.0 [facility] Comment on above: Order Comment: Speci men Type: BLOOD SPECIMEN [facility] Address: [address] [place] [address] Performed By: #### 5 7021-8 #### [facility] CLIA [id number] [address] [place] [address] [place] MCV (RBC) [Entitic vol] 83.9 fL Normal 80.0-100.0 [facility] Comment on above: Order Comment: Speci men Type: BLOOD SPECIMEN [facility] Address: [address] [place] [address] Performed By: #### 5 7021-8 #### [facility] CLIA [id number] [address] [place] [address] [place] Monocytes (Bld) [#/Vol] 0.48 10*3/uL Normal <0.87 [facility] Comment on above: Order Comment: Speci men Type: BLOOD SPECIMEN [facility] Address: [address] [place] [address] Performed By: #### 5 7021-8 #### [facility] CLIA [id number] [address] [place] [address] [place] Monocytes/100 WBC (Bld) 5.6 % Normal [facility] Comment on above: Order Comment: Speci men Type: BLOOD SPECIMEN Order[facility] Address: [address] [place] [address] Performed By: #### 5 7021-8 #### [facility] CLIA [id number] [address] [place] [address] [place] Neutrophils (Bld) [#/Vol] 5.88 10*3/uL Normal 1.45-7.50 [facility] Comment on above: Order Comment: Speci men Type: BLOOD SPECIMEN [facility] Address: [address] [place] [address] Performed By: #### 5 7021-8 #### [facility] CLIA [id number] [address] [place] [address] [place] Neutrophils/100 WBC (Bld) 69.1 % Normal [facility] Comment on above: Order Comment: Speci men Type: BLOOD SPECIMEN [facility] Address: [address] [place] [address] Performed By: #### 5 7021-8 #### [facility] CLIA [id number] [address] [place] [address] [place] Nucleated RBC (Bld) [#/Vol] 10*3/uL Normal <0.01 [facility] Comment on above: Order Comment: Speci men Type: BLOOD SPECIMEN [facility] Address: [address] [place] [address] Performed By: #### 5 7021-8 #### [facility] CLIA [id number] [address] [place] [address] [place] Nucleated RBC/100 WBC (Bld) [Ratio] 0.0 /100 WBC Normal [facility] Comment on above: Order Comment: Speci men Type: BLOOD SPECIMEN [facility] Address: [address] [place] [address] Performed By: #### 5 7021-8 #### [facility] CLIA [id number] [address] [place] [address] [place] Platelet mean volume (Bld) [Entitic vol] 9.5 fL Normal 9.0-12.7 [facility] Comment on above: Order Comment: Speci men Type: BLOOD SPECIMEN [facility] Address: [address] [place] [address] Performed By: #### 5 7021-8 #### [facility] CLIA [id number] [address] [place] [address] [place] Platelets (Bld) [#/Vol] 251 10*3/uL Normal 150-400 [facility] Comment on above: Order Comment: Speci men Type: BLOOD SPECIMEN [facility] Address: [address] [place] [address] Performed By: #### 5 7021-8 #### [facility] CLIA [id number] [address] [place] [address] [place] RBC (Bld) [#/Vol] 4.10 10*6/uL Normal 3.90-5.20 [facility] Comment on above: Order Comment: Speci men Type: BLOOD SPECIMEN [facility] Address: [address] [place] [address] Performed By: #### 5 7021-8 #### [facility] CLIA [id number] [address] [place] [address] [place] WBC (Bld) [#/Vol] 8.50 10*3/uL Normal 3.70-11.00 [facility] Comment on above: Order Comment: Speci men Type: BLOOD SPECIMEN [facility] Address: [address] [place] [address] Performed By: #### 5 7021-8 #### [facility] CLIA [id number] [address] [place] [address] [place] HBV surface Ag Ser Qlon 12-0 HBV surface Ag Ql (S) Negative Normal Negative [facility] Comment on above: Order Comment: Speci men Type: BLOOD SPECIMEN [facility] Address: [address] [place] [address] Performed By: #### 7 3752-8, 73387-7, 5-3 #### [facility] CLIA [id number] [address] [place] [address] [place] HCV Ab Ser Qlon 04-26-2024 HCV Ab Ql (S) Negative Normal Negative [facility] Comment on above: Order Comment: Speci men Type: BLOOD SPECIMEN [facility] Address: [address] [place] [address] Result Comment: The result suggests no evidence of active infection with Hepatitis C virus. Should recent infection be suspected, repeat testing may be considered 4-6 weeks after this draw. Performed By: #### 1 6128-1 #### [facility] CLIA [id number] [address] [place] [address] [place] HIV 1+2 Ab IA Qlon HIV 1 and 2 Ab IA.rapid Nom (S/P/Bld) Normal [facility] Comment on above: Order Comment: Speci men Type: BLOOD SPECIMEN [facility] Address: [address] [place] [address] Result Comment: Test not indicated. Performed By: #### 7 3752-8, 07688-8, 5194-3 #### [facility] CLIA [id number] [address] [place] [address] [place] HIV 1+2 Ab+HIV1 p24 Ag IA Ql Non-Reactive Normal Nonreactive [facility] Comment on above: Order Comment: Speci men Type: BLOOD SPECIMEN [facility] Address: [address] [place] [address] Performed By: #### 7 3752-8, 61797-9, 5-3 #### [facility] CLIA [id number] [address] [place] [address] [place] HIV immunoassay testing algorithm interpretation (S/P/Bld) [Interp] Normal [facility] Comment on above: Order Comment: Speci men Type: BLOOD SPECIMEN [facility] Address: [address] [place] [address] Result Comment: No e vidence of HIV-1 or HIV-2 infection. Should recent infection be suspected, repeat testing may be considered 2-3 weeks after this draw. [place] Rev. Code 3701.243(E): This information has been [...] or diagnoses. Performed By: #### 7 3752-8, 28292-7, 5195-3 #### [facility] CLIA [id number] [address] [place] [address] [place] HbA1c (Bld)on 04-26-2024 Average glucose Estimated from glycated hemoglobin (Bld) [Mass/Vol] 94 mg/dL Normal [facility] Comment on above: Order Comment: Speci men Type: BLOOD SPECIMEN [facility] Address: [address] [place] [address] Result Comment: eAG: (Estimated average glucose) is a calculated value from HgbA1c and is field representative of the average blood glucose level in the last 2-3 month period. Performed By: #### G LTGST #### [facility] CLIA [id number] [address] [place] [address] [place] HbA1c (Bld) [Mass fraction] 4.9 % Normal 4.3-5.6 [facility] Comment on above: Order Comment: Speci men Type: BLOOD SPECIMEN [facility] Address: [address] [place] [address] Result Comment: [place] Diabetes Association guidelines indicate that patients with HgbA1c in the range 5.7-6.4% are at increased risk for development of diabetes, and intervention by lifestyle modification may be beneficial. HgbA1c greater or equal to 6.5% is considered diagnostic of diabetes. Performed By: #### G LTGST #### [facility] CLIA [id number] [address] [place] [address] [place] Iron and Iron binding capaci ty panelon 04-26-2024 Iron [Mass/Vol] 67 ug/dL Normal 41-186 [facility] Comment on above: Order Comment: Speci men Type: BLOOD SPECIMEN [facility] Address: [address] [place] [address] Performed By: #### 5 0190-8 #### [facility] CLIA [id number] [address] [place] [address] [place] Iron binding capacity [Mass/Vol] 327 ug/dL Normal 232-386 [facility] Comment on above: Order Comment: Speci men Type: BLOOD SPECIMEN [facility] Address: [address] [place] [address] Performed By: #### 5 0190-8 #### [facility] CLIA [id number] [address] [place] [address] [place] Iron/TIBC [Molar ratio] 20.5 % Normal 15.0-57.0 [facility] Comment on above: Order Comment: Speci men Type: BLOOD SPECIMEN [facility] Address: [address] [place] [address] Performed By: #### 5 0190-8 #### [facility] CLIA [id number] [address] [place] [address] [place] RUBELLA IGG ANTIBODYon 04-26 RUBELLA IGG AB, QUAL Positive Normal Positive [facility] Comment on above: Order Comment: Speci men Type: BLOOD SPECIMEN [facility] Address: [address] [place] [address] Result Comment: The result suggests recent or past exposure to Rubella virus or history of Rubella vaccination. Positive result may also be seen due to presence of passively-transferred antibodies. Please correlate with patient's history. Performed By: #### G LTGST #### [facility] CLIA [id number] [address] [place], [place] [id number] [place] Reagin and Treponema pallidu m IgG and IgM [Interp]on 04-26-2024 T. pallidum IgG+IgM IA Ql (S) Non-Reactive Normal Nonreactive [facility] Comment on above: Order Comment: Speci men Type: BLOOD SPECIMEN [facility] Address: [address] [place] [address] Performed By: #### 7 3752-8, 66744-2, 5195-3 #### [facility] CLIA [id number] [address] [place] [address] [place] Reagin+T pallidum IgG+IgM Se rPl-Impon 04-26-2024 Reagin and Treponema pallidum IgG and IgM [Interp] Cannot exclude recent Treponemal infection if specimen collected within 7-10 days after appearance of suspect lesions or 2-3 weeks after an exposure. Clinical correlation is required. Normal [facility] Comment on above: Order Comment: Speci men Type: BLOOD SPECIMEN [facility] Address: [address] [place] [address] Performed By: #### 7 3752-8, 18896-1, 5195-3 #### [facility] CLIA [id number] [address] [place] [address] [place] TYPE + SCREEN PRENATALon ABO A Normal [facility] Comment on above: Order Comment: Speci men Type: BLOOD SPECIMEN [facility] Address: [address] [place] [address] Performed By: #### G LTGST #### [facility] CLIA [id number] [address] [place] [address] [place] Rh Nom (Bld) Positive Normal [facility] Comment on above: Order Comment: Speci men Type: BLOOD SPECIMEN [facility] Address: [address] [place] [address] Performed By: #### G LTGST #### [facility] CLIA [id number] [address] [place] [address] [place] TYPE AND SCREEN EXPIRATION 04/29/2024 23:59 Normal [facility] Comment on above: Order Comment: Speci men Type: BLOOD SPECIMEN [facility] Address: [address] [place] [address] Performed By: #### G LTGST #### [facility] CLIA [id number] [address] [place] [address] [place] Bacteria Ur Culton Bacteria identified Cx Nom (U) ORGANISM ID: 1 <10,000 CFU/ml Normal urogenital poli Normal [facility] Comment on above: Performed By: #### G LTGST #### [facility] CLIA [id number] [address] [place] [address] [place] C. trachomatis+N. gonorrhoea e DNA MICHAEL+probe Ql (Unsp spec)on 03-25-2024 C. trachomatis rRNA MICHAEL+probe Ql (Unsp spec) Negative Normal Negative for Chlamydia trachomatis by amplificaton [facility] Comment on above: Order Comment: Speci men Type: BLOOD SPECIMEN [facility] Address: [address] [place] [address] Performed By: #### G LTGST #### [facility] CLIA [id number] [address] [place] [address] [place] N. gonorrhoeae rRNA MICHAEL+probe Ql (Unsp spec) Negative Normal Negative for Neisseria gonorrhoeae by amplification [facility] Comment on above: Order Comment: Speci men Type: BLOOD SPECIMEN [facility] Address: [address] [place] [address] Performed By: #### G LTGST #### [facility] CLIA [id number] [address] [place] [address] [place] POC HUMAN RESOURCES COMPENSATION ANALYST ULTRASOUNDon 03-25-20 Indication Confirmation of intrauterine . [...] Read By: Citlali Bauer CNP MATERNAL MEDICINE [facility] Radiology Study observation (narrative) [facility] Calli 03-22-2024 MICHELLE Telephone (OBGYWM) ----- CANDICE CARMICHAEL ([id number]) 1995 F Date Time Provider Department 03/22/24 ONEIL MARLEYMELVINA DIAZ During your visit today, we recorded the [...] Rash Date Reviewed: 12/10/2017 Reviewed by: Stephanie Osorio (Rn), RN - Fully Assessed Reason for Visit: Patient Update [1234] Prescriptions as of 03/22/2024 - NO.167-FOLIC ACID-DHA ORAL Take by mouth. - norethindrone-e.estradiol -iron (BLISOVI 24 FE ORAL) Take by mouth. Problem List As Of Date: 03/22/2024 (None) Encounter Status:Closed by XENIA CARTER on 03/22/24 Normal [facility] CT Abdomen w/ + w/o Contrast on 11-19-2021 CT Abdomen w/ + w/o Contrast Patient Name: CANDICE CARMICHAEL Computed Tomography ACCESSION EXAM DATE/TIME PROCEDURE ORDERING PROVIDER [id number] 11/19/2021 09:[address] Abdomen w/ + w/o DO SALTER HANNAH L Contrast CPT code 97783 Q9967 Reason For Exam (CT Abdomen w/ [...] WENDELL Transcribed Date and Time: 11/20/2021 1:43 Normal [facility] US ABDOMEN COMPLETEon 2021 Patient Name: CANDICE AUGUSTIN Ultrasound ACCESSION EXAM DATE/TIME PROCEDURE ORDERING PROVIDER [id number] 11/06/2021 11:17 EDT US Abdomen Complete DO SALTER HANNAH L CPT code 67085 Reason For Exam (US Abdomen Complete) abdominal [...] focal lesion identified. Gallbladder: Normal. Per the instructional technologist, the sonographic Gloria's sign was negative. [...] NICHOLAS Transcribed Date and Time: 11/06/2021 11:44 [facility] Oliver Millard MD - 11/06/2021 Patient Name: CANDICE CARMICHAEL Ultrasound ACCESSION EXAM DATE/TIME PROCEDURE ORDERING PROVIDER [id number] 11/06/2021 11:17 EDT US Abdomen Complete DO GAETANO CHRISTINA Aleksandr CPT code 44593 Reason For Exam (US Abdomen Complete) abdominal [...] focal lesion identified. Gallbladder: Normal. Per the instructional technologist, the sonographic Gloria's sign was negative. [...] Ultrasound ACCESSION EXAM DATE/TIME PROCEDURE ORDERING PROVIDER [id number] 11/06/2021 11:17 EDT US Abdomen Complete DO SALTER HANNAH Aleksandr CPT code 76952 Reason For Exam (US Abdomen Complete) abdominal [...] focal lesion identified. Gallbladder: Normal. Per the instructional technologist, the sonographic Gloria's sign was negative. [...] NICHOLAS Transcribed Date and Time: 11/06/2021 11:44 [facility] US Pelvis TA/TVon 11-06-2021 US Pelvis TA/TV Patient Name: CANDICE AUGUSTIN Ultrasound ACCESSION EXAM DATE/TIME PROCEDURE ORDERING PROVIDER [id number] 11/06/2021 10:39 EDT US Pelvis TA/TV DO SALTER HANNAH Aleksandr CPT code 59958 90200 Reason For Exam (US Pelvis TA/TV) abdominal [...] NICHOLAS Transcribed Date and Time: 11/07/2021 8:05 [facility] PT EDon 12-11-2017 PT ED HNO ID: [id number] thor: Stephanie (Rn) EVELYN Osorioervice: NursingAuthor Type: Registered NurseType: Patient EducationFiled: 12/10/2017 10:07 PMNote Text:POST OP LEARNING RESPONSEINSTRUCTION PROVIDED TO: Patient and family memberMETHOD OF INSTRUCTION: Individual instructionPATIENT / FAMILY RESPONSE: Verbalizes understanding of: POST-OPERATIVEINSTRUCTION S-Correct actions to take to reduce postoperative complicationsFOLLOW-UP PLAN: Patient instructed to call with any further issuesSUPPLEMENTAL MATERIAL: NoneREFERRAL (RECOMMENDATION): NoneElectronically Signed By: Stephanie Osorio RN In Department[facility] SURGERYPATIENT EDUCATION TOPIC: PROCEDURE / SURGERY: Post-opTeaching:PATIENT NAME: Candice CarmichaelMRN: [id number] LOCATION: [place] Surgery/DC SurgeryREADINESS TO LEARNCOGNITIVE ABILITY: Alert and orientedMOTIVATION [...] (RECOMMENDATION): NoneElectronically Signed By: Stephanie Osorio RN [facility] ANES Amandeep 12-10-2017 ANES POST HNO ID: [id number] thor: John Cooke: AnesthesiologyAuthor Type: AnesthesiologistType: Anesthesia [...] 10, 2017 : 8:37 PM PAGER/CONTACT #: [phone] [facility] ANES PREOPon 12-10-2017 ANES PREOP HNO ID: [id number] thor: John CravenService: AnesthesiologyAuthor Type: AnesthesiologistType: Anesthesia PreOpFiled: 12/10/2017 6:46 [...] Medications:lactated ringers infusion 50 mL/hr INTRAVENOUS CONTINUOUS oJhn Hillmanergies: ALLERGIESNo Known AllergiesDOS EXAM: Adequate NPO [...] TURE: John Craven MD PATIENT NAME: Candice YbarrajaylaDATE: December 10, 2017 : 6:46 PM CSN: [id number] [facility] BRIEF OP NOTon 12-10-2017 BRIEF OP NOT HNO ID: [id number] thor: Chris Daltone: General SurgeryAuthor Type: PhysicianType: Brief Op NoteFiled: 12/10/2017 8:31 PMNote Text:BRIEF OPERATIVE / PROCEDURE NOTELOG ID: [id number]/PROCEDURE DATE: 12/10/2017INCISION/PROCEDU RE START TIME: 7:58 PMINCISION CLOSE/PROCEDURE END TIME: 8:21 PMSURGEON(S)/PROCEDURALIS T(S) AND BIOLOGICAL LAB TECHNICIAN(S):Surgeon(s) and Role: * Chris Collins - PrimaryRegistered Nurse Dump Truck Driver: Trudy (Palomo) EVELYN ChURGERY/PROCEDURE(S): Laparoscopic appendectomyANESTHESIA: GeneralFINDINGS: acute appendicitsESTIMATED BLOOD LOSS: 10 mlsSPECIMENS: appendixCOMPLICATIONS: NonePRE-OP/PRE-PROCEDURE DIAGNOSIS: acute appendicitsPOST-OP/POST-P ROCEDURE DIAGNOSIS: sameSIGNATURE: Chris Collins MD PATIENT NAME: Candice YbarrajaylaDATE: December 10, 2017 : 8:30 PM PAGER/CONTACT #: [facility] CONSULT PROGon 12-10-2017 Protein mass conc HNO ID: [id number] Author: Chris Collins Service: General Surgery Author Type: Physician Type: Consult Progress Note Filed: 12/10/2017 7:28 PM Note Text: HANDP dictated Chris Collins MD [facility] CT ABDOMEN AND PELVIS WITH C ONTRAST [id number] 12-10-2017 CT ABDOMEN AND PELVIS WITH CONTRAST [id number] Performed at [facility] APPROVED BY: Onesimo Johnson MD EXAMINATION: CT [...] discussed with Deirdre Velasquez, emergency Department physician facilities maintenance assistant at approximately 3:50 PM 12/10/2017 Normal [facility] Comprehensive Panelon 2017 Albumin 4.2 g/dL Normal 3.4-5.0 [facility] Comment on above: Performed By: #### M P14 ####[address] [address] Alkaline phosphatase (ALP) 54 U/L Normal 46-116 [facility] Comment on above: Performed By: #### M P14 ####[address] [address] ALT-SGPT Blood 32 U/L Normal 12-78 [facility] Comment on above: Performed By: #### M P14 ####[address] [address] Anion gap 14 mmol/L Normal 8-16 [facility] Comment on above: Performed By: #### M P14 ####[address] [address] AST-SGOT Blood 22 U/L Normal 15-46 [facility] Comment on above: Performed By: #### M P14 ####[address] [address] Bilirubin Ql (U) 0.7 mg/dL Normal 0.2-1.0 [facility] Comment on above: Performed By: #### M P14 ####[address] [address] BUN (urea nitrogen) 9 mg/dL Normal 7-18 [facility] Comment on above: Performed By: #### M P14 ####[address] [address] Calcium 9.3 mg/dL Normal 8.5-10.1 [facility] Comment on above: Performed By: #### M P14 ####[place] [address] Chloride 101 mmol/L Normal 98-107 [facility] Comment on above: Performed By: #### M P14 ####[facility] [place] [address] CO2 26 mmol/L Normal 21-32 [facility] Comment on above: Performed By: #### M P14 ####[facility] [place] [address] Creatinine 0.69 mg/dL Normal 0.51-0.95 [facility] Comment on above: Performed By: #### M P14 ####[place] [address] Glucose mass conc 86 mg/dL Normal 70-99 [facility] Comment on above: Performed By: #### M P14 ####[place] [address] Potassium molar conc 3.4 mmol/L Low 3.5-5.1 [facility] Comment on above: Performed By: #### M P14 ####[place] [address] Protein 8.4 g/dL High 6.4-8.2 [facility] Comment on above: Performed By: #### M P14 ####[place] [address] Sodium 138 mmol/L Normal 136-145 [facility] Comment on above: Performed By: #### M P14 ####[place] [address] ED NOTEon 12-10-2017 ED NOTE HNO ID: [id number] thor: Trev (Rn) EVELYN Maldonadoervice: Emergency MedicineAuthor Type: Registered NurseType: ED NotesFiled: 12/10/2017 5:05 PMNote Text: Patient transferring to [facility] for pending apendectomy. Patientverbalized understanding of discharge instructions, no voiced questions orconcerns. Patient leaving in no distress. Safety maintained. Patientstates they are leaving the ED with all the belongings they came with. Ptleaving with IV in place. Pt instructed to go to ED for registrationprocess. Normal [facility] ED NOTE HNO ID: [id number] thor: Trudy (Rn) EVELYN Mathurervice: Emergency MedicineAuthor Type: Registered NurseType: ED NotesFiled: 12/10/2017 1:32 PMNote Text:At about 1100 today started to have right lower quad pain with nausea butno vomiting. Last BM yesterday Normal [facility] ED PROV NOTEon 12-10-2017 Protein HNO ID: [id number] thor: JACQUELINE Clementervice: Emergency MedicineAuthor Type: PhysicianType: ED Provider NotesFiled: [...] assessment of the patient andhave reviewed the PA/BRASSWIND INSTRUMENT REPAIRER note.Signature: ESHA Clementate: 12/10/2017Time: 4:06 Bautista Leon MD12/10/171944 [facility] Protein HNO ID: [id number] thor: ROMAN Webster (Pa)ervice: Emergency MedicineAuthor Type: Physician AssistantType: ED Provider NotesFiled: 12/10/2017 5:46 PMNote Text: Attestation signed by Suzy Leon MD at 12/10/2017 6:53 PMAttending NoteI evaluated the patient and personally participated in the farias components. Iagree with the resident's findings and plan as documented and have discussedthe case and management of the patient's care with the resident.Signature: Suzy BhaveshESHA preciadoate: 12/10/2017Time: 6:53 PM -------ED Provider NotePatient Name: Candice CarmichaelMRN: [id number] DATE: 12/10/17HistoryPatient presents with:Abdominal PainCandice Carmichael is [...] active.History provided by: Patient and medical recordsLanguage wastewater treatment plant instructor used: NoNo past medical history on [...] of12/10/17CT ABD/PEL W IVCONResult Value Ref Range Arborer EXAMINATION: CT ABDOMEN AND PELVIS WITH IV [...] for earlyacuteappendicitis.Fi ndings were discussed with Deirdre Velasquez emergency Department physicianassistant at approximately 3:50 PM 12/10/2017 US FEMALE PELVIS TRANSABD LTDResult Value Ref Range Arborer EXAMINATION: PELVIC ULTRASOUND, TRANSABDOMINALCLINICAL HISTORY: Pelvic painTECHNIQUE: [...] Lymph 1.88 0.68 - 2.93 thou/cmm Abs. [place] 0.70 0.19 - 0.80 thou/cmm Abs. Eosin [...] NEGATIVE Negative Bilirubin, Urine NEGATIVE Negative Specific [place], Ur <=1.005 1.005 - 1.030 pH, Urine [...] U/LMDRD GFRResult Value Ref Range eGFR >60 >60mL/min/1.87p9Vdsxjymyq sED Course / Clinical ImpressionCourse:Vital signs were [...] iv bolus (0 mL INTRAVENOUS Infusion Complete )iv contrast (radiology procedure) (not administered)piperacillin -tazobactam 3.375 g in NaCl 0.9% 100 mL (ZOSYN) (0 gINTRAVENOUS Infusion Complete 12/10/17 1700)ondansetron (PF) 4 mg injection (ZOFRAN) (4 mg INTRAVENOUS Given )acetaminophen 650 mg tab(s) (TYLENOL) (650 mg ORAL Given 12/10/17 1424)ketorolac 15 mg injection (TORADOL) (15 mg INTRAVENOUS Given 12/10/17 2683)Upon re-evaluation, patient states pain has improved but she can stillfeel it there. Denies further need for pain/nausea medication at thistime. Tachycardia has improved from arrival to ED. Patient wishes to betransferred to [facility]. Awaiting to hear from general surgery at4:10 PM.At 4:30, [facility] returned page and plan is for patient to betransferred to [facility] under gen surgery for further mgmt andsurgery.Close [...] appearsstable, NAD. Pt stable for transport to [facility] for surgicalevaluation.Clinic al Impressions as of Dec 11 1739Other acute appendicitisLeukocytosis, unspecified typeRLQ abdominal painNauseaTachycardiaMDM / Disposition / Plan At this time, the most likely Dx is appendicitis, nausea, RLQ pain,tachycardia, leukocytosis. Will treat with admission for appendectomy andgeneral surgery mgmt. Other Dxs considered but unlikely d/t HANDP, labs andimaging findings: ovarian torsion, PID, UTI, . Plan is forpatient to be admitted to [facility] under general surgery forfurther mgmt and surgery. Patient's father has elected to drive patient tohospital himself. Private transportation is appropriate as patient [...] stablePt was instructed to go straight to [facility] for surgical admissionfor appendicitis mgmt.SIGNATURE: Maci Webster (JEREMIAS Sam12/10/17 1746Acindy Leon MD12/10/17 1853 Normal [facility] HISTORY PHYSICALon HISTORY PHYSICAL HNO ID: [id number] thor: Chris CollinsService: General SurgeryAuthor Type: PhysicianType: HANDPFiled: 12/28/2017 1:09 PMNote Text:[facility]- Surgical History and Physical CANDICE CARMICHAEL KDOB: 1995 AGE: 22 SEX: FMRN: [id number] ACCTNUM: [id number] [facility] [place] [facility] LOCATION: [address] PHYSICIAN: Chris Collins M.D.ADMIT DATE: 12/10/2017REASON [...] consistent with acuteappendicitis and was transferred to [facility] for definitivesurgical treatment. She states she is [...] rhythm. Abdomen: Soft,nondistended. She does have some fzww-tq-xhhmtact tenderness in theright lower quadrant. No rebound. No guarding.ASSESSMENT AND PLAN: A 22-year-old female with leukocytosis and CAT scanevidence suggestive of acute appendicitis. Her clinical picture appearsconsistent with appendicitis as well. I recommend a laparoscopicappendectomy as treatment. We discussed the details of the plannedprocedure including risks, benefits, and alternatives, and she wishes toproceed. Surgery will begin shortly.Chris Collins M.D.General SurgerySAW:[id number]: 12/10/2017 19:28:27T: 12/11/2017 05:27:41Job #: [id number] [facility] HOSPon 12-10-2017 Body weight Measured Patient:April [...] notes entered within the past 30 days Normal [facility] Hemogram/Diffon 12-10-2017 Abs. Baso 0.02 thou/cmm Normal 0.00-0.08 [facility] Comment on above: Result Comment: Diff erential scan done Performed By: #### N CBCD ####[address] [address] Abs. [place] 0.70 thou/cmm Normal 0.19-0.80 [facility] Comment on above: Performed By: #### N CBCD ####[address] [address] Abs. Neut (ANC) 13.92 thou/cmm High 1.35-7.21 [facility] Comment on above: Performed By: #### N CBCD ####[address] [address] Basophils/100 WBC Auto (Bld) 0.1 % Normal 0.0-1.1 [facility] Comment on above: Performed By: #### N CBCD ####[address] [address] Eosinophils 0.08 thou/cmm Normal 0.00-0.36 [facility] Comment on above: Performed By: #### N CBCD ####[address] [address] Eosinophils/100 leukocytes 0.5 % Normal 0.0-5.4 [facility] Comment on above: Performed By: #### N CBCD ####[address] [address] Erythrocyte distribution width Auto Ratio (RBC) 12.3 % Normal 11.8-14.5 [facility] Comment on above: Performed By: #### N CBCD ####[address] [address] Erythrocytes (RBC) 4.74 mil/cmm Normal 3.79-4.93 [facility] Comment on above: Performed By: #### N CBCD ####[address] [address] Hematocrit (HCT) 42.3 % Normal 34.7-43.3 [facility] Comment on above: Performed By: #### N CBCD ####[address] [address] Hemoglobin mass conc (Bld) 14.0 g/dL Normal 11.7-14.7 [facility] Comment on above: Performed By: #### N CBCD ####[address] [address] Lymphocytes 1.88 thou/cmm Normal 0.68-2.93 [facility] Comment on above: Performed By: #### N CBCD ####[address] [address] Lymphocytes/100 leukocytes 11.3 % Low 17.3-43.9 [facility] Comment on above: Performed By: #### N CBCD ####[place] [address] MCH 29.5 pg Normal 27.4-32.8 [facility] Comment on above: Performed By: #### N CBCD ####[address] [address] MCHC mass conc (RBC) 33.1 % Normal 31.9-35.6 [facility] Comment on above: Performed By: #### N CBCD ####[address] [address] MCV 89.2 fL Normal 82.1-97.4 [facility] Comment on above: Performed By: #### N CBCD ####[address] [address] Monocytes/100 leukocytes 4.2 % Normal 3.6-13.1 [facility] Comment on above: Performed By: #### N CBCD ####[place] [address] Platelet mean volume (PMV) 9.8 fL Normal 8.8-12.1 [facility] Comment on above: Performed By: #### N CBCD ####[address], [place] [address] Platelets 275 thou/cmm Normal 150-370 [facility] Comment on above: Performed By: #### N CBCD ####[address] [address] Seg Neutrophil 83.9 % High 41.3-72.7 [facility] Comment on above: Performed By: #### N CBCD ####[address] [address] WBC (Leukocytes) 16.6 thou/cmm High 4.4-9.7 [facility] Comment on above: Performed By: #### N CBCD ####[address] [address] Lipase Bloodon 12-10-2017 Lipase Blood 113 U/L Normal 73-393 [facility] Comment on above: Performed By: #### M LIP ####[address] [address] MDRD eGFRon 12-10-2017 eGFR (non-black) mL/min/{1.73_m2} Normal >60mL/m in/1.73 m2 [facility] Comment on above: Result Comment: If t he patient is , multiply the result by 1.210. Performed By: #### M GFR ####[address] [address] OPERATIVE NOon 12-10-2017 OPERATIVE NO HNO ID: [id number] thor: Chris CollinsService: General SurgeryAuthor Type: PhysicianType: Operative ReportFiled: 12/28/2017 1:09 PMNote Text:[facility]- Operative ReportSCANDICE WETZEL KDOB: 1995 AGE: 22 SEX: FMRN: [id number] ACCTNUM: [id number] SVC: GENS LOCATION: [address] PHYSICIAN: Chris Collins M.D.DATE OF PROCEDURE: 12/10/2017SURGEON: Chris Collins M.D.BIOLOGICAL LAB TECHNICIAN: NONEANESTHESIA: General.PREOPERATIVE DIAGNOSIS(ES): Acute appendicitis.POSTOPERATIV E DIAGNOSIS(ES): Acute appendicitis.NAME OF OPERATION: Laparoscopic appendectomy.INDICATIONS: The patient is a 22-year-old female who presented to theemergency room with right lower quadrant pain for about 12 hours. Shewas seen and evaluated by the ER staff and was found to haveappendicitis. She was transferred from the outside hospital to [facility] surgical treatment for her laparoscopic appendectomy as [...] using 0 Maxon with the aidof the state pilot guide. The remaining trocars were opened up and insufflation was allowed to escape. Local anesthetic was injected into eachincisions. The trocars were removed. The incisions were then closedwith 5-0 Polysorb. Exofin skin glue was applied as dressing. She wasawakened from anesthesia and taken to the PACU in good condition.Chris Collins M.D.General SurgerySAW:[id number]: 12/10/2017 20:34:48T: 12/11/2017 06:07:33Job #: [id number] Normal [facility] SURGICAL PATHOLOGYon 018 SURGICAL PATHOLOGY [facility]: [id number] Physician: Chris Collins M.D. ___FINAL DIAGNOSISAppendix, appendectomy [...] middle,and entire distal tip, A2-A3 remainder of appendix.Fani 12/11/2017 Gross examination performed at [facility], [address] [place], [place] [address]david Osuna,[place] [address] of Report: 12/16/2017Date of Procedure: 12/10/2017Date of Receipt: 12/11/2017Submitted by: Chris Collins M.D.Location: MEORDiagnostic interpretation performed at [facility], [address] [place] [address]. Normal [facility] Comment on above: Performed By: #### P ATHS ####[facility] [place], [place] [phone] FEMALE PELVIS TRANSABD LT Don 12-10-2017 US FEMALE PELVIS TRANSABD LTD Performed at [facility] APPROVED BY: Onesimo Johnson MD EXAMINATION: PELVIC [...] is within normal limits for age. Normal [employer] [facility] Urinalysis Routineon 018 Ep Cells Urine 2-5 Normal 0-5 [facility] Comment on above: Performed By: #### M URIN ####[facility] [place], [place] [address] Urine, appearance CLEAR Normal [facility] Comment on above: Performed By: #### M URIN ####[facility] [place], [place] [address] Urine, bacteria in sediment 1+ Abnormal None [facility] Comment on above: Performed By: #### M URIN ####[facility] [place], [place] [address] Urine, color STRAW Normal [facility] Comment on above: Performed By: #### M URIN ####[address] [address] Urine, erythrocytes in sediment by area NONE Normal 0-3 [facility] Comment on above: Performed By: #### M URIN ####[facility] [place], [place] [address] Urine, leukocytes in sedmiment 0-2 Normal 0-5 [facility] Comment on above: Performed By: #### M URIN ####[facility] [place] [address] Bilirubin Urine Negative Normal Negative [facility] Comment on above: Performed By: #### M URIN ####[address] [address] Hemoglobin,Urine Negative Normal Negative [facility] Comment on above: Performed By: #### M URIN ####[place] [address] Ketone Urine Negative Normal Negative [facility] Comment on above: Performed By: #### M URIN ####[place] [address] Leukocytes Esterase Negative Normal Negative [facility] Comment on above: Performed By: #### M URIN ####[place] [address] Nitrites Urine Negative Normal Negative [facility] Comment on above: Performed By: #### M URIN ####[place] [address] Protein Urine Negative Normal Negative [facility] Comment on above: Performed By: #### M URIN ####[place] [address] Specific [place], Ur <=1.005 Normal 1.005-1.030 [facility] Comment on above: Performed By: #### M URIN ####[place] [address] Urine, glucose presence Negative Normal Negative [facility] Comment on above: Performed By: #### M URIN ####[place] [address] Urine, pH 6.5 [pH] Normal 5.0-8.0 [facility] Comment on above: Performed By: #### M URIN ####[facility] [place], [place] [address] Urobilinogen,Ur 0.2 EU/dL Normal 0.0-1.0 [facility] Comment on above: Performed By: #### M URIN ####[facility] [place], [place] [address] Urine HCG, Qual.on 8 HCG.beta subunit ( test) Ql (U) Negative Normal Negative [facility] Comment on above: Performed By: #### M HCGU ####[address] [address] Vital Signs Date Time Vital Sign Value Performing Clinician Mallorie ramirez 11-04-2024 20:20-0400 Body temperature 98 [degF] Dr. Christina Salter DO Work Phone: [facility] 11-04-2024 20:20-0400 Diastolic blood pressure 72 mm[Hg] Dr. Christina Salter DO Work Phone: [facility] 11-04-2024 20:20-0400 Heart rate 101 /min Dr. Christina Salter DO Work Phone: [facility] 11-04-2024 20:20-0400 Respiratory rate 16 /min Dr. Christina Salter DO Work Phone: [facility] 11-04-2024 20:20-0400 SaO2% (BldA) [Mass fraction] 98 % Dr. Christina Salter DO Work Phone: [facility] 11-04-2024 20:20-0400 Systolic blood pressure 122 mm[Hg] Dr. Christina Salter DO Work Phone: [facility] 11-04-2024 02:17-0400 Body height 160.[address] Christina Salter DO Work Phone: [facility] 11-04-2024 02:17-0400 Body mass index (BMI) [Ratio] 35.9 kg/m2 Dr. Christina Salter DO Work Phone: [facility] 11-04-2024 02:17-0400 Body weight 91.[address] Christina Salter DO Work Phone: [facility] 11-04-2024 02:09-0400 Body temperature 99 [degF] Dr. Christina Salter DO Work Phone: [facility] 11-04-2024 02:09-0400 Diastolic blood pressure 77 mm[Hg] Dr. Christina Salter DO Work Phone: [facility] 11-04-2024 02:09-0400 Heart rate 107 /min Dr. Christina Salter DO Work Phone: [facility] 11-04-2024 02:09-0400 Respiratory rate 16 /min Dr. Christina Salter DO Work Phone: [facility] 11-04-2024 02:09-0400 SaO2% (BldA) [Mass fraction] 96 % Dr. Christina Salter DO Work Phone: [facility] 11-04-2024 02:09-0400 Systolic blood pressure 129 mm[Hg] Dr. Christina Salter DO Work Phone: [facility] 11-01-2024 14:06-0400 Body height 157.[address] Christina Salter DO Work Phone: [facility] 11-01-2024 14:06-0400 Body mass index (BMI) [Ratio] 36.6 kg/m2 Dr. Christina Salter DO Work Phone: [facility] 11-01-2024 14:06-0400 Body weight 90.[address] Christina Salter DO Work Phone: [facility] 11-01-2024 14:06-0400 Diastolic blood pressure 81 mm[Hg] Dr. Christina Salter DO Work Phone: [facility] 11-01-2024 14:06-0400 Systolic blood pressure 128 mm[Hg] Dr. Christina Salter DO Work Phone: [facility] 10-27-2024 10:23-0400 Body height 157.[address] Christina Salter DO Work Phone: [facility] 10-27-2024 10:23-0400 Body mass index (BMI) [Ratio] 36.3 kg/m2 Dr. Christina Salter DO Work Phone: [facility] 10-27-2024 10:23-0400 Body weight 90.[address] Christina Salter DO Work Phone: [facility] 10-27-2024 10:23-0400 Diastolic blood pressure 88 mm[Hg] Dr. Christina Salter DO Work Phone: [facility] 10-27-2024 10:23-0400 Systolic blood pressure 131 mm[Hg] Dr. Christina Salter DO Work Phone: [facility] 10-18-2024 15:40-0400 Body height 157.[address] Christina Salter DO Work Phone: [facility] 10-18-2024 15:40-0400 Body mass index (BMI) [Ratio] 35.7 kg/m2 Dr. Christina Salter DO Work Phone: [facility] 10-18-2024 15:40-0400 Body weight 88.[address] Christina Salter DO Work Phone: [facility] 10-18-2024 15:40-0400 Diastolic blood pressure 86 mm[Hg] Dr. Christina Salter DO Work Phone: [facility] 10-18-2024 15:40-0400 Systolic blood pressure 118 mm[Hg] Dr. Christina Salter DO Work Phone: 3(139)713-515598 [place] [address] 10-12-2024 15:05-0400 Body height 157.[address] Christina Salter DO Work Phone: [facility] 10-12-2024 15:05-0400 Body mass index (BMI) [Ratio] 35.6 kg/m2 Dr. Christina Salter DO Work Phone: 1(995)741-271898 [place] [address] 10-12-2024 15:05-0400 Body weight 88.[address] Christina Salter DO Work Phone: 3(556)268-312398 [place] [address] 10-12-2024 15:05-0400 Diastolic blood pressure 86 mm[Hg] Dr. Christina Salter DO Work Phone: 4(702)529-629498 [place] [address] 10-12-2024 15:05-0400 Systolic blood pressure 127 mm[Hg] Dr. Christina Salter DO Work Phone: 1(491)357-491598 [place] [address] 10-05-2024 14:40-0400 Body height 157.[address] Christina Salter DO Work Phone: 8(487)131-545298 [place] [address] 10-05-2024 14:40-0400 Body mass index (BMI) [Ratio] 35.4 kg/m2 Dr. Christina Salter DO Work Phone: 4(649)253-231098 [place] [address] 10-05-2024 14:40-0400 Body weight 87.[address] Christina Salter DO Work Phone: 3(661)316-551698 [place] [address] 10-05-2024 14:40-0400 Diastolic blood pressure 72 mm[Hg] Dr. Christina Salter DO Work Phone: 4(773)633-642998 [place] [address] 10-05-2024 14:40-0400 Systolic blood pressure 115 mm[Hg] Dr. Christina aSlter DO Work Phone: 0(028)092-953398 [place] [address] 09-22-2024 08:36-0400 Body mass index (BMI) [Ratio] 35 kg/m2 Dr. Christina Salter DO Work Phone: 4(737)455-186298 [place] [address] 09-22-2024 08:36-0400 Body weight 86.[address] Christina Salter DO Work Phone: [facility] 09-22-2024 08:36-0400 Diastolic blood pressure 74 mm[Hg] Dr. Christina Salter DO Work Phone: [facility] 09-22-2024 08:36-0400 Systolic blood pressure 112 mm[Hg] Dr. Christina Salter DO Work Phone: [facility] 09-20-2024 10:23-0400 Body mass index (BMI) [Ratio] 34.6 kg/m2 Dr. Christina Salter DO Work Phone: [facility] 09-20-2024 10:23-0400 Body weight 85.[address] Christina Salter DO Work Phone: 9(349)390-408098 [place] [address] 09-20-2024 10:23-0400 Diastolic blood pressure 78 mm[Hg] Dr. Christina Salter DO Work Phone: [facility] 09-20-2024 10:23-0400 Systolic blood pressure 117 mm[Hg] Dr. Christina Salter DO Work Phone: [facility] 09-05-2024 11:40-0400 Body mass index (BMI) [Ratio] 34.9 kg/m2 Dr. Christina Salter DO Work Phone: [facility] 09-05-2024 11:40-0400 Body weight 86.[address] Christina Salter DO Work Phone: [facility] 09-05-2024 11:40-0400 Diastolic blood pressure 84 mm[Hg] Dr. Christina Salter DO Work Phone: [facility] 09-05-2024 11:40-0400 Heart rate 110 /min Dr. Christina Salter DO Work Phone: [facility] 09-05-2024 11:40-0400 Systolic blood pressure 119 mm[Hg] Dr. Christina Salter DO Work Phone: [facility] 08-24-2024 14:32-0400 Body mass index (BMI) [Ratio] 34.02 kg/m2 Zenaida Haury ADMINISTRATIVE PERSONAL ASSISTANT.ASSAYER HELPER Work Phone: [facility] 08-24-2024 14:32-0400 Body weight 87.09 kg Zenaida Haury ADMINISTRATIVE PERSONAL ASSISTANT.ASSAYER HELPER Work Phone: [facility] 08-24-2024 14:32-0400 Diastolic blood pressure 68 mm[Hg] Zenaida Haury ADMINISTRATIVE PERSONAL ASSISTANT.ASSAYER HELPER Work Phone: [facility] 08-24-2024 14:32-0400 Systolic blood pressure 118 mm[Hg] Zenaida Haury ADMINISTRATIVE PERSONAL ASSISTANT.ASSAYER HELPER Work Phone: [facility] 08-10-2024 14:25-0400 Body mass index (BMI) [Ratio] 33.63 kg/m2 Yennifer Plotts ADMINISTRATIVE PERSONAL ASSISTANT.CNM Work Phone: [facility] 08-10-2024 14:25-0400 Body weight 86.09 kg Yennifer Plotts ADMINISTRATIVE PERSONAL ASSISTANT.CNM Work Phone: [facility] 08-10-2024 14:25-0400 Diastolic blood pressure 66 mm[Hg] Yennifer Plotts ADMINISTRATIVE PERSONAL ASSISTANT.CNM Work Phone: [facility] 08-10-2024 14:25-0400 Systolic blood pressure 122 mm[Hg] Yennifer Plotts ADMINISTRATIVE PERSONAL ASSISTANT.CNM Work Phone: [facility] 07-26-2024 09:41-0500 Body mass index (BMI) [Ratio] 32.43 kg/m2 Kathy Clancy MD Work Phone: [facility] 07-26-2024 09:41-0500 Body weight 83.01 kg Kathy Clancy MD Work Phone: [facility] 07-26-2024 09:41-0500 Diastolic blood pressure 60 mm[Hg] Kathy Clancy MD Work Phone: [facility] 07-26-2024 09:41-0500 Systolic blood pressure 110 mm[Hg] Kathy Clancy MD Work Phone: [facility] 07-13-2024 14:29-0500 Body mass index (BMI) [Ratio] 32.67 kg/m2 Nancy Aguilar MD Work Phone: [facility] 07-13-2024 14:29-0500 Body weight 83.64 kg Nancy Aguilar MD Work Phone: [facility] 07-13-2024 14:29-0500 Diastolic blood pressure 64 mm[Hg] Nancy Aguilar MD Work Phone: [facility] 07-13-2024 14:29-0500 Systolic blood pressure 118 mm[Hg] Nancy Aguilar MD Work Phone: [facility] 06-26-2024 19:30-0500 Body mass index (BMI) [Ratio] 21.6 kg/m2 Dr. Christina Salter DO Work Phone: [facility] 06-26-2024 19:30-0500 Body weight 53.[address] Christina Salter DO Work Phone: [facility] 06-26-2024 19:23-0500 Body temperature 97.8 [degF] Dr. Christina Salter DO Work Phone: [facility] 06-26-2024 19:23-0500 Diastolic blood pressure 61 mm[Hg] Dr. Christina Salter DO Work Phone: [facility] 06-26-2024 19:23-0500 Heart rate 96 /min Dr. Christina Salter DO Work Phone: [facility] 06-26-2024 19:23-0500 Respiratory rate 14 /min Dr. Christina Salter DO Work Phone: [facility] 06-26-2024 19:23-0500 Systolic blood pressure 116 mm[Hg] Dr. Christina Salter DO Work Phone: [facility] 06-15-2024 14:32-0500 Body mass index (BMI) [Ratio] 31.72 kg/m2 Nancy Aguilar MD Work Phone: [facility] 06-15-2024 14:32-0500 Body weight 81.19 kg Nancy Aguilar MD Work Phone: [facility] 06-15-2024 14:32-0500 Diastolic blood pressure 64 mm[Hg] Nancy Aguilar MD Work Phone: [facility] 06-15-2024 14:32-0500 Systolic blood pressure 114 mm[Hg] Nancy Aguilar MD Work Phone: [facility] 05-27-2024 08:43-0500 Body mass index (BMI) [Ratio] 31.72 kg/m2 Zenaidabennie Mitchell ADMINISTRATIVE PERSONAL ASSISTANT.ASSAYER HELPER Work Phone: [facility] 05-27-2024 08:43-0500 Body weight 81.19 kg Zenaida Habrionna ADMINISTRATIVE PERSONAL ASSISTANT.ASSAYER HELPER Work Phone: [facility] 05-27-2024 08:43-0500 Diastolic blood pressure 64 mm[Hg] Zenaida Haury ADMINISTRATIVE PERSONAL ASSISTANT.ASSAYER HELPER Work Phone: [facility] 05-27-2024 08:43-0500 Systolic blood pressure 118 mm[Hg] Zenaida Haury ADMINISTRATIVE PERSONAL ASSISTANT.ASSAYER HELPER Work Phone: [facility] 04-26-2024 13:16-0500 Body mass index (BMI) [Ratio] 31.18 kg/m2 Nancy Aguilar MD Work Phone: [facility] 04-26-2024 13:16-0500 Body weight 79.83 kg Nancy Aguilar MD Work Phone: [facility] 04-26-2024 13:16-0500 Diastolic blood pressure 68 mm[Hg] Nancy Aguilar MD Work Phone: [facility] 04-26-2024 13:16-0500 Systolic blood pressure 116 mm[Hg] Nancy Aguilar MD Work Phone: [facility] 03-25-2024 08:04-0400 Body mass index (BMI) [Ratio] 30.87 kg/m2 Citlali Coleridge ADMINISTRATIVE PERSONAL ASSISTANT.ASSAYER HELPER Work Phone: [facility] 03-25-2024 08:04-0400 Body weight 79.02 kg Citlali Ginger ADMINISTRATIVE PERSONAL ASSISTANT.ASSAYER HELPER Work Phone: [facility] 03-25-2024 08:04-0400 Diastolic blood pressure 64 mm[Hg] Citlali Coleridge ADMINISTRATIVE PERSONAL ASSISTANT.ASSAYER HELPER Work Phone: [facility] 03-25-2024 08:04-0400 Systolic blood pressure 116 mm[Hg] Citlali Ginger ADMINISTRATIVE PERSONAL ASSISTANT.ASSAYER HELPER Work Phone: [facility] 06-13-2022 14:14-0500 Body height 157.5 cm Linda Lilly MD Work Phone: [facility] 06-13-2022 14:14-0500 Body mass index (BMI) [Ratio] 27.25 kg/m2 Linda Lilly MD Work Phone: [facility] 06-13-2022 14:14-0500 Body weight 67.59 kg Linda Lilly MD Work Phone: [facility] 06-13-2022 14:14-0500 Diastolic blood pressure 78 mm[Hg] Linda Lilly MD Work Phone: [facility] 06-13-2022 14:14-0500 Heart rate 98 /min Linda Lilly MD Work Phone: [facility] 06-13-2022 14:14-0500 Systolic blood pressure 133 mm[Hg] Linda Lilly MD Work Phone: [facility] Encounters Encounter Date Encounter Type Care Provider Facility Start: 11-04-2024 End: 11-04-[address] Christina Salter DO Work Phone: [facility] Work Phone: Start: 11-04-2024 End: 11-04-2024 Patient encounter procedure Mable Ashley CNM -[facility] Work Phone: Start: 11-01-2024 End: 11-01-2024 Patient encounter procedure Mable QUINONES -[facility][1] Work Phone: Start: 11-01-2024 End: 11-01-[address] Christina Salter DO Work Phone: [facility] Work Phone: Start: 10-27-2024 End: 10-27-2024 Patient encounter procedure Mable Ashley [facility] -[facility][1] Work Phone: Start: 10-27-2024 End: 10-27-[address] Chrisitna Salter DO Work Phone: [facility] Work Phone: Start: 10-18-2024 End: 10-18-[address] Janae Guidry MD -[facility][1] Work Phone: Start: 10-18-2024 End: 10-18-[address] Christina Salter DO Work Phone: [facility] Work Phone: Start: 10-12-2024 End: 10-12-2024 Patient encounter procedure Mable Ashley [facility] -[facility][1] Work Phone: Start: 10-12-2024 End: 10-12-[address] Christina Salter DO Work Phone: [facility] Work Phone: Start: 10-05-2024 End: 10-05-[address] Christina Salter DO Work Phone: [facility] Work Phone: Start: 10-05-2024 End: 10-05-[address] Xenia Edouard DO -Laboratory Specimen Work Phone: Start: 10-05-2024 End: 10-05-[address] Xenia Edouard DO -[facility][1] Work Phone: Start: 10-05-2024 End: 10-05-[address] Christina Salter DO Work Phone: [facility] Work Phone: Start: 10-05-2024 End: 10-05-2024 ambulatory Xenia Edouard Facility:[facility] Start: 09-22-2024 End: 09-22-[address] Janae Guidry MD -[facility][1] Work Phone: Start: 09-22-2024 End: 09-22-2024 ambulatory Christina Salter Facility:[facility] Start: 09-21-2024 ambulatory Christina Salter Fa cility:[facility] Start: 09-20-2024 End: 09-20-2024 Patient encounter procedure Maureen ALLAN -[facility][1] Work Phone: Start: 09-20-2024 End: 09-20-2024 ambulatory Christina Salter Facility:[facility] Start: 09-20-2024 End: 09-20-2024 ambulatory Christina Salter Facility:[facility] Start: 09-05-2024 End: 09-05-2024 Patient encounter procedure Angelica Tran RN [facility] Start: 09-05-2024 End: 09-05-2024 ambulatory Angelica Tran RN [facility] Start: 09-05-2024 End: 09-05-2024 ambulatory Christina Salter Facility:[facility] Start: 08-31-2024 End: 08-31-2024 Telephone encounter Yennifer Couch APRN.CNM Work Phone: OB/Gynecology Comment on above: Care Start: 08-24-2024 End: 08-24-2024 ambulatory CHRISTINA SALTER Facility:[facility] Start: 08-24-2024 End: 08-24-2024 Patient encounter procedure Zenaida Mitchell APRN.ASSAYER HELPER Work Phone: OB/Gynecology Comment on above: Supervision of high risk in third trimester (HCC) (Primary Dx); 30 weeks gestation of (HCC); Obesity affecting in third trimester, unspecified obesity type (HCC) Start: 08-10-2024 End: 08-10-2024 Patient encounter procedure Yennifer Sanchoyaw TAPIA Work Phone: OB/Gynecology Comment on above: 28 weeks gestation o f (Primary Dx); Encounter for supervision of normal in second trimester, unspecified ; Obesity affecting in second trimester, unspecified obesity type; Supervision of high risk in second trimester Start: 08-10-2024 End: 08-10-2024 ambulatory CHRISTINA SALTER Facility:[facility] Start: 07-27-2024 End: 09-26-2024 Follow-up encounter Zenaida Mitchell APRN.ASSAYER HELPER Work Phone: OB/Gynecology Start: 07-26-2024 End: 07-26-2024 ambulatory KATHY CLANCY Facility:[facility] Start: 07-26-2024 End: 07-26-2024 Patient encounter procedure Kathy Clancy MD Work Phone: OB/Gynecology Comment on above: Encounter for superv ision of normal in second trimester, unspecified (Primary Dx); Dysuria Start: 07-13-2024 End: 07-13-2024 ambulatory CHRISTINA SALTER Facility:[facility] Start: 07-13-2024 End: 07-13-2024 Patient encounter procedure Nancy Aguilar MD Work Phone: OB/Gynecology Comment on above: Screening for diabet es mellitus (Primary Dx); 24 weeks gestation of Start: 06-26-2024 End: 06-26-2024 ambulatory Jayne Carmona Facility:[facility] Start: 06-26-2024 End: 06-26-[address] Jayne Carmona DO -[facility] Work Phone: Start: 06-15-2024 Non-patient / Non-visit Christina Qiu Mira beyer [facility] Work Phone: Start: 06-15-2024 End: 06-15-2024 ambulatory XENIA MARIBELL Facility:[facility] Start: 06-15-2024 End: 06-15-2024 Patient encounter procedure Nancy Aguilar MD Work Phone: OB/Gynecology Comment on above: Supervision of high risk in second trimester (Primary Dx); 20 weeks gestation of ; Obesity affecting in second trimester, unspecified obesity type Start: 06-15-2024 End: 06-15-2024 ambulatory NANCY AGUILAR Facility:[facility] Start: 06-15-2024 End: 06-15-2024 Patient encounter procedure Whi Tech 1 Instrumentation And Control Technician [facility] Comment on above: Encounter for anatomic survey (Primary Dx); 20 weeks gestation of ; Obesity affecting in second trimester, unspecified obesity type Start: 05-27-2024 ambulatory Christina Sandoval Gaetano Fa cility:[facility] Start: 05-27-2024 End: 05-27-2024 ambulatory ZENAIDA MITCHELL Facility:[facility] Start: 05-27-2024 End: 05-27-2024 Patient encounter procedure Zenaida Mitchell APRN.ASSAYER HELPER Work Phone: OB/Gynecology Comment on above: Supervision of high risk in second trimester (Primary Dx); 17 weeks gestation of ; Obesity affecting in second trimester, unspecified obesity type; Nausea and vomiting during Encounter for anatomic survey (Primary Dx); Encounter for supervision of normal first in first trimester; Encounter for screening of mother Start: 04-26-2024 End: 04-26-2024 ambulatory CITLALI BAUER Facility:[facility] Start: 04-26-2024 End: 04-26-2024 Patient encounter procedure Nancy Aguilar MD Work Phone: OB/Gynecology Comment on above: Encounter for superv ision of normal first in first trimester (Primary Dx); 13 weeks gestation of ; Encounter for screening of mother; Nausea and vomiting during Start: 04-26-2024 ambulatory Christina Salter Fa cility:[facility] Start: 03-25-2024 ambulatory Christina Salter Fa cility:[facility] Start: 03-25-2024 End: 03-25-2024 ambulatory CITLALI BAUER Facility:[facility] Start: 03-25-2024 End: 03-25-2024 Patient encounter procedure Citlali Bauer DUNCAN Work Phone: OB/Gynecology Comment on above: 8 weeks gestation of (Primary Dx); Encounter for supervision of normal first in first trimester; POTS (postural orthostatic tachycardia syndrome); BMI 30.0-30.9,adult Start: 03-22-2024 End: 03-22-2024 Telephone encounter Marley Oneil TAIPA Work Phone: OB/Gynecology Comment on above: Patient Update Start: 06-16-2022 Telephone encounter Linda Ca Work Phone: [facility] ATHLETICS TEACHER Comment on above: Results Start: 06-15-2022 Orders Only Linda Basurto Work Phone: [facility] ATHLETICS TEACHER Comment on above: Frequent urination ( Primary Dx) Start: 06-13-2022 End: 06-13-2022 Initial preventive medicine new pt age 18-39yrs Linda Lilly MD Work Phone: [facility] ATHLETICS TEACHER Comment on above: Well woman exam with routine gynecological exam (Primary Dx); Frequent urination Start: 06-13-2022 End: 06-13-2022 Patient encounter procedure Linda Lilly MD Work Phone: [facility] ATHLETICS TEACHER Start: 11-19-2021 End: 11-19-2021 Subsequent hospital visit by physician Christina Salter DO Work Phone: [facility] Start: 11-06-2021 End: 11-06-2021 Subsequent hospital visit by physician Christina Salter DO Work Phone: [facility] Comment on above: Arrived Start: 12-10-2017 End: 12-11-2017 [facility] Start: 12-10-2017 End: 12-10-2017 Emergency department patient visit SUZY LEON Facility:[facility] Procedures Date Procedure Procedure Detail Performing Clinician Start: 10-05-2024 Beta-hemolytic Streptococcus culture Dr. Christina Salter DO Work Phone: Start: 09-05-2024 CT angiography of ch est with contrast Dr. Christina Salter DO Work Phone: Start: 07-26-2024 Urnls dip stick/tabl et rgnt auto w/o microscopy Kathy Clancy MD Work Phone: Start: 06-15-2024 Us preg uterus after 1st trimest 1/1st gestation Nancy Aguilar MD Work Phone: Start: 05-27-2024 Us nuchal translucency 1st gestation Nancy Aguilar MD Work Phone: Start: 04-26-2024 Antibody screen CITLALI HICKSALJosey Comment on above: Order Comment: Speci men Type: BLOOD SPECIMEN Ordering Facility: [facility] Address: [address] [place] [address] Performed By: #### G LTGST #### [facility] [id number] [address] [place] [address] [place] Start: 03-25-2024 Us uterus l imited 1/> fetuses Citlali Coleridge ADMINISTRATIVE PERSONAL ASSISTANT.ASSAYER HELPER Work Phone: Start: 03-25-2024 Adult depression scr eening assessment Nancy Aguilar MD Work Phone: Start: 06-13-2022 Microscopic observat ion [Identifier] in Cervix by Cyto stain Angelica Tran RN Start: 11-06-2021 Us abdominal real ti me w/image documentation Christina Salter DO Work Phone: Start: 12-08-2019 Microscopic observat ion [Identifier] in Cervix by Cyto stain Christina Salter DO Work Phone: Plan of Treatment Date Care Activity Detail Author Start: 2072 RSV Immunization for Adults (1 - 1-dose 75+ series) RSV Immunization for Adults (1 - 1-dose 75+ series) [facility] Start: 2072 RSV Vaccine (1 - 1-d ose 75+ series) RSV Vaccine (1 - 1-dose 75+ series) [facility] Start: 11-22-2047 Zoster Vaccines (1 of 2) Zoster Vacc leonidas (1 of 2) [facility] Start: 12-18-2029 DTaP/Tdap/Td vaccine (8 - Td or Tdap) DTaP/Tdap/Td vaccine (8 - Td or Tdap) [facility] Start: 12-18-2029 DTaP/Tdap/Td Vaccine s (8 - Td or Tdap) DTaP/Tdap/Td Vaccines (8 - Td or Tdap) [facility] Start: 12-18-2029 Urine microalbumin profile DTaP,Tdap,Td Vaccine (8 - Td or Tdap) [facility] Start: 06-13-2025 Screening for malign ant neoplasm of cervix [facility] Start: 03-25-2025 Anxiety Screening Anxiety Screening [facility] Start: 03-25-2025 Depression Screening Depression Scre ening [facility] Start: 01-23-2025 Influenza vaccination Influenz a Vaccine (Season Ended) [facility] Start: 11-04-2024 Nonstress test [facility] Start: 11-04-2024 Obstetric monitoring [facility] Start: 11-04-2024 Vital signs measurements [facility] Start: 11-04-2024 [facility] Start: 11-04-2024 Patient discharge [facility] Start: 10-05-2024 End: 10-05-2024 Patient encounter procedure 10/05/2024 2:30 PM EDT Routine Office Visit OB/Gynecology [address] [place] [address] Yennifer Couch APRN.[facility] [address] [place] [address] OB OB/Gynecology Comment on above: OB Start: 09-21-2024 End: 09-21-2024 Patient encounter procedure 09/21/2024 2:50 PM EDT Routine Office Visit OB/Gynecology [address] [place] [address] Kathe Florentino MD [address] [place] [address] OB OB/Gynecology Comment on above: OB Start: 09-07-2024 End: 09-07-2024 Patient encounter procedure 09/07/2024 2:40 PM EDT Routine Office Visit OB/Gynecology [address] [place] [address] Kathe Florentino MD [address] [place] [address] OB OB/Gynecology Comment on above: OB Start: 08-24-2024 End: 08-24-2024 Patient encounter procedure 08/24/2024 2:30 PM EDT Routine Office Visit OB/Gynecology [address] [place] [address] Zenaida Mitchell APRN.ASSAYER HELPER [address] [place] [address] OB OB/Gynecology Comment on above: OB Start: 08-10-2024 End: 08-10-2024 Patient encounter procedure 08/10/2024 2:30 PM EDT Routine Office Visit OB/Gynecology [address] [place] [address] Yennifer Couch APRN.CNM [address] [place] [address] OB Routine OB/Gynecology Comment on above: OB Routine Start: 08-10-2024 End: 08-10-2024 ambulatory 08/10/2024 2:15 PM EDT Results Only [place] [address] [facility] [address] [place] [address] Glucose test and Labs [facility] Comment on above: Glucose test and Lab s Start: 07-13-2024 End: 07-13-2024 Patient encounter procedure 07/13/2024 2:20 PM EST Routine Office Visit OB/Gynecology [address] [place] [address] Nancy Aguilar MD [address] [place] [address] OB Routine OB/Gynecology Comment on above: OB Routine Start: 07-13-2024 End: 10-12-2024 ANEMIA REFLEX PANEL ANEMIA REFLEX PANEL Lab Routine Screening for diabetes mellitus Expected: 07/13/2024, Expires: 10/12/2024 [facility] Comment on above: Expected: 07/13/2024 , Expires: 10/12/2024 Start: 07-13-2024 End: 07-13-2025 GESTATIONAL GLUCOSE SCREEN, 1-HOUR, 50 GRAM, NON-FASTING GESTATIONAL GLUCOSE SCREEN, 1-HOUR, 50 GRAM, NON-FASTING Lab Routine Screening for diabetes mellitus Expected: 07/13/2024, Expires: 07/13/2025 [facility] Work Phone: Comment on above: Expected: 07/13/2024 , Expires: 07/13/2025 Start: 07-13-2024 End: 07-13-2025 SYPHILIS TREPONEMAL W/REFLEX SYPHILIS TREPONEMAL W/REFLEX Lab Routine Screening for diabetes mellitus Expected: 07/13/2024, Expires: 07/13/2025 [facility] Comment on above: Expected: 07/13/2024 , Expires: 07/13/2025 Start: 06-26-2024 Nonstress test [facility] Start: 06-26-2024 Obstetric monitoring [facility] Start: 06-26-2024 Vital signs measurements [facility] Start: 06-26-2024 [facility] Start: 06-26-2024 Patient discharge [facility] Start: 06-15-2024 End: 06-15-2024 Patient encounter procedure 06/15/2024 9:40 AM EST Routine Office Visit OB/Gynecology [address] [place] [address] Xenia Marie MD [address] [place] [address] OB Routine OB/Gynecology Comment on above: OB Routine Start: 06-15-2024 End: 06-15-2024 Patient encounter procedure 06/15/2024 8:30 AM EST Routine Office Visit Maternal Medicine [address] [place] [address] Anatomy Scan Maternal Medicine Comment on above: Anatomy Scan Start: 05-27-2024 End: 05-27-2024 Patient encounter procedure Maternal Medicine Comment on above: Early Anatomy OB Routine Start: 04-26-2024 End: 04-26-2025 NUCHAL TRANSLUCENCY WHI NUCHAL TRANSLUCENCY WHI Anc Imaging Routine Encounter for supervision of normal first in first trimester Encounter for screening of mother Expected: 04/26/2024, Expires: 04/26/2025 [facility] Comment on above: Expected: 04/26/2024 , Expires: 04/26/2025 Start: 04-26-2024 End: 04-26-2025 OBSTETRIC ULTRASOUND WHI OBSTETRIC ULTRASOUND WHI Anc Imaging Routine Encounter for supervision of normal first in first trimester 13 weeks gestation of Encounter for screening of mother Expected: 04/26/2024, Expires: 04/26/2025 [facility] Work Phone: Comment on above: Expected: 04/26/2024 , Expires: 04/26/2025 Start: 04-26-2024 End: 04-26-2024 Patient encounter procedure 04/26/2024 1:10 PM EST Routine Office Visit OB/Gynecology [address] [place] [id number] Nancy Aguilar MD [address] [place] [address] 2nd OB OB/Gynecology Comment on above: 2nd OB Start: 03-25-2024 End: 06-24-2024 CBC W Auto Differential panel - Blood COMPLETE BLOOD COUNT AND DIFFERENTIAL Lab Routine 8 weeks gestation of Expected: 03/25/2024, Expires: 06/24/2024 [facility] Comment on above: Expected: 03/25/2024 , Expires: 06/24/2024 Start: 03-25-2024 End: 06-24-2024 Hemoglobin A1c in Blood HEMOGLOBIN A1C Lab Routine 8 weeks gestation of Expected: 03/25/2024, Expires: 06/24/2024 [facility] Comment on above: Expected: 03/25/2024 , Expires: 06/24/2024 Start: 03-25-2024 End: 06-24-2024 Hepatitis B virus surface Ag [Presence] in Serum HEPATITIS B SURFACE ANTIGEN Lab Routine 8 weeks gestation of Expected: 03/25/2024, Expires: 06/24/2024 [facility] Comment on above: Expected: 03/25/2024 , Expires: 06/24/2024 Start: 03-25-2024 End: 06-24-2024 Hepatitis C virus Ab [Presence] in Serum HEPATITIS C ANTIBODY IA WITH CONFIRMATION Lab Routine 8 weeks gestation of Expected: 03/25/2024, Expires: 06/24/2024 [facility] Comment on above: Expected: 03/25/2024 , Expires: 06/24/2024 Start: 03-25-2024 End: 06-24-2024 HIV 1+2 Ab [Presence] in Serum or Plasma by Immunoassay HIV 1/2 COMBO WITH REFLEX TO DIFFERENTIATION Lab Routine 8 weeks gestation of Expected: 03/25/2024, Expires: 06/24/2024 [facility] Comment on above: Expected: 03/25/2024 , Expires: 06/24/2024 Start: 03-25-2024 End: 06-24-2024 Iron and Iron binding capacity panel - Serum or Plasma IRON AND TIBC Lab Routine 8 weeks gestation of Expected: 03/25/2024, Expires: 06/24/2024 [facility] Comment on above: Expected: 03/25/2024 , Expires: 06/24/2024 Start: 03-25-2024 End: 06-24-2024 RUBELLA IGG ANTIBODY RUBELLA IGG ANTIBODY Lab Routine 8 weeks gestation of Expected: 03/25/2024, Expires: 06/24/2024 [facility] Comment on above: Expected: 03/25/2024 , Expires: 06/24/2024 Start: 03-25-2024 End: 06-24-2024 SYPHILIS TREPONEMAL W/REFLEX SYPHILIS TREPONEMAL W/REFLEX Lab Routine 8 weeks gestation of Expected: 03/25/2024, Expires: 06/24/2024 [facility] Work Phone: Comment on above: Expected: 03/25/2024 , Expires: 06/24/2024 Start: 03-25-2024 End: 06-24-2024 TYPE + SCREEN TYPE + SCREEN Blood Bank Routine 8 weeks gestation of Expected: 03/25/2024, Expires: 06/24/2024 [facility] Comment on above: Expected: 03/25/2024 , Expires: 06/24/2024 Start: 03-25-2024 End: 03-25-2024 Patient encounter procedure 03/25/2024 8:15 AM EDT Initial Office Visit OB/Gynecology [address] [place], [place] [id number] Citlali Bauer APRN.ASSAYER HELPER [address] [place] [address] OB/Gynecology Start: 01-24-2024 Covid-19 Vaccine ( season) Covid-19 Vaccine ( season) [facility] Start: 01-24-2024 Influenza vaccination Influenza Vacc ine (#1) [facility] Start: 06-17-2023 End: 06-17-2023 Patient encounter procedure 06/17/2023 Office Visit Obstetrics and Gynecology Linda Lilly MD [address] [place] [address] [facility] ATHLETICS TEACHER Start: 12-07-2022 Screening for malign ant neoplasm of cervix Pap smear [facility] Start: 06-18-2022 End: 06-18-2022 Patient encounter procedure 06/18/2022 Office Visit Obstetrics and Gynecology Linda Lilly MD [address] [facility] [address] [place] [address] [facility] ATHLETICS TEACHER Start: 06-12-2022 Screening for Chlamy reji trachomatis Chlamydia screen [facility] Start: 01-23-2022 Influenza vaccination [facility] Start: 01-24-2020 Varicella vaccination [facility] Start: 2016 Hepatitis B Vaccine (1 of 3 - 19+ 3-dose series) Hepatitis B Vaccine (1 of 3 - 19+ 3-dose series) [facility] Start: 2016 Urine microalbumin profile DTaP,Tdap,Td Vaccine (1 - Tdap) [facility] Start: 11-22-2015 Anxiety Screening Anxiety Screening [facility] Start: 11-22-2015 Depression Screening Depression Scre ening [facility] Start: 11-22-2015 Hepatitis C screening [facility] Start: 11-22-2015 HIV screening HIV Screening [facility] Start: 2012 HIV screening HIV screen [facility] Start: 2012 HPV Vaccine (1 - 3-d ose series) HPV Vaccine (1 - 3-dose series) [facility] Start: 11-22-2011 Peds To Adult Transi tion Annual Assessment Peds To Adult Transition Annual Assessment [facility] Start: 2009 Depression Screen Depression Screen [facility] Start: 2009 Depression Screening Depression Scre ing [facility] Start: 2009 Peds To Adult Transi tion Initial Discussion Peds To Adult Transition Initial Discussion [facility] Start: 2002 COVID-19 Vaccine (1) COVID-19 Vaccin e (1) [facility] Start: 1998 Varicella vaccine (1 of 2 - 2-dose childhood series) Varicella vaccine (1 of 2 - 2-dose childhood series) [facility] Start: 05-23-1998 COVID-19 Vaccine (#1) COVID-19 Vacci ne (#1) [facility] Start: 1997 HIV screening [facility] Screening [facility] Start: 1997 Lipid panel Lipid Panel [facility] Bacteria identified in Urine by Culture URINE CULTURE Microbiology Routine 8 weeks gestation of 03/25/2024 9:11 AM EDT [facility] Bacteria identified in Urine by Culture Urine culture Microbiology Routine Frequent urination Ordered: 06/13/2022 [facility] Comment on above: Ordered: 06/13/2022 Bacteria identified in Urine by Culture BACTERIAL CULTURE, URINE Microbiology Routine Dysuria 07/26/2024 10:39 AM EST [facility] Work Phone: Chlamydia trachomatis+Neisseria gonorrhoeae DNA [Presence] in Unspecified specimen by MICHAEL with probe detection GONORRHEA/CHLAMYDIA NAAT Lab Routine 8 weeks gestation of 03/25/2024 9:11 AM EDT [facility] End: 11-19-2021 CT ABDOMEN W WO CONTRAST Additional Contrast? None [facility] Work Phone: Comment on above: Once for 1 Occurrenc es starting 11/19/2021 until 11/19/2021 Cytology Cervical or vaginal smear or scraping study Pap Smear Pathology and Cytology Routine Well woman exam with routine gynecological exam Ordered: 06/13/2022 [facility] Work Phone: Comment on above: Ordered: 06/13/2022 Patient Education Kick [facility] ED False Labor OB Triage: Return to Hospital or Notify Physician if you Experience: [facility] Work Phone: Patient referral [facility] Work Phone: Streptococcus agalac tiae [Presence] in Unspecified specimen by Organism specific culture [facility] End: 11-06-2021 US PELVIS COMPLETE NON-OB TRANSABDOMINAL AND TRANSVAGINAL [facility] Work Phone: Comment on above: Once for 1 Occurrenc es starting 11/06/2021 until 11/06/2021 Immunizations Immunization Date Immunization Notes Care Provider Milan nolasco 09-22-2024 tetanus toxoid, redu satnam diphtheria toxoid, and acellular pertussis vaccine, adsorbed Dr. Christina Salter DO Work Phone: [facility] 05-21-2023 influenza, injectabl e, quadrivalent, preservative free Nancy Aguilar MD Work Phone: [facility] 05-21-2023 influenza virus vacc ine, unspecified formulation Citlali Bauer DUNCAN Work Phone: [facility] 12-27-2021 tuberculin skin test ; purified protein derivative solution, intradermal Nancy Aguilar MD Work Phone: [facility] 08-10-2020 hepatitis B vaccine, adult dosage Nancy Aguilar MD Work Phone: [facility] 03-10-2020 Influenza, injectabl e, Madin Ashlee Canine Kidney, preservative free, quadrivalent Nancy Aguilar MD Work Phone: [facility] 03-10-2020 influenza virus vacc ine, unspecified formulation Linda Lilly MD Work Phone: [facility] 01-24-2020 hepatitis B vaccine, adult dosage Nancy Aguilar MD Work Phone: [facility] 12-27-2019 measles, mumps and rubella virus vaccine Nancy Aguilar MD Work Phone: [facility] 12-27-2019 tuberculin skin test ; purified protein derivative solution, intradermal Nancy Aguilar MD Work Phone: [facility] 12-21-2019 hepatitis B vaccine, adult dosage Nancy Aguilar MD Work Phone: [facility] 12-19-2019 meningococcal polysaccharide (groups A, C, Y and W-135) diphtheria toxoid conjugate vaccine (MCV4P) Nancy Aguilar MD Work Phone: [facility] 12-19-2019 tetanus toxoid, redu satnam diphtheria toxoid, and acellular pertussis vaccine, adsorbed Nancy Aguilar MD Work Phone: [facility] 12-19-2019 tuberculin skin test ; purified protein derivative solution, intradermal Nancy Aguilar MD Work Phone: [facility] 03-04-2012 hepatitis A vaccine, pediatric/adolescent dosage, 2 dose schedule Nancy Aguilar MD Work Phone: [facility] 03-04-2012 human papilloma viru s vaccine, quadrivalent Nancy Aguilar MD Work Phone: [facility] 03-10-2011 human papilloma viru s vaccine, quadrivalent Nancy Aguilar MD Work Phone: [facility] 01-06-2011 hepatitis A vaccine, pediatric/adolescent dosage, 2 dose schedule Nancy Aguilar MD Work Phone: [facility] 01-06-2011 human papilloma viru s vaccine, quadrivalent Nancy Aguilar MD Work Phone: [facility] 01-06-2011 meningococcal polysaccharide (groups A, C, Y and W-135) diphtheria toxoid conjugate vaccine (MCV4P) Nancy Aguilar MD Work Phone: [facility] 10-03-2009 diphtheria, tetanus toxoids and acellular pertussis vaccine Nancy Aguilar MD Work Phone: [facility] 04-13-2009 novel influenza-H1N1 -09, preservative-free, injectable Nancy Aguilar MD Work Phone: [facility] 12-20-2002 diphtheria, tetanus toxoids and acellular pertussis vaccine Nancy Aguilar MD Work Phone: [facility] 12-20-2002 measles, mumps and rubella virus vaccine Nancy Aguilar MD Work Phone: [facility] 12-20-2002 poliovirus vaccine, inactivated Nancy Aguilar MD Work Phone: [facility] 03-04-1999 diphtheria, tetanus toxoids and acellular pertussis vaccine Nancy Aguilar MD Work Phone: [facility] 03-04-1999 haemophilus influenz ae type b vaccine, PRP-T conjugate Nancy Aguilar MD Work Phone: [facility] 03-04-1999 measles, mumps and rubella virus vaccine Nancy Aguilar MD Work Phone: [facility] 03-04-1999 poliovirus vaccine, inactivated Nancy Aguilar MD Work Phone: [facility] 12-03-1998 hepatitis B vaccine, pediatric or pediatric/adolescent dosage Nancy Aguilar MD Work Phone: [facility] 07-12-1998 diphtheria, tetanus toxoids and acellular pertussis vaccine Nancy Aguilar MD Work Phone: [facility] 07-12-1998 haemophilus influenz ae type b vaccine, PRP-T conjugate Nancy Aguilar MD Work Phone: [facility] 03-19-1998 diphtheria, tetanus toxoids and acellular pertussis vaccine Nancy Aguilar MD Work Phone: [facility] 03-19-1998 haemophilus influenz ae type b vaccine, PRP-T conjugate Nancy Aguilar MD Work Phone: [facility] 03-19-1998 poliovirus vaccine, inactivated Nancy Aguilar MD Work Phone: [facility] 02-15-1998 diphtheria, tetanus toxoids and acellular pertussis vaccine Nancy Aguilar MD Work Phone: [facility] 02-15-1998 haemophilus influenz ae type b vaccine, PRP-T conjugate Nancy Aguilar MD Work Phone: [facility] 02-15-1998 poliovirus vaccine, inactivated Nancy Aguilar MD Work Phone: [facility] 01-09-1998 hepatitis B vaccine, pediatric or pediatric/adolescent dosage Nancy Aguilar MD Work Phone: [facility] 1997 hepatitis B vaccine, pediatric or pediatric/adolescent dosage Nancy Aguilar MD Work Phone: [facility] Payers Date Payer Category Payer Private Health Insurance MMO SUP ERMED O Member Subscriber Plan / Payer (Effective 2024-Present) Name: Cnadice Carmichael Relation to Subscriber: Self Name: Candice Carmichael Payer ID: Not on file Type: PPO Address: [place] [id number] 2024 Self-pay 2024 Unknown [id number] 2022 [employer] Palomo santizo Managed Care - [facility] [place] BLUE CROSS [id number] 2022 Unknown [id number]. [id number] 2019 Unknown [employer] [address] [id number] 2019-Present [address] [place] [address] [id number] Unknown [id number] Unknown [id number] 2.840.1.339558.3.579.2. 462 Unknown [id number] 2.16840.1.078948.3.579.2. 462 Unknown [id number] 2.16840.1.233042.3.579.2. 462 Unknown [id number] 2.16840.1.284412.3.579.2. 462 Unknown [id number] 2.16840.1.823766.3.579.2. 462 Unknown [id number] 2.16840.1.200997.3.579.2. 462 Unknown [id number] 2.16.840.1.491364.3.579.2. 462 Unknown [id number] 2.16.840.1.767865.3.579.2. 462 Unknown [id number] 2.16.840.1.662406.3.579.2. 462 Unknown [id number] 2.16.840.1.457052.3.579.2. 462 Unknown [id number] 2.16.840.1.683034.3.579.2. 462 Unknown [id number] 2.16.840.1.103333.3.579.2. 462 Unknown [id number] 2.16.840.1.644669.3.579.2. 462 Unknown [id number] 2.16.840.1.744564.3.579.2. 462 Unknown [id number] 2.16.840.1.479536.3.579.2. 462 Unknown [id number] 2.16.840.1.940100.3.579.2. 462 Unknown [id number] 2.16.840.1.470180.3.579.2. 462 Social History Date Type Detail Facility Start: 01-07-2015 End: 09-02-2024 Tobacco smoking status NHIS Never smoked tobacco [employer] Work Phone: Start: 01-07-2015 End: 06-15-2024 Tobacco use and exposure Smokeless tobacco non-user [employer] Work Phone: Start: 11-06-2021 End: 06-13-2022 Alcohol intake Current drinker of alcohol (finding) [employer] Work Phone: Start: 11-26-2018 History SDOH Alcohol Frequency 2 [employer] Work Phone: Start: 1995 Sex Assigned At Not on file [facility] [email or web address] Work Phone: Start: 03-22-2024 End: 07-26-2024 Alcoholic beverage intake Ex-drinker (finding) [facility] Start: 03-22-2024 End: 04-26-2024 History of Social function [facility] Start: 03-22-2024 End: 04-26-2024 Tobacco use panel [facility] Start: 03-22-2024 Education 17 [facility] Start: 12-10-2017 [facility] Start: 02-08-2024 [facility] National Score (1-10 0), lower number is lower risk 71 [facility] Start: 12-23-2021 Sex Female (finding) [facility] Start: 1995 Sex Assigned At Female [facility] Clinical Notes 06-13-2022 to 10-27-2024 Note Date & Type Note Facility 10-27-2024 Progress note [facility] 10-18-2024 Progress note [facility] 10-18-2024 Progress note Note Date/Time October 18, 2024 3:54pm [facility] [address], [address] [place] [address] OFFICE VISIT Date of Service: 10/18/24 MR#: [id number] Acct: [id number] Name: CANDICE CARMICHAEL Rep #: [id number] : 1995 Provider: Dr. Gilson Guidry MD Age/Sex: 28/F [place] [facility] [place]: Signed Intake Vital Signs 09/20/24 10:23 10/12/24 15:05 10/18/24 15:40 Height 5 ft 2 in 5 ft 2 in 5 ft 2 in Weight: 195 lb 2 oz 195 lb 8 oz BMI 35.6 35.7 BP 127/86 H 118/86 H Intake Visit Reasons: 38 WK OB Final Inspector Movement Assembly Required: No Is patient in pain?: No [...] mg-folate no.1 1 mg-dha 300 mg capsule (PNV-[place]) pyridoxine (vitamin B6) 100 mg 100 mg [...] physical activity do you participate in: none debo/temple: Mandaeism seatbelt use: always do you feel safe at home: Yes additional social history: Fiance- Mike Bryan- [employer] History 1 Elective abortions Hx Para 0 [...] no improvement within 2 weeks 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 recommend therapy. 10/05/24 -?-?-?-?-?-?-?-?-?-?-?-?- 36w [...] - Anemia complicating , third trimester 10/18/24 7253 <Electronically signed by Janae marcano MD> Date _ [facility] Signature: Date (if applicable) CC: ~ [facility] Work Phone: 1(373) 668-356505-21-2025 [facility] [address] [place] [address], [address] [place] [address] OFFICE VISIT Date of Service: 10/12/24 MR#: [id number] Acct: [id number] Name: CANDICE CARMICHAEL Rep #: [id number] : 1995 Provider: STEPHANIE Ashley Age/Sex: 28/F Location: [facility] Status: Signed Intake Vital Signs 09/20/24 10:23 10/05/24 14:40 10/12/24 15:05 Height 5 ft 2 in 5 ft 2 in 5 ft 2 in Weight: 195 lb 2 oz BMI 35.6 BP 127/86 H Intake Visit Reasons: 37 WK OB Chief Complaint: 37wk OB Final Inspector Movement Assembly Required: No Is patient in pain?: No [...] mg-folate no.1 1 mg-dha 300 mg capsule (PNV-[place]) pyridoxine (vitamin B6) 100 mg 100 mg [...] physical activity do you participate in: none debo/temple: Mandaeism seatbelt use: always do you feel safe [...] if no improvementwithin 2 weeks 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 recommend therapy. 10/05/24 -?-?-?-?-?-?-?-?-?-?-?-?- 36w [...] the past year?: No 10/12/24 1530 s CNM> Date _ Mable Ashley CNM Cosigner Signature: Date (if applicable) CC: ~ [facility]05-21-2025 Progress note Author Mable Ashley [facility] Note Date/Time October 12, 2024 3:30p m [facility] [address] [place] [address], [address] [place] [address] OFFICE VISIT Date of Service: 10/12/24 MR#: [id number] Acct: [id number] Name: CANDICE CARMICHAEL Rep #: [id number] : 1995 Provider: STEPHANIE Ashley Age/Sex: 28/F [place] [facility] Status: Signed Intake Vital Signs 09/20/24 10:23 10/05/24 14:40 10/12/24 15:05 Height 5 ft 2 in 5 ft 2 in 5 ft 2 in Weight: 195 lb 2 oz BMI 35.6 BP 127/86 H Intake Visit Reasons: 37 WK OB Chief Complaint: 37wk OB Final Inspector Movement Assembly Required: No Is patient in pain?: No [...] mg-folate no.1 1 mg-dha 300 mg capsule (PNV-[place]) pyridoxine (vitamin B6) 100 mg 100 mg [...] physical activity do you participate in: none debo/temple: Mandaeism seatbelt use: always do you feel safe [...] no improvement within 2 weeks 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 recommend therapy. 10/05/24 -?-?-?-?-?-?-?-?-?-?-?-?- 36w [...] fallen in the past year?: No 10/12/24 9784 <Electronically signed by Mable garcia CNM> Date _ Mable Ashley CNM Cosigner Signature: Date (if applicable) CC: ~ [facility] Work Phone: 1(853) 858-982505-14-2025 [facility] [address], [address] [place] [address] OFFICE VISIT Date of Service: 10/05/24 MR#: [id number] Acct: [id number] Name: CANDICE CARMICHAEL Rep #: [id number] : 1995 Provider: Dr. Clair Edouard DO Age/Sex: 28/F [place] [facility] Status: Signed Intake Vital Signs 09/05/24 11:40 09/22/24 08:36 10/05/24 14:40 10/05/24 14:40 Height 5 ft 2 in 5 ft 2 in 5 ft 2 in 5 ft 2 in Weight: 193 lb 6 oz BMI 35.4 BP 115/72 Intake Visit Reasons: 36 wk ob Final Inspector Movement Assembly Required: No Is patient in pain?: No [...] mg-folate no.1 1 mg-dha 300 mg capsule (PNV-[place]) pyridoxine (vitamin B6) 100 mg 100 mg [...] physical activity do you participate in: none debo/temple: Mandaeism seatbelt use: always do you feel safe at home: Yes additional social history: Allison Buchanan [facility] History 1 Elective abortions Hx Para 0 [...] if no improvementwithin 2 weeks 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 recommend therapy. 10/05/24 -?-?-?-?-?-?-?-?-?-?-?-?- 36w [...] first , third trimester 10/05/24 1536 e Velde DO> Date _ Xenia Edouard DO Cosigner Signature: Date (if applicable) CC: ~ [facility]05-14-2025 Progress note Author Xenia Gonzales [facility] Note Date/Time October 05, 2024 3:36p [facility] [address], [address] [place] [address] OFFICE VISIT Date of Service: 10/05/24 MR#: [id number] Acct: [id number] Name: CANDICE CARMICHAEL Rep #: [id number] : 1995 Provider: Dr. Clair Edouard DO Age/Sex: 28/F Location[place] [facility] Status: Signed Intake Vital Signs 09/05/24 11:40 09/22/24 08:36 10/05/24 14:40 10/05/24 14:40 Height 5 ft 2 in 5 ft 2 in 5 ft 2 in 5 ft 2 in Weight: 193 lb 6 oz BMI 35.4 BP 115/72 Intake Visit Reasons: 36 wk ob Final Inspector Movement Assembly Required: No Is patient in pain?: No [...] mg-folate no.1 1 mg-dha 300 mg capsule (PNV-[place]) pyridoxine (vitamin B6) 100 mg 100 mg [...] physical activity do you participate in: none debo/temple: Mandaeism seatbelt use: always do you feel safe [...] no improvement within 2 weeks recommend starting [facility] medication SSRI. recommend therapy. 10/05/24 -?-?-?-?-?-?-?-?-?-?-?-?- 36w [...] Cosigner Signature: Date (if applicable) CC: ~ [facility] Work Phone: 1(597) 438-479204-14-2025 Telephone encounter Note* Telephone Encounter - Angelica [...] Protocols used: Information Only Call - No [id number] [id number] Miscellaneous Notes* Telephone Encounter - Angelica Tran [...] Protocols used: Information Only Call - No [id number] documented in this [facility]04-14-2025 Evaluation note* Diagnosis Onset Date Resolution Status [...] first acute October 27, 2024 1 0:20am [facility] Work Phone: 1(300) 615-852304-14-2025 Evaluation note* Diagnosis Onset Date Resolution Status [...] normal first acute November 01, 2024 2:03pm [facility] Work Phone: 1(629) 360-842104-09-2025 Telephone encounter Note* Telephone Encounter - Xenia Carter RN - 08/31/2024 4:34 PM EDT Left message for patient to call office. Xenia Carter RN [facility]04-09-2025 Miscellaneous Notes* Telephone Encounter - Xenia Carter [...] ob appointment is 09/07/2024 [facility] Telephone encounter Note * Telephone Encounter - Yennifer Couch APRN.CNM - 08/31/2024 4:26 PM EDT Agree with plan of care. Add in some electrolytes and increase fluid intake. Yennifer Couch APRN.CNM [facility] Work Phone: 1(487) 106-644304-09-2025 Telephone encounter Note* Telephone Encounter - Magaly [...] any changes. Next ob appointment is 09/07/2024 [facility]04-02-2025 Progress note* Quick Notes - Zenaida Mitchell [...] - Reviewed how to pre register through [facility] - Discussed TDAP vaccine, wants to think [...] or sooner as needed. Zenaida Mitchell APRN.CNP [facility]04-02-2025 Miscellaneous Notes* Quick Notes - Zenaida Mitchell [...] - Reviewed how to pre register through [facility] - Discussed TDAP vaccine, wants to think [...] needed. Zenaida Mitchell APRN.CNP [facility] Instructions* Patient Instructions* Zenaida Mitchell APRN.CNP - 08/24/2024 2:27 PM EDT Please call [phone] to pre-register for your and labor and delivery stay at [facility]. They will want to know your due date, insurance and contact information. This isimportant to do before you go into labor to help with the efficiency of the admission process when you arrive. Thank you so much! SEQUENTIAL SCREENINGS The [facility] offers sequential screenings for women who are [...] testing. It will require an appointment withour electroplating technician. This is not an ultrasound performed [...] the above symptoms, contact our office at [phone] and ask to speak with anurse. After hours, you can call doctors registry at [phone] OR call [facility] at [phone] ask to have the doctor motel front desk attendant paged. If you consider this an emergency, dial 9-1-1 or go to your nearest emergency department. NEED HELP? Are you dealing with a violent or abusive relationship? Are you a victim of rape or sexual assult? Call [facility] [place] ([facility] 24 hour Crisis Hotline: 452.753.8927 or 841-363-8670. MANUAL Your Guide to a Healthy manual is now on-line. Visit [email or web address] to download your free copy documented in [facility]03-[facility] Progress note* Quick Notes - Yennifer Couch APRN.CNM - 08/10/2024 2:46 PM EDT S: Candice Carmichael is a 28 year old female who presents at 28 weeks gestation for a routine visit. Just completed 1 hour GCT. Positive movements. NO issues to report. 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 Denies headache, visual changes, chest pain, shortness [...] or sooner if needed Yennifer Couch APRN.CNM [facility]03-19-2025 Miscellaneous Notes* Quick Notes - Yennifer Couch APRN.CNM - 08/10/2024 2:46 PM EDT S: Candice Carmichael is a 28 year old female who presents at 28 weeks gestation for a routine visit. Just completed 1 hour GCT. Positive movements. NO issues to report. 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 Denies headache, visual changes, chest pain, shortness [...] needed Yennifer Couch APRN.CNM documented in this encounterFort [facility]03-19-2025 Instructions* Patient Instructions* Apple Nails LPN - 08/10/2024 2:22 PM EDT SEQUENTIAL SCREENINGS [facility] offers sequential screenings for women who are [...] testing. It will require an appointment withour electroplating technician. This is not an ultrasound performed [...] the above symptoms, contact our office at [phone] and ask to speak with anurse. After hours, you can call doctors registry at [phone] OR call [facility] at [phone] ask to have the doctor motel front desk attendant paged. If you consider this an emergency, dial 9--0 or go to your nearest emergency department. NEED HELP? Are you dealing with a violent or abusive relationship? Are you a victim of rape or sexual assult? Call [facility] ([place]) 24 hour Crisis Hotline: 152.488.5844 or 900-959-0631. MANUAL Your Guide to a Healthy manual is now on-line. Visit [email or web address] to download your free copy documented in this encounterFort Hamilton Hospital03-04-2025 Progress note* Quick Notes - Kathy Clancy [...] expectations. All questions answered. Kathy Clancy MD [facility]03-04-2025 Miscellaneous Notes* Quick Notes - Kathy Clancy [...] answered. Kathy Clancy MD documented in this encounterFort Hamilton Hospital03-04-2025 Instructions* Patient Instructions* Ashley Li MA - 07/26/2024 9:41 AM EST SEQUENTIAL SCREENINGS The [facility] offers sequential screenings for women who are [...] testing. It will require an appointment withour electroplating technician. This is not an ultrasound performed [...] the above symptoms, contact our office at [phone] and ask to speak with anurse. After hours, you can call doctors registry at [phone] OR call [facility] at [phone] ask to have the doctor motel front desk attendant paged. If you consider this an emergency, dial 9-1-3 or go to your nearest emergency department. NEED HELP? Are you dealing with a violent or abusive relationship? Are you a victim of rape or sexual assult? Call [facility] ([place]) 24 hour Crisis Hotline: 340.768.2443 or 192-094-1756. MANUAL Your Guide to a Healthy manual is now on-line. Visit [email or web address] to download your free copy documented in this encounterFort Hamilton Hospital02-19-2025 Progress note* Quick Notes - Nancy Aguilar [...] 4 weeks or prn Nancy Aguilar M.D. [facility]02-19-2025 Miscellaneous Notes* Quick Notes - Nancy Aguilar [...] prn Nancy Aguilar M.D. documented in this encounterFort Hamilton Hospital02-19-2025 Instructions* Patient Instructions* Apple Nails LPN - 07/13/2024 2:24 PM EST SEQUENTIAL SCREENINGS [facility] offers sequential screenings for women who are [...] testing. It will require an appointment withour electroplating technician. This is not an ultrasound performed [...] the above symptoms, contact our office at [phone] and ask to speak with anurse. After hours, you can call doctors registry at [phone] OR call [facility] at [phone] ask to have the doctor motel front desk attendant paged. If you consider this an emergency, dial 91-9 or go to your nearest emergency department. NEED HELP? Are you dealing with a violent or abusive relationship? Are you a victim of rape or sexual assult? Call [facility] ([place]) 24 hour Crisis Hotline: 460.101.9640 or 123-967-5921. MANUAL Your Guide to a Healthy manual is now on-line. Visit [email or web address] to download your free copy documented in this encounterFort Hamilton Hospital02-02-2025 Evaluation note* Diagnosis Onset Date Resolution Status [...] POTS (postural orthostatic tachycardia syndrome) acute September 22 8:30am acute September 22, 2024 8:30am Supervision [...] first acute October 05, 2024 2 :26pm [facility] Work Phone: 1(859) 241-477402-02-2025 Evaluation note* Diagnosis Onset Date Resolution Status [...] first acute October 12, 2024 2 :56pm [facility] Work Phone: 1(925) 553-261602-02-2025 Evaluation note* Diagnosis Onset Date Resolution Status Admit Date Fall June 26, 2024 7:00pm 21 weeks gestation [...] first acute October 18, 2024 3 :37pm [facility] Work Phone: 1(844) [phone] Progress note* Result Encounter Note - Nancy Aguilar MD - 06/15/2024 4:59 PM EST Anatomy ultrasound reviewed. No abnormalities identified. Follow up as clinically indicated. Pleaseplace copy in ob chart. Nancy Aguilar MD [facility]01-22-[facility]25 Miscellaneous Notes* Result Encounter Note - Nancy Aguilar MD - 06/15/2024 4:59 PM EST Anatomy ultrasound reviewed. No abnormalities identified. Follow up as clinically indicated. Pleaseplace copy in ob chart. Nancy Aguilar MD documented in this encounterFort Hamilton Hospital01-22-2025 NoteOutside Reference US ProcedureJanuary 2024 4:31pmApril 2024 11:53amNormal[facility] NoteOutside Reference US ProcedureJanuary 2024 4:31pmApril 2024 11:53amNMer[facility]-2025 NoteOutside Reference US ProcedureJanuary 2024 4:31pmApril 2024 11:53amNMercy [facility]01-22-2025 Progress note* Quick Notes - Nancy [...] 20 weeks gestation of Nancy Aguilar M.D. [facility]01-22-2025 Miscellaneous Notes* Quick Notes - Nancy Aguilar [...] trimester 20 weeks gestation of <!--RTF_E--> Nancy Aguialr M.D. documented in this encounterFort Hamilton Hospital01-22-2025 Instructions* Patient Instructions* Ashley Li MA - 06/15/2024 2:23 PM EST SEQUENTIAL SCREENINGS [facility] offers sequential screenings for women who are [...] testing. It will require an appointment withour electroplating technician. This is not an ultrasound performed [...] the above symptoms, contact our office at [phone] and ask to speak with anurse. After hours, you can call doctors registry at [phone] OR call [facility] at [phone] ask to have the doctor motel front desk attendant paged. If you consider this an emergency, dial 1-9 or go to your nearest emergency department. NEED HELP? Are you dealing with a violent or abusive relationship? Are you a victim of rape or sexual assult? Call [facility] ([place]) 24 hour Crisis Hotline: 778.352.8731 or 962-648-2692. MANUAL Your Guide to a Healthy manual is now on-line. Visit [email or web address] to download your free copy documented in this encounterFort Hamilton Hospital01-03-2025 Instructions* Patient Instructions* Ashley Li MA - 05/27/2024 8:40 AM EST SEQUENTIAL SCREENINGS [facility] offers sequential screenings for women who are [...] testing. It will require an appointment withour electroplating technician. This is not an ultrasound performed [...] the above symptoms, contact our office at [phone] and ask to speak with anurse. After hours, you can call doctors registry at [phone] OR call [facility] at [phone] ask to have the doctor motel front desk attendant paged. If you consider this an emergency, dial 9-1-0 or go to your nearest emergency department. NEED HELP? Are you dealing with a violent or abusive relationship? Are you a victim of rape or sexual assult? Call [facility] ([place]) 24 hour Crisis Hotline: 827.983.5620 or 631-966-9837. MANUAL Your Guide to a Healthy manual is now on-line. 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 RTO in 4 weeks or sooner as needed. 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 RTO in 4 weeks or sooner as needed. Zenaida Mitchell APRN.ASSAYER HELPER documented in this encounterFort Hamilton Hospital12-03-2024 Progress note* Quick Notes - Nancy Aguilar [...] as needed for nausea/vomiting. Nancy Aguilar M.D. [facility]12-03-2024 Miscellaneous Notes* Quick Notes - Nancy Aguilar [...] nausea/vomiting. Nancy Aguilar M.D. documented in this encounterFort Hamilton Hospital12-03-2024 Instructions* Patient Instructions* Sandrita Nance MA - 04/26/2024 1:18 PM EST SEQUENTIAL SCREENINGS [facility] offers sequential screenings for women who are [...] testing. It will require an appointment withour electroplating technician. This is not an ultrasound performed [...] the above symptoms, contact our office at [phone] and ask to speak with anurse. After hours, you can call doctors registry at [phone] OR call [facility] at [phone] ask to have the doctor motel front desk attendant paged. If you consider this an emergency, dial 01-23- or go to your nearest emergency department. NEED HELP? Are you dealing with a violent or abusive relationship? Are you a victim of rape or sexual assult? Call [facility] ([place]) 24 hour Crisis Hotline: 580.509.9736 or 514-488-9173. MANUAL Your Guide to a Healthy manual is now on-line. Visit [email or web address] to download your free copy documented in this encounterFort Hamilton Hospital11-01-2024 Instructions* Patient Instructions* Apple Nails LPN - 03/25/2024 8:00 AM EDT Please select the following link to access the [facility] Your Guide to a Healthy . [email or web address] documented in this encounterFort Hamilton Hospital10-29-2024 Miscellaneous Notes* Telephone Encounter - Xenia Carter RN - 03/22/2024 3:34 PM EDT Patient called back. States she just learned about Centering this afternoon with her PNOB. Needs todiscuss with her . Her initial NOB is on Thursday. Can discuss more at that time. Xenia Carter, RN * Telephone Encounter - Apple Nails LPN - 03/22/2024 3:14 PM EDT Phone call placed brief message to contact a nurse. When patient returns call, inquire interest in Centering classes. Apple Nails LPN documented in this encounterFort Hamilton Hospital10-29-2024 Telephone encounter Note * Telephone Encounter - Xenia Carter RN - 03/22/2024 3:34 PM EDT Patient called back. States she just learned about Centering this afternoon with her PNOB. Needs todiscuss with her . Her initial NOB is on Thursday. Can discuss more at that time. Xenia Carter RN [facility]10-29-[facility] Telephone encounter Note* Telephone Encounter - Apple Nails LPN - 03/22/2024 3:14 PM EDT Phone call placed brief message to contact a nurse. When patient returns call, inquire interest in Centering classes. Apple Nails LPN [facility]10-29-2024 NoteHNO ID: [id number] Author: CITLALI BAUER APRN.ASSAYER HELPER Service: ? Author Type: Nurse Practitioner Type: Progress Notes Filed: 03/25/2024 09:36 Note Text: Patient declined assistant activities director. *Patient diagnosed in [address] Godinez in [place] with POTS syndrome. Had cardiology consult with [facility] Dr. Tipton on November 06, 2021.Dr Tipton's [...] anxiety diagnosed in 2018 and treated by [facility]. She has been off medication for 4 years. Believes she is feeling well off medication. Denies ever having any suicidal thoughts or thoughts of hurting others.Discussed increased risks of depression during and and importance of reporting the development or worsening of symptoms should they occur. *Patient considering carrier screening testing and aneuploidy testing. Contact information for [employer] and [employer] given to patient to check on insurance [...] Screening: Completed, no positive findings documented. 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 *Patient diagnosed in [address] Godinez in [place] with POTS syndrome. Had cardiology consult with [facility] Dr. Tipton on November 06, 2021.Dr Tipton's [...] anxiety diagnosed in 2018 and treated by [facility]. She has been off medication for 4 years. Believes she is feeling well off medication. Deniesever having any suicidal thoughts or thoughts of hurting others.Discussed increased risks of depression during and and importance of reporting the development or worsening of symptoms should they occur. *Patient considering carrier screening testing and aneuploidy testing. 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 As applicable, any other physician, advance practice provider, medical student, or other health professional student that will be observing or involved in the sensitive examination for educational or training purposes was discussed with the Patient or Authorized Medical File Clerk. The Patient or Authorized Medical File Clerk has agreed to proceed with the sensitive [...] activity, CRL consistent with LMP. Citlali Bauer, ADMINISTRATIVE PERSONAL ASSISTANT.ASSAYER HELPER ASSESSMENT: 28 year old at 8w1d wks gestational age PLAN: 1) Patient oriented to practice. Patient given new OB orientation folder. Discussed nutrition, folic acid supplementation, dietary guidelines, exercise, smoking, alcohol, caffeine, and drug use. Discussed gestational weight gain guidelines. Discussed routine OB labs including STD/HIV. Discussed how to access Your guide to a health and the Fund Accounting Manager. Reviewed midwifery and grain sampler services that are available. 2) Screening: Hemoglobin [...] 4 weeks or sooner prn. Citlali Bauer APRN.ASSAYER HELPER documented in this encounterFort Hamilton Hospital01-23-2023 Telephone encounter Note * Telephone Encounter - Jillian Eduardo - 06/16/2022 10:00 AM EST Message released to patient as written. Patient's further questions if applicable: Were all questions from office addressed or relayed to the patient from encounter: Yes [id number] Miscellaneous Notes* Telephone Encounter - Jillian Eduardo [...] normal. I have placed a referral to uro-electric meter tester. If she is not interested in additional work up she may decline a visit. Thank you documented in this encounterSMercy Health Defiance [id number] Telephone encounter Note* Telephone Encounter - Mable Mesa LPN - 06/16/2022 9:45 AM EST Left message to return call [facility] [id number] Telephone encounter Note* Telephone Encounter - Mable Mesa LPN - 06/16/2022 9:45 AM EST ----- Message from Linda Lilly MD sent at 06/15/2022 9:32 PM EST ----- Please notify Candice that her urine culture was normal. I have placed a referral to uro-electric meter tester. If she is not interested in additional work up she may decline a visit. Thank you [facility] [id number] History of Present illness Narrative* Katlin Gregory MA - 06/13/2022 2:00 PM EST A assistant activities director was offered to be present during her [...] Body mass index is 27.25 kg/m . 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 PAP Urine culture documented in this [facility]* Diagnosis 8 weeks gestation of - Primary state, incidental Encounter for supervision of normal first in first trimester Supervision of normal first POTS (postural orthostatic tachycardia syndrome) Tachycardia, unspecified BMI 30.0-30.9,adult Body Mass Index 30.0-30.9, adult documented in this encounter [facility] note* Diagnosis Encounter for supervision of normal [...] TRANSLUCENCY WHI; Future documented in this encounter [facility] note* Diagnosis Well woman exam with routine gynecological exam- Primary Routine gynecological examination Frequent urination Urinary frequency documented in this encounter [facility] note* Diagnosis Frequent urination- Primary Urinary frequency documented in this encounter [facility] note* Diagnosis Encounter for supervision of normal [...] and vomiting during documented in this encounter [facility] note* Diagnosis Encounter for supervision of normal first in first trimester- Primary Supervision of normal first 13 weeks gestation of state, incidental Encounter for screening of mother Unspecified screening Nausea and vomiting during Encounter for anatomic survey- Primary Encounter for supervision of normal first in first trimester Supervision of normal first Encounter for screening of mother Unspecified screening documented in this encounter [facility] note* Diagnosis Encounter for supervision of normal [...] Plan Note - Nancy Aguilar MD - 06/15/2024 2:44 PM EST Associated Problem(s): Supervision of high risk in second trimester documented in this encounter [facility] note* Diagnosis Encounter for supervision of normal [...] unspecified obesity type documented in this encounter [facility] note* Diagnosis Encounter for supervision of normal [...] of state, incidental documented in this encounter [facility]* Diagnosis Encounter for supervision of normal [...] - Primary Dysuria documented in this encounter [facility]* Diagnosis Encounter for supervision of normal [...] trimester Unspecified high-risk documented in this encounter [facility] note* Diagnosis Encounter for supervision of normal [...] obesity type (HCC) documented in this encounter [facility] HospitalProgress note Author Mable Ashley [facility] Note Date/Time October 27, 2024 10:41 am [facility] [address], [address] [place] [address] OFFICE VISIT Date of Service: 10/27/24 MR#: [id number] Acct: [id number] Name: CANDICE CARMICHAEL Rep #: [id number] : 1995 Provider: STEPHANIE Ashley Age/Sex: 28/F Location: [facility] Status: Signed Intake Vital Signs 09/20/24 10:23 10/18/24 15:40 10/27/24 10:23 Height 5 ft 2 in 5 ft 2 in 5 ft 2 in Weight: 199 lb BMI 36.3 BP 131/88 H Intake Visit Reasons: 39 WK OB Chief Complaint: 39wk OB Final Inspector Movement Assembly Required: No Is patient in pain?: No [...] mg-folate no.1 1 mg-dha 300 mg capsule (PNV-[place]) pyridoxine (vitamin B6) 100 mg 100 mg [...] physical activity do you participate in: none debo/temple: Mandaeism seatbelt use: always do you feel safe at home: Yes additional social history: Allison Buchanan PENNY History 1 Elective abortions Hx Para 0 [...] no improvement within 2 weeks 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 recommend therapy. 10/05/24 -?-?-?-?-?-?-?-?-?-?-?-?- 36w [...] gestation of Comment: QUENTIN from [facility] Orders: Orders POC Urinalysis 2 Dip (Clinic) [...] Cosigner Signature: Date (if applicable) CC: ~ [email or web address] Work Phone: Reason for referral (narrative)* Diagnostic Procedure Only (Routine) - Pending Review Specialty Diagnoses / Procedures Referred By Talisha harris Referred To Contact [facility] Diagnoses Encounter for supervision of normal first in first trimester Encounter for screening of mother Procedures NUCHAL TRANSLUCENCY WHI US NUCHAL TRANSLUCENCY 1ST GESTATION Nancy Aguilar MD [address] [place] [address] [address] Referral ID Status Reason Start Date Expiration Date Visits Requested Visits Authorized [id number] Pending Review Auto-Generat ed Referral 04/26/2024 04/26/2025 1 1 * Diagnostic Procedure Only (Routine) - Pending Review Specialty Diagnoses / Procedures Referred By Talisha harris Referred To Contact [facility] Diagnoses Encounter for supervision of normal first in first trimester 13 weeks gestation of Encounter for screening of mother Procedures OBSTETRIC ULTRASOUND WHI US PREG UTERUS AFTER 1ST TRIMEST GESTATION Nancy Aguilar MD [address] [place] [address] [facility] [place] [address] [place] [address] Referral ID Status Reason Start Date Expiration Date Visits Requested Visits Authorized [id number] Pending Review Auto-Generat ed Referral 04/26/2024 04/26/2025 1 1 [facility] for referral (narrative)* Consultation (Routine) - Pending Review Specialty Diagnoses / Procedures Referred By Talisha t Referred To Contact Urology / Urogynecology Diagnoses Frequent urination Procedures IA OFFICE/OUTPATIENT NEW HIGH MDM 60-74 MINUTES Linda Lilly MD [address] [facility] [address] [place] [address] Referral ID Status Reason Start Date Expiration Date Visits Requested Visits Authorized [id number] Pending Review Specialty Services Required 06/15/2022 06/15/2023 1 1 [facility] for referral (narrative)No reason for referral information availableTrout Run Medical Services Work Phone: Summary Purpose Family History Relationship Condition Age at Onset Recorded Date/T jennifer Not Specified Sudden cardiac Unknown grandmother Diabetes mellitus Unknown Malignant neoplasm of breast Unknown Alzheimer's dementia Unknown grandfather Malignant neoplasm 75 Chronic obstructive pulmonary disease Unk nown Advance Directives Documents on File Type Date Recorded Patient Medical File Clerk Expl anation ACP-Advance Directive ACP-Power of Publishing Specialist Chief Complaint and Reason for Visit Chief [...] 2:56p m Supervision of normal first Ma 2024 2:56pm Chief Complaint Admit Date fallJune [...] 2024 10:20 am Supervision of normal first ne 2024 10:20am Chief Complaint Admit Date NEW [...] 10:20 am Supervision of normal first Ju ne 2024 10:20am Anemia affecting November 01 2:03pm Anxiety and depression November 01, 2024 2 :03pm Choroid plexus cyst of fetus affecting care of mother, antepartum November 01, 2024 2:03pm Fatigue November 01, 2024 2:03 pm Obesity affecting November 01, 025 2:03pm POTS (postural orthostatic tachycardia s yndrome) November 01, 2024 2:03pm November 01, 2024 2:03 pm Supervision of normal first Ju ne 2024 2:03pm Chief Complaint Admit Date NEW OB 31 [...] WK OB November 01, 2024 2:03 pm RULE OUT LABOR November 04, 2024 1:50 am Additional Source Comments INFORMATION SOURCE (unrecogn ized section and content) DATE CREATED AUTHOR 12/12/2017 [facility] DATE CREATED AUTHOR AUTHOR'S ORGANIZ ATION 12/12/2017 [facility] DATE CREATED AUTHOR AUTHOR'S ORGANIZ ATION 01/05/2018 [facility] DATE CREATED AUTHOR AUTHOR'S ORGANIZ ATION 2021 [facility] DATE CREATED AUTHOR AUTHOR'S ORGANIZ ATION 09/02/2024 [facility] DATE CREATED AUTHOR AUTHOR'S ORGANIZ ATION 09/07/2024 [facility] DATE CREATED AUTHOR AUTHOR'S ORGANIZ ATION 11/03/2024 [facility] Care Teams (unrecognized sec tion and content) Team Status: Active Member Role Status Dates Dr. Christina Salter DO Primary Care Provider Ac tive Team Status: Inactive Member Role Status Dates Dr. Jayne Carmona DO Attending Provider Active Start: June 26, 2024 [...] September 05, 2024 Dr. Christina Salter DO Referring Provider Activ e Start: September 05, 2024 End: September 05, 2024 Team Status: Inactive Member Role Status Dates Dr. Christina Salter DO Primary Care Provider Ac tive Start: September 20, 2024 End: September 20, 2024 Dr. Christina Salter DO Referring Provider Activ e Start: September 20, 2024 End: September 20, 2024 Maureen Latif NP, DIGITAL CAMPAIGN MANAGER-C Attending Provider Active Start: September 20, 2024 End: September 20, 2024 Team Status: Inactive Member Role Status Dates Dr. Christina Salter , DO Primary Care Provider Ac tive Start: September 20, 2024 End: September 20, 2024 Maureen Latif DIGITAL CAMPAIGN MANAGER, DIGITAL CAMPAIGN MANAGER-C Attending Provider Active Start: September 20, 2024 End: September 20, 2024 Maureen Latif DIGITAL CAMPAIGN MANAGER, DIGITAL CAMPAIGN MANAGER-C Referring Provider Active Start: September 20, 2024 [...] End: October 18, 2024 Dr. Christina Salter DO Referring Provider Activ e Start: October 18, 2024 End: October 18, 2024 Dr. Janae Guidry MD Attending Provider Active Start: October 18, 2024 End: October 18, 2024 Magazine Writer Relationship Specialty Start Date End Date Christina Salter DO [address] [place], [place] [address] PCP - General Family Medicine 11/06/21 Magazine Writer Relationship Specialty Start Date End Date Christina Salter DO [address] [place], [place] [id number] PCP - General Family Medicine 11/06/21 Magazine Writer Relationship Specialty Start Date End Date Christina Salter DO [address] [place], [place] [address] PCP - General Family Medicine 03/21/24 Magazine Writer Relationship Specialty Start Date End Date Christina Salter DO [address] [place], [place] [address] PCP - General Family Medicine 03/21/24 Magazine Writer Relationship Specialty Start Date End Date Christina Salter DO [address] [place], [place] [address] PCP - General Family Medicine 03/21/24 Magazine Writer Relationship Specialty Start Date End Date Christina Salter [address] [place] [id number] PCP - General 11/06/21 Magazine Writer Relationship Specialty Start Date End Date GaetanoChristina [place] [id number] PCP - General 11/06/21 Magazine Writer Relationship Specialty Start Date End Date Gaetano, [place] [phone] PCP - General 11/06/21 Magazine Writer Relationship Specialty Start Date End Date Christina Salter DO [address] [place], [place] [id number] PCP - General Family Medicine 03/21/24 Magazine Writer Relationship Specialty Start Date End Date Christina Salter DO [address] [place], [place] [address] PCP - General Family Medicine 03/21/24 Magazine Writer Relationship Specialty Start Date End Date Christina Salter DO [address] [place], [place] [address] PCP - General Family Medicine 03/21/24 Magazine Writer Relationship Specialty Start Date End Date Christina Salter DO [address] [place] [address] PCP - General Family Medicine 03/21/24 Magazine Writer Relationship Specialty Start Date End Date Christina Salter DO [address] [place], [place] [address] PCP - General Family Medicine 03/21/24 Magazine Writer Relationship Specialty Start Date End Date Christina Salter DO [address] [place] [address] PCP - General Family Medicine 03/21/24 Magazine Writer Relationship Specialty Start Date End Date Christina Salter DO [address] [place] [address] PCP - General Family Medicine 03/21/24 Magazine Writer Relationship Specialty Start Date End Date Christina Salter [address] [place] [id number] PCP - General 11/06/21 Magazine Writer Relationship Specialty Start Date End Date Christina Salter DO [address] [place] [address] PCP - General Family Medicine 03/21/24 Team [...] November 01, 2024 End: November 01, 2024 Team Status: Inactive Member Role Status Dates Dr. Christina Salter DO Primary Care Provider Ac tive Start: November 04, 2024 End: November 04, 2024 Mable Ashley CNM Attending Provider Active S tart: November 04, 2024 End: November 04, 2024 Team Status: Inactive Member Role Status Dates Dr. Christina Salter DO Primary Care Provider Ac tive Start: November 04, 2024 End: November 04, 2024 Mable Ashley CNM Other Provider Active Start : November 04, 2024 End: November 04, 2024 Pati Martinez CNM Attending Provider Active Start: November 04, 2024 End: November 04, 2024 Source Comments (unrecognize d section and content) In the event this informatio n is protected by the Federal Confidentiality of Alcohol and Drug Abuse Patient Records regulations: The Federal rules restrict any use of the information to criminally investigate or prosecute any alcohol or drug abuse patient.[facility] the event this information is protected by the Federal Confidentiality of Alcohol and Drug Abuse Patient Records regulations: The Federal rules restrict any use of the information to criminally investigate or prosecute any alcohol or drug abuse patient.[facility] the event this information is protected by the Federal Confidentiality of Alcohol and Drug Abuse Patient Records regulations: The Federal rules restrict any use of the information to criminally investigate or prosecute any alcohol or drug abuse patient.[facility] the event this information is protected by the Federal Confidentiality of Alcohol and Drug Abuse Patient Records regulations: The Federal rules restrict any use of the information to criminally investigate or prosecute any alcohol or drug abuse patient.[facility] the event this information is protected by the Federal Confidentiality of Alcohol and Drug Abuse Patient Records regulations: The Federal rules restrict any use of the information to criminally investigate or prosecute any alcohol or drug abuse patient.[facility] the event this information is protected by the Federal Confidentiality of Alcohol and Drug Abuse Patient Records regulations: The Federal rules restrict any use of the information to criminally investigate or prosecute any alcohol or drug abuse patient.[facility] the event this information is protected by the Federal Confidentiality of Alcohol and Drug Abuse Patient Records regulations: The Federal rules restrict any use of the information to criminally investigate or prosecute any alcohol or drug abuse patient.[facility] the event this information is protected by the Federal Confidentiality of Alcohol and Drug Abuse Patient Records regulations: The Federal rules restrict any use of the information to criminally investigate or prosecute any alcohol or drug abuse patient.[facility] the event this information is protected by the Federal Confidentiality of Alcohol and Drug Abuse Patient Records regulations: The Federal rules restrict any use of the information to criminally investigate or prosecute any alcohol or drug abuse patient.[facility] the event this information is protected by the Federal Confidentiality of Alcohol and Drug Abuse Patient Records regulations: The Federal rules restrict any use of the information to criminally investigate or prosecute any alcohol or drug abuse patient.[facility] the event this information is protected by the Federal Confidentiality of Alcohol and Drug Abuse Patient Records regulations: The Federal rules restrict any use of the information to criminally investigate or prosecute any alcohol or drug abuse patient.[facility] the event this information is protected by the Federal Confidentiality of Alcohol and Drug Abuse Patient Records regulations: The Federal rules restrict any use of the information to criminally investigate or prosecute any alcohol or drug abuse patient.[facility] the event this information is protected by the Federal Confidentiality of Alcohol and Drug Abuse Patient Records regulations: The Federal rules restrict any use of the information to criminally investigate or prosecute any alcohol or drug abuse patient.[facility] Reason for Visit (unrecogniz ed section and content) Reason Comments Patient Update Reason Comments First OB Specialty Diagnoses / Procedures Referred By Talisha harris Referred To Contact [facility] Diagnoses and needs to do her first two appts as self pay as her insurance does not kick in until May sometime. Procedures consult test and treat Self [facility] [address] [place] [address] Referral ID Status Reason Start Date Expiration Date Visits Requested Visits Authorized [id number] Authorized Financial Clearance Required - Self Pay Patient Cleared - Qualified 100% FAS 4 05/25/2024 99 99 Reason Onset Date Comments Care 04/26/2024 Specialty Diagnoses / Procedures Referred By Talisha harris Referred To Contact [facility] Diagnoses and needs to do her first two appts as self pay as her insurance does not kick in until May sometime. Procedures consult test and treat Self [address] [address] Reason Comments Annual Exam Reason Onset Date Comments Results 06/16/2022 Reason Onset Date Comments Care 05/27/2024 Reason Comments US Specialty Diagnoses / Procedures Referred By Talisah harris Referred To Contact [facility] Diagnoses Encounter for supervision of normal first in first trimester Encounter for screening of mother Procedures NUCHAL TRANSLUCENCY WHI US NUCHAL TRANSLUCENCY 1ST GESTATION Nancy Aguilar MD [address] [place] [address] [address] Referral ID Status Reason Start Date Expiration Date Visits Requested Visits Authorized [id number] New Request Auto-Generate d Referral Clearance Not Met -Financial Clearance Bypassed 04/26/2024 04/26/2025 1 1 Reason Onset Date Comments Care 06/15/2024 Specialty Diagnoses / Procedures Referred By Talisha harris Referred To Contact [facility] Diagnoses Encounter for supervision of normal first in first trimester 13 weeks gestation of Encounter for screening of mother Procedures OBSTETRIC ULTRASOUND WHI US PREG UTERUS AFTER 1ST TRIMEST GESTATION Nancy Aguilar MD [address] [place] [address] [address] Referral ID Status Reason Start Date Expiration Date V isits Requested Visits Authorized [id number] Closed Auto-Generate d Referral 04/26/2024 04/26/2025 1 [...] BE BASED ON THE PRIMARY CLINICAL RECORDS. [facility] [employer] [facility]. provides no warranty or guarantee of the accuracy or completeness of information in this document.
[2024-11-05 08:10] LABS: Color, Urine Yellow (Yellow); Glucose, Dipstick Normal (Normal); Ketone-Dipstick 50 mg/dl (Negative); Leukocyte Esterase-Dipstick 25 /ul (Negative); Nitrite-Dipstick Negative (Negative); Occult Blood-Urine 10 /ul (Negative); Protein-Dipstick 15 mg/dl (Negative); Urine Bilirubin Dipstick Negative (Negative); Urine Clarity Clear (Clear); Urine Urobilinogen Normal (Normal)
--- NOTE | 2024-11-05 08:57 | OB.TRI.HP_ITS ---
HPI - General General Chief Complaint: contractions HPI Narrative DIANA CARMICHAEL, is a 28 F who presents at 40.4 with contractions on and off since thursday. presented to [facility] after worsening contractions since midnight. denies lof/vb. Maternal Data Information KHLOE Calculator Estimated Delivery Date Method Current WG Current Estimate 11/01/24 LMP (Certain) 40w 4d PFSH PFSH Medical History Vocal cord dysfunction Tipped uterus Home Medications ?Medication ?Instructions ?Recorded ?Last Taken ?Type aspirin 81 mg tablet,delayed 81 mg PO QDAY 09/02/24 20:00 History release 81 mg cholecalciferol (vitamin D3) 50 50 mcg PO QDAY 5 Unknown History mcg (2,000 unit) capsule Held on 11/04/24. Instructions: Pt has been DC'd ferrous sulfate 325 mg (65 mg 325 mg PO Q OTHER DAY 11/03/24 20:00 History iron) tablet 325 mg multivit-min no.71-iron fum 28 1 cap PO DAILY 09/02/24 11/03/24 08:00 History mg-folate no.1 1 mg-dha 300 mg 1 cap capsule (PNV-[place]) pyridoxine (vitamin B6) 100 mg 100 mg PO QDAY 09/02/24 11/03/24 20:00 History tablet 100 mg zinc acetate 50 mg (zinc) capsule 50 mg PO QDAY Unknown History Held on 11/04/24. Instructions: Pt has been DC'd hydroxyzine pamoate 25 mg capsule 25 mg PO Q6H PRN anx iety 30 days 09/22/24 Unknown Rx (Vistaril) #120 caps Held on 11/04/24. Instructions: Pt has been DC'd nitrofurantoin 100 mg PO Q12H 7 days #14 ca ps 11/05/24 Unknown Rx monohydrate/macrocrystals 100 mg capsule (Macrobid) phenazopyridine 200 mg tablet 200 mg PO TID 6 doses #6 tabs 11/05/24 Unknown Rx (Pyridium) Allergy/AdvReac Type Severity Reaction Status Date / Time Latex, Natural Rubber Allergy Intermediate Rash Verified 11/04/24 20:14 Family History Grandmother Diabetes Paternal Breast cancer Paternal- age of onset unknown Alzheimer's dementia Maternal Grandfather Cancer, Onset Age: 75 Paternal- Lung Cancer COPD (chronic obstructive pulmonary disease) Paternal Other Sudden cardiac Surgical History History of appendectomy Social History adopted: No household members: significant other housing: house current occupational status: employed 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: No pets and animals: No history of recent travel: Yes ([place]) out of state: Yes out of country: No sexually active: Yes Smoking Status: Never smoker alcohol intake: current alcohol intake frequency: holidays/special occasions only details: Not while substance use type: does not use well-balanced diet: about half the time caffeine: Yes Type: tea Number of servings: 1 eating out: 1-3 times/week during the past year weight has: increased > 10 lbs what type of physical activity do you participate in: none debo/tenriism: Religious seatbelt use: always do you feel safe at home: Yes additional social history: Fiance- Mikegurjit BATRES History 1 Elective abortions Hx Para 0 Spontaneous abortions Hx # Term Pregnancies Ectopic pregnancies Hx # Pregnancies Multiple births # of living children Visit Details Expected Delivery Route/Plan Labor Preferences- CB/BF classes: [] labor support person: Mike labor intervention preferences: [] pain management options preferred: epidural if requested cut cord/dad catch: yes : yes PP control planned: [] discussed possible routes of delivery and associated risks: [] special requests: [] Plans Covid status: [] Flu vaccine: [] Tdap vaccine: given Rhogam: na LARC form signed: yes movement and labor precautions reviewed. Problem list reviewed and updated with the most current plan of care details and appropriate orders placed. Relevant counseling for the gestational age provided. Continue routine care and follow up unless otherwise noted in visit notes/problem list details OB Flowsheet Initial Weight: Not Recorded Date -?-?-?-?-?-?-?-?-?-?-?-?- EGA Weight BP Urine Prot -?-?-?-?-?-?-?-?-?-?-?-?- Glucose FHR FuHt Pres Dilation -?-?-?-?-?-?-?-?-?-?-?-?- Effaced St Visit Note 09/05/24 -?-?-?-?-?-?-?-?-?-?-?-?- 31w 6d 191 lb 119/84 Negative -?-?-?-?-?-?-?-?-?-?-?-?- Negative 145 31 -?-?-?-?-?-?-?-?-?-?-?-?- SM- QUENTIN from [facility] , co fatigue, some SOB, saw PCP and recommended CT scan, dicsussed she can have if she wants, per calculator she is in low risk category. reviewed continuing iron supplement, nutrition, sleep patterns. may be POTS contributing also to symptoms. supportive care at this time. fu in 2 weeks repeat cbc at that time 09/20/24 -?-?-?-?-?-?-?-?-?-?-?-?- 34w 0d 189 lb 6 oz 117/78 Nega tive -?-?-?-?-?-?-?-?-?-?-?-?- Negative 152 34 -?-?-?-?-?-?-?-?-?-?-?-?- MH-No VB, LOF. G ood FM. Some anxiety but declines meds. Reviewed magnesium. Recheck CBC, hx of anemia. Reviewed FE supp. 09/22/24 -?-?-?-?-?-?-?-?-?-?-?-?- 34w 2d 191 lb 8 oz 112/74 Nega tive -?-?-?-?-?-?-?-?-?-?-?-?- Negative 140 34 -?-?-?-?-?-?-?-?-?-?-?-?- SM- feeling fati gued- any movement is challenging, feels short of breath, CT of chest was negative, she feels lethargic, on 09/17- started feeling anxious- she has spiraling, negative thoughts about her health and the baby's health, and she has overwhelming episodes where she feels like she cant do anything, and she has had a few occasional episodes before but this is new. she took zoloft in the past. SM- feeling fatigued- any mo vement is challenging, feels short of breath, CT of chest was negative, she feels lethargic, on 09/17- started feeling anxious- she has spiraling, negative thoughts about her health and the baby's health, and she has overwhelming episodes where she feels like she cant do anything, and she has had a few occasional episodes before but this is new. she took zoloft in the past. 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 recommend therapy. 10/05/24 -?-?-?-?-?-?-?-?-?-?-?-?- 36w 1d 193 lb 6 oz 115/72 Nega tive -?-?-?-?-?-?-?-?-?-?-?-?- Negative 145 36 Cephalic -?-?-?-?-?-?-?-?-?-?-?-?- JV- gbs collect ed today. declines pelvic check. feels better now that is on maternity leave. no complaints as above. 10/12/24 -?-?-?-?-?-?-?-?-?-?-?-?- 37w 1d 195 lb 2 oz 127/86 Nega tive -?-?-?-?-?-?-?-?-?-?-?-?- Negative 150 38 Cephalic -?-?-?-?-?-?-?-?-?-?-?-?- KW- no vb/lof/ct x. good fm.no concerns 10/18/24 -?-?-?-?-?-?-?-?-?-?-?-?- 38w 0d 195 lb 8 oz 118/86 Nega tive -?-?-?-?-?-?-?-?-?-?-?-?- Negative 140 38 Cephalic -?-?-?-?-?-?-?-?-?-?-?-?- SM- no vb lof go od fm no regular ctx feeling better. 10/27/24 -?-?-?-?-?-?-?-?-?-?-?-?- 39w 2d 199 lb 131/88 Negative -?-?-?-?-?-?-?-?-?-?-?-?- Negative 145 39 Cephalic -?-?-?-?-?-?-?-?-?-?-?-?- KW- no vb/lof/ct x. good fm. declines cervical check today. discussed options for IOL at 41 weeks 11/01/24 -?-?-?-?-?-?-?-?-?-?-?-?- 40w 0d 200 lb 2 oz 128/81 Nega tive -?-?-?-?-?-?-?-?-?-?-?-?- Negative 130 40 Cephalic 1 -?-?-?-?-?-?-?-?-?-?-?-?- 50 -2 KW- no vb/ lof/ctx. good fm. requesting IOL next . KW- no vb/lof/ctx. good fm. requesting IOL next Physical Exam Const alert, oriented x3 and no apparent distress Resp normal respiratory effort, normal air movement, no retractions and no use of accessory muscles Cardio regular rate and regular rhythm GI soft to palpation and non-tender Inspection: Palpation: soft Rectal Exam: deferred no CVA tenderness and external exam normal Bimanual Exam - Vag & Uterus: uterus non-tender and other gravid uterus, normal for gestational age OB / External & Speculum: Negative for herpetic lesions Manual OB Exam: estimated gestational size appropriate, presentation cephalic, dilated 2, effaced 60 and station -2 Amniotic Fluid: no amniotic fluid noted Extremity normal to inspection and full ROM NST FHR Rate Baby A Baseline: 130 Variability:: Moderate Accelerations:: 15 x 15 Decelerations:: None NST Reactive:: Yes FHR Category:: Category I Uterine Activity:: q2-7 Assessment & Plan (1) UTI (urinary tract infection): COMMENT: +heme, +leuks PLAN: pyridium and macrobid sent (2) False labor: COMMENT: unchanged cervical exam PLAN: labor precautions reviewed, home comfort techniques. Charges/Coding Procedures Urinary/Genital [id number]: [id number] non-stress test Interp Multi Select Codes Visit Charges Office Visit/Consults: 75611 OV L3 Est 20min
--- OUTSIDE RECORDS SUMMARY | 2024-11-05 13:28 | XMS RPT_ITS | CCD ---
Author Organization [facility] CliniSyme Care Team Providers Care Applications Architect Name Role Phone SUZY LEON Unavailable Unavailable SUZY LEON Unavailable Unavailable WANEK, CHRIS A Unavailable Unavailable WANEK, CHRIS A Unavailable Unavailable Gaetano Christina MONZON Primary Care Provider GaetanoChristina ennis DO Primary Care Provider Christina Salter Primary Care Provider [phone] CITLALI BAUER Attending Unavailable GAETANO, CHRISTINA L [...] Care Unavailable Gaetano, Christina Primary Care Provider [phone] Dr. Christina Salter DO Primary Care Provid er Gaetano MONZON, Dr. Christina Sandoval Attending Provider Dr. Jayne Carmona DO Attending Provider [phone] Chao MIGUEL, Dr. Cardoso Attending Provider Gaetano MONZON, Dr. Christina Sandoval Referring Provider Salomon RN HOME CARE-C, Maureen Attending Provider [phone] Salomon RN HOME CARE-C, Maureen Referring Provider [phone] Filiberto Gonzales DO, Dr. Michaels Attending Provider Filiberto Gonzales DO, Dr. Michaels Referring Provider Mable Ashley CNM Attending Provider [phone] Gaetano MONZON, Dr. Christina Sandoval Primary Care [facility] er Gaetano MONZON, Dr. Christina Sandoval Attending [facility] Referring Unavailabl e Gaetano Christina Lori Attending Unavailabl e Gaetano [facility] Primary Care Unavailabl e Gaetano [facility] Primary [facility] Unavailabl e Salomon RN HOME CARE, Maureen Referring Unavailable Salomon RN HOME CAREMaureen Attending Unavailable Ga[facility], [facility] Referring Unavailabl e Gaetano [facility] Primary Care Unavailabl e Mable Ashley Attending Unavailable Janae Guidry Attending Unavailable Gaetano, [facility] Unavailabl e Gaetano, [place] [facility] Referring Unavailabl e Mable Ashley Attending Unavailable [facility] Care Unavailabl e Gaetano [facility] Referring Unavailabl e [place] RN HOME CARE, Maureen Attending Unavailable Gaetano, [facility] Care Unavailabl e Gaetano, [facility] Referring Unavailabl e Janae Guidry Attending Unavailable [facility] Primary Care Unavailabl e Gaetano, [facility] Referring Unavailabl e Xenia Edouard Attending Unavailabl e Gaetano, [facility] Care Unavailabl e Gaetano, [facility] Referring Unavailabl e Mable Ashley Attending Unavailable Gaetano [facility] Referring Unavailabl e Janae Guidry Attending Unavailable Gaetano, [facility] Unavailabl e Gaetano, [facility] Care Unavailabl e Gaetano, [facility] Attending Unavailabl e Gaetano, [facility] Attending Unavailabl e Gaetano, [facility] Care Unavailabl e Gaetano, [facility] Attending Unavailabl e Gaetano, [facility] Care Unavailabl e Gaetano, [facility] Care Unavailabl e Janae Guidry Attending Unavailable Gaetano, [facility] Attending Unavailabl e Gaetano, [facility] Unavailabl e Jayne Carmona Attending Unavailable Xenia Edouard Referring Unavailabl e Xenia Edouard Attending Unavailabl e Gaetano, [facility] UnavailMable Taylor CNM Other Provider [phone] Pati Martinez CNM Attending Provider [phone] Pati Martinez CNM Other Provider Allergies Allergy Classification Reported Allergen(s) Allergy Type Date of Onset Reaction(s) Facility (14 sources) Latex; Translations: [LATEX] Drug Allergy 03-22-2024 [facility] (9 sources) natural latex rubber Allergy to substance 10-05-2024 [facility] (1 source) natural latex rubber Drug allergy (disorder) 11-01-2024 [facility] Repository Medications Current Medications Medication Drug Class(es) Dates Sig (Normalized) Sig (Original) aspirin 81 mg delayed release oral tablet (20 sources) Platelet Aggregation Inhibitor, Nonsteroidal Anti-inflammatory Drug Start: 03-25-2024 take 1 tablet by mouth once daily Aspirin 81 mg tablet,delayed release (DR/EC) Active 81 mg PO daily September 02, 2024 12:00am cholecalciferol 0.05 mg oral capsule (9 sources) Vitamin D Start: 09-02-2024 take 1 [...] Active ferrous sulfate 325 mg oral tablet (9 sources) Start: 09-02-2024 take 1 tablet by mouth every other day Ferrous Sulfate 325 mg (65 mg iron) tablet Active 325 mg PO every other day September 02, 2024 12:00am hydrOXYzine pamoate 25 mg oral capsule (9 sources) Antihistamine Start: 09-22-2024 take 1 capsule [...] 8 HOURS NEEDED 2 10/14/2018 Active Mv-Mins 51-Sypz-Gmypy No.1-Dha (Pnv-Le[place]burg) 28-1-300 mg capsule (9 sources) Start: 09-02-2024 Mv-Mins 78-Mmoq-Ductg No.1-Dha (Pnv-[place]) 28-1-300 mg capsule Active 1 NMA PO DAILY September 02, 2024 12:00am Start: 09-02-2024 Mv-Mins 71-Iro n-Folic No.1-Dha (Pnv-[place]) 28-1-300 mg capsule Active NMA PO September 02, 2024 12:00am nitrofurantoin, macrocrystals 25 mg / nitrofurantoin, monohydrate 75 mg oral capsule (1 source) Nitrofuran Antibacterial Start: 11-05-2024 take 1 capsule by mouth every twelve hours at mealtime Nitrofurantoin Monohyd/M-Cryst (Macrobid) 100 mg capsule Active 100 mg PO Q12H 14 November 05, 2024 12:00am must administer with a meal/food ondansetron 4 mg oral tablet (11 sources) Serotonin-3 Receptor Antagonist Start: 04-26-2024 take 1 tablet by mouth every eight hours as needed for nausea ondansetron (ZOFRAN) 4 mg tablet Indications: Nausea and vomiting during (HCC) Take 1 tablet by mouth every 8 hours as needed for nausea/vomiting. 30 tablet 1 04/26/2024 Active phenazopyridine hydrochloride 200 mg oral tablet (1 source) Start: 11-05-2024 take 1 tablet by mouth three times daily Phenazopyridine (Pyridium) 200 mg tablet Active 200 mg PO THREE TIMES A DAY November 05, 2024 12:00am NO.167-FOLIC ACID-DHA ORAL (12 sources) NO.167-FOLIC ACID-DHA ORAL Take by mouth. Active pyridoxine HCl, vitamin B6, (VITAMIN B-6 ORAL) (6 sources) pyridoxine HCl, vitamin B6, (VITAMIN B-6 ORAL) Take by mouth once daily. Active vitamin b6 100 mg oral tablet (9 sources) Start: 09-02-2024 take 1 tablet by mouth once daily Pyridoxine (Vitamin B6) 100 mg tablet Active 100 mg PO daily September 02, 2024 12:00am zinc acetate 50 mg oral capsule (9 sources) Start: 09-02-2024 take 1 capsule by mouth once daily Zinc Acetate 50 mg (zinc) capsule Active 50 mg PO daily September 02, 2024 12:00am On Hold: Pt has been DC'd Completed/Discontinued Medications Medication Drug Class(es) Dates Sig (Normalized) Sig (Original) choline bitartrate 250 mg oral tablet (9 sources) Start: 09-02-2024 End: 11-04-2024 take 1 [...] unspecified] Onset: 12-10-2017 Chronic E Codes: Fall (13 sources) Fall; Translations: [Unspecified fall, initial encounter] 09-05-2024 Episodic Early or threatened labor (2 sources) False labor; Translations: [False labor, unspecified] 11-05-2024 Episodic Comment on above: unchanged cervical e xam Genitourinary symptoms and ill-defined conditions (3 sources) [...] , KHLOE , Cher' Mike QUENTIN from [facility] Other screening for suspected conditions (not [...] ] Onset: 06-15-2024 Episodic Residual codes; unclassified (9 sources) Family history of breast cancer; Translations: [...] cysts, not applicable or unspecified] Onset: 10-27-2024 Urinary tract infections (2 sources) Urinary tract infectious disease; Translations: [Urinary tract infection, site not specified] 11-05-2024 Episodic Comment on above: +heme, +leuks Past or Other Problems Problem Classification Problem [...] Test Name Value Interpretation Reference Range Facility Bilirubin Test strip Ql (U)O rdered By: Pati Martinez on 11-05-2024 Bilirubin Ql (U) Negative Negative [facility] Ketones Test strip Ql (U)Ord ered By: Pati Martinez on 11-05-2024 Ketones Ql (U) 50 mg/dl High Negative [facility] Nitrite Test strip Ql (U)Ord ered By: Pati Martinez on 11-05-2024 Nitrite Ql (U) Negative Negative [facility] Protein Test strip Ql (U)Ord ered By: Pati Martinez on 11-05-2024 Protein Ql (U) 15 mg/dl High Negative [facility] Urine clarityOrdered By: Yanely Martinez on 11-05-2024 Clarity (U) Clear Clear [facility] Urine color determinationOrd ered By: Pati Martinez on 11-05-2024 Color (U) Yellow Yellow [facility] Urine glucose detectionOrder ed By: Pati Martinez on 11-05-2024 Glucose Ql (U) Normal mg/dl Normal [facility] Urine leukocyte esterase det ection by dipstickOrdered By: Pati Martinez on 11-05-2024 Leukocyte esterase Test strip Ql (U) 25 /ul High Negative [facility] Urine pHOrdered By: Pati Martinez on 11-05-2024 pH (U) 7.0 [pH] 5.0 - 8.0 [facility] Urine specific gravity measu rementOrdered By: Pati Martinez on 11-05-2024 Specific gravity (U) [Rel density] 1.010 1.002-1.030 [facility] Urine urobilinogen measureme ntOrdered By: Pati Martinez on 11-05-2024 Urobilinogen Ql (U) Normal mg/dl Normal [facility] Proposal Development Manager Office Visit Reporton 11-01-2024 Proposal Development Manager Office Visit Report [facility] [address], [address] [place] [address] OFFICE VISIT Date of Service: 11/01/24 MR#: [id number] Acct: [id number] Name: CANDICE CARMICHAEL Rep #: [id number] : 1995 Provider: STEPHANIE Wilhelm ams Age/Sex: 28/F Location: [facility] Status: Signed Intake Vital Signs 09/20/24 10:23 10/27/24 10:23 11/01/24 14:06 Height 5 ft 2 in 5 ft 2 in 5 ft 2 in Weight: 199 lb 200 lb 2 oz BMI 36.3 36.6 BP 131/88 H 128/81 H Intake Visit Reasons: 40 WK OB Online Media Buyer Required: No Is patient in pain?: No [...] mg-folate no.1 1 mg-dha 300 mg capsule (PNV-[place]esburg) pyridoxine (vitamin B6) 100 mg 100 mg [...] house current occupational status: employed current occupation: [employer] current occupational exposures/hazards: No pets and animals: [...] physical activity do you participate in: none debo/religious: Alevism seatbelt use: always do you feel safe at home: Yes additional social history: Allison Adams- VINNY History 1 Elective abortions Hx Para 0 [...] -???-???-???-???-???-???- ???-???-???-???-???-? (more content not included)... Normal [facility] - Chemistry and C hemistry - challengeOrdered By: Mable Ashley on 10-27-2024 Glucose Ql (U) Negative [facility] - UrinalysisOrder ed By: Mable Ashley on 10-27-2024 Protein Ql (U) Negative [facility] Proposal Development Manager Office Visit Reporton 10-27-2024 Proposal Development Manager Office Visit Report [facility] [address], [address] [place] [address] OFFICE VISIT Date of Service: 10/27/24 MR#: [id number] Acct: [id number] Name: CANDICE CARMICHAEL Rep #: [id number] : 1995 Provider: STEPHANIE Wilhelm ams Age/Sex: 28/F Location: [facility] Status: Signed Intake Vital Signs 09/20/24 10:23 10/18/24 15:40 10/27/24 10:23 Height 5 ft 2 in 5 ft 2 in 5 ft 2 in Weight: 199 lb BMI 36.3 BP 131/88 H Intake Visit Reasons: 39 WK OB Chief Complaint: 39wk OB Online Media Buyer Required: No Is patient in pain?: No [...] mg-folate no.1 1 mg-dha 300 mg capsule (PNV-[place]) pyridoxine (vitamin B6) 100 mg 100 mg [...] physical activity do you participate in: none debo/religious: Alevism seatbelt use: always do you feel safe at home: Yes additional social history: Cher- Mike Adams- [employer] History 1 Elective abortions Hx Para [...] ???-???-???-???-???-???- SM- (more content not included)... Normal [facility] - Chemistry and C hemistry - challengeOrdered By: Janae Guidry on 10-18-2024 Glucose Ql (U) Negative [facility] - UrinalysisOrder ed By: Janae Guidry on 10-18-2024 Protein Ql (U) Negative [facility] Proposal Development Manager Office Visit Reporton 10-18-2024 Proposal Development Manager Office Visit Report [facility] [address], [address] [place] [address] OFFICE VISIT Date of Service: 10/18/24 MR#: [id number] Acct: [id number] Name: CANDICE CARMICHAEL Rep #: [id number] : 1995 Provider: Dr. Janae stout MD Age/Sex: 28/F Location: [facility] Status: Signed Intake Vital Signs 09/20/24 10:23 10/12/24 15:05 10/18/24 15:40 Height 5 ft 2 in 5 ft 2 in 5 ft 2 in Weight: 195 lb 2 oz 195 lb 8 oz BMI 35.6 35.7 BP 127/86 H 118/86 H Intake Visit Reasons: 38 WK OB Online Media Buyer Required: No Is patient in pain?: No [...] mg-folate no.1 1 mg-dha 300 mg capsule (PNV-Leesburg) pyridoxine (vitamin B6) 100 mg 100 mg [...] physical activity do you participate in: none debo/religious: Alevism seatbelt use: always do you feel safe at home: Yes additional social history: Allison Adams- [employer] History 1 Elective abortions Hx Para [...] -???-???-???-???-???-???- ???-???- (more content not included)... Normal [facility] - Chemistry and C hemistry - challengeOrdered By: Mable Ashley on 10-12-2024 Glucose Ql (U) Negative [facility] - UrinalysisOrder ed By: Mable Ashley on 10-12-2024 Protein Ql (U) Negative [facility] Proposal Development Manager Office Visit Reporton 10-12-2024 Proposal Development Manager Office Visit Report [facility] [address], [address] [place] [address] OFFICE VISIT Date of Service: 10/12/24 MR#: [id number] Acct: [id number] Name: CANDICE CARMICHAEL Rep #: [id number] : 1995 Provider: STEPHANIE Wilhelm ams Age/Sex: 28/F Location: [facility] Status: Signed Intake Vital Signs 09/20/24 10:23 10/05/24 14:40 10/12/24 15:05 Height 5 ft 2 in 5 ft 2 in 5 ft 2 in Weight: 195 lb 2 oz BMI 35.6 BP 127/86 H Intake Visit Reasons: 37 WK OB Chief Complaint: 37wk OB Online Media Buyer Required: No Is patient in pain?: No [...] mg-folate no.1 1 mg-dha 300 mg capsule (PNV-Leesburg) pyridoxine (vitamin B6) 100 mg 100 mg [...] physical activity do you participate in: none debo/religious: Alevism seatbelt use: always do you feel safe at home: Yes additional social history: Allison Adams- WC History 1 Elective abortions Hx Para [...] -???-???-???-???-???-???- ???-???-???-???-???-???- (more content not included)... Normal [facility] Rule out Beta Strep (Grp. B) on 10-07-2024 KETTY Group B Beta Streptococcus is not isolated. Normal [facility] Comment on above: Performed By: #### M 100.3400 #### [facility] [address] [place], [place], [address] Laboratory - Chemistry and C hemistry - challengeOrdered By: Xenia Gonzales on 10-05-2024 Glucose Ql (U) Negative [facility] - UrinalysisOrder ed By: Xenia Gonzales on 10-05-2024 Protein Ql (U) Negative [facility] Proposal Development Manager Office Visit Reporton 10-05-2024 Proposal Development Manager Office Visit Report [facility] [address], [address] [place] [address] OFFICE VISIT Date of Service: 10/05/24 MR#: [id number] Acct: [id number] Name: CANDICE CARMICHAEL Rep #: [id number] : 1995 Provider: Dr. Xenia Stone DO Age/Sex: 28/F Location: [facility] Status: Signed Intake Vital Signs 09/05/24 11:40 09/22/24 08:36 10/05/24 14:40 10/05/24 14:40 Height 5 ft 2 in 5 ft 2 in 5 ft 2 in 5 ft 2 in Weight: 193 lb 6 oz BMI 35.4 BP 115/72 Intake Visit Reasons: 36 wk ob Online Media Buyer Required: No Is patient in pain?: No [...] mg-folate no.1 1 mg-dha 300 mg capsule (PNV-Leesburg) pyridoxine (vitamin B6) 100 mg 100 mg [...] physical activity do you participate in: none debo/religious: Alevism seatbelt use: always do you feel safe at home: Yes additional social history: Allison Mckeon Bryan- [employer] History 1 Elective abortions Hx [...] 31 -???-???-???-???-???-??? (more content not included)... Normal [facility] Screening beta-hemolytic Str eptococcus cultureOrdered By: Xenia Gonzales on 10-05-2024 Beta-hemolytic Streptococcus culture Group B Beta Streptococcus is not isolated. [facility] - Chemistry and C hemistry - challengeOrdered By: Janae Guidry on 09-22-2024 Glucose Ql (U) Negative [facility] - UrinalysisOrder ed By: Janae Guidry on 09-22-2024 Protein Ql (U) Negative [facility] Proposal Development Manager Office Visit Reporton 09-22-2024 Proposal Development Manager Office Visit Report [address], [address] [place] [address] OFFICE VISIT Date of Service: 09/22/24 MR#: [id number] Acct: [id number] Name: CANDICE CARMICHAEL Rep #: [id number] : 1995 Provider: Dr. Janae stout MD Age/Sex: 28/F Location: [facility] [place] Status: Signed with Addenda ADDENDUM by Maureen Kulkarni on 09/22/24 at 0932 Office Procedure Documentation entered by Maureen Kulkarni 09/22/24 09:32: Immunizations Boostrix Tdap 2.5 Lf unit-8 mcg-5 Lf/0.5 mL intramuscular syringe Performing Provider: Janae Guidry MD Performing Location: [facility] Administered by: Maureen Kulkarni on 09/22/24 09:30 Dose Route Admin Location Dispensed Lot Number Expiration Date NDC Man ufacturer 0.5 mL IM Right Deltoid 0.5 mL [id number] 09/21/26 37826-855-64 SANO[employer]- PREMIERP VIS Given Date VIS Provided VIS Publication Date 09/22/24 Single Vaccine 24 Eligibility Eligibility Date Funding Source Not Applicable Date cc: * Signed Intake Vital Signs 09/20/24 10:23 09/22/24 08:36 Height 5 ft 2 in 5 ft 2 in Weight: 189 lb 6 oz 191 lb 8 oz BMI 34.6 35.0 BP 117/78 112/74 Intake Visit Reasons: OB, Questions Online Media Buyer Required: No Is patient in pain?: No [...] mg-folate no.1 1 mg-dha 300 mg capsule (PNV-[place]) pyridoxine (vitamin B6) 100 mg 100 mg [...] physical activity do you participate in: none debo/religious: Alevism seatbelt use: always do you feel safe [...] precautions review (more content not included)... Normal [facility] Absolute lymphocyte countOrd ered By: Maureen Latif on 09-20-2024 Lymphocytes Auto (Unsp spec) [#/Vol] 1.82 10*3/uL 0.83-4.51 [facility] Absolute neutrophil countOrd ered By: Maureen Latif on 09-20-2024 Neutrophils (Bld) [#/Vol] 7.4 10*3/uL 2.0-7.7 [facility] Automated lymphocyte count a s percentage of total leukocytesOrdered By: Maureen Latif on 09-20-2024 Lymphocytes/100 WBC Auto (Unsp spec) 18.3 % Low 19-41 [facility] Basophil percentageOrdered B y: Maureen Latif on 09-20-2024 Basophils/100 WBC (Bld) 0.2 % 0-1 [facility] CBC W/Diff, Automatedon 08-24 Absolute Lymph 1.82 X10 3/uL Normal 0.83-4.51 [facility] Comment on above: Performed By: #### L 100.0100 #### [facility] [address] [place], [address] Absolute Neut 7.4 X10 3/uL Normal 2.0-7.7 [facility] Comment on above: Performed By: #### L 100.0100 #### [facility] [address] [place] [place], [address] Basophils/100 WBC (Bld) 0.2 % Normal 0-1 [facility] Comment on above: Performed By: #### L 100.0100 #### [facility] [address] [place], [address] Eosinophils/100 WBC (Bld) 0.6 % Normal 0-5 [facility] Comment on above: Performed By: #### L 100.0100 #### [facility] [address] [place] [place], [address] Erythrocyte distribution width (RBC) [Ratio] 13.8 % Normal 11.6-14.6 [facility] Comment on above: Performed By: #### L 100.0100 #### [facility] [address] [place], [address] Hematocrit (Bld) [Volume fraction] 35.0 % Low 37-47 [facility] Comment on above: Performed By: #### L 100.0100 #### [facility] [address] [place], [address] Hemoglobin (Bld) [Mass/Vol] 11.1 g/dL Low 12.0-15.0 [facility] Comment on above: Performed By: #### L 100.0100 #### [facility] [address] [place], [address] IG% 0.500 Normal 0.0-0.9 [facility] Comment on above: Result Comment: IG% - Immature Granulocytes (promyelocytes, myelocytes and metamyelocytes) > 1% indicates that a LEFT SHIFT is Present. Performed By: #### L 100.0100 #### [facility] [address] [place], [address] Lymphocytes/100 WBC (Bld) 18.3 % Low 19-41 [facility] Comment on above: Performed By: #### L 100.0100 #### [facility] [address] [place], [address] MCH (RBC) [Entitic mass] 27.5 pg Normal 27.0-32.0 [facility] Comment on above: Performed By: #### L 100.0100 #### [facility] [address] [place], [address] MCHC (RBC) [Mass/Vol] 31.7 g/dL Low 32-36 [facility] Comment on above: Performed By: #### L 100.0100 #### [facility] [address] [place], [address] MCV (RBC) [Entitic vol] 86.6 fL Normal 81-99 [facility] Comment on above: Performed By: #### L 100.0100 #### [facility] [address] [place], [address] Monocytes/100 WBC (Bld) 5.8 % Normal 0-10 [facility] Comment on above: Performed By: #### L 100.0100 #### [facility] [address] [place], [address] Neutrophils/100 WBC (Bld) 74.6 % High 47-70 [facility] Comment on above: Performed By: #### L 100.0100 #### [facility] [address] [place], [address] Nucleated RBC (Bld) [#/Vol] 0 10*3/uL Normal 0-5 [facility] Comment on above: Performed By: #### L 100.0100 #### [facility] [address] [place], [address] Platelet mean volume (Bld) [Entitic vol] 9.6 fL Normal 6.2-12.0 [facility] Comment on above: Performed By: #### L 100.0100 #### [facility] [address] [place], [address] Platelets (Bld) [#/Vol] 274 10*3/uL Normal 150-450 [facility] Comment on above: Performed By: #### L 100.0100 #### [facility] [address] [place], [address] RBC (Bld) [#/Vol] 4.04 10*6/uL Low 4.2-5.4 [facility] Comment on above: Performed By: #### L 100.0100 #### [facility] [address] [place], [address] RDW SD 42.2 fl Normal 35.1-43.9 [facility] Comment on above: Performed By: #### L 100.0100 #### [facility] [address] [place], [address] WBC (Bld) [#/Vol] 9.9 10*3/uL Normal 4.4-11.0 [facility] Comment on above: Performed By: #### L 100.0100 #### [facility] [address] [place], [address] Eosinophil percentageOrdered By: Maureen Latif on 09-20-2024 Eosinophils/100 WBC (Bld) 0.6 % 0-5 [facility] Erythrocyte distribution wid th ratioOrdered By: Maureen Latif on 09-20-2024 Erythrocyte distribution width (RBC) [Ratio] 13.8 % 11.6-14.6 [facility] Erythrocyte distribution wid th standard deviationOrdered By: Maureenmagnus Latif on 09-20-2024 Erythrocyte distribution width (RBC) [Ratio] 42.2 fl 35.1-43.9 [facility] Hematocrit Auto (Bld) [Volum e fraction]Ordered By: Maureenmagnus Latif on 09-20-2024 Hematocrit (Bld) [Volume fraction] 35.0 % Low 37-47 [facility] Hemoglobin measurementOrdere d By: Maureen Latif on 09-20-2024 Hemoglobin (Bld) [Mass/Vol] 11.1 g/dL Low 12.0-15.0 [facility] Immature granulocytes/100 WB C Auto (Bld)Ordered By: Maureen Latif on 09-20-2024 Immature granulocytes/100 WBC (Bld) 0.500 % 0.0-0.9 [facility] Comment on above: IG% - Immature Granu locytes (promyelocytes, myelocytes and metamyelocytes) > 1% indicates that a LEFT SHIFT is Present. Laboratory - Chemistry and C hemistry - challengeOrdered By: Mable Ashley on 09-20-2024 Glucose Ql (U) Negative [facility] - UrinalysisOrder ed By: Mable Ashley on 09-20-2024 Protein Ql (U) Negative [facility] MCV (mean corpuscular volume ) determinationOrdered By: Maureen Latif on 09-20-2024 MCV (RBC) [Entitic vol] 86.6 fL 81-99 [facility] Mean corpuscular hemoglobin (MCH) determinationOrdered By: Maureen Latif on 09-20-2024 MCH (RBC) [Entitic mass] 27.5 pg 27.0-32.0 [facility] Mean corpuscular hemoglobin concentration (MCHC) determinationOrdered By: Maureen Latif on 09-20-2024 MCHC (RBC) [Mass/Vol] 31.7 g/dL Low 32-36 [facility] Mean platelet volume determi nationOrdered By: Maureen Latif on 09-20-2024 Platelet mean volume (Bld) [Entitic vol] 9.6 fL 6.2-12.0 [facility] Monocyte percentageOrdered B y: Maureen Latif on 09-20-2024 Monocytes/100 WBC (Bld) 5.8 % 0-10 [facility] Neutrophil percentageOrdered By: Maureen Latif on 09-20-2024 Neutrophils/100 WBC (Bld) 74.6 % High 47-70 [facility] Nucleated red blood cell per centageOrdered By: Maureen Latif on 09-20-2024 Nucleated RBC/100 WBC (Bld) [Ratio] 0 % 0-5 [facility] Platelet countOrdered By: Jarod Latif on 09-20-2024 Platelets (Bld) [#/Vol] 274 10*3/uL 150-450 [facility] RBC Auto (Bld) [#/Vol]Ordere d By: Maureen Latif on 09-20-2024 RBC (Bld) [#/Vol] 4.04 10*6/uL Low 4.2-5.4 [facility] White blood cell (WBC) count Ordered By: Maureen Latif on 09-20-2024 WBC (Bld) [#/Vol] 9.9 10*3/uL 4.4-11.0 [facility] 36on 09-05-2024 36 S: Patient spoke [...] Protocols used: Information Only Call - No Lelbra-AKLYR-[id number] Normal [facility] CTA Chest W/WO Contraston CTA Chest W/WO Contrast [facility] Imaging Services [address] [place] [address] CTA Chest W/WO Contrast MR#: [id number] Acct: [id number] Name: CANDICE CARMICHAEL Rep #: [id number] : 1995 F 28 From: Ramiro Art MD PCP: Christina Salter DO Status: REG CLI Study: CTA Chest W/WO Contrast Date of Exam: 09/05/24 Exam# [id number] Ordering Dr: Christina Salter DO PROCEDURE: CTA [...] abnormal finding in the chest. Reading Location: [facility] CC: Christina Salter DO Bunch Maker: Signed Normal [facility] - Chemistry and C hemistry - challengeOrdered By: Xenia Gonzales on 09-05-2024 Glucose Ql (U) Negative [facility] - UrinalysisOrder ed By: Xenia Gonzales on 09-05-2024 Protein Ql (U) Negative [facility] Proposal Development Manager Office Visit Reporton 09-05-2024 Proposal Development Manager Office Visit Report [facility] [address], [address] [place] [address] OFFICE VISIT Date of Service: 09/05/24 MR#: [id number] Acct: [id number] Name: CANDICE CARMICHAEL Rep #: [id number] : 1995 Provider: Dr. Janae stout MD Age/Sex: 28/F Location: [facility] Status: Signed Intake Vital Signs 06/26/24 19:30 09/05/24 11:40 Height 5 ft 2 in 5 ft 2 in Weight: 191 lb BMI 34.9 BP 119/84 H Pulse 110 H Intake Visit Reasons: NEW OB 31 WKS *PER Online Media Buyer Required: No Is patient in pain?: No [...] mg-folate no.1 1 mg-dha 300 mg capsule (PNV-[place]) pyridoxine (vitamin B6) 100 mg 100 mg [...] physical activity do you participate in: none debo/religious: Alevism seatbelt use: always do you feel safe [...] she c (more content not included)... Normal [facility] CNPNon 08-31-2024 CNPN Telephone (OBGYWM) ----- CANDICE CARMICHAEL ([id number]) 1995 F Date Time Provider Department 08/31/24 YENNIFER COUCH OBGYWM During your visit today, we recorded the [...] Next ob appointment is 09/07/2024 Yennifer Couch APRN.CNM 08/31/2024 4:29 PM Signed Agree with plan of care. Add in some electrolytes and increase fluid intake. REGINA Taveras Jennifer, PHILIP 08/31/2024 4:35 PM Signed Left message for patient to call office. Xenia Carter RN Allergies As of Date: 08/31/2024 Noted Allergy Reaction LATEX 03/22/2024 2 - Rash Date Reviewed: 08/24/2024 Reviewed by: Zenaida Mitchell APRN.LIAISON OFFICER - Fully Assessed Reason for Visit: Care [...] Status:Closed by YENNIFER COUCH on 08/31/24 Normal [facility] CBC W Auto Differential pane l (Bld)on 08-10-2024 Basophils (Bld) [#/Vol] 10*3/uL Normal <0.11 [facility] Comment on above: Order Comment: Speci men Type: BLOOD SPECIMEN Ordering Facility: [facility] Address: [address] [place] [address] Performed By: #### 5 7021-8 #### [facility] CLIA [id number] [address] [place] [address] [place] Basophils/100 WBC (Bld) 0.2 % Normal [facility] Comment on above: Order Comment: Speci men Type: BLOOD SPECIMEN Ordering Facility: [facility] Address: [address] [place] [address] Performed By: #### 5 7021-8 #### [facility] CLIA [id number] [address] [place] [address] [place] Differential cell count method Nom (Bld) Auto Normal [facility] Comment on above: Order Comment: Katiei men Type: BLOOD SPECIMEN Ordering Facility: [facility] Address: [address] [place] [address] Performed By: #### 5 7021-8 #### [facility] CLIA [id number] [address] [place] [address] [place] Eosinophils (Bld) [#/Vol] 0.06 10*3/uL Normal <0.46 [facility] Comment on above: Order Comment: Speci men Type: BLOOD SPECIMEN Ordering Facility: [facility] Address: [address] [place] [address] Performed By: #### 5 7021-8 #### [facility] CLIA [id number] [address] [place] [address] [place] Eosinophils/100 WBC (Bld) 0.7 % Normal [facility] Comment on above: Order Comment: Speci men Type: BLOOD SPECIMEN Ordering Facility: [facility] Address: [address] [place] [address] Performed By: #### 5 7021-8 #### [facility] CLIA [id number] [address] [place] [address] [place] Erythrocyte distribution width (RBC) [Ratio] 12.6 % Normal 11.5-15.0 [facility] Comment on above: Order Comment: Speci men Type: BLOOD SPECIMEN Ordering Facility: [facility] Address: [address] [place] [address] Performed By: #### 5 7021-8 #### [facility] CLIA [id number] [address] [place] [address] [place] Hematocrit (Bld) [Volume fraction] 30.8 % Low 36.0-46.0 [facility] Comment on above: Order Comment: Speci men Type: BLOOD SPECIMEN Ordering Facility: [facility] Address: [address] [place] [address] Performed By: #### 5 7021-8 #### [facility] CLIA [id number] [address] [place] [address] [place] Hemoglobin (Bld) [Mass/Vol] 10.2 g/dL Low 11.5-15.5 [facility] Comment on above: Order Comment: Speci men Type: BLOOD SPECIMEN Ordering Facility: [facility] Address: [address] [place] [address] Performed By: #### 5 7021-8 #### [facility] CLIA [id number] [address] [place] [address] [place] Immature granulocytes (Bld) [#/Vol] 0.05 10*3/uL Normal <0.10 [facility] Comment on above: Order Comment: Speci men Type: BLOOD SPECIMEN Ordering Facility: [facility] Address: [address] [place] [address] Performed By: #### 5 7021-8 #### [facility] CLIA [id number] [address] [place] [address] [place] Immature granulocytes/100 WBC (Bld) 0.5 % Normal [facility] Comment on above: Order Comment: Speci men Type: BLOOD SPECIMEN Ordering Facility: [facility] Address: [address] [place] [address] Performed By: #### 5 7021-8 #### [facility] CLIA [id number] [address] [place] [address] [place] Lymphocytes (Bld) [#/Vol] 1.54 10*3/uL Normal 1.00-4.00 [facility] Comment on above: Order Comment: Speci men Type: BLOOD SPECIMEN Ordering Facility: [facility] Address: [address] [place] [address] Performed By: #### 5 7021-8 #### [facility] CLIA [id number] [address] [place] [address] [place] Lymphocytes/100 WBC (Bld) 16.8 % Normal [facility] Comment on above: Order Comment: Speci men Type: BLOOD SPECIMEN Ordering Facility: [facility] Address: [address] [place] [address] Performed By: #### 5 7021-8 #### [facility] CLIA [id number] [address] [place] [address] [place] MCH (RBC) [Entitic mass] 28.3 pg Normal 26.0-34.0 [facility] Comment on above: Order Comment: Speci men Type: BLOOD SPECIMEN Ordering Facility: [facility] Address: [address] [place] [address] Performed By: #### 5 7021-8 #### [facility] CLIA [id number] [address] [place] [address] [place] MCHC (RBC) [Mass/Vol] 33.1 g/dL Normal 30.5-36.0 [facility] Comment on above: Order Comment: Speci men Type: BLOOD SPECIMEN Ordering Facility: [facility] Address: [address] [place] [address] Performed By: #### 5 7021-8 #### [id number] [address] [place] [address] [place] MCV (RBC) [Entitic vol] 85.3 fL Normal 80.0-100.0 [facility] Comment on above: Order Comment: Speci men Type: BLOOD SPECIMEN Ordering Facility: [facility] Address: [address] [place] [address] Performed By: #### 5 7021-8 #### [facility] CLIA [id number] [address] [place] [address] [place] Monocytes (Bld) [#/Vol] 0.56 10*3/uL Normal <0.87 [facility] Comment on above: Order Comment: Speci men Type: BLOOD SPECIMEN Ordering Facility: [facility] Address: [address] [place] [address] Performed By: #### 5 7021-8 #### [facility] [id number] [address] [place] [address] [place] Monocytes/100 WBC (Bld) 6.1 % Normal [facility] Comment on above: Order Comment: Speci men Type: BLOOD SPECIMEN Ordering Facility: [facility] Address: [address] [place] [address] Performed By: #### 5 7021-8 #### [facility] CLIA [id number] [address] [place] [address] [place] Neutrophils (Bld) [#/Vol] 6.93 10*3/uL Normal 1.45-7.50 [facility] Comment on above: Order Comment: Speci men Type: BLOOD SPECIMEN Ordering Facility: [facility] Address: [address] [place] [address] Performed By: #### 5 7021-8 #### [facility] CLIA [id number] [address] [place] [address] [place] Neutrophils/100 WBC (Bld) 75.7 % Normal [facility] Comment on above: Order Comment: Speci men Type: BLOOD SPECIMEN Ordering Facility: [facility] Address: [address] [place] [address] Performed By: #### 5 7021-8 #### [facility] CLIA [id number] [address] [place] [address] [place] Nucleated RBC (Bld) [#/Vol] 10*3/uL Normal <0.01 [facility] Comment on above: Order Comment: Speci men Type: BLOOD SPECIMEN Ordering Facility: [facility] Address: [address] [place] [address] Performed By: #### 5 7021-8 #### [facility] CLIA [id number] [address] [place] [address] [place] Nucleated RBC/100 WBC (Bld) [Ratio] 0.0 /100 WBC Normal [facility] Comment on above: Order Comment: Speci men Type: BLOOD SPECIMEN Ordering Facility: [facility] Address: [address] [place] [address] Performed By: #### 5 7021-8 #### [facility] CLIA [id number] [address] [place] [address] [place] Platelet mean volume (Bld) [Entitic vol] 9.7 fL Normal 9.0-12.7 [facility] Comment on above: Order Comment: Speci men Type: BLOOD SPECIMEN Ordering Facility: [facility] Address: [address] [place], [place] [address] Performed By: #### 5 7021-8 #### [facility] CLIA [id number] [address] [place] [address] [place] Platelets (Bld) [#/Vol] 274 10*3/uL Normal 150-400 [facility] Comment on above: Order Comment: Speci men Type: BLOOD SPECIMEN Ordering Facility: [facility] Address: [address] [place], [place] [address] Performed By: #### 5 7021-8 #### [facility] CLIA [id number] [address] [place] [address] [place] RBC (Bld) [#/Vol] 3.61 10*6/uL Low 3.90-5.20 [facility] Comment on above: Order Comment: Speci men Type: BLOOD SPECIMEN Ordering Facility: [facility] Address: [address] [place] [address] Performed By: #### 5 7021-8 #### [facility] CLIA [id number] [address] [place] [address] [place] WBC (Bld) [#/Vol] 9.16 10*3/uL Normal 3.70-11.00 [facility] Comment on above: Order Comment: Speci men Type: BLOOD SPECIMEN Ordering Facility: [facility] Address: [address] [place] [address] Performed By: #### 5 7021-8 #### [facility] CLIA [id number] [address] [place] [address] [place] GESTATIONAL GLUCOSE SCREEN, 1-HOUR, 50 GRAM, NON-FASTINGon 08-10-2024 Glucose [Mass/Vol] 113 mg/dL Normal 74-134 [facility] Comment on above: Order Comment: Speci men Type: BLOOD SPECIMEN Ordering Facility: [facility] Address: [address] [place] [address] Result Comment: [facility] Congress of Obstetricians and Gynecologists (Zoe/Manohar) guidelines state a gestational diabetes mellitus positive screen is made, in women not previously diagnosed with overt diabetes, when the 1 hr plasma glucose level is equal to or above 140 mg/dL. [facility] Proposal Development Manager and [facility] [place] recommends a 135 mg/dL cutoff. Performed By: #### G LTGST #### [facility] CLIA [id number] [address] [place] [address] [place] Reagin and Treponema pallidu m IgG and IgM [Interp]on 08-10-2024 T. pallidum IgG+IgM IA Ql (S) Non-Reactive Normal Nonreactive [facility] Comment on above: Order Comment: Katiei men Type: BLOOD SPECIMEN Ordering Facility: [facility] Address: [address] [place] [address] Performed By: #### 7 3752-8 #### [facility] CLIA [id number] [address] [place] [address] [place] Reagin+T pallidum IgG+IgM Se rPl-Impon 08-10-2024 Reagin and Treponema pallidum IgG and IgM [Interp] Cannot exclude recent Treponemal infection if specimen collected within 7-10 days after appearance of suspect lesions or 2-3 weeks after an exposure. Clinical correlation is required. Normal [facility] Comment on above: Order Comment: Speci men Type: BLOOD SPECIMEN Ordering Facility: [facility] Address: [address] [place] [address] Performed By: #### 7 3752-8 #### [facility] CLIA [id number] [address] [place] [address] [place] Bacteria Ur Culton Bacteria identified Cx Nom (U) ORGANISM ID: 1 <10,000 CFU/ml Normal urogenital poli Normal [facility] Comment on above: Performed By: #### G LTGST #### [facility] CLIA [id number] [address] [place] [address] [place] UA DIP, URINE (POC)on 2024 BILIRUBIN UA (POCT) Negative Negative [facility] CLARITY UA (POCT) Clear [facility] COLOR UA (POCT) Yellow [facility] GLUCOSE UA (POCT) Negative Negative mg/dL [facility] Hemoglobin Ql (U) Negative Negative [facility] KETONE UA (POCT) Negative Negative mg/dL [facility] LEUKOCYTES UA (POCT) Negative Negative [facility] NITRITE UA (POCT) Negative Negative [facility] PH UA (POCT) 6 4.5 - 8.0 [facility] Protein Ql (U) Negative Negative mg/dL [facility] SPECIFIC GRAVITY UA (POCT) 1.025 1.005 - 1.030 [facility] UROBILINOGEN UA (POCT) 0.2 Normal E.U./dL [facility] Location:[facility], [address] [place] [address], [address] [place] [address] POINT OF CARE [facility] OB Triage Physician Noteon 0 06-30-2024 OB Triage Physician Note [facility] Medical Records Department [address] [place] [address] OB Triage Physician Note 06/30/24 0858 MR#: [id number] Acct: [id number] Name: EVEJONATHANSTACICANDICE K Rep #: [id number] : 1995 28 From: Jayne Carmona DO PCP: Status:DEP CLI Y Location: [facility] HPI - General General Date of Service: 06/26/24 Chief Complaint: fall HPI Narrative CANDICE YBARRAJONATHAN, is a 28 F who presents after [...] Signature (if applicable): Date CC: Dr. Jayne Carmona, Signed Normal [facility] Examination level ultrasound on 06-15-2024 Indication [...] 12 oz EFW by: Hadlock (HC-AC-FL) Extended Profile Grinder Technician 5.4 mm CM 4.3 mm 24% Nicolaides [...] normal LVOT view: normal 3-vessel view: normal 2-hlrswa-pcszwmp view: normal Heart / Thorax Situs: situs [...] Read By: Daija Ware M.D. MATERNAL MEDICINE [facility] Radiology Study observation (narrative) [facility] CBC panel Auto (Bld)on 05-27 Erythrocyte distribution width (RBC) [Ratio] 12.2 % 11.5 - 15.0 % [facility] Hematocrit (Bld) [Volume fraction] 33.5 % Low 36.0 - 46.0 % [facility] Hemoglobin (Bld) [Mass/Vol] 11.3 g/dL Low 11.5 - 15.5 g/dL [facility] Interpretation and review of laboratory results Abnormal [facility] MCH (RBC) [Entitic mass] 28.4 pg 26.0 - 34.0 pg [facility] MCHC (RBC) [Mass/Vol] 33.7 g/dL 30.5 - 36.0 g/dL [facility] MCV (RBC) [Entitic vol] 84.2 fL 80.0 - 100.0 fL [facility] Nucleated RBC (Bld) [#/Vol] NINF [facility] Platelet mean volume (Bld) [Entitic vol] 9.2 fL 9.0 - 12.7 fL [facility] Platelets (Bld) [#/Vol] 252 10*3/uL [facility] RBC (Bld) [#/Vol] 3.98 10*6/uL 3.90 - 5.2 0 m/uL [facility] WBC (Bld) [#/Vol] 10.05 10*3/uL [facility] Erythrocyte distribution width (RBC) [Ratio] 12.2 % Normal 11.5-15.0 [facility] Comment on above: Order Comment: Speci men Type: BLOOD SPECIMEN Ordering Facility: [facility] Address: [address] [place] [address] Performed By: #### 5 8410-2 #### [facility] CLIA [id number] [address] [place] [address] [place] Hematocrit (Bld) [Volume fraction] 33.5 % Low 36.0-46.0 [facility] Comment on above: Order Comment: Speci men Type: BLOOD SPECIMEN Ordering Facility: [facility] Address: [address] [place] [address] Performed By: #### 5 8410-2 #### [facility] [id number] [address] [place] [address] [place] Hemoglobin (Bld) [Mass/Vol] 11.3 g/dL Low 11.5-15.5 [facility] Comment on above: Order Comment: Speci men Type: BLOOD SPECIMEN Ordering Facility: [facility] Address: [address] [place] [address] Performed By: #### 5 8410-2 #### [facility] [id number] [address] [place] [address] [place] MCH (RBC) [Entitic mass] 28.4 pg Normal 26.0-34.0 [facility] Comment on above: Order Comment: Speci men Type: BLOOD SPECIMEN Ordering Facility: [facility] Address: [address] [place] [address] Performed By: #### 5 8410-2 #### [facility] [id number] [address] [place] [address] [place] MCHC (RBC) [Mass/Vol] 33.7 g/dL Normal 30.5-36.0 [facility] Comment on above: Order Comment: Speci men Type: BLOOD SPECIMEN Ordering Facility: [facility] Address: [address] [place] [address] Performed By: #### 5 8410-2 #### [facility] CLIA [id number] [address] [place] [address] [place] MCV (RBC) [Entitic vol] 84.2 fL Normal 80.0-100.0 [facility] Comment on above: Order Comment: Speci men Type: BLOOD SPECIMEN Ordering Facility: [facility] Address: [address] [place] [address] Performed By: #### 5 8410-2 #### [facility] CLIA [id number] [address] [place] [address] [place] Nucleated RBC (Bld) [#/Vol] 10*3/uL Normal <0.01 [facility] Comment on above: Order Comment: Speci men Type: BLOOD SPECIMEN Ordering Facility: [facility] Address: [address] [place] [address] Performed By: #### 5 8410-2 #### [facility] CLIA [id number] [address] [place] [address] [place] Platelet mean volume (Bld) [Entitic vol] 9.2 fL Normal 9.0-12.7 [facility] Comment on above: Order Comment: Speci men Type: BLOOD SPECIMEN Ordering Facility: [facility] Address: [address] [place] [address] Performed By: #### 5 8410-2 #### [facility] CLIA [id number] [address] [place] [address] [place] Platelets (Bld) [#/Vol] 252 10*3/uL Normal 150-400 [facility] Comment on above: Order Comment: Speci men Type: BLOOD SPECIMEN Ordering Facility: [facility] Address: [address] [place] [address] Performed By: #### 5 8410-2 #### [facility] CLIA [id number] [address] [place] [address] [place] RBC (Bld) [#/Vol] 3.98 10*6/uL Normal 3.90-5.20 [facility] Comment on above: Order Comment: Speci men Type: BLOOD SPECIMEN Ordering Facility: [facility] Address: [address] [place], [place] [address] Performed By: #### 5 8410-2 #### [facility] CLIA [id number] [address] [place] [address] [place] WBC (Bld) [#/Vol] 10.05 10*3/uL Normal 3.70-11.00 [facility] Comment on above: Order Comment: Speci men Type: BLOOD SPECIMEN Ordering Facility: [facility] Address: [address] [place], [place] [address] Performed By: #### 5 8410-2 #### [facility] [id number] [address] [place] [address] [place] nuchal translucency me [...] 6 oz EFW by: Hadlock (HC-AC-FL) Extended Profile Grinder Technician 6.6 mm Extremities / Bony Struc [place] [...] visualized LVOT view: normal 3-vessel view: normal 2-wxjukh-ukswfwm view: normal Heart / Thorax Situs: situs [...] Read By: Camilo Fraga M.D. MATERNAL MEDICINE [facility] Radiology Study observation (narrative) [facility] CBC W Auto Differential pane l (Bld)on 04-26-2024 Basophils (Bld) [#/Vol] 0.03 10*3/uL Normal <0.11 [facility] Comment on above: Order Comment: Speci men Type: BLOOD SPECIMEN Ordering Facility: [facility] Address: [address] [place] [address] Performed By: #### 5 7021-8 #### [facility] CLIA [id number] [address] [place] [address] [place] Basophils/100 WBC (Bld) 0.4 % Normal [facility] Comment on above: Order Comment: Speci men Type: BLOOD SPECIMEN Ordering Facility: [facility] Address: [address] [place] [address] Performed By: #### 5 7021-8 #### [facility] CLIA [id number] [address] [place] [address] [place] Differential cell count method Nom (Bld) Auto Normal [facility] Comment on above: Order Comment: Speci men Type: BLOOD SPECIMEN Ordering Facility: [facility] [facility] Address: [address] [place] [address] Performed By: #### 5 7021-8 #### [facility] CLIA [id number] [address] [place] [address] [place] Eosinophils (Bld) [#/Vol] 0.09 10*3/uL Normal <0.46 [facility] Comment on above: Order Comment: Speci men Type: BLOOD SPECIMEN Ordering Facility: [facility] Address: [address] [place] [address] Performed By: #### 5 7021-8 #### [facility] CLIA [id number] [address] [place] [address] [place] Eosinophils/100 WBC (Bld) 1.1 % Normal [facility] Comment on above: Order Comment: Speci men Type: BLOOD SPECIMEN Ordering Facility: [facility] Address: [address] [place] [address] Performed By: #### 5 7021-8 #### [facility] CLIA [id number] [address] [place] [address] [place] Erythrocyte distribution width (RBC) [Ratio] 12.0 % Normal 11.5-15.0 [facility] Comment on above: Order Comment: Speci men Type: BLOOD SPECIMEN Ordering Facility: [facility] Address: [address] [place] [address] Performed By: #### 5 7021-8 #### [facility] CLIA [id number] [address] [place] [address] [place] Hematocrit (Bld) [Volume fraction] 34.4 % Low 36.0-46.0 [facility] Comment on above: Order Comment: Speci men Type: BLOOD SPECIMEN Ordering Facility: [facility] Address: [address] [place] [address] Performed By: #### 5 7021-8 #### [facility] CLIA [id number] [address] [place] [address] [place] Hemoglobin (Bld) [Mass/Vol] 11.5 g/dL Normal 11.5-15.5 [facility] Comment on above: Order Comment: Speci men Type: BLOOD SPECIMEN Ordering Facility: [facility] Address: [address] [place] [address] Performed By: #### 5 7021-8 #### [facility] CLIA [id number] [address] [place] [address] [place] Immature granulocytes (Bld) [#/Vol] 0.03 10*3/uL Normal <0.10 [facility] Comment on above: Order Comment: Speci men Type: BLOOD SPECIMEN Ordering Facility: [facility] Address: [address] [place] [address] Performed By: #### 5 7021-8 #### [facility] CLIA [id number] [address] [place] [address] [place] Immature granulocytes/100 WBC (Bld) 0.4 % Normal [facility] Comment on above: Order Comment: Speci men Type: BLOOD SPECIMEN Ordering Facility: [facility] Address: [address] [place] [address] Performed By: #### 5 7021-8 #### [facility] CLIA [id number] [address] [place] [address] [place] Lymphocytes (Bld) [#/Vol] 1.99 10*3/uL Normal 1.00-4.00 [facility] Comment on above: Order Comment: Speci men Type: BLOOD SPECIMEN Ordering Facility: [facility] Address: [address] [place] [address] Performed By: #### 5 7021-8 #### [facility] CLIA [id number] [address] [place] [address] [place] Lymphocytes/100 WBC (Bld) 23.4 % Normal [facility] Comment on above: Order Comment: Speci men Type: BLOOD SPECIMEN Ordering Facility: [facility] Address: [address] [place] [address] Performed By: #### 5 7021-8 #### [facility] CLIA [id number] [address] [place] [address] [place] MCH (RBC) [Entitic mass] 28.0 pg Normal 26.0-34.0 [facility] Comment on above: Order Comment: Speci men Type: BLOOD SPECIMEN Ordering Facility: [facility] Address: [address] [place] [address] Performed By: #### 5 7021-8 #### [facility] CLIA [id number] [address] [place] [address] [place] MCHC (RBC) [Mass/Vol] 33.4 g/dL Normal 30.5-36.0 [facility] Comment on above: Order Comment: Speci men Type: BLOOD SPECIMEN Ordering Facility: [facility] Address: [address] [place] [address] Performed By: #### 5 7021-8 #### [facility] CLIA [id number] [address] [place] [address] [place] MCV (RBC) [Entitic vol] 83.9 fL Normal 80.0-100.0 [facility] Comment on above: Order Comment: Speci men Type: BLOOD SPECIMEN Ordering Facility: [facility] Address: [address] [place] [address] Performed By: #### 5 7021-8 #### [id number] [address] [place], [place] [address] [place] Monocytes (Bld) [#/Vol] 0.48 10*3/uL Normal <0.87 [facility] Comment on above: Order Comment: Speci men Type: BLOOD SPECIMEN Ordering Facility: [facility] Address: [address] [place] [address] Performed By: #### 5 7021-8 #### [facility] CLIA [id number] [address] [place] [address] [place] Monocytes/100 WBC (Bld) 5.6 % Normal [facility] Comment on above: Order Comment: Speci men Type: BLOOD SPECIMEN Ordering Facility: [facility] Address: [address] [place] [address] Performed By: #### 5 7021-8 #### [facility] CLIA [id number] [address] [place] [address] [place] Neutrophils (Bld) [#/Vol] 5.88 10*3/uL Normal 1.45-7.50 [facility] Comment on above: Order Comment: Speci men Type: BLOOD SPECIMEN Ordering Facility: [facility] Address: [address] [place] [address] Performed By: #### 5 7021-8 #### [facility] CLIA [id number] [address] [place] [address] [place] Neutrophils/100 WBC (Bld) 69.1 % Normal [facility] Comment on above: Order Comment: Speci men Type: BLOOD SPECIMEN Ordering Facility: [facility] Address: [address] [place] [address] Performed By: #### 5 7021-8 #### [facility] CLIA [id number] [address] [place] [address] [place] Nucleated RBC (Bld) [#/Vol] 10*3/uL Normal <0.01 [facility] Comment on above: Order Comment: Speci men Type: BLOOD SPECIMEN Ordering Facility: [facility] Address: [address] [place] [address] Performed By: #### 5 7021-8 #### [facility] CLIA [id number] [address] [place] [address] [place] Nucleated RBC/100 WBC (Bld) [Ratio] 0.0 /100 WBC Normal [facility] Comment on above: Order Comment: Speci men Type: BLOOD SPECIMEN Ordering Facility: [facility] Address: [address] [place] [address] Performed By: #### 5 7021-8 #### [facility] CLIA [id number] [address] [place] [address] [place] Platelet mean volume (Bld) [Entitic vol] 9.5 fL Normal 9.0-12.7 [facility] Comment on above: Order Comment: Speci men Type: BLOOD SPECIMEN Ordering Facility: [facility] Address: [address] [place] [address] Performed By: #### 5 7021-8 #### [facility] CLIA [id number] [address] [place] [address] [place] Platelets (Bld) [#/Vol] 251 10*3/uL Normal 150-400 [facility] Comment on above: Order Comment: Speci men Type: BLOOD SPECIMEN Ordering Facility: [facility] Address: [address] [place] [address] Performed By: #### 5 7021-8 #### [facility] CLIA [id number] [address] [place] [address] [place] RBC (Bld) [#/Vol] 4.10 10*6/uL Normal 3.90-5.20 [facility] Comment on above: Order Comment: Speci men Type: BLOOD SPECIMEN Ordering Facility: [facility] Address: [address] [place] [address] Performed By: #### 5 7021-8 #### [facility] CLIA [id number] [address] [place] [address] [place] WBC (Bld) [#/Vol] 8.50 10*3/uL Normal 3.70-11.00 [facility] Comment on above: Order Comment: Speci men Type: BLOOD SPECIMEN Ordering Facility: [facility] Address: [address] [place] [address] Performed By: #### 5 7021-8 #### [facility] CLIA [id number] [address] [place] [address] [place] HBV surface Ag Ser Qlon 12 HBV surface Ag Ql (S) Negative Normal Negative [facility] Comment on above: Order Comment: Speci men Type: BLOOD SPECIMEN Ordering Facility: [facility] Address: [address] [place] [address] Performed By: #### 7 3752-8, 29401-5, 5195-3 #### [facility] CLIA [id number] [address] [place] [address] [place] HCV Ab Ser Qlon 04-26-2024 HCV Ab Ql (S) Negative Normal Negative [facility] Comment on above: Order Comment: Speci men Type: BLOOD SPECIMEN Ordering Facility: [facility] Address: [address] [place] [address] Result Comment: The result suggests no evidence of active infection with Hepatitis C virus. Should recent infection be suspected, repeat testing may be considered 4-6 weeks after this draw. Performed By: #### 1 6128-1 #### [facility] CLIA [id number] [address] [place] [address] [place] HIV 1+2 Ab IA Qlon HIV 1 and 2 Ab IA.rapid Nom (S/P/Bld) Normal [facility] Comment on above: Order Comment: Speci men Type: BLOOD SPECIMEN Ordering Facility: [facility] Address: [address] [place] [address] Result Comment: Test not indicated. Performed By: #### 7 3752-8, 45656-5, 5195-3 #### [facility] CLIA [id number] [address] [place] [address] [place] HIV 1+2 Ab+HIV1 p24 Ag IA Ql Non-Reactive Normal Nonreactive [facility] Comment on above: Order Comment: Speci men Type: BLOOD SPECIMEN Ordering Facility: [facility] Address: [address] [place] [address] Performed By: #### 7 3752-8, 54261-5, 5195-3 #### [facility] CLIA [id number] [address] [place] [address] [place] HIV immunoassay testing algorithm interpretation (S/P/Bld) [Interp] Normal [facility] Comment on above: Order Comment: Speci men Type: BLOOD SPECIMEN Ordering Facility: [facility] Address: [address] [place] [address] Result Comment: No e vidence of HIV-1 or HIV-2 infection. Should recent infection be suspected, repeat testing may be considered 2-3 weeks after this draw. [place] Rev. Code 3701.243(E): This information has been [...] or diagnoses. Performed By: #### 7 3752-8, 16105-1, 5195-3 #### [facility] CLIA [id number] [address] [place] [address] [place] HbA1c (Bld)on 04-26-2024 Average glucose Estimated from glycated hemoglobin (Bld) [Mass/Vol] 94 mg/dL Normal [facility] Comment on above: Order Comment: Speci men Type: BLOOD SPECIMEN Ordering Facility: [facility] Address: [address] [place] [address] Result Comment: eAG: (Estimated average glucose) is a calculated value from HgbA1c and is factory representative of the average blood glucose level in the last 2-3 month period. Performed By: #### G LTGST #### [facility] CLIA [id number] [address] [place] [address] [place] HbA1c (Bld) [Mass fraction] 4.9 % Normal 4.3-5.6 [facility] Comment on above: Order Comment: Speci men Type: BLOOD SPECIMEN Ordering Facility: [facility] Address: [address] [place] [address] Result Comment: Amer [place] Diabetes Association guidelines indicate that patients with HgbA1c in the range 5.7-6.4% are at increased risk for development of diabetes, and intervention by lifestyle modification may be beneficial. HgbA1c greater or equal to 6.5% is considered diagnostic of diabetes. Performed By: #### G LTGST #### [id number] [address] [place] [address] [place] Iron and Iron binding capaci ty panelon 04-26-2024 Iron [Mass/Vol] 67 ug/dL Normal 41-186 [facility] Comment on above: Order Comment: Speci men Type: BLOOD SPECIMEN Ordering Facility: [facility] Address: [address] [place] [address] Performed By: #### 5 0190-8 #### [facility] CLIA [id number] [address] [place] [address] [place] Iron binding capacity [Mass/Vol] 327 ug/dL Normal 232-386 [facility] Comment on above: Order Comment: Speci men Type: BLOOD SPECIMEN Ordering Facility: [facility] Address: [address] [place] [address] Performed By: #### 5 0190-8 #### [facility] CLIA [id number] [address] [place] [address] [place] Iron/TIBC [Molar ratio] 20.5 % Normal 15.0-57.0 [facility] Comment on above: Order Comment: Kathi vazquez Type: BLOOD SPECIMEN Ordering Facility: [facility] Address: [address] [place] [address] Performed By: #### 5 0190-8 #### [facility] CLIA [id number] [address] [place] [address] [place] RUBELLA IGG ANTIBODYon 04-26 RUBELLA IGG AB, QUAL Positive Normal Positive [facility] Comment on above: Order Comment: Kathi vazquez Type: BLOOD SPECIMEN Ordering Facility: [facility] Address: [address] [place] [address] Result Comment: The result suggests recent or past exposure to Rubella virus or history of Rubella vaccination. Positive result may also be seen due to presence of passively-transferred antibodies. Please correlate with patient's history. Performed By: #### G LTGST #### [facility] CLIA [id number] [address] [place] [address] [place] Reagin and Treponema pallidu m IgG and IgM [Interp]on 04-26-2024 T. pallidum IgG+IgM IA Ql (S) Non-Reactive Normal Nonreactive [facility] Comment on above: Order Comment: Katiei george Type: BLOOD SPECIMEN Ordering Facility: [facility] Address: [address] [place] [address] Performed By: #### 7 3752-8, 02591-9, 5195-3 #### [facility] CLIA [id number] [address] [place] [address] [place] Reagin+T pallidum IgG+IgM Se rPl-Impon 04-26-2024 Reagin and Treponema pallidum IgG and IgM [Interp] Cannot exclude recent Treponemal infection if specimen collected within 7-10 days after appearance of suspect lesions or 2-3 weeks after an exposure. Clinical correlation is required. Normal [facility] Comment on above: Order Comment: Speci men Type: BLOOD SPECIMEN Ordering Facility: [facility] Address: [address] [place] [address] Performed By: #### 7 3752-8, 88702-8, 5195-3 #### [facility] CLIA [id number] [address] [place] [address] [place] [address] [place] TYPE + SCREEN PRENATALon ABO A Normal [facility] Comment on above: Order Comment: Speci men Type: BLOOD SPECIMEN Ordering Facility: [facility] Address: [address] [place] [address] Performed By: #### G LTGST #### [facility] CLIA [id number] [address] [place] [address] [place] Rh Nom (Bld) Positive Normal [facility] Comment on above: Order Comment: Speci men Type: BLOOD SPECIMEN Ordering Facility: [facility] Address: [address] [place] [address] Performed By: #### G LTGST #### [facility] CLIA [id number] [address] [place] [address] [place] TYPE AND SCREEN EXPIRATION 04/29/2024 23:59 Normal [facility] Comment on above: Order Comment: Speci men Type: BLOOD SPECIMEN Ordering Facility: [facility] Address: [address] [place] [address] Performed By: #### G LTGST #### [facility] CLIA [id number] [address] [place] [address] [place] Bacteria Ur Culton 4 Bacteria identified Cx Nom (U) ORGANISM ID: 1 <10,000 CFU/ml Normal urogenital poli Normal [facility] Comment on above: Performed By: #### G LTGST #### [facility] CLIA [id number] [address] [place] [address] [place] C. trachomatis+N. gonorrhoea e DNA MICHAEL+probe Ql (Unsp spec)on 03-25-2024 C. trachomatis rRNA MICHAEL+probe Ql (Unsp spec) Negative Normal Negative for Chlamydia trachomatis by amplificaton [facility] Comment on above: Order Comment: Speci men Type: BLOOD SPECIMEN Ordering Facility: [facility] Address: [address] [place] [address] Performed By: #### G LTGST #### [facility] CLIA [id number] [address] N. gonorrhoeae rRNA MICHAEL+probe Ql (Unsp spec) Negative Normal Negative for Neisseria gonorrhoeae by amplification [facility] Comment on above: Order Comment: Speci men Type: BLOOD SPECIMEN Ordering Facility: [facility] Address: [address] [place] [address] Performed By: #### G LTGST #### [facility] CLIA [id number] [address] [place] [address] [place] POC ADJUSTER LEADER ULTRASOUNDon 03-25-20 24 Indication Confirmation of intrauterine . Confirmation of [...] Read By: Citlali Bauer CNP MATERNAL MEDICINE [facility] Radiology Study observation (narrative) [facility] Calli 03-22-2024 CNPN Telephone (OBGYWM) ----- CANDICE CARMICHAEL ([id number]) 1995 F Date Time Provider Department 03/22/24 [...] Status:Closed by XENIA CARTER on 03/22/24 Normal [facility] CT Abdomen w/ + w/o Contrast on 11-19-2021 CT Abdomen w/ + w/o Contrast Patient Name: CANDICE CARMICHAEL Computed Tomography ACCESSION EXAM DATE/TIME PROCEDURE ORDERING PROVIDER [id number] 11/19/2021 09:[address] Abdomen w/ + w/o DO GAETANO CHRISTINA L Contrast CPT code 59957 Q9967 Reason For Exam (CT Abdomen w/ [...] Transcribed Date and Time: 11/20/2021 1:43 Normal [facility] US ABDOMEN COMPLETEon 2021 Patient Name: CANDICE AUGUSTIN Ultrasound ACCESSION EXAM DATE/TIME PROCEDURE ORDERING PROVIDER [id number] 11/06/2021 11:17 EDT US Abdomen Complete DO GAETANO CHRISTINA Aleksandr CPT code 78112 Reason For Exam (US Abdomen Complete) abdominal [...] focal lesion identified. Gallbladder: Normal. Per the remote sensing technologist, the sonographic Gloria's sign was negative. [...] NICHOLAS Transcribed Date and Time: 11/06/2021 11:44 [facility] Oliver Millard MD - 11/06/2021 [id number] Ul[facility]ound ACCESSION EXAM DATE/TIME PROCEDURE ORDERING PROVIDER [id number] 11/06/2021 11:17 EDT US Abdomen Complete DO SALTER HANNAH L CPT code 20132 Reason For Exam (US Abdomen Complete) abdominal [...] focal lesion identified. Gallbladder: Normal. Per the remote sensing technologist, the sonographic Gloria's sign was negative. [...] Ultrasound ACCESSION EXAM DATE/TIME PROCEDURE ORDERING PROVIDER [id number] 11/06/2021 11:17 EDT US Abdomen Complete DO SALTER HANNAH L CPT code 98712 Reason For Exam (US Abdomen Complete) abdominal [...] focal lesion identified. Gallbladder: Normal. Per the remote sensing technologist, the sonographic Gloria's sign was negative. [...] Transcribed Date and Time: 11/06/2021 11:44 Normal [facility] US Pelvis TA/TVon 11-06-2021 US Pelvis TA/TV Patient Name: CANDICE AUGUSTIN Ultrasound ACCESSION EXAM DATE/TIME PROCEDURE ORDERING PROVIDER [id number] 11/06/2021 10:39 EDT US Pelvis TA/TV DO SALTER HANNAH L CPT code 44274 49822 Reason For Exam (US Pelvis TA/TV) abdominal [...] NICHOLAS Transcribed Date and Time: 11/07/2021 8:05 [facility] PT EDon 12-11-2017 PT ED HNO ID: [id number] thor: Stephanie (Rn) EVELYN Osorioervice: NursingAuthor Type: Registered NurseType: Patient EducationFiled: 12/10/2017 10:07 PMNote Text:POST OP LEARNING RESPONSEINSTRUCTION PROVIDED TO: Patient and family memberMETHOD OF INSTRUCTION: Individual instructionPATIENT / FAMILY RESPONSE: Verbalizes understanding of: POST-OPERATIVEINSTRUCTION S-Correct actions to take to reduce postoperative complicationsFOLLOW-UP PLAN: Patient instructed to call with any further issuesSUPPLEMENTAL MATERIAL: NoneREFERRAL (RECOMMENDATION): NoneElectronically Signed By: Stephanie Osorio RN [facility] SUR[facility]YPATIENT EDUCATION TOPIC: PROCEDURE / SURGERY: Post-opTeaching:PATIENT NAME: Candice Ybarraabrazo arrowhead campusMRN: [id number] LOCATION: [place] Surgery/[place] SurgeryREADINESS TO LEARNCOGNITIVE ABILITY: Alert and orientedMOTIVATION [...] (RECOMMENDATION): NoneElectronically Signed By: Stephanie Osorio RN [facility] ANES Amandeep 12-10-2017 ANES POST HNO ID: [id number] thor: John CravenService: AnesthesiologyAuthor Type: AnesthesiologistType: Anesthesia PostOpFiled: 12/10/2017 8:37 PMNote Text:POST ANESTHESIA EVALUATION NOTESERVICE DATE: 12/10/2017SERVICE TIME: 8:37 PMDOB: 1995Vitals: Temp: (P) 37.8 ?C (100 ?F) 12/11/18193BP: 125/60 (P) 144/67 12/11/1819ulse: 101 (P) 112 [...] 10, 2017 : 8:37 PM PAGER/CONTACT #: [phone] [facility] ANES PREOPon 12-10-2017 ANES PREOP HNO ID: [id number] thor: John CravenService: AnesthesiologyAuthor Type: AnesthesiologistType: Anesthesia [...] 42.3 12/10/2017Potassium 3.4 12/10/2017ANES DOS/PREOP NOTE: Vitals: 1BP: 125/60Pulse: 101Resp: 19Weight: 68 kg (149 lb [...] otherwise documented in primary service progress notes: [facility] updated information obtained within 48 hours ofSurgery/Procedure.SIGNA TURE: John Craven MD PATIENT NAME: Candice CarmichaelDATE: December 10, 2017 : 6:46 PM CSN: [id number] [facility] BRIEF OP NOTon 12-10-2017 BRIEF OP NOT HNO ID: [id number] thor: Chris Negron: General SurgeryAuthor Type: PhysicianType: Brief Op NoteFiled: 12/10/2017 8:31 PMNote Text:BRIEF OPERATIVE / PROCEDURE NOTELOG ID: [id number]/PROCEDURE DATE: 12/10/2017INCISION/PROCEDU RE START TIME: 7:58 PMINCISION CLOSE/PROCEDURE END TIME: 8:21 PMSURGEON(S)/PROCEDURALIS T(S) AND POSTIE(S):Surgeon(s) and Role: * Chris Collins - PrimaryRegistered Nurse Circular Sawyer Helper: Trudy (Rn) EVELYN ChURGERY/PROCEDURE(S): Laparoscopic appendectomyANESTHESIA: GeneralFINDINGS: acute appendicitsESTIMATED BLOOD LOSS: 10 mlsSPECIMENS: appendixCOMPLICATIONS: NonePRE-OP/PRE-PROCEDURE DIAGNOSIS: acute appendicitsPOST-OP/POST-P ROCEDURE DIAGNOSIS: sameSIGNATURE: Chris Collins MD PATIENT NAME: Candice CarmichaelDATE: December 10, 2017 : 8:30 PM PAGER/CONTACT #: [facility] CONSULT PROGon 12-10-2017 Protein mass conc HNO ID: [id number] Author: Chris Collins Service: General Surgery Author Type: Physician Type: Consult Progress Note Filed: 12/10/2017 7:28 PM Note Text: HANDP dictated Chris Collins MD [facility] CT ABDOMEN AND PELVIS WITH C ONTRAST [id number] 12-10-2017 CT ABDOMEN AND PELVIS WITH CONTRAST [id number] Performed at [facility] APPROVED BY: Onesimo Johnson MD EXAMINATION: [...] discussed with Deirdre Velasquez, emergency Department physician assistant purchasing manager at approximately 3:50 PM 12/10/2017 Normal [facility] Comprehensive Panelon 2017 Albumin 4.2 g/dL Normal 3.4-5.0 [facility] Comment on above: Performed By: #### M P14 ####[address] [address] Alkaline phosphatase (ALP) 54 U/L Normal 46-116 [facility] Comment on above: Performed By: #### M P14 ####[address] [address] ALT-SGPT Blood 32 U/L Normal 12-78 [facility] Comment on above: Performed By: #### M P14 ####[address] [address] Anion gap 14 mmol/L Normal 8-16 [facility] Comment on above: Performed By: #### M P14 ####[address] [address] AST-SGOT Blood 22 U/L Normal 15-46 [facility] Comment on above: Performed By: #### M P14 ####[address] [address] Bilirubin Ql (U) 0.7 mg/dL Normal 0.2-1.0 [facility] Comment on above: Performed By: #### M P14 ####[facility] [place], [place] [address] BUN (urea nitrogen) 9 mg/dL Normal 7-18 [facility] Comment on above: Performed By: #### M P14 ####[address] [address] Calcium 9.3 mg/dL Normal 8.5-10.1 [facility] Comment on above: Performed By: #### M P14 ####[address] [address] Chloride 101 mmol/L Normal 98-107 [facility] Comment on above: Performed By: #### M P14 ####[place] [address] CO2 26 mmol/L Normal 21-32 [facility] Comment on above: Performed By: #### M P14 ####[place] [address] Creatinine 0.69 mg/dL Normal 0.51-0.95 [facility] Comment on above: Performed By: #### M P14 ####[place] [address] Glucose mass conc 86 mg/dL Normal 70-99 [facility] Comment on above: Performed By: #### M P14 ####[place] [address] Potassium molar conc 3.4 mmol/L Low 3.5-5.1 [facility] Comment on above: Performed By: #### M P14 ####[address] [address] Protein 8.4 g/dL High 6.4-8.2 [facility] Comment on above: Performed By: #### M P14 ####[place] [address] Sodium 138 mmol/L Normal 136-145 [facility] Comment on above: Performed By: #### M P14 ####[place] [address] ED NOTEon 12-10-2017 ED NOTE HNO ID: [id number] thor: Trev (Rn) EVELYN Maldonadoervice: Emergency MedicineAuthor Type: Registered NurseType: ED NotesFiled: 12/10/2017 5:05 PMNote Text: Patient transferring to [facility] for pending apendectomy. Patientverbalized understanding of discharge instructions, no voiced questions orconcerns. Patient leaving in no distress. Safety maintained. Patientstates they are leaving the ED with all the belongings they came with. Ptleaving with IV in place. Pt instructed to go to ED for registrationprocess. [facility] ED NOTE HNO ID: [id number] thor: Trudy (Rn) EVELYN Mathurervice: Emergency MedicineAuthor Type: Registered NurseType: ED NotesFiled: 12/10/2017 1:32 PMNote Text:At about 1100 today started to have right lower quad pain with nausea butno vomiting. Last BM yesterday [facility] ED PROV NOTEon 12-10-2017 Protein HNO ID: [id number] thor: Shun Clementice: Emergency MedicineAuthor Type: PhysicianType: ED Provider NotesFiled: [...] assessment of the patient andhave reviewed the PA/GAS PLANT OPERATOR note.Signature: ESHA Clementate: 12/10/2017Time: 4:06 Bautista Leon MD12/10/[address] [facility] Protein HNO ID: [id number] thor: Abe Webster (Pa)ice: Emergency MedicineAuthor Type: Physician AssistantType: ED Provider [...] PM -------ED Provider NotePatient Name: Candice CarmichaelMRN: [id number] DATE: 12/10/17HistoryPatient presents with:Abdominal PainCandice Carmichael is a 22 year old FEMALE with insignificant PMHx presentingto the ED c/o abdominal pain x 1 day. Sudden onset at 11:00 AM thismorning. Located in Q. No radiation. Aggravating factors include layingflat and [...] active.History provided by: Patient and medical recordsLanguage bilingual interpreter used: NoNo past medical history on file.No [...] of12/10/17CT ABD/PEL W IVCONResult Value Ref Range Nursing Support Worker EXAMINATION: CT ABDOMEN AND PELVIS WITH IV [...] FEMALE PELVIS TRANSABD LTDResult Value Ref Range Nursing Support Worker EXAMINATION: PELVIC ULTRASOUND, TRANSABDOMINALCLINICAL HISTORY: Pelvic painTECHNIQUE: [...] Lymph 1.88 0.68 - 2.93 thou/cmm Abs. Jenkins 0.70 0.19 - 0.80 thou/cmm Abs. Eosin [...] NEGATIVE Negative Bilirubin, Urine NEGATIVE Negative Specific [place], Ur <=1.005 1.005 - 1.030 pH, Urine [...] U/LMDRD GFRResult Value Ref Range eGFR >60 >60mL/min/1.54k8Zljrlkeif sED Course / Clinical ImpressionCourse:Vital signs were [...] injection (TORADOL) (15 mg INTRAVENOUS Given 12/10/17 1453)Upon re-evaluation, patient states pain has improved but she can stillfeel it there. Denies further need for pain/nausea medication at thistime. Tachycardia has improved from arrival to ED. Patient wishes to betransferred to [facility]. Awaiting to hear from general surgery at4:10 PM.At 4:30, [facility] returned page and plan is for patient to betransferred to [facility] under gen surgery for further mgmt andsurgery.Close [...] appearsstable, NAD. Pt stable for transport to [facility] for surgicalevaluation.Clinic al Impressions as of Dec 11 1739Other acute appendicitisLeukocytosis, unspecified typeRLQ abdominal painNauseaTachycardiaMDM / Disposition / Plan At this time, the most likely Dx is appendicitis, nausea, RLQ pain,tachycardia, leukocytosis. Will treat with admission for appendectomy andgeneral surgery mgmt. Other Dxs considered but unlikely d/t HANDP, labs andimaging findings: ovarian torsion, PID, UTI, . Plan is forpatient to be admitted to [facility] under general surgery forfurther mgmt and surgery. Patient's [facility] Private transportation is appropriate as patient [...] stablePt was instructed to go straight to [facility] for surgical admissionfor appendicitis mgmt.SIGNATURE: Maci Webster PA (Pa)12/10/17 1746Acindy Leon MD12/10/17 1853 Normal [facility] HISTORY PHYSICALon HISTORY PHYSICAL HNO ID: [id number] thor: Chris CollinsServicruth: General SurgeryAuthor Type: PhysicianType: HANDPFiled: 12/28/2017 1:09 PMNote Text:[facility]- Surgical History and Physical CANDICE CARMICHAEL KDOB: 1995 AGE: 22 SEX: FMRN: [id number] ACCTNUM: [id number] SVC: GENS LOCATION: [address] PHYSICIAN: Chris Collins M.D.ADMIT DATE: 12/10/2017REASON [...] consistent with acuteappendicitis and was transferred to [facility] for definitivesurgical treatment. She states she is [...] rhythm. Abdomen: Soft,nondistended. She does have some caxh-ql-afggrpgo tenderness in theright lower quadrant. No rebound. No guarding.ASSESSMENT AND PLAN: A 22-year-old female with leukocytosis and CAT scanevidence suggestive of acute appendicitis. Her clinical picture appearsconsistent with appendicitis as well. I recommend a laparoscopicappendectomy as treatment. We discussed the details of the plannedprocedure including risks, benefits, and alternatives, and she wishes toproceed. Surgery will begin shortly.Chris Collins M.D.General SurgerySAW:[id number]: 12/10/2017 19:28:27T: 12/11/2017 05:27:41Job #: [id number] Normal [facility] HOSPon 12-10-2017 Body weight Measured Patient:April Carmichael CHRISTIANORN: Height:5' 2.992(1.6 m)Weight:149 lb 14.6 oz (68 kg)Outpatient Medications as of 12/10/17:norethindrone-e.e stradiol-iron (BLISOVI 24 FE ORAL)Admission/Clinic Administered Medications as of 12/10/17:lactated ringers infusionProblem List:No problem list on file for this patient.Allergies:No Known AllergiesDate Verified:12/10/17Lab ValuesLab Value Units Date High LowPOTA* 3.4 mEq/L 12/10/2017 5.1 3.5HEMA* 42.3 % 12/10/2017 43.3 34.7No progress notes entered within the past 30 days Normal [facility] Hemogram/Diffon 12-10-2017 Abs. Baso 0.02 thou/cmm Normal 0.00-0.08 [facility] Comment on above: Result Comment: Diff erential scan done Performed By: #### N CBCD ####[address] [address] Abs. Jenkins 0.70 thou/cmm Normal 0.19-0.80 [facility] Comment on above: Performed By: #### N CBCD ####[address] [address] Abs. Neut (ANC) 13.92 thou/cmm High 1.35-7.21 [facility] Comment on above: Performed By: #### N CBCD ####[address] [address] Basophils/100 WBC Auto (Bld) 0.1 % Normal 0.0-1.1 [facility] Comment on above: Performed By: #### N CBCD ####[address] [address] Eosinophils 0.08 thou/cmm Normal 0.00-0.36 [facility] Comment on above: Performed By: #### N CBCD ####[address] [address] Eosinophils/100 leukocytes 0.5 % Normal 0.0-5.4 [facility] Comment on above: Performed By: #### N CBCD ####[address] [address] Erythrocyte distribution width Auto Ratio (RBC) 12.3 % Normal 11.8-14.5 [facility] Comment on above: Performed By: #### N CBCD ####[address] [address] Erythrocytes (RBC) 4.74 mil/cmm Normal 3.79-4.93 [facility] Comment on above: Performed By: #### N CBCD ####[address] [address] Hematocrit (HCT) 42.3 % Normal 34.7-43.3 [facility] Comment on above: Performed By: #### N CBCD ####[address] [address] Hemoglobin mass conc (Bld) 14.0 g/dL Normal 11.7-14.7 [facility] Comment on above: Performed By: #### N CBCD ####[address] [address] Lymphocytes 1.88 thou/cmm Normal 0.68-2.93 [facility] Comment on above: Performed By: #### N CBCD ####[address] [address] Lymphocytes/100 leukocytes 11.3 % Low 17.3-43.9 [facility] Comment on above: Performed By: #### N CBCD ####[address] [address] MCH 29.5 pg Normal 27.4-32.8 [facility] Comment on above: Performed By: #### N CBCD ####[address] [address] MCHC mass conc (RBC) 33.1 % Normal 31.9-35.6 [facility] Comment on above: Performed By: #### N CBCD ####[address] [address] MCV 89.2 fL Normal 82.1-97.4 [facility] Comment on above: Performed By: #### N CBCD ####[address] [address] Monocytes/100 leukocytes 4.2 % Normal 3.6-13.1 [facility] Comment on above: Performed By: #### N CBCD ####[address] [address] Platelet mean volume (PMV) 9.8 fL Normal 8.8-12.1 [facility] Comment on above: Performed By: #### N CBCD ####[address] [address] Platelets 275 thou/cmm Normal 150-370 [facility] Comment on above: Performed By: #### N CBCD ####[address] [address] Seg Neutrophil 83.9 % High 41.3-72.7 [facility] Comment on above: Performed By: #### N CBCD ####[address] [address] WBC (Leukocytes) 16.6 thou/cmm High 4.4-9.7 [facility] Comment on above: Performed By: #### N CBCD ####[address] [address] Lipase Bloodon 12-10-2017 Lipase Blood 113 U/L Normal 73-393 [facility] Comment on above: Performed By: #### M LIP ####[address] [address] MDRD eGFRon 12-10-2017 eGFR (non-black) mL/min/{1.73_m2} Normal >60mL/m in/1.73 m2 [facility] Comment on above: Result Comment: If t he patient is , multiply the result by 1.210. Performed By: #### M GFR ####[address] [address] OPERATIVE NOon 12-10-2017 OPERATIVE NO HNO ID: [id number] thor: Chris A WanekService: General SurgeryAuthor Type: PhysicianType: Operative ReportFiled: 12/28/2017 1:09 PMNote Text:[facility]- Operative ReportSCANDICE WETZEL KDOB: 1995 AGE: 22 SEX: FMRN: [id number] ACCTNUM: [id number] SVC: [facility] LOCATION: [address] PHYSICIAN: Chris Collins M.D.DATE OF PROCEDURE: 12/10/2017SURGEON: Chris Collins M.D.POSTIE: NONEANESTHESIA: General.PREOPERATIVE DIAGNOSIS(ES): Acute appendicitis.POSTOPERATIV E DIAGNOSIS(ES): Acute appendicitis.NAME OF OPERATION: Laparoscopic appendectomy.INDICATIONS: The patient is a 22-year-old female who presented to theemergency room with right lower quadrant pain for about 12 hours. Shewas seen and evaluated by the ER staff and was found to haveappendicitis. [place] [...] using 0 Maxon with the aidof the ship pilot guide. The remaining trocars were opened up and insufflation was allowed to escape. Local anesthetic was injected into eachincisions. The trocars were removed. The incisions were then closedwith 5-0 Polysorb. Exofin skin glue was applied as dressing. She wasawakened from anesthesia and taken to the PACU in good condition.Chris Collins M.D.General SurgerySAW:[id number]: 12/10/2017 20:34:48T: 12/11/2017 06:07:33Job #: [id number] [facility] SURGICAL PATHOLOGYon 018 SURGICAL PATHOLOGY [facility]: [id number] Physician: Chris Collins M.D. ___FINAL DIAGNOSISAppendix, appendectomy - Acute suppurative appendicitis with acuteserositis and fibrinopurulent exudate.JJ/sanket/12/15/18Jecosme Smalls M.D.(Electronic Signature) __SPECIMEN SUBMITTEDA: APPENDIX CLINICAL [...] of appendix.JOSAFAT/danisha 12/11/2017 Gross examination performed at [facility], [address] [id number] of Report: 12/16/2017Date of Procedure: 12/10/2017Date of Receipt: 12/11/2017Submitted by: Chris Collins M.D.Location: MEORDiagnostic interpretation performed at [facility], [address] [place] [address]. Normal [facility] Comment on above: Performed By: #### P ATHS ####[employer] [place], [place] [phone] US FEMALE PELVIS TRANSABD LT Don 12-10-2017 FEMALE PELVIS TRANSABD LTD Performed at [facility] APPROVED BY: Onesimo Johnson MD EXAMINATION: [...] is within normal limits for age. Normal [facility] Urinalysis Routineon 018 Ep Cells Urine 2-5 Normal 0-5 [facility] Comment on above: Performed By: #### M URIN ####[facility] [place], [place] [address] Urine, appearance CLEAR Normal [facility] Comment on above: Performed By: #### M URIN ####[facility] [place], [place] [address] Urine, bacteria in sediment 1+ Abnormal None [facility] Comment on above: Performed By: #### M URIN ####[facility] [place], [place] [address] Urine, color STRAW Normal [facility] Comment on above: Performed By: #### M URIN ####[facility] [place], [place] [address] Urine, erythrocytes in sediment by area NONE Normal 0-3 [facility] Comment on above: Performed By: #### M URIN ####[address] [address] Urine, leukocytes in sedmiment 0-2 Normal 0-5 [facility] Comment on above: Performed By: #### M URIN ####[address] [address] Bilirubin Urine Negative Normal Negative [facility] Comment on above: Performed By: #### M URIN ####[address] [address] Hemoglobin,Urine Negative Normal Negative [facility] Comment on above: Performed By: #### M URIN ####[address] [address] Ketone Urine Negative Normal Negative [facility] Comment on above: Performed By: #### M URIN ####[address] [address] Leukocytes Esterase Negative Normal Negative [facility] Comment on above: Performed By: #### M URIN ####[address] [address] Nitrites Urine Negative Normal Negative [facility] Comment on above: Performed By: #### M URIN ####[address] [address] Protein Urine Negative Normal Negative [facility] Comment on above: Performed By: #### M URIN ####[facility] [place] [address] Specific [place], Ur <=1.005 Normal 1.005-1.030 [facility] Comment on above: Performed By: #### M URIN ####[address] [address] Urine, glucose presence Negative Normal Negative [facility] Comment on above: Performed By: #### M URIN ####[place] [address] Urine, pH 6.5 [pH] Normal 5.0-8.0 [facility] Comment on above: Performed By: #### M URIN ####[place] [address] Urobilinogen,Ur 0.2 EU/dL Normal 0.0-1.0 [facility] Comment on above: Performed By: #### M URIN ####[place] [address] Urine HCG, Qual.on 8 HCG.beta subunit ( test) Ql (U) Negative Normal Negative [facility] Comment on above: Performed By: #### M HCGU ####[place] [address] Vital Signs Date Time Vital Sign Value Performing Clinician Mallorie rmairez 11-05-2024 07:31-0400 Diastolic blood pressure 67 mm[Hg] Dr. Christina Salter DO Work Phone: [facility] 11-05-2024 07:31-0400 Heart rate 89 /min Dr. Christina Salter DO Work Phone: [facility] 11-05-2024 07:31-0400 Systolic blood pressure 138 mm[Hg] Dr. Christina Salter DO Work Phone: [facility] 11-05-2024 06:20-0400 Body temperature 97.4 [degF] Dr. Christina Salter DO Work Phone: [facility] 11-05-2024 06:20-0400 Respiratory rate 16 /min Dr. Christina Salter DO Work Phone: [facility] 11-05-2024 06:20-0400 SaO2% (BldA) [Mass fraction] 98 % Dr. Christina Salter DO Work Phone: [facility] 11-05-2024 06:12-0400 Body height 160.[address] Christina Salter DO Work Phone: 5(672)869-417213 [place] [address] 11-05-2024 06:12-0400 Body mass index (BMI) [Ratio] 35.4 kg/m2 Dr. Christina Salter DO Work Phone: 5(879)293-490113 [place] [address] 11-05-2024 06:12-0400 Body weight 90.[address] Christina Salter DO Work Phone: 4(558)383-207946 [address] 11-04-2024 20:20-0400 Body temperature 98 [degF] Dr. Christina Salter DO Work Phone: 6(414)376-300446 [address] 11-04-2024 20:20-0400 Diastolic blood pressure 72 mm[Hg] Dr. Christina Salter DO Work Phone: [facility] 11-04-2024 20:20-0400 Heart rate 101 /min Dr. Christina Salter DO Work Phone: [facility] 11-04-2024 20:20-0400 Respiratory rate 16 /min Dr. Christina Salter DO Work Phone: [facility] 11-04-2024 20:20-0400 SaO2% (BldA) [Mass fraction] 98 % Dr. Christina Salter DO Work Phone: [facility] 11-04-2024 20:20-0400 Systolic blood pressure 122 mm[Hg] Dr. Christina Salter DO Work Phone: 7(815)816-765113 [place] [address] 11-04-2024 02:17-0400 Body height 160.[address] Christina Salter DO Work Phone: [facility] 11-04-2024 02:17-0400 Body mass index (BMI) [Ratio] 35.9 kg/m2 Dr. Christina Salter DO Work Phone: [facility] 11-04-2024 02:17-0400 Body weight 91.[address] Christina Salter DO Work Phone: 0(044)472-427613 [place] [address] 11-04-2024 02:09-0400 Body temperature 99 [degF] Dr. Christina Salter DO Work Phone: 8(697)441-862246 [address] 11-04-2024 02:09-0400 Diastolic blood pressure 77 mm[Hg] Dr. Christina Salter DO Work Phone: 1(439)750-695246 [address] 11-04-2024 02:09-0400 Heart rate 107 /min Dr. Christina Salter DO Work Phone: [facility] 11-04-2024 02:09-0400 Respiratory rate 16 /min Dr. Christina Salter DO Work Phone: [facility] 11-04-2024 02:09-0400 SaO2% (BldA) [Mass fraction] 96 % Dr. Christina Salter DO Work Phone: [facility] 11-04-2024 02:09-0400 Systolic blood pressure 129 mm[Hg] Dr. Christina Salter DO Work Phone: [facility] 11-01-2024 14:06-0400 Body height 157.[address] Christina Salter DO Work Phone: 6(654)961-906313 [place] [address] 11-01-2024 14:06-0400 Body mass index (BMI) [Ratio] 36.6 kg/m2 Dr. Christina Salter DO Work Phone: [facility] 11-01-2024 14:06-0400 Body weight 90.[address] Christina Salter DO Work Phone: [facility] 11-01-2024 14:06-0400 Diastolic blood pressure 81 mm[Hg] Dr. Christina Salter DO Work Phone: [facility] 11-01-2024 14:06-0400 Systolic blood pressure 128 mm[Hg] Dr. Christina Salter DO Work Phone: [facility] 10-27-2024 10:23-0400 Body height 157.[address] Christina Salter DO Work Phone: [facility] 10-27-2024 10:23-0400 Body mass index (BMI) [Ratio] 36.3 kg/m2 Dr. Christina Salter DO Work Phone: [facility] 10-27-2024 10:23-0400 Body weight 90.[address] Christina Salter DO Work Phone: [facility] 10-27-2024 10:23-0400 Diastolic blood pressure 88 mm[Hg] Dr. Christina Salter DO Work Phone: [facility] 10-27-2024 10:23-0400 Systolic blood pressure 131 mm[Hg] Dr. Christina Salter DO Work Phone: [facility] 10-18-2024 15:40-0400 Body height 157.[address] Christina Salter DO Work Phone: [facility] 10-18-2024 15:40-0400 Body mass index (BMI) [Ratio] 35.7 kg/m2 Dr. Christina Salter DO Work Phone: [facility] 10-18-2024 15:40-0400 Body weight 88.[address] Christina Salter DO Work Phone: [facility] 10-18-2024 15:40-0400 Diastolic blood pressure 86 mm[Hg] Dr. Christina Salter DO Work Phone: [facility] 10-18-2024 15:40-0400 Systolic blood pressure 118 mm[Hg] Dr. Christina aSlter DO Work Phone: [facility] 10-12-2024 15:05-0400 Body height 157.[address] Christina Salter DO Work Phone: [facility] 10-12-2024 15:05-0400 Body mass index (BMI) [Ratio] 35.6 kg/m2 Dr. Christina Salter DO Work Phone: 6(215)692-558213 [place] [address] 10-12-2024 15:05-0400 Body weight 88.[address] Christina Salter DO Work Phone: 2(658)772-112646 [address] 10-12-2024 15:05-0400 Diastolic blood pressure 86 mm[Hg] Dr. Christina Salter DO Work Phone: 1(675)005-090746 [address] 10-12-2024 15:05-0400 Systolic blood pressure 127 mm[Hg] Dr. Christina Salter DO Work Phone: 5(112)014-630446 [address] 10-05-2024 14:40-0400 Body height 157.[address] Christina Salter DO Work Phone: 3(168)121-717846 [address] 10-05-2024 14:40-0400 Body mass index (BMI) [Ratio] 35.4 kg/m2 Dr. Christina Salter DO Work Phone: [facility] 10-05-2024 14:40-0400 Body weight 87.[address] Christina Salter DO Work Phone: 4(134)994-992346 [address] 10-05-2024 14:40-0400 Diastolic blood pressure 72 mm[Hg] Dr. Christina Salter DO Work Phone: 3(576)076-867213 [place] [address] 10-05-2024 14:40-0400 Systolic blood pressure 115 mm[Hg] Dr. Christina Salter DO Work Phone: 6(366)131-814813 [place] [address] 09-22-2024 08:36-0400 Body mass index (BMI) [Ratio] 35 kg/m2 Dr. Christina Salter DO Work Phone: [facility] 09-22-2024 08:36-0400 Body weight 86.[address] Christina Salter DO Work Phone: 1(135)305-727413 [place] [address] 09-22-2024 08:36-0400 Diastolic blood pressure 74 mm[Hg] Dr. Christina Salter DO Work Phone: 7(852)243-610313 [place] [address] 09-22-2024 08:36-0400 Systolic blood pressure 112 mm[Hg] Dr. Christina Salter DO Work Phone: 2(821)065-064413 [place] [address] 09-20-2024 10:23-0400 Body mass index (BMI) [Ratio] 34.6 kg/m2 Dr. Christina Salter DO Work Phone: 3(430)521-828513 [place] [address] 09-20-2024 10:23-0400 Body weight 85.[address] Christina Salter DO Work Phone: 8(251)642-817213 [place] [address] 09-20-2024 10:23-0400 Diastolic blood pressure 78 mm[Hg] Dr. Christina Salter DO Work Phone: 3(431)780-992313 [place] [address] 09-20-2024 10:23-0400 Systolic blood pressure 117 mm[Hg] Dr. Christina Salter DO Work Phone: 9(981)428-740613 [place] [address] 09-05-2024 11:40-0400 Body mass index (BMI) [Ratio] 34.9 kg/m2 Dr. Christina Salter DO Work Phone: 3(593)861-011013 [place] [address] 09-05-2024 11:40-0400 Body weight 86.[address] Christina Salter DO Work Phone: 6(168)230-110013 [place] [address] 09-05-2024 11:40-0400 Diastolic blood pressure 84 mm[Hg] Dr. Christina Salter DO Work Phone: 3(554)667-863713 [place] [address] 09-05-2024 11:40-0400 Heart rate 110 /min Dr. Christina Salter DO Work Phone: [facility] 09-05-2024 11:40-0400 Systolic blood pressure 119 mm[Hg] Dr. Christina Salter DO Work Phone: [facility] 08-24-2024 14:32-0400 Body mass index (BMI) [Ratio] 34.02 kg/m2 Zenaida Haury REFINED SYRUP OPERATOR.LIAISON OFFICER Work Phone: [facility] 08-24-2024 14:32-0400 Body weight 87.09 kg Zenaida Haury REFINED SYRUP OPERATOR.LIAISON OFFICER Work Phone: [facility] 08-24-2024 14:32-0400 Diastolic blood pressure 68 mm[Hg] Zenaida Haury REFINED SYRUP OPERATOR.LIAISON OFFICER Work Phone: [facility] 08-24-2024 14:32-0400 Systolic blood pressure 118 mm[Hg] Zenaida Haury REFINED SYRUP OPERATOR.LIAISON OFFICER Work Phone: [facility] 08-10-2024 14:25-0400 Body mass index (BMI) [Ratio] 33.63 kg/m2 Yennifer Plotts REFINED SYRUP OPERATOR.CNM Work Phone: [facility] 08-10-2024 14:25-0400 Body weight 86.09 kg Yennifer Plotts REFINED SYRUP OPERATOR.CNM Work Phone: [facility] 08-10-2024 14:25-0400 Diastolic blood pressure 66 mm[Hg] Yennifer Plotts REFINED SYRUP OPERATOR.CNM Work Phone: [facility] 08-10-2024 14:25-0400 Systolic blood pressure 122 mm[Hg] Yennifer Plotts REFINED SYRUP OPERATOR.CNM Work Phone: [facility] 07-26-2024 09:41-0500 Body mass index (BMI) [Ratio] 32.43 kg/m2 Kathy Clancy MD Work Phone: [facility] 07-26-2024 09:41-0500 Body weight 83.01 kg Kathy Clancy MD Work Phone: [facility] 07-26-2024 09:41-0500 Diastolic blood pressure 60 mm[Hg] Kathy Clancy MD Work Phone: [facility] 07-26-2024 09:41-0500 Systolic blood pressure 110 mm[Hg] Kathy Clancy MD Work Phone: [facility] 07-13-2024 14:29-0500 Body mass index (BMI) [Ratio] 32.67 kg/m2 Nancy Aguilar MD Work Phone: [facility] 07-13-2024 14:29-0500 Body weight 83.64 kg Nancy Aguilar MD Work Phone: [facility] 07-13-2024 14:29-0500 Diastolic blood pressure 64 mm[Hg] Nancy Aguilar MD Work Phone: [facility] 07-13-2024 14:29-0500 Systolic blood pressure 118 mm[Hg] Nancy Aguilar MD Work Phone: [facility] 06-26-2024 19:30-0500 Body mass index (BMI) [Ratio] 21.6 kg/m2 Dr. Christina Salter DO Work Phone: [facility] 06-26-2024 19:30-0500 Body weight 53.[address] Christina Salter DO Work Phone: [facility] 06-26-2024 19:23-0500 Body temperature 97.8 [degF] Dr. Christina Salter DO Work Phone: [facility] 06-26-2024 19:23-0500 Diastolic blood pressure 61 mm[Hg] Dr. Christina Salter DO Work Phone: [facility] 06-26-2024 19:23-0500 Heart rate 96 /min Dr. Christina Salter DO Work Phone: [facility] 06-26-2024 19:23-0500 Respiratory rate 14 /min Dr. Christina Salter DO Work Phone: [facility] 06-26-2024 19:23-0500 Systolic blood pressure 116 mm[Hg] Dr. Christina Salter DO Work Phone: [facility] 06-15-2024 14:32-0500 Body mass index (BMI) [Ratio] 31.72 kg/m2 Nancy Aguilar MD Work Phone: [facility] 06-15-2024 14:32-0500 Body weight 81.19 kg Nancy Aguilar MD Work Phone: [facility] 06-15-2024 14:32-0500 Diastolic blood pressure 64 mm[Hg] Nancy Aguilar MD Work Phone: [facility] 06-15-2024 14:32-0500 Systolic blood pressure 114 mm[Hg] Nancy Aguilar MD Work Phone: [facility] 05-27-2024 08:43-0500 Body mass index (BMI) [Ratio] 31.72 kg/m2 Zenaidabennie Mitchell REFINED SYRUP OPERATOR.LIAISON OFFICER Work Phone: [facility] 05-27-2024 08:43-0500 Body weight 81.19 kg Zenaida Haury REFINED SYRUP OPERATOR.LIAISON OFFICER Work Phone: [facility] 05-27-2024 08:43-0500 Diastolic blood pressure 64 mm[Hg] Zenaida Haury REFINED SYRUP OPERATOR.LIAISON OFFICER Work Phone: [facility] 05-27-2024 08:43-0500 Systolic blood pressure 118 mm[Hg] Zenaida Haury REFINED SYRUP OPERATOR.LIAISON OFFICER Work Phone: [facility] 04-26-2024 13:16-0500 Body mass index (BMI) [Ratio] 31.18 kg/m2 Nancy Aguilar MD Work Phone: [facility] 04-26-2024 13:16-0500 Body weight 79.83 kg Nancy Aguilar MD Work Phone: [facility] 04-26-2024 13:16-0500 Diastolic blood pressure 68 mm[Hg] Nancy Aguilar MD Work Phone: [facility] 04-26-2024 13:16-0500 Systolic blood pressure 116 mm[Hg] Nancy Aguilar MD Work Phone: [facility] 03-25-2024 08:04-0400 Body mass index (BMI) [Ratio] 30.87 kg/m2 Citlali Hurricane REFINED SYRUP OPERATOR.LIAISON OFFICER Work Phone: [facility] 03-25-2024 08:04-0400 Body weight 79.02 kg Citlali Ginger REFINED SYRUP OPERATOR.LIAISON OFFICER Work Phone: [facility] 03-25-2024 08:04-0400 Diastolic blood pressure 64 mm[Hg] Citlali Hurricane REFINED SYRUP OPERATOR.LIAISON OFFICER Work Phone: [facility] 03-25-2024 08:04-0400 Systolic blood pressure 116 mm[Hg] Citlali Ginger REFINED SYRUP OPERATOR.LIAISON OFFICER Work Phone: [facility] 06-13-2022 14:14-0500 Body height 157.5 cm Linda Lilly MD Work Phone: [facility] 06-13-2022 14:14-0500 Body mass index (BMI) [Ratio] 27.25 kg/m2 Linda Lilly MD Work Phone: [facility] 06-13-2022 14:14-0500 Body weight 67.59 kg Linda Lilly MD Work Phone: [facility] 06-13-2022 14:14-0500 Diastolic blood pressure 78 mm[Hg] Linda Lilly MD Work Phone: [facility] 06-13-2022 14:14-0500 Heart rate 98 /min Linda Lilly MD Work Phone: [facility] 06-13-2022 14:14-0500 Systolic blood pressure 133 mm[Hg] Linda Lilly MD Work Phone: [facility] [employer] Encounters Encounter Date Encounter Type Care Provider Facility Start: 11-05-2024 Non-patient / [facility] Start: 11-05-2024 End: 11-05-[address] Christina Salter DO Work Phone: [facility] Work Phone: Start: 11-05-2024 End: 11-05-2024 Patient encounter procedure Pati Martinez [facility] Work Phone: Start: 11-04-2024 End: 11-04-[address] Christina Sandoval Gaetano DO Work Phone: [facility] Work Phone: Start: 11-04-2024 End: 11-04-2024 Patient encounter procedure Mable Ashley [facility] -[facility] Work Phone: Start: 11-01-2024 End: 11-01-2024 Patient encounter procedure Mable Ashley [facility] -[facility] Work Phone: Start: 11-01-2024 End: 11-01-[address] Christina Sandoval Gaetano DO Work Phone: [facility] Work Phone: Start: 10-27-2024 End: 10-27-2024 Patient encounter procedure Mable Ashley [facility] -[facility] Work Phone: Start: 10-27-2024 End: 10-27-[address] Christina Salter DO Work Phone: [facility] Work Phone: Start: 10-18-2024 End: 10-18-[address] Janae Guidry MD -[facility] Work Phone: Start: 10-18-2024 End: 10-18-[address] Christina Sandoval Gaetano DO Work Phone: [facility] Work Phone: Start: 10-12-2024 End: 10-12-2024 Patient encounter procedure Mable Ashley CNM -[facility] Work Phone: Start: 10-12-2024 End: 10-12-[address] Christina Salter DO Work Phone: [facility] Work Phone: Start: 10-05-2024 End: 10-05-[address] Christina Salter DO Work Phone: [facility] Work Phone: Start: 10-05-2024 End: 10-05-[address] Xenia Edouard DO -Laboratory Specimen Work Phone: Start: 10-05-2024 End: 10-05-[address] Xenia Edouard DO -[facility] Work Phone: Start: 10-05-2024 End: 10-05-[address] Christina Salter DO Work Phone: [facility] Work Phone: Start: 10-05-2024 End: 10-05-2024 ambulatory Xenia Edouard Facility:[facility] Start: 09-22-2024 End: 09-22-[address] Janae Guidry MD -[facility] Work Phone: Start: 09-22-2024 End: 09-22-2024 ambulatory Christina Sandoval Gaetano Facility:[facility] Start: 09-21-2024 ambulatory Christina Sandoval Gaetano Fa cility:[facility] Start: 09-20-2024 End: 09-20-2024 Patient encounter procedure Maureen ALLAN -[facility] Work Phone: Start: 09-20-2024 End: 09-20-2024 ambulatory Christina Sandoval Gaetano Facility:[facility] Start: 09-20-2024 End: 09-20-2024 ambulatory Christina Salter Facility:[facility] Start: 09-05-2024 End: 09-05-2024 Patient encounter procedure [facility] Clinical [facility] Start: 09-05-2024 End: 09-05-2024 ambulatory Angelica Harrison Clinical Communication Start: 09-05-2024 End: 09-05-2024 ambulatory Christina Sandoval Gaetano Facility:[facility] Start: 08-31-2024 End: 08-31-2024 Telephone encounter Yennifer Couch APRN.CNM Work Phone: OB/Gynecology Comment on above: Care Start: 08-24-2024 End: 08-24-2024 ambulatory CHRISTINA SALTER Facility:[facility] Start: 08-24-2024 End: 08-24-2024 Patient encounter procedure [...] Start: 08-10-2024 End: 08-10-2024 ambulatory CHRISTINA SALTER Facility:[facility] Start: 07-27-2024 End: 09-26-2024 Follow-up encounter Zenaida Mitchell APRN.LIAISON OFFICER Work Phone: OB/Gynecology Start: 07-26-2024 End: 07-26-2024 ambulatory KATHY CLANCY Facility:[facility] Start: 07-26-2024 End: 07-26-2024 Patient encounter procedure Kathy Clancy MD Work Phone: OB/Gynecology Comment on above: Encounter for superv ision of normal in second trimester, unspecified (Primary Dx); Dysuria Start: 07-13-2024 End: 07-13-2024 ambulatory CHRISITNA SALTER Facility:[facility] Start: 07-13-2024 End: 07-13-2024 Patient encounter procedure Nancy Aguilar MD Work Phone: OB/Gynecology Comment on above: Screening for diabet es mellitus (Primary Dx); 24 weeks gestation of Start: 06-26-2024 End: 06-26-2024 ambulatory Jayne Carmona Facility:[facility] Start: 06-26-2024 End: 06-26-[address] Jayne Camrona DO -[facility] Work Phone: Start: 06-15-2024 Non-patient / Non-visit Christina beyer -[facility] Work Phone: Start: 06-15-2024 End: 06-15-2024 ambulatory XENIA MARIE Facility:[facility] Start: 06-15-2024 End: 06-15-2024 Patient encounter procedure Nancy Aguilar MD Work Phone: OB/Gynecology Comment on above: Supervision of high risk in second trimester (Primary Dx); 20 weeks gestation of ; Obesity affecting in second trimester, unspecified obesity type Start: 06-15-2024 End: 06-15-2024 ambulatory NANCY AGUILAR Facility:[facility] Start: 06-15-2024 End: 06-15-2024 Patient encounter procedure [employer] [facility] Comment on above: Encounter for anatomic survey (Primary Dx); 20 weeks gestation of ; Obesity affecting in second trimester, unspecified obesity type Start: 05-27-2024 ambulatory Christina Salter Fa cility:[facility] Start: 05-27-2024 End: 05-27-2024 ambulatory ZENAIDA MITCHELL Facility:[facility] Start: 05-27-2024 End: 05-27-2024 Patient encounter procedure Zenaida Mitchell APRN.CNP Work Phone: OB/Gynecology Comment on above: Supervision of high risk in second trimester (Primary Dx); 17 weeks gestation of ; Obesity affecting in second trimester, unspecified obesity type; Nausea and vomiting during Encounter for anatomic survey (Primary Dx); Encounter for supervision of normal first in first trimester; Encounter for screening of mother Start: 04-26-2024 End: 04-26-2024 [facility] Facility:[facility] Start: 04-26-2024 End: 04-26-2024 Patient encounter procedure Nancy Aguilar MD Work Phone: OB/Gynecology Comment on above: Encounter for superv ision of normal first in first trimester (Primary Dx); 13 weeks gestation of ; Encounter for screening of mother; Nausea and vomiting during Start: 04-26-2024 ambulatory Christina Sandoval Gaetano Fa cility:[facility] Start: 03-25-2024 ambulatory Christina Lori Gaetano Fa cility:[facility] Start: 03-25-2024 End: 03-25-2024 ambulatory [facility] Facility:[facility] Start: 03-25-2024 End: 03-25-2024 Patient encounter procedure [facility] Work Phone: OB/Gynecology Comment on above: 8 weeks gestation of (Primary Dx); Encounter for supervision of normal first in first trimester; POTS (postural orthostatic tachycardia syndrome); BMI 30.0-30.9,adult Start: 03-22-2024 End: 03-22-2024 Telephone encounter Marley Riggs APRN.CNM Work Phone: OB/Gynecology Comment on above: Patient Update Start: 06-16-2022 Telephone encounter Linda Ca Work Phone: [facility] GENERAL OPERATIONS MANAGER Comment on above: Results Start: 06-15-2022 Orders Only Linda Basurto Work Phone: [facility] GENERAL OPERATIONS MANAGER Comment on above: Frequent urination ( Primary Dx) Start: 06-13-2022 End: 06-13-2022 Initial preventive medicine new pt age 18-39yrs Linda Lilly MD Work Phone: [facility] GENERAL OPERATIONS MANAGER Comment on above: Well woman exam with routine gynecological exam (Primary Dx); Frequent urination Start: 06-13-2022 End: 06-13-2022 Patient encounter procedure Linda Lilly MD Work Phone: [facility] [place] GENERAL OPERATIONS MANAGER Start: 11-19-2021 End: 11-19-2021 Subsequent hospital visit by physician Christina Salter DO Work Phone: [facility] Start: 11-06-2021 End: 11-06-2021 Subsequent hospital visit by physician Christina Salter DO Work Phone: [facility] Comment on above: Arrived Start: 12-10-2017 End: 12-11-2017 Patient encounter [facility] Start: 12-10-2017 End: 12-10-2017 Emergency department patient visit [facility] Facility:[facility] Procedures Date Procedure Procedure Detail Performing Clinician Start: 11-05-2024 Urnls dip stick/tabl et reagent auto microscopy Dr. Christina Salter DO Work Phone: Start: 10-05-2024 Beta-hemolytic Streptococcus culture Dr. Christina [...] Work Phone: Start: 04-26-2024 Antibody screen CITLALI SÁNCHEZ Comment on above: Order Comment: Speci men Type: BLOOD SPECIMEN Ordering Facility: [facility] Address: [address] [place] [address] Performed By: #### G LTGST #### [facility] [id number] [address] [place] [address] [place] Start: 03-25-2024 Us uterus l imited 1/> fetuses Citlali Bauer LIAISON OFFICER Work Phone: Start: 03-25-2024 Adult depression scr eening assessment Nancy Aguilar MD Work Phone: Start: 06-13-2022 Microscopic observat ion [Identifier] in Cervix by Cyto stain Angelica Tran RN Start: 11-06-2021 abdominal real ti me w/image documentation Christina Salter DO Work Phone: Start: 12-08-2019 Microscopic observat ion [Identifier] in Cervix by Cyto stain Christina Gaetano DO Work Phone: Plan of Treatment Date Care Activity Detail Author Start: 2072 RSV Immunization for Adults (1 - 1-dose 75+ series) RSV Immunization for Adults (1 - 1-dose 75+ series) [facility] Start: 2072 RSV Vaccine (1 - 1-d ose 75+ series) RSV Vaccine (1 - 1-dose 75+ series) [facility] Start: 11-22-2047 Zoster Vaccines (1 of 2) Zoster Vacc leonidas (1 of 2) [facility] Start: 12-18-2029 DTaP/Tdap/Td vaccine (8 - Td or Tdap) DTaP/Tdap/Td vaccine (8 - Td or Tdap) [facility] Start: 12-18-2029 DTaP/Tdap/Td Vaccine s (8 - Td or Tdap) DTaP/Tdap/Td Vaccines (8 - Td or Tdap) [facility] Start: 12-18-2029 Urine microalbumin profile DTaP,Tdap,Td Vaccine (8 - Td or Tdap) [facility] Start: 06-13-2025 Screening for malign ant neoplasm of cervix [facility] Start: 03-25-2025 Anxiety Screening Anxiety Screening [facility] Start: 03-25-2025 Depression Screening Depression Scre ening [facility] Start: 01-23-2025 Influenza vaccination Influenz a Vaccine (Season Ended) [facility] Start: 11-05-2024 Nonstress test [facility] Start: 11-05-2024 Obstetric monitoring [facility] Start: 11-05-2024 Vital signs measurements [facility] Start: 11-05-2024 [facility] Start: 11-05-2024 Patient discharge [facility] Start: 11-04-2024 Nonstress test [facility] Start: 11-04-2024 Obstetric monitoring [facility] Start: 11-04-2024 Vital signs measurements [facility] Start: 11-04-2024 [facility] Start: 11-04-2024 Patient discharge [facility] Start: 10-05-2024 End: 10-05-2024 Patient encounter procedure 10/05/2024 2:30 PM EDT Routine Office Visit OB/Gynecology [address] [place] [address] Yennifer Couch APRN.[facility] [address] [place] [address] OB OB/Gynecology Comment on above: OB Start: 09-21-2024 End: 09-21-2024 Patient encounter procedure 09/21/2024 2:50 PM EDT Routine Office Visit OB/Gynecology [address] [place] [address] Kathe Florentino MD [address] [place] [address] OB OB/Gynecology Comment on above: OB Start: 09-07-2024 End: 09-07-2024 Patient encounter procedure 09/07/2024 2:40 PM EDT Routine Office Visit OB/Gynecology [address] [place] [address] Kathe Florentino MD [address] [place] [address] OB OB/Gynecology Comment on above: OB Start: 08-24-2024 End: 08-24-2024 Patient encounter procedure 08/24/2024 2:30 PM EDT Routine Office Visit OB/Gynecology [address] [place] [address] Zenaida Mitchell APRN.LIAISON OFFICER [address] [place] [address] OB OB/Gynecology Comment on above: OB Start: 08-10-2024 End: 08-10-2024 Patient encounter procedure 08/10/2024 2:30 PM EDT Routine Office Visit OB/Gynecology [address] [place] [address] Yennifer Couch APRN.CNM [address] [place] [address] OB Routine OB/Gynecology Comment on above: OB Routine Start: 08-10-2024 End: 08-10-2024 ambulatory 08/10/2024 2:15 PM EDT Results Only [place] [facility] [address] [place] [address] Glucose test and Labs [facility] Comment on above: Glucose test and Lab s Start: 07-13-2024 End: 07-13-2024 Patient encounter procedure 07/13/2024 2:20 PM EST Routine Office Visit OB/Gynecology [address] [place] [address] Nancy Aguilar MD [address] [place] [address] OB Routine OB/Gynecology Comment on above: OB Routine Start: 07-13-2024 End: 10-12-2024 ANEMIA REFLEX PANEL ANEMIA REFLEX PANEL Lab Routine Screening for diabetes mellitus Expected: 07/13/2024, Expires: 10/12/2024 [facility] Comment on above: Expected: 07/13/2024 , Expires: 10/12/2024 Start: 07-13-2024 End: 07-13-2025 GESTATIONAL GLUCOSE SCREEN, 1-HOUR, 50 GRAM, NON-FASTING GESTATIONAL GLUCOSE SCREEN, 1-HOUR, 50 GRAM, NON-FASTING Lab Routine Screening for diabetes mellitus Expected: 07/13/2024, Expires: 07/13/2025 [facility] Work Phone: Comment on above: Expected: 07/13/2024 , Expires: 07/13/2025 Start: 07-13-2024 End: 07-13-2025 SYPHILIS TREPONEMAL W/REFLEX SYPHILIS TREPONEMAL W/REFLEX Lab Routine Screening for diabetes mellitus Expected: 07/13/2024, Expires: 07/13/2025 [facility] Comment on above: Expected: 07/13/2024 , Expires: 07/13/2025 Start: 06-26-2024 Nonstress test [facility] Start: 06-26-2024 Obstetric monitoring [facility] Start: 06-26-2024 Vital signs measurements [facility] Start: 06-26-2024 [facility] Start: 06-26-2024 Patient discharge [facility] Start: 06-15-2024 End: 06-15-2024 Patient encounter procedure 06/15/2024 9:40 AM EST Routine Office Visit OB/Gynecology [address] [place] [address] Xenia Marie MD [address] [place] [address] OB Routine OB/Gynecology Comment on above: OB Routine Start: 06-15-2024 End: 06-15-2024 Patient encounter procedure 06/15/2024 8:30 AM EST Routine Office Visit [facility]aternal [facility] [address] [place] [address] Anatomy Scan [facility] Comment on above: Anatomy Scan Start: 05-27-2024 End: 05-27-2024 Patient encounter procedure [facility] Comment on above: Early Anatomy OB Routine Start: 04-26-2024 End: 04-26-2025 NUCHAL TRANSLUCENCY WHI NUCHAL TRANSLUCENCY WHI Anc Imaging Routine Encounter for supervision of normal first in first trimester Encounter for screening of mother Expected: 04/26/2024, Expires: 04/26/2025 [facility] Comment on above: Expected: 04/26/2024 , Expires: 04/26/2025 Start: 04-26-2024 End: 04-26-2025 OBSTETRIC ULTRASOUND WHI OBSTETRIC ULTRASOUND WHI Anc Imaging Routine Encounter for supervision of normal first in first trimester 13 weeks gestation of Encounter for screening of mother Expected: 04/26/2024, Expires: 04/26/2025 [facility] Work Phone: Comment on above: Expected: 04/26/2024 , Expires: 04/26/2025 Start: 04-26-2024 End: 04-26-2024 Patient encounter procedure 04/26/2024 1:10 PM EST Routine Office Visit OB/Gynecology [address] [place], [place] [id number] Nancy Aguilar MD [address] [place] [address] 2nd OB OB/Gynecology Comment on above: 2nd OB Start: 03-25-2024 End: 06-24-2024 CBC W Auto Differential panel - Blood COMPLETE BLOOD COUNT AND DIFFERENTIAL Lab Routine 8 weeks gestation of Expected: 03/25/2024, Expires: 06/24/2024 [facility] Comment on above: Expected: 03/25/2024 , Expires: 06/24/2024 Start: 03-25-2024 End: 06-24-2024 Hemoglobin A1c in Blood HEMOGLOBIN A1C Lab Routine 8 weeks gestation of Expected: 03/25/2024, Expires: 06/24/2024 [facility] Comment on above: Expected: 03/25/2024 , Expires: 06/24/2024 Start: 03-25-2024 End: 06-24-2024 Hepatitis B virus surface Ag [Presence] in Serum HEPATITIS B SURFACE ANTIGEN Lab Routine 8 weeks gestation of Expected: 03/25/2024, Expires: 06/24/2024 [facility] Comment on above: Expected: 03/25/2024 , Expires: 06/24/2024 Start: 03-25-2024 End: 06-24-2024 Hepatitis C virus Ab [Presence] in Serum HEPATITIS C ANTIBODY IA WITH CONFIRMATION Lab Routine 8 weeks gestation of Expected: 03/25/2024, Expires: 06/24/2024 [facility] Comment on above: Expected: 03/25/2024 , Expires: 06/24/2024 Start: 03-25-2024 End: 06-24-2024 HIV 1+2 Ab [Presence] in Serum or Plasma by Immunoassay HIV 1/2 COMBO WITH REFLEX TO DIFFERENTIATION Lab Routine 8 weeks gestation of Expected: 03/25/2024, Expires: 06/24/2024 [facility] Comment on above: Expected: 03/25/2024 , Expires: 06/24/2024 Start: 03-25-2024 End: 06-24-2024 Iron and Iron binding capacity panel - Serum or Plasma IRON AND TIBC Lab Routine 8 weeks gestation of Expected: 03/25/2024, Expires: 06/24/2024 [facility] Comment on above: Expected: 03/25/2024 , Expires: 06/24/2024 Start: 03-25-2024 End: 06-24-2024 RUBELLA IGG ANTIBODY RUBELLA IGG ANTIBODY Lab Routine 8 weeks gestation of Expected: 03/25/2024, Expires: 06/24/2024 [facility] Comment on above: Expected: 03/25/2024 , Expires: 06/24/2024 Start: 03-25-2024 End: 06-24-2024 SYPHILIS TREPONEMAL W/REFLEX SYPHILIS TREPONEMAL W/REFLEX Lab Routine 8 weeks gestation of Expected: 03/25/2024, Expires: 06/24/2024 [facility] Work Phone: Comment on above: Expected: 03/25/2024 , Expires: 06/24/2024 Start: 03-25-2024 End: 06-24-2024 TYPE + SCREEN TYPE + SCREEN Blood Bank Routine 8 weeks gestation of Expected: 03/25/2024, Expires: 06/24/2024 [facility] Comment on above: Expected: 03/25/2024 , Expires: 06/24/2024 Start: 03-25-2024 End: 03-25-2024 Patient encounter procedure 03/25/2024 8:15 AM EDT Initial Office Visit OB/Gynecology [address] [place] [address] Citlali Bauer APRN.LIAISON OFFICER [address] [place] [address] OB/Gynecology Start: 01-24-2024 Covid-19 Vaccine ( season) Covid-19 Vaccine () [facility] Start: 01-24-2024 Influenza vaccination Influenza Vacc ine (#1) [facility] Start: 06-17-2023 End: 06-17-2023 Patient encounter procedure 06/17/2023 Office Visit Obstetrics and Gynecology Linda Lilly MD [address] [phone] [facility] [place] GENERAL OPERATIONS MANAGER Start: 12-07-2022 Screening for malign ant neoplasm of cervix Pap smear [facility] Start: 06-18-2022 End: 06-18-2022 Patient encounter procedure 06/18/2022 Office Visit Obstetrics and Gynecology Linda Lilly MD [address] [phone] [facility] [place] GENERAL OPERATIONS MANAGER Start: 06-12-2022 Screening for Chlamy reji trachomatis Chlamydia screen [facility] Start: 01-23-2022 Influenza vaccination S [facility] Start: 01-24-2020 Varicella vaccination [facility] Start: 2016 Hepatitis B Vaccine (1 of 3 - 19+ 3-dose series) Hepatitis B Vaccine (1 of 3 - 19+ 3-dose series) [facility] Start: 2016 Urine microalbumin profile DTaP,Tdap,Td Vaccine (1 - Tdap) [facility] Start: 11-22-2015 Anxiety Screening Anxiety Screening [facility] Start: 11-22-2015 Depression Screening Depression Scre ening [facility] Start: 11-22-2015 Hepatitis C screening [facility] Start: 11-22-2015 HIV screening HIV Screening [facility] Start: 2012 HIV screening HIV screen [facility] Start: 2012 HPV Vaccine (1 - 3-d ose series) HPV Vaccine (1 - 3-dose series) [facility] Start: 11-22-2011 Peds To Adult Transi tion Annual Assessment Peds To Adult Transition Annual Assessment [facility] Start: 2009 Depression Screen Depression Screen [facility] Start: 2009 Depression Screening Depression Scre [facility] Start: 2009 Peds To Adult Transi tion Initial Discussion Peds To Adult Transition Initial Discussion [facility] Start: 2002 COVID-19 Vaccine (1) COVID-19 Vaccin e (1) [facility] Start: 1998 Varicella vaccine (1 of 2 - 2-dose childhood series) Varicella vaccine (1 of 2 - 2-dose childhood series) [facility] Start: 05-23-1998 COVID-19 Vaccine (#1) COVID-19 Vacci ne (#1) [facility] Start: 1997 HIV screening HIV Screening [facility] Start: 1997 Lipid panel Lipid Panel [facility] Bacteria identified in Urine by Culture URINE CULTURE Microbiology Routine 8 weeks gestation of 03/25/2024 9:11 AM T [facility] Bacteria identified in Urine by Culture Urine culture Microbiology Routine Frequent urination Ordered: 06/13/2022 [facility] Comment on above: Ordered: 06/13/2022 Bacteria identified in Urine by Culture BACTERIAL CULTURE, URINE Microbiology Routine Dysuria 07/26/2024 10:39 AM EST [facility] Work Phone: Chlamydia trachomatis+Neisseria gonorrhoeae DNA [Presence] in Unspecified specimen by MICHAEL with probe detection GONORRHEA/CHLAMYDIA NAAT Lab Routine 8 weeks gestation of 03/25/2024 9:11 AM EDT [facility] End: 11-19-2021 CT ABDOMEN W WO CONTRAST Additional Contrast? None [facility] Work Phone: Comment on above: Once for 1 Occurrenc es starting 11/19/2021 until 11/19/2021 Cytology Cervical or vaginal smear or scraping study Pap Smear Pathology and Cytology Routine Well woman exam with routine gynecological exam Ordered: 06/13/2022 [facility] Work Phone: Comment on above: Ordered: 06/13/2022 Patient Education Kick Counts ED False Labor OB Triage: Return to Hospital or Notify Physician if you Experience: [facility] Work Phone: Patient referral [facility] Work Phone: Streptococcus agalac tiae [Presence] in Unspecified specimen by Organism specific culture [facility] End: 11-06-2021 US PELVIS COMPLETE NON-OB TRANSABDOMINAL AND TRANSVAGINAL [facility] Work Phone: Comment on above: Once for 1 Occurrenc es starting 11/06/2021 until 11/06/2021 Immunizations Immunization Date Immunization Notes Care Provider Fa [facility] 09-22-2024 tetanus toxoid, redu satnam diphtheria toxoid, and acellular pertussis vaccine, adsorbed Dr. Christina Salter DO Work Phone: [facility] 05-21-2023 influenza, injectabl e, quadrivalent, preservative free Nancy Aguilar MD Work Phone: [facility] 05-21-2023 influenza virus vacc ine, unspecified formulation Citlali Bauer APRN.CNP Work Phone: [facility] 12-27-2021 tuberculin skin test ; purified protein derivative solution, intradermal Nancy Aguilar MD Work Phone: [facility] 08-10-2020 hepatitis B vaccine, adult dosage Nancy Aguilar MD Work Phone: [facility] 03-10-2020 Influenza, injectabl e, Madin Mikana Canine Kidney, preservative free, quadrivalent Nancy Aguilar MD Work Phone: [facility] 03-10-2020 influenza virus vacc ine, unspecified formulation Linda Lilly MD Work Phone: [facility] 01-24-2020 hepatitis B vaccine, adult dosage Nancy Aguilar MD Work Phone: [facility] 12-27-2019 measles, mumps and rubella virus vaccine Nancy Aguilar MD Work Phone: [facility] 12-27-2019 tuberculin skin test ; purified protein derivative solution, intradermal Nancy Aguilar MD Work Phone: [facility] 12-21-2019 hepatitis B vaccine, adult dosage Nancy Aguilar MD Work Phone: [facility] 12-19-2019 meningococcal polysaccharide (groups A, C, Y and W-135) diphtheria toxoid conjugate vaccine (MCV4P) Nancy Aguilar MD Work Phone: [facility] 12-19-2019 tetanus toxoid, redu satnam diphtheria toxoid, and acellular pertussis vaccine, adsorbed Nancy Aguilar MD Work Phone: [facility] 12-19-2019 tuberculin skin test ; purified protein derivative solution, intradermal Nancy Aguilar MD Work Phone: [facility] 03-04-2012 hepatitis A vaccine, pediatric/adolescent dosage, 2 dose schedule Nancy Aguilar MD Work Phone: [facility] 03-04-2012 human papilloma viru s vaccine, quadrivalent Nancy Aguilar MD Work Phone: [facility] 03-10-2011 human papilloma viru s vaccine, quadrivalent Nancy Aguilar MD Work Phone: [facility] 01-06-2011 hepatitis A vaccine, pediatric/adolescent dosage, 2 dose schedule Nancy Aguilar MD Work Phone: [facility] 01-06-2011 human papilloma viru s vaccine, quadrivalent Nancy Aguilar MD Work Phone: [facility] 01-06-2011 meningococcal polysaccharide (groups A, C, Y and W-135) diphtheria toxoid conjugate vaccine (MCV4P) Nacny Aguilar MD Work Phone: [facility] 10-03-2009 diphtheria, tetanus toxoids and acellular pertussis vaccine Nancy Aguilar MD Work Phone: [facility] 04-13-2009 novel influenza-H1N1 -09, preservative-free, injectable Nancy Aguilar MD Work Phone: [facility] 12-20-2002 diphtheria, tetanus toxoids and acellular pertussis vaccine Nancy Aguilar MD Work Phone: [facility] 12-20-2002 measles, mumps and rubella virus vaccine Nancy Aguilar MD Work Phone: [facility] 12-20-2002 poliovirus vaccine, inactivated Nancy Aguilar MD Work Phone: [facility] 03-04-1999 diphtheria, tetanus toxoids and acellular pertussis vaccine Nancy Aguilar MD Work Phone: [facility] 03-04-1999 haemophilus influenz ae type b vaccine, PRP-T conjugate Nancy Aguilar MD Work Phone: [facility] 03-04-1999 measles, mumps and rubella virus vaccine Nancy Aguilar MD Work Phone: [facility] 03-04-1999 poliovirus vaccine, inactivated Nancy Aguilar MD Work Phone: [facility] 12-03-1998 hepatitis B vaccine, pediatric or pediatric/adolescent dosage Nancy Aguilar MD Work Phone: [facility] 07-12-1998 diphtheria, tetanus toxoids and acellular pertussis vaccine Nancy Aguilar MD Work Phone: [facility] 07-12-1998 haemophilus influenz ae type b vaccine, PRP-T conjugate Nancy Aguilar MD Work Phone: [facility] 03-19-1998 diphtheria, tetanus toxoids and acellular pertussis vaccine Nancy Aguilar MD Work Phone: [facility] 03-19-1998 haemophilus influenz ae type b vaccine, PRP-T conjugate Nancy Aguilar MD Work Phone: [facility] 03-19-1998 poliovirus vaccine, inactivated Nancy Aguilar MD Work Phone: [facility] 02-15-1998 diphtheria, tetanus toxoids and acellular pertussis vaccine Nancy Aguilar MD Work Phone: [facility] 02-15-1998 haemophilus influenz ae type b vaccine, PRP-T conjugate Nancy Aguilar MD Work Phone: [facility] 02-15-1998 poliovirus vaccine, inactivated Nancy Aguilar MD Work Phone: [facility] 01-09-1998 hepatitis B vaccine, pediatric or pediatric/adolescent dosage Nancy Aguilar MD Work Phone: [facility] 1997 hepatitis B vaccine, pediatric or pediatric/adolescent dosage Nancy Aguilar MD Work Phone: [facility] Payers Date Payer Category Payer Private Health Insurance MMO SU[employer] PPO [id number] 2024 Self-pay 2024 Unknown [id number] 2022 [employer] [facility] Care - O [facility] [id number] 2022 Unknown [id number] 2019 Unknown [employer] [facility] [address] [id number] 2019-Present [address] [place] [address] [id number] Unknown [id number] Unknown [id number] 2.16.840.1.374768.3.579.2. 462 Unknown [id number] 2.16.840.1.369682.3.579.2. 462 Unknown [id number] 2.16.840.1.051083.3.579.2. 462 Unknown [id number] 2.16.840.1.780239.3.579.2. 462 Unknown [id number] 2.16.840.1.822697.3.579.2. 462 Unknown [id number] 2.16.840.1.552939.3.579.2. 462 Unknown [id number] 2.16.840.1.639577.3.579.2. 462 Unknown [id number] 2.16.840.1.044924.3.579.2. 462 Unknown [id number] 2.16.840.1.601991.3.579.2. 462 Unknown [id number] 2.16.840.1.704777.3.579.2. 462 Unknown [id number] 2.16.840.1.631278.3.579.2. 462 Unknown [id number] 2.16.840.1.911617.3.579.2. 462 Unknown [id number] 2.16.840.1.396364.3.579.2. 462 Unknown [id number] 2.16.840.1.361640.3.579.2. 462 Unknown [id number] 2.16.840.1.132928.3.579.2. 462 Unknown [id number] 2.16.840.1.894741.3.579.2. 462 Unknown [id number] 2.16.840.1.526606.3.579.2. 462 Social History Date Type Detail Facility Start: 01-07-2015 End: 09-02-2024 Tobacco smoking status NHIS Never smoked tobacco [employer] Work Phone: Start: 01-07-2015 End: 06-15-2024 Tobacco use and exposure Smokeless tobacco non-user [employer] Work Phone: Start: 11-06-2021 End: 06-13-2022 Alcohol intake Current drinker of alcohol (finding) [employer] Phone: Start: 11-26-2018 History SDOH Alcohol [facility] Start: 1997 Sex Assigned At Not on file [facility] [employer] Work Phone: Start: 03-22-2024 End: 07-26-2024 Alcoholic beverage intake Ex-drinker (finding) [facility] Start: 03-22-2024 End: 04-26-2024 History of Social function [facility] Start: 03-22-2024 End: 04-26-2024 Tobacco use panel [facility] Start: 03-22-2024 Education 17 [facility] Start: 12-10-2017 Alcohol Comment socially [facility] Start: 02-08-2024 [facility] National Score (1-10 0), lower number is lower risk 71 [facility] Start: 12-23-2021 Sex Female (finding) [facility] Start: 1995 Sex Assigned At Female W [facility] Clinical Notes 06-13-2022 to 11-05-2024 Note Date & Type Note Facility 11-05-2024 History and physical note [facility] 10-27-2024 Progress note [facility] 10-18-2024 Progress note [facility] 10-18-2024 Progress note Note Date/Time October 18, 2024 3:54pm [facility] [address], [address] [place] [address] OFFICE VISIT Date of Service: 10/18/24 MR#: [id number] Acct: [id number] Name: CANDICE CARMICHAEL Rep #: [id number] : 1995 Provider: Dr. Gilson Guidry MD Age/Sex: 28/F Location: [facility] Status: Signed Intake Vital Signs 09/20/24 10:23 10/12/24 15:05 10/18/24 15:40 Height 5 ft 2 in 5 ft 2 in 5 ft 2 in Weight: 195 lb 2 oz 195 lb 8 oz BMI 35.6 35.7 BP 127/86 H 118/86 H Intake Visit Reasons: 38 WK OB Online Media Buyer Required: No Is patient in pain?: No [...] mg-folate no.1 1 mg-dha 300 mg capsule (PNV-[place]) pyridoxine (vitamin B6) 100 mg 100 mg [...] physical activity do you participate in: none debo/religious: Alevism seatbelt use: always do you feel safe [...] no improvement within 2 weeks recommend starting shelter medication SSRI. recommend therapy. 10/05/24 -?-?-?-?-?-?-?-?-?-?-?-?- 36w [...] - Anemia complicating , third trimester 10/18/24 1554 <Electronically signed by Janae marcano MD> Date _ Janae Guidry MD Cosigner Signature: Date (if applicable) CC: ~ [facility] Work Phone: 1(657) 666-877805-21-2025 Progress [facility] [address], [address] [place] [address] OFFICE VISIT Date of Service: 10/12/24 MR#: [id number] Acct: [id number] Name: CANDICE CARMICHAEL Rep #: [id number] : 1995 Provider: STEPHANIE Ashley Age/Sex: 28/F Location: [facility] Status: Signed Intake Vital Signs 09/20/24 10:23 10/05/24 14:40 10/12/24 15:05 Height 5 ft 2 in 5 ft 2 in 5 ft 2 in Weight: 195 lb 2 oz BMI 35.6 BP 127/86 H Intake Visit Reasons: 37 WK OB Chief Complaint: 37wk OB Online Media Buyer Required: No Is patient in pain?: No [...] mg-folate no.1 1 mg-dha 300 mg capsule (PNV-[place]) pyridoxine (vitamin B6) 100 mg 100 mg [...] physical activity do you participate in: none debo/religious: Alevism seatbelt use: always do you feel safe at home: Yes additional social history: Allison Adams- [employer] History 1 Elective abortions Hx Para [...] if no improvementwithin 2 weeks recommend starting press tender long goods medication SSRI. recommend therapy. 10/05/24 -?-?-?-?-?-?-?-?-?-?-?-?- 36w [...] the past year?: No 10/12/24 1530 s STACIEM> Date _ Mable Ashley CNM Cosigner Signature: Date (if applicable) CC: ~ [facility]05-21-2025 Progress note Author Mable Ashley [facility] Note Date/Time October 12, 2024 3:30p m [facility] [address], [address] [place] [address] OFFICE VISIT Date of Service: 10/12/24 MR#: [id number] Acct: [id number] Name: CANDICE CARMICHAEL Rep #: [id number] : 1995 Provider: STEPHANIE Ashley Age/Sex: 28/F Location: [facility] Status: Signed Intake Vital Signs 09/20/24 10:23 10/05/24 14:40 10/12/24 15:05 Height 5 ft 2 in 5 ft 2 in 5 ft 2 in Weight: 195 lb 2 oz BMI 35.6 BP 127/86 H Intake Visit Reasons: 37 WK OB Chief Complaint: 37wk OB Online Media Buyer Required: No Is patient in pain?: No [...] mg-folate no.1 1 mg-dha 300 mg capsule (PNV-[place]) pyridoxine (vitamin B6) 100 mg 100 mg [...] house current occupational status: employed current occupation: [employer] current occupational exposures/hazards: No pets and animals: [...] physical activity do you participate in: none debo/religious: Alevism seatbelt use: always do you feel safe at home: Yes additional social history: Allison Adams- [facility] History 1 Elective abortions Hx Para 0 Spontaneous abortions Hx # Term Pregnancies Ectopic pregnancies Hx # Pregnancies Multiple births # of living children HPI 37 WK OB Details: CANDICE CARMICHAEL is a 28 year old who presents for routine OB visit. OB Visit [facility] Calculator Estimated Delivery Date Method Current WG [...] no improvement within 2 weeks recommend starting press tender long goods medication SSRI. recommend therapy. 10/05/24 -?-?-?-?-?-?-?-?-?-?-?-?- 36w [...] fallen in the past year?: No 10/12/24 5024 <Electronically signed by Mable garcia CNM> Date _ Mable Montero Signature: Date (if applicable) CC: ~ [facility] Work Phone: 1(479) 949-437705-14-2025 Progress [facility] [address], [address] [place] [address] OFFICE VISIT Date of Service: 10/05/24 MR#: [id number] Acct: [id number] Name: CANDICE CARMICHAEL CARTER Rep #: [id number] : 1995 Provider: Dr. Clair Edouard DO Age/Sex: 28/F Location: [facility] Status: Signed Intake Vital Signs 09/05/24 11:40 09/22/24 08:36 10/05/24 14:40 10/05/24 14:40 Height 5 ft 2 in 5 ft 2 in 5 ft 2 in 5 ft 2 in Weight: 193 lb 6 oz BMI 35.4 BP 115/72 Intake Visit Reasons: 36 wk ob Online Media Buyer Required: No Is patient in pain?: No [...] mg-folate no.1 1 mg-dha 300 mg capsule (PNV-[place]) pyridoxine (vitamin B6) 100 mg 100 mg [...] physical activity do you participate in: none debo/religious: Alevism seatbelt use: always do you feel safe [...] if no improvementwithin 2 weeks recommend starting press tender long goods medication SSRI. recommend therapy. 10/05/24 -?-?-?-?-?-?-?-?-?-?-?-?- 36w [...] 1536 e Janet DO> Date _ Xenia Reidignale Signature: Date (if applicable) CC: ~ [facility]05-14-2025 Progress note Author Xenia Gonzales [facility] Note Date/Time October 05, 2024 3:36p m [facility] [address], [address] [place] [address] OFFICE VISIT Date of Service: 10/05/24 MR#: [id number] Acct: [id number] Name: CANDICE CARMICHAEL Rep #: [id number] : 1995 Provider: Dr. Clair Edouard DO Age/Sex: 28/F Location: [facility] Status: Signed Intake Vital Signs 09/05/24 11:40 09/22/24 08:36 10/05/24 14:40 10/05/24 14:40 Height 5 ft 2 in 5 ft 2 in 5 ft 2 in 5 ft 2 in Weight: 193 lb 6 oz BMI 35.4 BP 115/72 Intake Visit Reasons: 36 wk ob Online Media Buyer Required: No Is patient in pain?: No [...] mg-folate no.1 1 mg-dha 300 mg capsule (PNV-[place]) pyridoxine (vitamin B6) 100 mg 100 mg [...] physical activity do you participate in: none debo/religious: Alevism seatbelt use: always do you feel safe [...] no improvement within 2 weeks recommend starting shelter medication SSRI. recommend therapy. 10/05/24 -?-?-?-?-?-?-?-?-?-?-?-?- 36w [...] 36 weeks gestation of Comment: QUENTIN from CC [...] Cosigner Signature: Date (if applicable) CC: ~ [place] [facility] [facility] Work Phone: 1(691) 873-673904-14-2025 Telephone encounter Note* Telephone Encounter - Angelica Tran RN - 09/05/2024 4:36 PM EDT S: Patient spoke to [facility] nurse regarding FMLA paperwork and CT results [...] Protocols used: Information Only Call - No [id number] [facility] [id number] Miscellaneous Notes* Telephone Encounter - Angelica Tran RN - 09/05/2024 4:36 PM EDT S: Patient spoke to [facility] nurse regarding FMLA paperwork and CT results [...] Protocols used: Information Only Call - No [id number] documented in this encounterSFlower [id number] Evaluation note* Diagnosis Onset Date Resolution Status [...] 2024 3:37pm Anxiety and depression acute Ma 2024 3:37pm Choroid plexus cyst of fetus [...] first acute October 27, 2024 1 0:20am [facility] Work Phone: 1(629) 979-427604-14-2025 Evaluation note* Diagnosis Onset Date Resolution Status [...] normal first acute November 01, 2024 2:03pm [facility] Work Phone: 1(802) 859-934204-14-2025 Evaluation note* Diagnosis Onset Date Resolution Status [...] (postural orthostatic tachycardia syndrome) acute September 22, 025 8:30am acute September 22, 2024 8:30am [...] normal first acute November 01, 2024 2:03pm False labor acute November 05 6:05am UTI (urinary tract infection) acute November 05, 2024 6:05am [facility] Work Phone: 1([phone]) 830-982004-09-2025 Telephone encounter Note* Telephone Encounter - Xenia Carter RN - 08/31/2024 4:34 PM EDT Left message for patient to call office. Xenia Carter RN [facility]04-09-2025 Miscellaneous Notes* Telephone Encounter - Xenia [...] ob appointment is 09/07/2024 documented in this encounterC[facility] Telephone encounter Note * Telephone Encounter - Yennifer Couch APRN.CNM - 08/31/2024 4:26 PM EDT Agree with plan of care. Add in some electrolytes and increase fluid intake. Yennifer Couch APRN.CNM [facility] Work Phone: 1(255) 651-775504-09-2025 Telephone encounter Note* Telephone Encounter - Magaly [...] any changes. Next ob appointment is 09/07/2024 [facility]04-02-2025 Progress note* Quick Notes - Zenaida [...] Supervision of high risk in third trimester ([facility]) - ICD9: V23.9, ICD10: O09.93 (primary diagnosis) - Continue LDA and PNV - Recommend starting oral iron (Hemoglobin 10.2) - Reviewed how to pre register through [facility] - Discussed TDAP vaccine, wants to think about it 2. 30 weeks gestation of ([facility]) - ICD9: V22.2, ICD10: Z3A.30 - Declines LARC, form signed - Reviewed 28 week labs 3. Obesity affecting in third trimester, unspecified obesity type ([facility]) - ICD9: 649.13, ICD10: O99.213 - Pre BMI 30 PTL precautions and kick counts reviewed. RTO in 2 weeks or sooner as needed. Zenaida Mitchell APRN.LIAISON OFFICER [facility]04-02-2025 Miscellaneous Notes* Quick Notes - Zenaida [...] - Reviewed how to pre register through [facility] - Discussed TDAP vaccine, wants to think [...] needed. Zenaida Mitchell APRN.CNP documented in this encounterC[facility]04-[facility]-2025 Instructions* Patient Instructions* Zenaida Mitchell APRN.CNP - 08/24/2024 2:27 PM EDT Please call [phone] to pre-register for your and labor and delivery stay at [facility]. They will want to know your due date, insurance and contact information. This isimportant to do before you go into labor to help with the efficiency of the admission process when you arrive. Thank you so much! SEQUENTIAL SCREENINGS The [facility] offers sequential screenings for women who [...] testing. It will require an appointment withour education technician. This is not an ultrasound performed [...] the above symptoms, contact our office at [phone] and ask to speak with anurse. After hours, you can call doctors registry at [phone] OR call [facility] at [phone] ask to have the doctor cardiac/vascular sonographer paged. If you consider this an emergency, dial 9-2 or go to your nearest emergency department. NEED HELP? Are you dealing with a violent or abusive relationship? Are you a victim of rape or sexual assult? Call [facility] ([place]) 24 hour Crisis Hotline: 537.758.1943 or 876-593-4853. MANUAL Your Guide to a Healthy manual is now on-line. Visit [email or web address] to download your free copy documented in this encounterCleveland Clinic [facility]03-19-2025 Progress note* Quick Notes - Yennifer Couch APRN.CNM - 08/10/2024 2:46 PM EDT S: Candice Carmichael is a 28 year old female who presents at 28 weeks gestation for a routine visit. Just completed 1 hour GCT. Positive movements. NO issues to report. 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 Denies headache, visual changes, chest pain, shortness [...] or sooner if needed Yennifer Couch APRN.CNM [facility]03-19-2025 Miscellaneous Notes* Quick Notes - Yennifer Couch APRN.CNM - 08/10/2024 2:46 PM EDT S: Candice Carmichael is a 28 year old female who presents at 28 weeks gestation for a routine visit. Just completed 1 hour GCT. Positive movements. NO issues to report. 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 Denies headache, visual changes, chest pain, shortness [...] needed Yennifer Couch APRN.CNM documented in this encounterCleveland [facility]03-19-2025 Instructions* Patient Instructions* Apple Nails LPN - 08/10/2024 2:22 PM EDT SEQUENTIAL SCREENINGS [facility] offers sequential screenings for women who [...] testing. It will require an appointment withour education technician. This is not an ultrasound performed [...] the above symptoms, contact our office at [phone] and ask to speak with anurse. After hours, you can call doctors registry at [phone] OR call [facility] at [phone] ask to have the doctor cardiac/vascular sonographer paged. If you consider this an emergency, dial 9--1 or go to your nearest emergency department. NEED HELP? Are you dealing with a violent or abusive relationship? Are you a victim of rape or sexual assult? Call [facility] ([place]) 24 hour Crisis Hotline: 216.959.4241 or 664-749-3427. MANUAL Your Guide to a Healthy manual is now on-line. Visit [email or web address]/[email or web address] to download your free copy documented in this encounterCleveland [facility]03-04-2025 Progress note* Quick Notes - Kathy [...] expectations. All questions answered. Kathy Clancy MD [facility]03-04-2025 Miscellaneous Notes* Quick Notes - Kathy [...] answered. Kathy Clancy MD documented in this encounterCleveland Clinic Avon [facility] Instructions* Patient Instructions* Ashley Li MA - 07/26/2024 9:41 AM EST SEQUENTIAL SCREENINGS [facility] offers sequential screenings for women who [...] testing. It will require an appointment withour education technician. This is not an ultrasound performed [...] the above symptoms, contact our office at [phone] and ask to speak with anurse. After hours, you can call doctors registry at [phone] OR call [facility] at [phone] ask to have the doctor cardiac/vascular sonographer paged. If you consider this an emergency, dial 9-1-5 or go to your nearest emergency department. NEED HELP? Are you dealing with a violent or abusive relationship? Are you a victim of rape or sexual assult? Call [facility] ([place]) 24 hour Crisis Hotline: 244.758.2874 or 397-312-2136. MANUAL Your Guide to a Healthy manual is now on-line. Visit [email or web address]/[email or web address] to download your free copy documented in this encounterC[facility]02-19-2025 Progress note* Quick Notes - Nancy [...] 4 weeks or prn Nancy Aguilar M.D. [facility]02-19-2025 Miscellaneous Notes* Quick Notes - Nancy [...] prn Nancy Aguilar M.D. documented in this encounterC[facility]02-19-2025 Instructions* Patient Instructions* Apple Nails LPN - 07/13/2024 2:24 PM EST SEQUENTIAL SCREENINGS [facility] offers sequential screenings for women who [...] testing. It will require an appointment withour education technician. This is not an ultrasound performed [...] the above symptoms, contact our office at [phone] and ask to speak with anurse. After hours, you can call [employer] registry at [phone] OR call [facility] at [phone] ask to have the doctor cardiac/vascular sonographer paged. If you consider this an emergency, dial or go to your nearest emergency department. NEED HELP? Are you dealing with a violent or abusive relationship? Are you a victim of rape or sexual assult? Call [facility] ([place]) 24 hour Crisis Hotline: 984.256.1402 or 081-200-0219. MANUAL Your Guide to a Healthy manual is now on-line. Visit [email or web address] to download your free copy documented in this encounterC[facility]25 Evaluation note* Diagnosis Onset Date Resolution [...] (postural orthostatic tachycardia syndrome) acute September 22, 025 8:30am acute September 22, 2024 8:30am [...] first acute October 05, 2024 2 :26pm [facility] Work Phone: 1(739) 242-548102-02-2025 Evaluation note* Diagnosis Onset Date Resolution Status Admit Date fallJune 26, 2024 7:00pm 21 weeks gestation of [...] first acute October 12, 2024 2 :56pm [facility] Work Phone: 1(892) 209-839102-02-2025 Evaluation note* Diagnosis Onset Date Resolution Status Admit Date fallJune 26, 2024 7:00pm 21 weeks gestation of [...] affecting acute September 20, 2024 10:16am acute Juani 29th, 20 25 10:16am Supervision of normal first acute September 20, 2024 10:16am Anemia affecting acute September 22, 2024 8:30am Anxiety and depression acute 2024 8:30am Choroid plexus cyst of fetus affecting care of mother, antepartum acute September 22, 2024 8: 30am Fatigue acute September 22, 2024 8:30am Obesity affecting acute September 22, 2024 8:30am POTS (postural orthostatic tachycardia syndrome) acute September 22, 025 8:30am acute September 22, 2024 8:30am [...] first acute October 18, 2024 3 :37pm [facility] Work Phone: [phone] Progress note* Result Encounter Note - Nancy Aguilar MD - 06/15/2024 4:59 PM EST Anatomy ultrasound reviewed. No abnormalities identified. Follow up as clinically indicated. Pleaseplace copy in ob chart. Nancy Aguilar MD [facility]01-22-2025 Miscellaneous Notes* Result Encounter Note - Nancy Aguilar MD - 06/15/2024 4:59 PM EST Anatomy ultrasound reviewed. No abnormalities identified. Follow up as clinically indicated. Pleaseplace copy in ob chart. Nancy Aguilar MD documented in this encounterCleveland Clinic [facility]01-22-2025 NoteOutside Reference US ProcedureJanuary 2024 4:31pmApril 2024 11:[facility] NoteOutside Reference US ProcedureJanuary 2024 4:31pmApril 2024 11:53amNK[facility]01-22-2025 NoteOutside Reference US ProcedureJanuary 2024 4:31pmApril 2024 11:53amNK[facility]01-22-2025 Progress note* Quick Notes - Nancy [...] 20 weeks gestation of Nancy Aguilar M.D. [facility]01-22-2025 Miscellaneous Notes* Quick Notes - Nancy [...] <!--RTF_E--> Nancy Aguilar M.D. documented in this encounterCleveland Clinic [facility]01-22-2025 Instructions* Patient Instructions* Ashley Li MA - 06/15/2024 2:23 PM EST SEQUENTIAL SCREENINGS [facility] offers sequential screenings for women who [...] testing. It will require an appointment withour education technician. This is not an ultrasound performed [...] the above symptoms, contact our office at [phone] and ask to speak with anurse. After hours, you can call doctors registry at [phone] OR call [facility] at [phone] ask to have the doctor cardiac/vascular sonographer paged. If you consider this an emergency, dial 9-1-1 or go to your nearest emergency department. NEED HELP? Are you dealing with a violent or abusive relationship? Are you a victim of rape or sexual assult? Call [facility] ([place]) 24 hour Crisis Hotline: 222.142.5364 or 256-534-4553. MANUAL Your Guide to a Healthy manual is now on-line. Visit [email or web address]/HealthyPregnancyGuide to download your free copy documented in this encounterCleveland [facility]01-03-2025 Instructions* Patient Instructions* Ashley Li MA - 05/27/2024 8:40 AM EST SEQUENTIAL SCREENINGS [facility] offers sequential screenings for women who [...] testing. It will require an appointment withour education technician. This is not an ultrasound performed [...] the above symptoms, contact our office at [phone] and ask to speak with anurse. After hours, you can call doctors registry at [phone] OR call [facility] at [phone] ask to have the doctor cardiac/vascular sonographer paged. If you consider this an emergency, dial 1-1-1 or go to your nearest emergency department. NEED HELP? Are you dealing with a violent or abusive relationship? Are you a victim of rape or sexual assult? Call [facility] ([place]) 24 hour Crisis Hotline: 393.678.9728 or 116-741-0138. MANUAL Your Guide to a Healthy manual is now on-line. Visit 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 RTO in 4 weeks or sooner as needed. 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 RTO in 4 weeks or sooner as needed. Zenaida Mitchell APRN.LIAISON OFFICER documented in this encounterCleveland Clinic [facility] Hospital12-03-2024 Progress note* Quick Notes - Nancy [...] as needed for nausea/vomiting. Nancy Aguilar M.D. [facility]12-03-2024 Miscellaneous Notes* Quick Notes - Nancy [...] nausea/vomiting. Nancy Aguilar M.D. documented in this encounterCleveland Clinic [facility]12-03-2024 Instructions* Patient Instructions* Sandrita Nance MA - 04/26/2024 1:18 PM EST SEQUENTIAL SCREENINGS [facility] offers sequential screenings for women who [...] testing. It will require an appointment withour education technician. This is not an ultrasound performed [...] the above symptoms, contact our office at [phone] and ask to speak with anurse. After hours, you can call doctors registry at [phone] OR call [facility] at [phone] ask to have the doctor cardiac/vascular sonographer paged. If you consider this an emergency, dial 9-2-6 or go to your nearest emergency department. NEED HELP? Are you dealing with a violent or abusive relationship? Are you a victim of rape or sexual assult? Call [facility] ([place]) 24 hour Crisis Hotline: 903.264.4232 or 013-676-6117. MANUAL Your Guide to a Healthy manual is now on-line. Visit [email or web address] to download your free copy documented in this encounterC[facility]11-01-2024 Instructions* Patient Instructions* pAple Nails LPN - 03/25/2024 8:00 AM EDT Please select the following link to access the [facility] Your Guide to a Healthy . [email or web address] documented in this encounterCleveland Clinic [facility] Hospital10-29-2024 Miscellaneous Notes* Telephone Encounter - Xenia [...] classes. Apple Nails LPN documented in this encounterCleveland Clinic [facility] Hospital10-29-2024 Telephone encounter Note * Telephone Encounter - Xenia Carter RN - 03/22/2024 3:34 PM EDT Patient called back. States she just learned about Centering this afternoon with her PNOB. Needs todiscuss with her . Her initial NOB is on Thursday. Can discuss more at that time. Xenia Carter RN [facility]10-29-2024 Telephone encounter Note* Telephone Encounter - Apple Nails LPN - 03/22/2024 3:14 PM EDT Phone call placed brief message to contact a nurse. When patient returns call, inquire interest in Centering classes. Apple Nails LPN [facility]10-29-2024 NoteHNO ID: [id number] Author: CITLALI BAUER APRN.LIAISON OFFICER Service: ? Author Type: Nurse Practitioner Type: Progress Notes Filed: 03/25/2024 09:36 Note Text: Patient declined synthetic chemist. *Patient diagnosed in [address] Godinez in [place] with POTS syndrome. Had cardiology consult with [facility] Dr. Tipton on November 06, 2021.Dr [...] history of depression and anxiety diagnosed in 2017 and treated by [facility]. She has been off medication for 4 years. Believes she is feeling well off medication. Denies ever having any suicidal thoughts or thoughts of hurting others.Discussed increased risks of depression during and and importance of reporting the development or worsening of symptoms should they occur. *Patient considering carrier screening testing and aneuploidy testing. Contact information for [facility] and [facility] [facility] given to patient to check on [...] Screening: Completed, no positive findings documented. 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 *Patient diagnosed in [address] Godinez in [place] with POTS syndrome. Had cardiology consult with [facility] Dr. Tipton on November 06, 2021.Dr [...] anxiety diagnosed in 2018 and treated by [facility]. She has been off medication for 4 years. Believes she is feeling well off medication. Deniesever having any suicidal thoughts or thoughts of hurting others.Discussed increased risks of depression during and and importance of reporting the development or worsening of symptoms should they occur. *Patient considering carrier screening testing and aneuploidy testing. Contact information for [employer] and [employer] [facility] given to patient to check on [...] Screening: Completed, no positive findings documented. 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 As applicable, any other physician, advance practice provider, medical student, or other health professional student that will be observing or involved in the sensitive examination for educational or training purposes was discussed with the Patient or Authorized Granite Cutter. The Patient or Authorized Granite Cutter has agreed to proceed with the sensitive [...] +cardiac activity, CRL consistent with LMP. Citlali Bauer APRN.LIAISON OFFICER ASSESSMENT: 28 year old at 8w1d wks gestational age PLAN: 1) Patient oriented to practice. Patient given new OB orientation folder. Discussed nutrition, folic acid supplementation, dietary guidelines, exercise, smoking, alcohol, caffeine, and drug use. Discussed gestational weight gain guidelines. Discussed routine OB labs including STD/HIV. Discussed how to access Your guide to a health and the Lead Pastor. Reviewed midwifery and vegetable loader services that are available. 2) Screening: Hemoglobin [...] 4 weeks or sooner prn. Citlali Bauer APRN.LIAISON OFFICER documented in this encounterC[facility] Clinic [facility]01-23-2023 Telephone encounter Note * Telephone Encounter - Jillian Eduardo - 06/16/2022 10:00 AM EST Message released to patient as written. Patient's further questions if applicable: Were all questions from office addressed or relayed to the patient from encounter: Yes [id number] Miscellaneous Notes* Telephone Encounter - Jillian Eduardo [...] normal. I have placed a referral to uro-oracle architect. If she is not interested in additional work up she may decline a visit. Thank you documented in this [facility]01-23-2023 Telephone encounter Note* Telephone Encounter - Mable Mesa LPN - 06/16/2022 9:45 AM EST Left message to return call [facility]01-23-2023 Telephone encounter Note* Telephone Encounter - Mable Mesa LPN - 06/16/2022 9:45 AM EST ----- Message from Linda Lilly MD sent at 06/15/2022 9:32 PM EST ----- Please notify Candice that her urine culture was normal. I have placed a referral to uro-oracle architect. If she is not interested in additional work up she may decline a visit. Thank you [facility]01-20-2023 History of Present illness Narrative* Katlin Gregory MA - 06/13/2022 2:00 PM EST A synthetic chemist was offered to be present during her [...] Control: No HPV vaccination completed: Yes PAP: 2019 She c/o frequent urination with nocturia for [...] Body mass index is 27.25 kg/m . 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 PAP Urine culture documented in this encounterSum[facility] HealthEvaluation [facility]* Diagnosis 8 weeks gestation of - Primary state, incidental Encounter for supervision of normal first in first trimester Supervision of normal first POTS (postural orthostatic tachycardia syndrome) Tachycardia, unspecified BMI 30.0-30.9,adult Body Mass Index 30.0-30.9, adult documented in this encounter [facility] note* Diagnosis Encounter for supervision of [...] TRANSLUCENCY WHI; Future documented in this encounter [facility] note* Diagnosis Well woman exam with routine gynecological exam- Primary Routine gynecological examination Frequent urination Urinary frequency documented in this encounter [facility] note* Diagnosis Frequent urination- Primary Urinary frequency documented in this encounter [facility] note* Diagnosis Encounter for supervision [...] and vomiting during documented in this encounter [facility] note* Diagnosis Encounter for supervision of normal first in first trimester- Primary Supervision of normal first 13 weeks gestation of state, incidental Encounter for screening of mother Unspecified screening Nausea and vomiting during Encounter for anatomic survey- Primary Encounter for supervision of normal first in first trimester Supervision of normal first Encounter for screening of mother Unspecified screening documented in this encounter [facility] note* Diagnosis Encounter for supervision of [...] in second trimester documented in this encounter [facility] note* Diagnosis Encounter for supervision of [...] unspecified obesity type documented in this encounter [facility] note* Diagnosis Encounter for supervision of [...] of state, incidental documented in this encounter [facility] note* Diagnosis Encounter for supervision of [...] - Primary Dysuria documented in this encounter [facility] note* Diagnosis Encounter for supervision of [...] trimester Unspecified high-risk [facility] Diagnosis Encounter for supervision of normal [...] obesity type (HCC) documented in this encounter [facility] HospitalHistory and physical note Author Pati Martinez [facility] Note Date/Time November 05, 2024 9:07 am [facility] Medical Records Department [address] [place] [address] OB Triage Physician Note 11/05/24 0857 MR#: [id number] Acct: [id number] Name: CANDICE CARMICHAEL Rep #:[id number] : 1995 28 From: Pati Martinez CNM PCP: Christina Salter DO Status:REG C LI Y Location: [place] [address] HPI - General General Chief Complaint: contractions HPI Narrative CANDICE CARMICHAEL, is a 28 F who presents at 40.4 with contractions on and off since thursday. presented to after worsening contractions since midnight. denies lof/vb. Maternal Data Information KHLOE Calculator Estimated Delivery Date Method Current WG Current Estimate 11/01/24 LMP (Certain) 40w 4d PFSH PFSH Medical History Vocal cord dysfunction Tipped uterus Home Medications ?Medication ?Instructions ?Recorded ?Last Taken ?Type aspirin 81 mg tablet,delayed 81 mg PO QDAY 09/02/24 20:00 History release 81 mg cholecalciferol (vitamin D3) 50 50 mcg PO QDAY 5 Unknown History mcg (2,000 unit) capsule Held on 11/04/24. Instructions: Pt has been DC'd ferrous sulfate 325 mg (65 mg 325 mg PO Q OTHER DAY 11/03/24 20:00 History iron) tablet 325 mg multivit-min no.71-iron fum 28 1 cap PO DAILY 09/02/24 11/03/24 08:00 History mg-folate no.1 1 mg-dha 300 mg 1 cap capsule (PNV-[place]) pyridoxine (vitamin B6) 100 mg 100 mg PO QDAY 09/02/24 11/03/24 20:00 History tablet 100 mg zinc acetate 50 mg (zinc) capsule 50 mg PO QDAY Unknown History Held on 11/04/24. Instructions: Pt has been DC'd hydroxyzine pamoate 25 mg capsule 25 mg PO Q6H PRN anx iety 30 days 09/22/24 Unknown Rx (Vistaril) #120 caps Held on 11/04/24. Instructions: Pt has been DC'd nitrofurantoin 100 mg PO Q12H 7 days #14 ca ps 11/05/24 Unknown Rx monohydrate/macrocrystals 100 mg capsule (Macrobid) phenazopyridine 200 mg tablet 200 mg PO TID 6 doses #6 tabs 11/05/24 Unknown Rx (Pyridium) Allergy/AdvReac Type Severity Reaction Status Date / Time Latex, Natural Rubber Allergy Intermediate Rash Verified 11/04/24 20:14 Family History Grandmother Diabetes Paternal Breast cancer Paternal- age of onset unknown Alzheimer's dementia Maternal Grandfather Cancer, Onset Age: 75 Paternal- Lung Cancer COPD (chronic obstructive pulmonary disease) Paternal Other Sudden cardiac Surgical History History of appendectomy Social History adopted: No household members: significant other housing: house current occupational status: employed current occupation: [employer] current occupational exposures/hazards: No pets and animals: [...] physical activity do you participate in: none debo/religious: Alevism seatbelt use: always do you feel safe at home: Yes additional social history: Allison Adams- [facility] History 1 Elective abortions Hx Para 0 Spontaneous abortions Hx # Term Pregnancies Ectopic pregnancies Hx # Pregnancies Multiple births # of living children Visit Details Expected Delivery Route/Plan Labor Preferences- CB/BF classes: [] labor support person: Mike labor intervention preferences: [] pain management options preferred: epidural if requested cut cord/dad catch: yes : yes PP control planned: [] discussed possible routes of delivery and associated risks: [] special requests: [] Plans Covid status: [] Flu vaccine: [] Tdap vaccine: given Rhogam: na LARC form signed: yes movement and labor precautions reviewed. Problem list reviewed and updated with the most current plan of care details and appropriate orders placed. Relevant counseling for the gestational age provided. Continue routine care and follow up unless otherwise noted in visit notes/problem list details OB Flowsheet Initial Weight: Not Recorded Date -?-?-?-?-?-?-?-?-?-?-?-?- EGA [...] no improvement within 2 weeks recommend starting press tender long goods medication SSRI. recommend therapy. 10/05/24 -?-?-?-?-?-?-?-?-?-?-?-?- 36w [...] Nega tive -?-?-?-?-?-?-?-?-?-?-?-?- Negative 140 38 Cephalic -?-?-?-?-?-?-?-?-?-?-?-?- SM- no vb lof go od fm no regular ctx feeling better. 10/27/24 -?-?-?-?-?-?-?-?-?-?-?-?- 39w 2d 199 lb 131/88 Negative -?-?-?-?-?-?-?-?-?-?-?-?- Negative 145 39 Cephalic -?-?-?-?-?-?-?-?-?-?-?-?- KW- no vb/lof/ct x. good fm. declines cervical check today. discussed options for IOL at 41 weeks 11/01/24 -?-?-?-?-?-?-?-?-?-?-?-?- 40w 0d 200 lb 2 oz 128/81 Nega tive -?-?-?-?-?-?-?-?-?-?-?-?- Negative 130 40 Cephalic 1 -?-?-?-?-?-?-?-?-?-?-?-?- 50 -2 KW- no vb/ lof/ctx. good fm. requesting IOL next . KW- no vb/lof/ctx. good fm. requesting IOL next Physical Exam Const alert, oriented x3 and no apparent distress Resp normal respiratory effort, normal air movement, no retractions and no use of accessory muscles Cardio regular rate and regular rhythm GI soft to palpation and non-tender Inspection: Palpation: soft Rectal Exam: deferred no CVA tenderness and external exam normal Bimanual Exam - Vag & Uterus: uterus non-tender and other gravid uterus, normal for gestational age OB / External & Speculum: Negative for herpetic lesions Manual OB Exam: estimated gestational size appropriate, presentation cephalic, dilated 2, effaced 60 and station -2 Amniotic Fluid: no amniotic fluid noted Extremity normal to inspection and full ROM NST FHR Rate Baby A Baseline: 130 Variability:: Moderate Accelerations:: 15 x 15 Decelerations:: None NST Reactive:: Yes FHR Category:: Category I Uterine Activity:: q2-7 Assessment & Plan (1) UTI (urinary tract infection): COMMENT: +heme, +leuks PLAN: pyridium and macrobid sent (2) False labor: COMMENT: unchanged cervical exam PLAN: labor precautions reviewed, home comfort techniques. Charges/Coding Procedures Urinary/Genital 52xxx-59xxx: 45072-18 non-stress test Interp Multi Select Codes Visit Charges Office Visit/Consults: 59927 OV L3 Est 20min 11/05/24 0907 <Electronically signed by Pati cunha CNM> Date _ Pati Martinez CNM Cosigner Signature (if applicable): Date CC: STEPHANIE Martinez; Christina Salter, DO ~ Signed [facility] Work Phone: Progress note Author Mable Ashley [facility] Note Date/Time October 27, 2024 10:41 am [facility] [address], [address] [place] [address] OFFICE VISIT Date of Service: 10/27/24 MR#: [id number] Acct: [id number] Name: CANDICE CARMICHAEL Rep #: [id number] : 1995 Provider: STEPHANIE Ashley Age/Sex: 28/F Location: [facility] Status: Signed Intake Vital Signs 09/20/24 10:23 10/18/24 15:40 10/27/24 10:23 Height 5 ft 2 in 5 ft 2 in 5 ft 2 in Weight: 199 lb BMI 36.3 BP 131/88 H Intake Visit Reasons: 39 WK OB Chief Complaint: 39wk OB Online Media Buyer Required: No Is patient in pain?: No [...] mg-folate no.1 1 mg-dha 300 mg capsule (PNV-[place]) pyridoxine (vitamin B6) 100 mg 100 mg [...] physical activity do you participate in: none debo/religious: Alevism seatbelt use: always do you feel safe at home: Yes additional social history: Cher- Mike Adams- MEDARDO History 1 Elective abortions Hx Para [...] no improvement within 2 weeks recommend starting press tender long goods medication SSRI. recommend therapy. 10/05/24 -?-?-?-?-?-?-?-?-?-?-?-?- 36w [...] Cosigner Signature: Date (if applicable) CC: ~ [place] [employer] Work Phone: Reason for referral (narrative)* Diagnostic Procedure Only (Routine) - Pending Review Specialty Diagnoses / Procedures Referred By Talisha harris Referred To Contact [facility] Diagnoses Encounter for supervision of normal first in first trimester Encounter for screening of mother Procedures NUCHAL TRANSLUCENCY WHI US NUCHAL TRANSLUCENCY 1ST GESTATION Nancy Aguilar MD [address] [place] [address] [facility] [address] [place] [address] Referral ID Status Reason Start Date Expiration Date Visits Requested Visits Authorized [id number] Pending Review Auto-Generat ed Referral 04/26/2024 04/26/2025 1 1 * Diagnostic Procedure Only (Routine) - Pending Review Specialty Diagnoses / Procedures Referred By Talisha harris Referred To Contact [facility] [place] [place] [place]oses Encounter for supervision of normal first in first trimester 13 weeks gestation of Encounter for screening of mother Procedures OBSTETRIC ULTRASOUND WHI US PREG UTERUS AFTER 1ST TRIMEST GESTATION Nancy Aguilar MD [address] [place] [id number] [facility] [address] [place] [address] Referral ID Status Reason Start Date Expiration Date Visits Requested Visits Authorized [id number] Pending Review Auto-Generat ed Referral 04/26/2024 04/26/2025 1 1 [facility] Consultation (Routine) - Pending Review Specialty Diagnoses / Procedures Referred By Talisha harris Referred To Contact Urology / Urogynecology Diagnoses Frequent urination Procedures TX OFFICE/OUTPATIENT NEW HIGH MDM 60-74 MINUTES Linda Lilly MD [address] [address] Referral ID Status Reason Start Date Expiration Date Visits Requested Visits Authorized [id number] Pending Review Specialty Services Required 06/15/2022 06/15/2023 1 1 [facility] (narrative)No reason for referral information [facility] Work Phone: Summary Purpose Family History Relationship Condition Age at Onset Recorded Date/T jennifer Not Specified Sudden cardiac Unknown grandmother Diabetes mellitus Unknown Malignant neoplasm of breast Unknown Alzheimer's dementia Unknown grandfather Malignant neoplasm 77 Chronic obstructive pulmonary disease Unk nown Advance Directives Documents on File Type Date Recorded 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 ACP-Advance Directive ACP-Power of Vending Machine Repairer Chief Complaint and Reason for Visit Chief Complaint Admit Date FALL June 26, 2024 7 :00pm NEW OB 33 [...] m Supervision of normal first Ma y 21st, 2025 2:56pm Anemia affecting October 18 3:37pm Anxiety [...] of fetus affecting care of mother, antepartum May 1st, 2025 8:30am Fatigue September 22, 2024 8:30am Obesity [...] 01, 2024 2:03 pm Obesity affecting November 01 025 2:03pm POTS (postural orthostatic tachycardia s yndrome) November 01, 2024 2:03pm November 01, 2024 2:03 pm Supervision of normal first Ju 2024 2:03pm Chief Complaint Admit Date NEW [...] OUT LABOR November 04, 2024 1:50 am Chief Complaint Admit Date NEW OB 33 [...] OUT LABOR November 04, 2024 1:50 am RULE OUT LABOR November 05, 2024 6:05 am RULE OUT LABOR November 05, 2024 8:57 am Reason for Visit Admit Date Anemia [...] of normal first Ju ne 2024 2:03pm False labor November 05, 2024 6:05 am UTI (urinary tract infection) November 05, 2024 6:05am Additional Source Comments INFORMATION SOURCE (unrecogn ized section and content) DATE CREATED AUTHOR 12/12/2017 [facility] DATE CREATED AUTHOR AUTHOR'S ORGANIZ ATION 12/12/2017 [facility] DATE CREATED AUTHOR AUTHOR'S ORGANIZ ATION 01/05/2018 [facility] DATE CREATED AUTHOR AUTHOR'S ORGANIZ ATION 2021 [facility] DATE CREATED AUTHOR AUTHOR'S ORGANIZ ATION 09/02/2024 [facility] DATE CREATED AUTHOR AUTHOR'S ORGANIZ ATION 09/07/2024 [facility] DATE CREATED AUTHOR AUTHOR'S ORGANIZ ATION 11/03/2024 [facility] Care Teams (unrecognized sec tion and content) [...] 2024 End: September 20, 2024 Maureen Latif RN HOME CARE, RN HOME CARE-C Attending Provider Active Start: September 20, 2024 End: September 20, 2024 Team Status: Inactive Member Role Status Dates Dr. Christina Salter DO Primary Care Provider Ac tive Start: September 20, 2024 End: September 20, 2024 Maureen Latif RN HOME CARE, RN HOME CARE-C Attending Provider Active Start: September 20, 2024 End: September 20, 2024 Maureen Latif RN HOME CARE, RN HOME CARE-C Referring Provider Active Start: September 20, 2024 End: September 20, 2024 Team Status: Inactive Member Role Status Dates Dr. Christina Salter DO Primary Care Provider Ac tive Start: September 22, 2024 End: September 22, 2024 Dr. Christina Salter DO Referring Provider Activ e Start: September 22, 2024 End: September 22, 2024 Dr. Janae Guidry MD Attending Provider Active Start: September 22, 2024 End: September 22, 2024 Team Status: Inactive Member Role Status Dates Dr. Xenia Edouard DO Attending Provider Activ e Start: October 05, 2024 End: October 05, 2024 Dr. Christina Salter DO Primary Care Provider Ac tive Start: October 05, 2024 End: October 05, 2024 Dr. Christina Salter DO Referring Provider Activ e Start: October 05, 2024 End: October 05, 2024 Team Status: Inactive Member Role Status Dates Dr. Christina Salter DO Primary Care Provider Ac tive Start: October 05, 2024 End: October 05, 2024 Dr. Xenia Edouard DO Attending Provider Activ e Start: October 05, 2024 End: October 05, 2024 Dr. Xenia Edouard DO Referring Provider Activ e Start: October 05, 2024 End: October 05, 2024 Team Status: Inactive Member Role Status Dates Dr. Christina Salter DO Primary Care Provider Ac tive Start: October 12, 2024 End: October 12, 2024 Dr. Christina Salter DO Referring Provider [...] October 18, 2024 End: October 18, 2024 Applications Architect Relationship Specialty Start Date End Date Christina Salter DO [address] [place] [address] PCP - General Family Medicine 11/06/21 Applications Architect Relationship Specialty Start Date End Date Christina Salter DO [address] [place], [place] [address] PCP - General Family Medicine 11/06/21 Applications Architect Relationship Specialty Start Date End [place] [address] PCP - General Family Medicine 03/21/24 Applications Architect Relationship Specialty Start Date End [place] [address] PCP - General Family Medicine 03/21/24 Applications Architect Relationship Specialty Start Date End [place] [address] PCP - General Family Medicine 03/21/24 Applications Architect Relationship Specialty Start Date [place] [address] [phone] PCP - General 11/06/21 Applications Architect Relationship Specialty Start [place] [phone] PCP - General 11/06/21 Applications Architect Relationship Specialty Start Date End [place] [address] [phone] PCP - General 11/06/21 Applications Architect Relationship Specialty Start Date End [place] [address] PCP - General Family Medicine 03/21/24 Applications Architect Relationship Specialty Start Date End Date Christina Salter DO [address] [place] [address] PCP - General Family Medicine 03/21/24 Applications Architect Relationship Specialty Start Date End Date Christina Salter DO [address] [place] [address] PCP - General Family Medicine 03/21/24 Applications Architect Relationship Specialty Start Date End Date Christina Salter DO [address] [place] [address] PCP - General Family Medicine 03/21/24 Applications Architect Relationship Specialty Start Date End Date Christina Salter DO [address] [place] [address] PCP - General Family Medicine 03/21/24 Applications Architect Relationship Specialty Start Date End Date Christina Salter DO [address] [place] [address] PCP - General Family Medicine 03/21/24 Applications Architect Relationship Specialty Start Date End Date Christina Salter DO [address] [place] [address] PCP - General Family Medicine 03/21/24 Applications Architect Relationship Specialty Start Date End Date Christina Salter [address] [place] [id number] PCP - General 11/06/21 Applications Architect Relationship Specialty Start Date End Date Christina Salter DO [address] [place] [address] PCP - General Family Medicine 03/21/24 Team [...] Primary Care Provider Ac tive Start: November 05, 2024 End: November 05, 2024 Pati Martinez CNM Attending Provider Active Start: November 05, 2024 End: November 05, 2024 Team Status: Active Member Role Status Dates Dr. Christina Salter DO Primary Care Provider Ac tive Start: November 05, 2024 Pati Martinez CNM Attending Provider Active Start: November 05, 2024 Pati Martinez CNM Other Provider Active Star t: November 05, 2024 Source Comments (unrecognize d section and content) In the event this informatio n is protected by the Federal Confidentiality of Alcohol and Drug Abuse Patient Records regulations: The Federal rules restrict any use of the information to criminally investigate or prosecute any alcohol or drug abuse patient.[facility] the event this information is protected by the Federal Confidentiality of Alcohol and Drug Abuse Patient Records regulations: The Federal rules restrict any use of the information to criminally investigate or prosecute any alcohol or drug abuse patient.[facility] the event this information is protected by the Federal Confidentiality of Alcohol and Drug Abuse Patient Records regulations: The Federal rules restrict any use of the information to criminally investigate or prosecute any alcohol or drug abuse patient.[facility] Hospital[facility] the event this information is protected by the Federal Confidentiality of Alcohol and Drug Abuse Patient Records regulations: The Federal rules restrict any use of the information to criminally investigate or prosecute any alcohol or drug abuse patient.[facility] Hospital[facility] the event this information is protected by the Federal Confidentiality of Alcohol and Drug Abuse Patient Records regulations: The Federal rules restrict any use of the information to criminally investigate or prosecute any alcohol or drug abuse patient.[facility] the event this information is protected by the Federal Confidentiality of Alcohol and Drug Abuse Patient Records regulations: The Federal rules restrict any use of the information to criminally investigate or prosecute any alcohol or drug abuse patient.[facility] Hospital[facility] the event this information is protected by the Federal Confidentiality of Alcohol and Drug Abuse Patient Records regulations: The Federal rules restrict any use of the information to criminally investigate or prosecute any alcohol or drug abuse patient.[facility] Hospital[facility] the event this information is protected by the Federal Confidentiality of Alcohol and Drug Abuse Patient Records regulations: The Federal rules restrict any use of the information to criminally investigate or prosecute any alcohol or drug abuse patient.[facility] Hospital[facility] the event this information is protected by the Federal Confidentiality of Alcohol and Drug Abuse Patient Records regulations: The Federal rules restrict any use of the information to criminally investigate or prosecute any alcohol or drug abuse patient.[facility] Hospital[facility] the event this information is protected by the Federal Confidentiality of Alcohol and Drug Abuse Patient Records regulations: The Federal rules restrict any use of the information to criminally investigate or prosecute any alcohol or drug abuse patient.[facility] Hospital[facility] the event this information is protected by the Federal Confidentiality of Alcohol and Drug Abuse Patient Records regulations: The Federal rules restrict any use of the information to criminally investigate or prosecute any alcohol or drug abuse patient.[facility] Hospital[facility] the event this information is protected by the Federal Confidentiality of Alcohol and Drug Abuse Patient Records regulations: The Federal rules restrict any use of the information to criminally investigate or prosecute any alcohol or drug abuse patient.[facility] Hospital[facility] the event this information is protected by the Federal Confidentiality of Alcohol and Drug Abuse Patient Records regulations: The Federal rules restrict any use of the information to criminally investigate or prosecute any alcohol or drug abuse patient.[facility] Reason for Visit (unrecogniz ed section and content) Reason Comments Patient Update Reason Comments First OB Specialty Diagnoses / Procedures Referred By Talisha harris Referred To Contact [facility] [place] [place]oses and needs to do her first two appts as self pay as her insurance does not kick in until May sometime. Procedures consult test and treat Self [id number] [place] [address] Referral ID Status Reason Start Date Expiration Date Visits Requested Visits Authorized [id number] Authorized Financial Clearance Required - Self Pay Patient Cleared - Qualified 100% FAS 4 05/25/2024 99 99 Reason Onset Date Comments Care 04/26/2024 Specialty Diagnoses / Procedures Referred By Talisha harris Referred To Contact [facility] [place] [facility] Diagnoses and needs to do her first two appts as self pay as her insurance does not kick in until May sometime. Procedures consult test and treat Self [facility] [employer] [place] [address] Reason Comments Annual Exam Reason Onset Date Comments Results 06/16/2022 Reason Onset Date Comments Care 05/27/2024 Reason Comments US Specialty Diagnoses / Procedures Referred By Contac t Referred To Contact [facility] [place] Diagnoses Encounter for supervision of normal first in first trimester Encounter for screening of mother Procedures NUCHAL TRANSLUCENCY WHI US NUCHAL TRANSLUCENCY 1ST GESTATION Nancy Aguilar MD [address] [place] [address] [address] Referral ID Status Reason Start Date Expiration Date Visits Requested Visits Authorized [id number] New Request Auto-Generate d Referral Clearance Not Met -Financial Clearance Bypassed 04/26/2024 04/26/2025 1 1 Reason Onset Date Comments Care 06/15/2024 Specialty Diagnoses / Procedures Referred By Contabigail t Referred To Contact [facility] [place] [facility] Diagnoses Encounter for supervision of normal first in first trimester 13 weeks gestation of Encounter for screening of mother Procedures OBSTETRIC ULTRASOUND WHI US PREG UTERUS AFTER 1ST TRIMEST GESTATION Nancy Aguilar MD [address] [place] [address] [address] Referral ID Status Reason Start Date Expiration Date V isits Requested Visits Authorized [id number] Closed Auto-Generate d Referral 04/26/2024 04/26/2025 1 [...] BE BASED ON THE PRIMARY CLINICAL RECORDS. [facility] [employer] [facility]. provides no warranty or guarantee of the accuracy or completeness of information in this document.
[2024-11-05] MEDS: Lactated Ringers 1,000 ML 999 ML IV (13:45)
[2024-11-05 13:54] LABS: Absolute Lymphocyte Count 1.55 X10^3/uL (0.83-4.51); Absolute Neutrophil Count 12.3 X10^3/uL (2.0-7.7); Basophil# 0.02 X10^3/uL; Basophil% 0.1 % (0-1); Hemoglobin 11.3 g/dL (12.0-15.0); Lymphocyte # 1.55 X10^3/ul (0.83-4.51); Lymphocyte % 10.6 % (19-41); Mean Corp Hgb Conc 33.2 g/dL (32-36); Mean Corpuscular Hgb 27.6 pg (27.0-32.0); Mean Corpuscular Volume 82.9 fL (81-99); Mean Platelet Vol. 10.2 fl (6.2-12.0); Monocyte# 0.65 X10^3/uL; Monocyte% 4.5 % (0-10); NRBC Flagged by Analyzer 0 % (0-5); Neutrophil # 12.31 X10^3/uL (2.7-7.7); Neutrophil % 84.3 % (47-70); Platelet Count 275 K/mm3 (150-450); RBC Distribution Width CV 14.2 % (11.6-14.6); RBC Distribution Width SD 42.3 fl (35.1-43.9); White Blood Count 14.6 K/mm3 (4.4-11.0)
[2024-11-05 14:31] LABS: Syphilis Antibodies Nonreactive (Nonreactive)
[2024-11-05] MEDS: Lactated Ringers 1,000 ML 200 ML IV ×2 (14:48→19:43)
--- NOTE | 2024-11-05 15:03 | HP.PCM.OB_ITS ---
HPI - General General Date of Admission: 11/05/24 Chief Complaint: contractions HPI Narrative DIANA CARMICHAEL, is a 28 F at 40 wks 4 days who presents with contractions for the past several days. Maternal Data Information KHLOE Calculator Estimated Delivery Date Method Current WG Current Estimate 11/01/24 LMP (Certain) 40w 4d PFSH PFSH Medical History (Updated 11/05/24 @ 13:10 by Earlene Hoskins) Depression Anxiety Vocal cord dysfunction Tipped uterus Home Medications ?Medication ?Instructions ?Recorded ?Last Taken ?Type aspirin 81 mg tablet,delayed 81 mg PO QDAY 09/02/24 20:00 History release 81 mg cholecalciferol (vitamin D3) 50 50 mcg PO QDAY 5 Unknown History mcg (2,000 unit) capsule Held on 11/04/24. Instructions: Pt has been DC'd ferrous sulfate 325 mg (65 mg 325 mg PO Q OTHER DAY 11/03/24 20:00 History iron) tablet 325 mg multivit-min no.71-iron fum 28 1 cap PO DAILY 09/02/24 11/03/24 08:00 History mg-folate no.1 1 mg-dha 300 mg 1 cap capsule (PNV-[place]) pyridoxine (vitamin B6) 100 mg 100 mg PO QDAY 09/02/24 11/03/24 20:00 History tablet 100 mg zinc acetate 50 mg (zinc) capsule 50 mg PO QDAY Unknown History Held on 11/04/24. Instructions: Pt has been DC'd hydroxyzine pamoate 25 mg capsule 25 mg PO Q6H PRN anx iety 30 days 09/22/24 Unknown Rx (Vistaril) #120 caps Held on 11/04/24. Instructions: Pt has been DC'd nitrofurantoin 100 mg PO Q12H 7 days #14 ca ps 11/05/24 Unknown Rx monohydrate/macrocrystals 100 mg capsule (Macrobid) phenazopyridine 200 mg tablet 200 mg PO TID 6 doses #6 tabs 11/05/24 Unknown Rx (Pyridium) Allergy/AdvReac Type Severity Reaction Status Date / Time Latex, Natural Rubber Allergy Intermediate Rash Verified 11/04/24 20:14 Family History Grandmother Diabetes Paternal Breast cancer Paternal- age of onset unknown Alzheimer's dementia Maternal Grandfather Cancer, Onset Age: 75 Paternal- Lung Cancer COPD (chronic obstructive pulmonary disease) Paternal Other Sudden cardiac Surgical History History of appendectomy Social History adopted: No household members: significant other housing: house current occupational status: employed 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: No pets and animals: No history of recent travel: Yes ([place]) out of state: Yes out of country: No sexually active: Yes Smoking Status: Never smoker alcohol intake: current alcohol intake frequency: holidays/special occasions only details: Not while substance use type: does not use well-balanced diet: about half the time caffeine: Yes Type: tea Number of servings: 1 eating out: 1-3 times/week during the past year weight has: increased > 10 lbs what type of physical activity do you participate in: none debo/judaism: Ca[employer] seatbelt use: always do you feel safe at home: Yes additional social history: Allison BATRES History 1 Elective abortions Hx Para 0 Spontaneous abortions Hx # Term Pregnancies Ectopic pregnancies Hx # Pregnancies Multiple births # of living children Visit Details Expected Delivery Route/Plan Labor Preferences- CB/BF classes: [] labor support person: Mike labor intervention preferences: [] pain management options preferred: epidural if requested cut cord/dad catch: yes : yes PP control planned: [] discussed possible routes of delivery and associated risks: [] special requests: [] Plans Covid status: [] Flu vaccine: [] Tdap vaccine: given Rhogam: na LARC form signed: yes movement and labor precautions reviewed. Problem list reviewed and updated with the most current plan of care details and appropriate orders placed. Relevant counseling for the gestational age provided. Continue routine care and follow up unless otherwise noted in visit notes/problem list details OB Flowsheet Initial Weight: Not Recorded Date -?-?-?-?-?-?-?-?-?-?-?-?- EGA Weight BP Urine Prot -?-?-?-?-?-?-?-?-?-?-?-?- Glucose FHR FuHt Pres Dilation -?-?-?-?-?-?-?-?-?-?-?-?- Effaced St Visit Note 09/05/24 -?-?-?-?-?-?-?-?-?-?-?-?- 31w 6d 191 lb 119/84 Negative -?-?-?-?-?-?-?-?-?-?-?-?- Negative 145 31 -?-?-?-?-?-?-?-?-?-?-?-?- SM- QUENTIN from [facility] , co fatigue, some SOB, saw PCP and recommended CT scan, dicsussed she can have if she wants, per calculator she is in low risk category. reviewed continuing iron supplement, nutrition, sleep patterns. may be POTS contributing also to symptoms. supportive care at this time. fu in 2 weeks repeat cbc at that time 09/20/24 -?-?-?-?-?-?-?-?-?-?-?-?- 34w 0d 189 lb 6 oz 117/78 Nega tive -?-?-?-?-?-?-?-?-?-?-?-?- Negative 152 34 -?-?-?-?-?-?-?-?-?-?-?-?- MH-No VB, LOF. G ood FM. Some anxiety but declines meds. Reviewed magnesium. Recheck CBC, hx of anemia. Reviewed FE supp. 09/22/24 -?-?-?-?-?-?-?-?-?-?-?-?- 34w 2d 191 lb 8 oz 112/74 Nega tive -?-?-?-?-?-?-?-?-?-?-?-?- Negative 140 34 -?-?-?-?-?-?-?-?-?-?-?-?- SM- feeling fati gued- any movement is challenging, feels short of breath, CT of chest was negative, she feels lethargic, on 09/17- started feeling anxious- she has spiraling, negative thoughts about her health and the baby's health, and she has overwhelming episodes where she feels like she cant do anything, and she has had a few occasional episodes before but this is new. she took zoloft in the past. SM- feeling fatigued- any mo vement is challenging, feels short of breath, CT of chest was negative, she feels lethargic, on 09/17- started feeling anxious- she has spiraling, negative thoughts about her health and the baby's health, and she has overwhelming episodes where she feels like she cant do anything, and she has had a few occasional episodes before but this is new. she took zoloft in the past. 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 recommend therapy. 10/05/24 -?-?-?-?-?-?-?-?-?-?-?-?- 36w 1d 193 lb 6 oz 115/72 Nega tive -?-?-?-?-?-?-?-?-?-?-?-?- Negative 145 36 Cephalic -?-?-?-?-?-?-?-?-?-?-?-?- JV- gbs collect ed today. declines pelvic check. feels better now that is on maternity leave. no complaints as above. 10/12/24 -?-?-?-?-?-?-?-?-?-?-?-?- 37w 1d 195 lb 2 oz 127/86 Nega tive -?-?-?-?-?-?-?-?-?-?-?-?- Negative 150 38 Cephalic -?-?-?-?-?-?-?-?-?-?-?-?- KW- no vb/lof/ct x. good fm.no concerns 10/18/24 -?-?-?-?-?-?-?-?-?-?-?-?- 38w 0d 195 lb 8 oz 118/86 Nega tive -?-?-?-?-?-?-?-?-?-?-?-?- Negative 140 38 Cephalic -?-?-?-?-?-?-?-?-?-?-?-?- SM- no vb lof go od fm no regular ctx feeling better. 10/27/24 -?-?-?-?-?-?-?-?-?-?-?-?- 39w 2d 199 lb 131/88 Negative -?-?-?-?-?-?-?-?-?-?-?-?- Negative 145 39 Cephalic -?-?-?-?-?-?-?--?-?-?-?-?- KW- no vb/lof/ct x. good fm. declines cervical check today. discussed options for IOL at 41 weeks 11/01/24 -?-?-?-?-?-?-?-?-?-?-?-?- 40w 0d 200 lb 2 oz 128/81 Nega tive -?-?-?-?-?-?-?-?-?-?-?-?- Negative 130 40 Cephalic 1 -?-?-?-?-?-?-?-?-?-?-?-?- 50 -2 KW- no vb/ lof/ctx. good fm. requesting IOL next . KW- no vb/lof/ctx. good fm. requesting IOL next Vital Signs Vital Signs Vital Signs: 11/05/24 06:20 11/05/24 06:20 11/05/24 06:20 Temperature Temperature Source Pulse Rate 82 Respiratory Rate Blood Pressure 142/87 H BP Systolic 142 BP Diastolic 87 Pulse Ox 100 11/05/24 06:20 11/05/24 06:20 11/05/24 06:20 Temperature Temperature Source Temporal Pulse Rate Respiratory Rate 16 Blood Pressure BP Systolic BP Diastolic Pulse Ox 98 11/05/24 06:20 11/05/24 07:31 11/05/24 07:31 Temperature 97.4 F L Temperature Source Pulse Rate 89 Respiratory Rate Blood Pressure 138/67 H BP Systolic 138 BP Diastolic 67 Pulse Ox 11/05/24 14:36 11/05/24 14:36 11/05/24 14:37 Temperature Temperature Source Pulse Rate 94 88 Respiratory Rate Blood Pressure 140/79 H BP Systolic 140 BP Diastolic 79 Pulse Ox 11/05/24 14:37 11/05/24 14:41 11/05/24 14:41 Temperature Temperature Source Pulse Rate 98 Respiratory Rate Blood Pressure 136/78 H BP Systolic 136 BP Diastolic 78 Pulse Ox 99 11/05/24 14:42 11/05/24 14:42 11/05/24 14:46 Temperature Temperature Source Pulse Rate 81 Respiratory Rate Blood Pressure 145/70 H BP Systolic 145 BP Diastolic 70 Pulse Ox 99 11/05/24 14:46 11/05/24 14:47 11/05/24 14:47 Temperature Temperature Source Pulse Rate 80 102 H Respiratory Rate Blood Pressure BP Systolic BP Diastolic Pulse Ox 98 11/05/24 14:52 11/05/24 14:52 11/05/24 14:52 Temperature Temperature Source Pulse Rate 99 105 H Respiratory Rate Blood Pressure 140/62 H BP Systolic 140 BP Diastolic 62 Pulse Ox 11/05/24 14:52 11/05/24 14:57 11/05/24 14:57 Temperature Temperature Source Pulse Rate 94 Respiratory Rate Blood Pressure 128/64 H BP Systolic 128 BP Diastolic 64 Pulse Ox 98 11/05/24 14:57 11/05/24 15:01 11/05/24 15:01 Temperature Temperature Source Pulse Rate 106 H Respiratory Rate Blood Pressure 116/67 BP Systolic 116 BP Diastolic 67 Pulse Ox 98 Weight Weight: 200 lb 1.817 oz Body Mass Index (BMI) 35.4 Labs Labs Labs: Blood Type A POSITIVE Antibody Screen NEGATIVE Hct 34.0 % (37-47) L Hgb 11.3 g/dL (12.0-15.0) L Syphilis Total Ab Nonreactive (Nonreactive)
[2024-11-05] MEDS: fentaNYL-bupivacaine (epidural) 100 ML BAG EPIDURAL ×2 (15:19→19:43)
--- NOTE | 2024-11-05 15:53 | HP.PCM.OB_ITS ---
HPI - General General Date of Admission: 11/05/24 Chief Complaint: contractions HPI Narrative DIANA CARMICHAEL, is a 28 F who presents at 40.4 with worsening contractions since being discharged from triage. denies lof/vb. endorses fm. Maternal Data Information KHLOE Calculator Estimated Delivery Date Method Current WG Current Estimate 11/01/24 LMP (Certain) 40w 4d PFSH PFSH Medical History (Updated 11/05/24 @ 15:56 by Pati Martinez CNM) Depression Anxiety Vocal cord dysfunction Tipped uterus Home Medications ?Medication ?Instructions ?Recorded ?Last Taken ?Type aspirin 81 mg tablet,delayed 81 mg PO QDAY 09/02/24 20:00 History release 81 mg cholecalciferol (vitamin D3) 50 50 mcg PO QDAY 5 Unknown History mcg (2,000 unit) capsule Held on 11/04/24. Instructions: Pt has been DC'd ferrous sulfate 325 mg (65 mg 325 mg PO Q OTHER DAY 11/03/24 20:00 History iron) tablet 325 mg multivit-min no.71-iron fum 28 1 cap PO DAILY 09/02/24 11/03/24 08:00 History mg-folate no.1 1 mg-dha 300 mg 1 cap capsule (PNV-[place]) pyridoxine (vitamin B6) 100 mg 100 mg PO QDAY 09/02/24 11/03/24 20:00 History tablet 100 mg zinc acetate 50 mg (zinc) capsule 50 mg PO QDAY Unknown History Held on 11/04/24. Instructions: Pt has been DC'd hydroxyzine pamoate 25 mg capsule 25 mg PO Q6H PRN anx iety 30 days 09/22/24 Unknown Rx (Vistaril) #120 caps Held on 11/04/24. Instructions: Pt has been DC'd nitrofurantoin 100 mg PO Q12H 7 days #14 ca ps 11/05/24 Unknown Rx monohydrate/macrocrystals 100 mg capsule (Macrobid) phenazopyridine 200 mg tablet 200 mg PO TID 6 doses #6 tabs 11/05/24 Unknown Rx (Pyridium) Allergy/AdvReac Type Severity Reaction Status Date / Time Latex, Natural Rubber Allergy Intermediate Rash Verified 06/13/25 20:14 Family History Grandmother Diabetes Paternal Breast cancer Paternal- age of onset unknown Alzheimer's dementia Maternal Grandfather Cancer, Onset Age: 75 Paternal- Lung Cancer COPD (chronic obstructive pulmonary disease) Paternal Other Sudden cardiac Surgical History History of appendectomy Social History adopted: No household members: significant other housing: house current occupational status: employed 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: No pets and animals: No history of recent travel: Yes ([place]) out of state: Yes out of country: No sexually active: Yes Smoking Status: Never smoker alcohol intake: current alcohol intake frequency: holidays/special occasions only details: Not while substance use type: does not use well-balanced diet: about half the time caffeine: Yes Type: tea Number of servings: 1 eating out: 1-3 times/week during the past year weight has: increased > 10 lbs what type of physical activity do you participate in: none debo/spiritism: [employer] seatbelt use: always do you feel safe at home: Yes additional social history: Cher- Mike BATRES History 1 Elective abortions Hx Para 0 Spontaneous abortions Hx # Term Pregnancies Ectopic pregnancies Hx # Pregnancies Multiple births # of living children Visit Details Expected Delivery Route/Plan Labor Preferences- CB/BF classes: [] labor support person: Mike labor intervention preferences: [] pain management options preferred: epidural if requested cut cord/dad catch: yes : yes PP control planned: [] discussed possible routes of delivery and associated risks: [] special requests: [] Plans Covid status: [] Flu vaccine: [] Tdap vaccine: given Rhogam: na LARC form signed: yes movement and labor precautions reviewed. Problem list reviewed and updated with the most current plan of care details and appropriate orders placed. Relevant counseling for the gestational age provided. Continue routine care and follow up unless otherwise noted in visit notes/problem list details OB Flowsheet Initial Weight: Not Recorded Date -?-?-?-?-?-?-?-?-?-?-?-?- EGA Weight BP Urine Prot -?-?-?-?-?-?-?-?-?-?-?-?- Glucose FHR FuHt Pres Dilation -?-?-?-?-?-?-?-?-?-?-?-?- Effaced St Visit Note 09/05/24 -?-?-?-?-?-?-?-?-?-?-?-?- 31w 6d 191 lb 119/84 Negative -?-?-?-?-?-?-?-?-?-?-?-?- Negative 145 31 -?-?-?-?-?-?-?-?-?-?-?-?- SM- QUENTIN from [facility] , co fatigue, some SOB, saw PCP and recommended CT scan, dicsussed she can have if she wants, per calculator she is in low risk category. reviewed continuing iron supplement, nutrition, sleep patterns. may be POTS contributing also to symptoms. supportive care at this time. fu in 2 weeks repeat cbc at that time 09/20/24 -?-?-?-?-?-?-?-?-?-?-?-?- 34w 0d 189 lb 6 oz 117/78 Nega tive -?-?-?-?-?-?-?-?-?-?-?-?- Negative 152 34 -?-?-?-?-?-?-?-?-?-?-?-?- MH-No VB, LOF. G ood FM. Some anxiety but declines meds. Reviewed magnesium. Recheck CBC, hx of anemia. Reviewed FE supp. 09/22/24 -?-?-?-?-?-?-?-?-?-?-?-?- 34w 2d 191 lb 8 oz 112/74 Nega tive -?-?-?-?-?-?-?-?-?-?-?-?- Negative 140 34 -?-?-?-?-?-?-?-?-?-?-?-?- SM- feeling fati gued- any movement is challenging, feels short of breath, CT of chest was negative, she feels lethargic, on 09/17- started feeling anxious- she has spiraling, negative thoughts about her health and the baby's health, and she has overwhelming episodes where she feels like she cant do anything, and she has had a few occasional episodes before but this is new. she took zoloft in the past. SM- feeling fatigued- any mo vement is challenging, feels short of breath, CT of chest was negative, she feels lethargic, on 09/17- started feeling anxious- she has spiraling, negative thoughts about her health and the baby's health, and she has overwhelming episodes where she feels like she cant do anything, and she has had a few occasional episodes before but this is new. she took zoloft in the past. recommend starting FMLA now, start vistaril and if no improvement within 2 weeks recommend starting correction medication SSRI. recommend therapy. 10/05/24 -?-?--?-?-?-?-?-?-?-?-?-?- 36w 1d 193 lb 6 oz 115/72 Nega tive -?-?-?-?-?-?-?-?-?-?-?-?- Negative 145 36 Cephalic -?-?-?-?-?-?-?-?-?-?-?-?- JV- gbs collect ed today. declines pelvic check. feels better now that is on maternity leave. no complaints as above. 10/12/24 -?-?-?-?-?-?-?-?-?-?-?-?- 37w 1d 195 lb 2 oz 127/86 Nega tive -?-?-?-?-?-?-?-?-?-?-?-?- Negative 150 38 Cephalic -?-?-?-?-?-?-?-?-?-?-?-?- KW- no vb/lof/ct x. good fm.no concerns 10/18/24 -?-?-?-?-?-?-?-?-?-?-?-?- 38w 0d 195 lb 8 oz 118/86 Nega tive -?-?-?-?-?-?-?-?-?-?-?-?- Negative 140 38 Cephalic -?-?-?-?-?-?-?-?-?-?-?-?- SM- no vb lof go od fm no regular ctx feeling better. 10/27/24 -?-?-?-?-?-?-?-?-?-?-?-?- 39w 2d 199 lb 131/88 Negative -?-?-?-?-?-?-?-?-?-?-?-?- Negative 145 39 Cephalic -?-?-?-?-?-?-?-?-?-?-?-?- KW- no vb/lof/ct x. good fm. declines cervical check today. discussed options for IOL at 41 weeks 11/01/24 -?-?-?-?-?-?-?-?-?--?-?-?- 40w 0d 200 lb 2 oz 128/81 Nega tive -?-?-?-?-?-?-?-?-?-?-?-?- Negative 130 40 Cephalic 1 -?-?-?-?-?-?-?-?-?-?-?-?- 50 -2 KW- no vb/ lof/ctx. good fm. requesting IOL next . KW- no vb/lof/ctx. good fm. requesting IOL next NST FHR Rate Baby A Baseline: 140 Variability:: Moderate Accelerations:: 15 x 15 Decelerations:: None NST Reactive:: Yes FHR Category:: Category I Uterine Activity:: q2-3 Vital Signs Vital Signs Vital Signs: 11/05/24 06:20 11/05/24 06:20 11/05/24 06:20 Temperature Temperature Source Pulse Rate 82 Respiratory Rate Blood Pressure 142/87 H BP Systolic 142 BP Diastolic 87 Pulse Ox 100 11/05/24 06:20 11/05/24 06:20 11/05/24 06:20 Temperature Temperature Source Temporal Pulse Rate Respiratory Rate 16 Blood Pressure BP Systolic BP Diastolic Pulse Ox 98 11/05/24 06:20 11/05/24 07:31 11/05/24 07:31 Temperature 97.4 F L Temperature Source Pulse Rate 89 Respiratory Rate Blood Pressure 138/67 H BP Systolic 138 BP Diastolic 67 Pulse Ox 11/05/24 14:36 11/05/24 14:36 11/05/24 14:37 Temperature Temperature Source Pulse Rate 94 88 Respiratory Rate Blood Pressure 140/79 H BP Systolic 140 BP Diastolic 79 Pulse Ox 11/05/24 14:37 11/05/24 14:41 11/05/24 14:41 Temperature Temperature Source Pulse Rate 98 Respiratory Rate Blood Pressure 136/78 H BP Systolic 136 BP Diastolic 78 Pulse Ox 99 11/05/24 14:42 11/05/24 14:42 11/05/24 14:46 Temperature Temperature Source Pulse Rate 81 Respiratory Rate Blood Pressure 145/70 H BP Systolic 145 BP Diastolic 70 Pulse Ox 99 11/05/24 14:46 11/05/24 14:47 11/05/24 14:47 Temperature Temperature Source Pulse Rate 80 102 H Respiratory Rate Blood Pressure BP Systolic BP Diastolic Pulse Ox 98 11/05/24 14:52 11/05/24 14:52 11/05/24 14:52 Temperature Temperature Source Pulse Rate 99 105 H Respiratory Rate Blood Pressure 140/62 H BP Systolic 140 BP Diastolic 62 Pulse Ox 11/05/24 14:52 11/05/24 14:57 11/05/24 14:57 Temperature Temperature Source Pulse Rate 94 Respiratory Rate Blood Pressure 128/64 H BP Systolic 128 BP Diastolic 64 Pulse Ox 98 11/05/24 14:57 11/05/24 15:01 11/05/24 15:01 Temperature Temperature Source Pulse Rate 106 H Respiratory Rate Blood Pressure 116/67 BP Systolic 116 BP Diastolic 67 Pulse Ox 98 11/05/24 15:02 11/05/24 15:02 11/05/24 15:06 Temperature Temperature Source Pulse Rate 81 Respiratory Rate Blood Pressure 111/65 BP Systolic 111 BP Diastolic 65 Pulse Ox 98 11/05/24 15:06 11/05/24 15:08 11/05/24 15:08 Temperature Temperature Source Pulse Rate 113 H 87 Respiratory Rate Blood Pressure BP Systolic BP Diastolic Pulse Ox 98 11/05/24 15:12 11/05/24 15:12 11/05/24 15:12 Temperature Temperature Source Pulse Rate 93 Respiratory Rate Blood Pressure 128/69 H BP Systolic 128 BP Diastolic 69 Pulse Ox 94 11/05/24 15:13 11/05/24 15:13 11/05/24 15:17 Temperature Temperature Source Pulse Rate 97 Respiratory Rate Blood Pressure 126/67 H BP Systolic 126 BP Diastolic 67 Pulse Ox 96 11/05/24 15:17 11/05/24 15:18 11/05/24 15:18 Temperature Temperature Source Pulse Rate 101 H 91 Respiratory Rate Blood Pressure BP Systolic BP Diastolic Pulse Ox 97 11/05/24 15:22 11/05/24 15:22 11/05/24 15:22 Temperature Temperature Source Pulse Rate 97 Respiratory Rate Blood Pressure 140/69 H BP Systolic 140 BP Diastolic 69 Pulse Ox 94 11/05/24 15:23 11/05/24 15:23 11/05/24 15:26 Temperature Temperature Source Pulse Rate 100 Respiratory Rate Blood Pressure 125/58 H BP Systolic 125 BP Diastolic 58 Pulse Ox 97 11/05/24 15:26 11/05/24 15:51 11/05/24 15:51 Temperature Temperature Source Pulse Rate 101 H 94 Respiratory Rate Blood Pressure 114/70 BP Systolic 114 BP Diastolic 70 Pulse Ox Weight Weight: 200 lb 1.817 oz Body Mass Index (BMI) 35.4 Physical Exam Const alert, oriented x3 and no apparent distress General Appearance: cooperative, comfortable and well kempt Orientation / Consciousness: awake and oriented to person Exam Limitations: no limitations HEENT normocephalic Neck full ROM Chest inspection of chest normal Resp normal respiratory effort, normal air movement and no retractions Effort and Inspection: able to speak in complete sentences and symmetric chest movement Cardio regular rate Peripheral Pulses: pulses 2+ throughout GI normal to inspection, nondistended, normoactive bowel sounds Inspection: gravid no CVA tenderness and appearance of the vagina normal External Female Exam: normal appearance of the urethra; Negative for external lesion OB / External & Speculum: external exam normal Manual OB Exam: estimated gestational size appropriate and presentation cephalic Uterus Palpation: Negative for uterus tender Extremity normal to inspection Skin no rashes or lesions noted Neuro deep tendon reflexes 2+ bilaterally and gait normal Motor Exam: strength 5/5 throughout and clonus absent Psych Activity / Motor Behavior: appropriate eye contact Speech: normal speech Labs Labs Labs: Blood Type A POSITIVE Antibody Screen NEGATIVE Hct 34.0 % (37-47) L Hgb 11.3 g/dL (12.0-15.0) L Syphilis Total Ab Nonreactive (Nonreactive) Assessment & Plan (1) Spontaneous onset of labor: PLAN: Patient presents IAL, plan expectant management for , pitocin/AROM PRN if needed. Pain management: plans epidural. GBS neg. Management of any complications: POTS, anxiety/depression I have reviewed the [facility] and made any clinically relevant updates.
--- NOTE | 2024-11-05 20:16 | PCM.PN.CNM ---
Subjective Subjective comfortable with epidural Objective Data Objective Data Vital Signs: Vital Signs Temp Pulse Resp BP Pulse Ox 98.6 F 114 H 16 119/71 98 11/05/24 19:15 11/05/24 20:15 11/05/24 19:15 11/05/24 20:15 11/05/24 19:15 Weight: 200 lb 1.817 oz Body Mass Index (BMI) 35.4 Intake & Output: Intake and Output for Last 24 Hours 11/03/24 11/04/24 11/05/24 23:59 23:59 23:59 Intake Total 1982.33 / Output Total 400 / 400 Balance 1583.33 / 1583.33 Lab / Micro Data 11/05/24 13:45 Labs: Laboratory Results - last 24 hr 11/05/24 08:00: Urine Color Yellow, Urine Clarity Clear, Urine pH 7.0, Ur Specific Peck 1.010, Urine Protein 15 H, Urine Glucose (UA) Normal, Urine Ketones 50 H, Urine Occult Blood 10 H, Urine Nitrite Negative, Urine Bilirubin Negative, Urine Urobilinogen Normal, Ur Leukocyte Esterase 25 H 11/05/24 13:45: WBC 14.6 H, RBC 4.10 L, Hgb 11.3 L, Hct 34.0 L, MCV 82.9, MCH 27.6, MCHC 33.2, RDW Std Deviation 42.3, RDW Coeff of [place] 14.2, Plt Count 275, MPV 10.2, Immature Gran % (Auto) 0.500, Neut % (Auto) 84.3 H, Lymph % (Auto) 10.6 L, [place] % (Auto) 4.5, Eos % (Auto) 0.0, Baso % (Auto) 0.1, Absolute Neuts (auto) 12.3 H, Absolute Lymphs (auto) 1.55, Nucleated RBC % 0, Syphilis Total Ab Nonreactive, Blood Type A POSITIVE, Antibody Screen NEGATIVE NST FHR Rate Baby A Baseline: 135 Variability:: Moderate Accelerations:: 15 x 15 Decelerations:: None NST Reactive:: Yes FHR Category:: Category I Uterine Activity:: q6-7 Assessment & Plan (1) Spontaneous onset of labor: PLAN: at 40.4 current tracing FHT: Moderate variability reactive no decelerations category I tracing [place]: Contractions reviewed tracing abnormalities since last note: cat 1 A/P: cat 1 tracing AROM clear fluid reassess cervical exam in 4 hours from AROM reposition frequently (2) UTI (urinary tract infection): COMMENT: +heme, +leuks PLAN: continue macrobid 100mg bid
[2024-11-05] MEDS: Mag Hydrox/Al Hydrox/Simeth 30 ML UDC PO (20:50)
[2024-11-05] MEDS: Ondansetron 4 MG/2 ML Vial IV (21:12)
[2024-11-06] VITALS (34 sets, daily range): BP systolic 111–135; BP diastolic 55–93; PULSE 85–134; RESP 16–18; TEMP 35.8–37.4; O2SAT 97–100
[2024-11-06] MEDS: Oxytocin 15 Units/NS 250ml 15 UNITS/250 ML IV.SOLN 334 UNITS IV (00:42)
--- NOTE | 2024-11-06 01:04 | EX.PCM.OBVAG ---
Assessment & Plan (1) (spontaneous vaginal delivery): COMMENT: LC IAL girl:Destiny Maternal Data Information KHLOE Calculator Estimated Delivery Date Method Current WG Current Estimate 11/01/24 LMP (Certain) 40w 5d Final KHLOE: 11/01/24 Final KHLOE Source: LMP Gestational age: 40.5 Vaginal Delivery Maternal Presentation Maternal Presentation: Active Labor Maternal Presentation: at 40.5 IAL Vaginal Delivery Information Procedure Performed: Spontaneous Vaginal Delivery Date of Procedure: 11/06/24 Pre-Procedure Diagnosis: see problem list Post-Procedure Diagnosis: Type of anesthesia: Epidural Estimated Blood Loss: 600 Time of Delivery: 12:22 Findings Description of procedure: Patient began pushing and delivered the head in the HAWK presentation. The head was delivered atraumatically. The anterior and posterior shoulders delivered without complication followed by the rest of the infant and the infant was placed on the maternal abdomen. Delayed cord clamping was employed for approximately 8minutes. Cord was clamped and cut and gentle traction was applied to the cord and the placenta delivered spontaneously immediately following it was noted to be intact with three-vessel cord. The perineum and vagina were inspected and noted to have left sulcus tear repaired with 3-0 vicryl with figure of 8 with hemostasis excellent achieved. EBL was 600. Patient and infant tolerated delivery well. Presentation: Vertex Amniotic Membrane Rupture Type: Artificial Amniotic Fluid Description: Clear Placental Delivery Description: Spontaneous Placenta Disposition: Other Cord Vessel Description: 3 Vessels Cord Entanglement: None A Gender: Female (1 minute): 8 (5 minute): 9 Post Vaginal Deli Medications given after delivery: IV Pitocin Episiotomy Description: None Laceration: None Procedures Urinary/Genital [id number]: [id number] Vaginal Delivery [facility]
--- NOTE | 2024-11-06 01:17 | PCM.DC ---
Discharge Instructions Diet Discharge Diet: No restrictions DC O2, CPAP, BIPAP needs Home O2 Discharge instructions: No Dressing / Incision Discharge Activity: May Not Drive and May Shower May resume sexual activity in: 6 weeks Weight Bearing Status: Full weight bearing Dressing / Incision Call your doctor if your incision/area has: Sudden Increased Bleeding, Increased Pain/ Swelling and Foul Smelling Discharge Call your doctor if you observe: Fever of 101 or Higher, Numbness or Tingling, Change in Color, Inability to urinate, Inability to have a bowel movement, Using more than 1 pad per hour, Shortness of breath, Dizziness, Fainting spells, Chest pain, Calf discomfort and Uncontrolled pain Follow Up Care Please Follow Up With: Pati Martinez CNM When: 6 weeks , please call office to make an appointment. Congratulations on the of your baby! Test Results: Test results from this visit will be discussed in further detail at your follow-up appointment, if applicable. 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 Take pyriduim for discomfort and start antibiotic as prescribed. Discharge Orders/Prescriptions Prescriptions: New phenazopyridine [Pyridium] 200 mg tablet 200 mg PO TID Qty: 6 0RF nitrofurantoin monohyd/m-cryst [Macrobid] 100 mg capsule 100 mg PO Q12H 7 Days Qty: 14 0RF Rx Instructions: must administer with a meal/food No Action PNV-Willington 28-1-300 mg capsule 1 cap PO DAILY pyridoxine (vitamin B6) 100 mg tablet 100 mg PO QDAY aspirin 81 mg tablet,delayed release (DR/EC) 81 mg PO QDAY ferrous sulfate 325 mg (65 mg iron) tablet 325 mg PO Q OTHER DAY cholecalciferol (vitamin D3) 50 mcg (2,000 unit) capsule 50 mcg PO QDAY zinc acetate 50 mg (zinc) capsule 50 mg PO QDAY hydroxyzine pamoate [Vistaril] 25 mg capsule 25 mg PO Q6H PRN (Reason: anxiety) 30 Days Qty: 120 6RF Rx Instructions: 1-2 every 6 hours as needed Referrals / Follow Up: Christina Salter DO [Primary Care Provider] - Disposition Discharge Orders: Discharge Patient (Routine); Ordered 11/05/24 Ordered By: Pati Martinez
[2024-11-06] MEDS: Oxytocin 15 Units/NS 250ml 15 UNITS/250 ML IV.SOLN 83 UNITS IV (01:50)
[2024-11-06] MEDS: Nitrofurantoin Macrocrystals 100 MG Capsule PO ×2 (11:31→21:52)
[2024-11-06] MEDS: Acetaminophen 500 MG Tablet 1000 MG PO ×2 (11:41→21:52)
[2024-11-06] MEDS: Naproxen 500 MG Tablet PO (15:06)
--- NOTE | 2024-11-06 16:50 | CASEMGMT ---
Social Work: ash worker attempted to make contact with family to complete assessment, however when psychologist social arrived, the room was completely dark, and mother, father, and baby were all sound asleep. ash worker made the decision not to wake family as family is able to be seen prior to discharge on 11/07/24. Xenia Cam, BAKER BENCH, ORCHESTRA LEADER
[2024-11-06] MEDS: DiphenhydrAMINE 25 MG Capsule PO (21:52)
[2024-11-07 02:00] VITALS: BP 95/59; PULSE 78; RESP 18; TEMP 36.5; O2SAT 100
--- NOTE | 2024-11-07 08:33 | PN.OBGYN_ITS ---
Subjective Subjective Patient doing well without complaints. Tolerating PO. Ambulating and voiding without difficulty. Feeding well. Denies chest pain, shortness of breath, calf pain/swelling, fevers, chills, lightheadedness. Objective Data Objective Data Vital Signs: Vital Signs Temp Pulse Resp BP Pulse Ox O2 Del Method 97.7 F L 78 18 95/59 L 100 Room Air 11/07/24 02:00 11/07/24 02:00 11/07/24 02:00 11/07/24 02:00 11/07/24 02:00 11/07/24 02:00 Oxygen Delivery Method Room Air Weight: 200 lb 1.817 oz Body Mass Index (BMI) 35.4 Intake & Output: Intake and Output for Last 24 Hours 11/05/24 11/06/24 11/07/24 23:59 23:59 23:59 Intake Total 1982.33 / 33 1457.5 / 1457.5 Output Total 1400 / 1400 2400 / 2400 Balance 583.33 / 583.33 -942.5 / -942.5 Lab / Micro Data 11/05/24 13:45 ROS Constitutional Constitutional: Reports systems reviewed and no addt'l complaints, except as documented; Denies anorexia or headache(s) Cardiovascular Cardiovascular: Reports systems reviewed and no addt'l complaints, except as documented; Denies dizziness, dyspnea, nausea or tachypnea Respiratory/Chest Respiratory/Chest: Reports systems reviewed and no addt'l complaints, except as documented; Denies cough, dyspnea, shortness of breath at rest or tachypnea Gastrointestinal Gastrointestinal: Reports systems reviewed and no addt'l complaints, except as documented; Denies abdominal pain, constipation or nausea Genitourinary Genitourinary: Reports systems reviewed and no addt'l complaints, except as documented; Denies burning urination, difficulty urinating, dysuria, urinary frequency or urinary incontinence Musculoskeletal Musculoskeletal: Reports systems reviewed and no addt'l complaints, except as documented Integumentary Integumentary: Reports systems reviewed and no addt'l complaints, except as documented Neurologic Neurologic: Reports systems reviewed and no addt'l complaints, except as documented; Denies abnormal speech, dizziness or headache(s) Psychiatric Psychiatric: Reports systems reviewed and no addt'l complaints, except as documented Endocrine Endocrinology: Reports systems reviewed and no addt'l complaints, except as documented Hematologic/Lymphatic Hematologic/Lymphatic: Reports systems reviewed and no addt'l complaints, except as documented Physical Exam Const alert, oriented x3 and no apparent distress Neck full ROM Resp normal respiratory effort, normal air movement and no retractions Effort and Inspection: able to speak in complete sentences and symmetric chest movement GI soft to palpation Bladder / Kidney Exam: bladder normal to palpation Uterus Palpation: uterus fundus firm Extremity normal to inspection and full ROM Psych mental status grossly normal, thought process normal and cooperative Assessment & Plan (1) (spontaneous vaginal delivery): COMMENT: CHRYSTAL IAL girl:Destiny PLAN: s/p PPD # 1 1. routine post delivery care 2. breast feeding- support given 3. rh positive 4. rubella immune 5. Discharge home if desired (2) UTI (urinary tract infection): COMMENT: +heme, +leuks (3) Choroid plexus cyst of fetus affecting care of mother, antepartum: (4) Fatigue: QUALIFIERS: Fatigue type: unspecified Qualified Code(s): R53.83 - Other fatigue COMMENT: discussed nutrition, iron supplement. (5) Obesity affecting : QUALIFIERS: Trimester: third trimester Obesity type affecting : unspecified obesity Qualified Code(s): O99.213 - Obesity complicating , third trimester (6) Supervision of normal first : QUALIFIERS: Trimester: third trimester Qualified Code(s): Z34.03 - Encounter for supervision of normal first , third trimester COMMENT: PRR , KHLOE 10/31/24, Cher' Mike (7) POTS (postural orthostatic tachycardia syndrome): (8) Anxiety and depression: COMMENT: start vistaril. if no improvement recommend starting SSRI Failed buspar. Enc magnesium. referred for therapy. recommend starting medical leave now due to POTS and anxiety, severe symptoms. (9) : QUALIFIERS: Weeks of gestation: 40 weeks Qualified Code(s): Z 3A.40 - 40 weeks gestation of COMMENT: QUENTIN from [facility] @ 31wks (10) Anemia affecting : QUALIFIERS: Trimester: third trimester Qualified Code(s): O99.013 - Anemia complicating , third trimester Charges/Coding Multi Select Codes Urinary/Genital Urinary/Genital CPT Codes: No Charge
[2024-11-07 10:00] VITALS: BP 107/62; PULSE 82; RESP 16; TEMP 36.1; O2SAT 99
[2024-11-07] MEDS: Nitrofurantoin Macrocrystals 100 MG Capsule PO (10:39)
--- NOTE | 2024-11-07 14:17 | CASEMGMT ---
Social Work Assessment Labor and Delivery Unit Patient Address: [address] [place] [address] [place] [address] Phone number: [phone] Date of Referral: 11/06/24 Time of Referral:? 402 Referred By: Pati Martinez Date of Intervention: ??11/07/24 Time of Intervention:? 1100 Reason for Referral:? anxiety and depression ] Sw completed chart review and acknowledges social work consult due to maternal mental health. Sw presented to bedside and introduced self to mother of baby (MOB- Candice) and father of baby (FOB- Mike). Sw explained sw involvement and completed psychosocial assessment. History obtained from: medical records, MOB and FOB Household composition: Currently residing in the family home is MOB and FOB. baby to be included in residence when ready for discharge. Parents deny any housing concerns, stating that home is safe and secure. Patient's parent/guardian status:?Parents report they have been together for a year, after being introduced to each other by FOB's sister who cuts MOB's hair. This is first baby for both parents. No concerns reported of domestic violence or intimate partner violence. Medical History: ?CORIE is 28 year old female who is 1, para 0- now 1 following labor and delivery of . CORIE received routine care during with [facility]. CORIE presented to hospital and delivered baby via vaginal delivery on 11/06/24 at 40 weeks gestation. Baby girl, named Destiny Herring, was born weighing 7lb 14zo with apgars of 8 and 9 at one and five minutes of life, respectfully. CORIE is breast feeding and baby will be followed by Dr. Curry for pediatrics. Educational Status:?Both parents graduated from high school, and MOB obtained her RN Financial Status: Both parents are gainfully employed outside of the home. 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 FOB is a police manager and works at the [employer]. Supplies:?? All necessary baby supplies obtained, including: car seat, safe sleep space, clothes, diapers and wipes. Childcare/Caregiver(s):? CORIE states that she will be the primary caregiver along with FOB when he is not working. When parents work they have family members who will be able to provide childcare. Transportation:?? Both parents have their drivers license and reliable means of transportation, no barriers. Programs/Agencies Involved: ??Parents are not connected to any community agencies that provide them financial assistance. ? Children Services/Legal Issues:??? No history of children services involvement, no issues or concerns warranting referral to be made. Behavioral Health Issues: ??Mental Health History: ESAU denies mental health issues or diagnoses. CORIE states that she has been diagnosed with anxiety and depression. CORIE states that in college she also started to have long panic attacks that would last up to a week. CORIE states that she got connected to mental health services and supports and has taken medications throughout he past couple of years. CORIE states at this time she is prescribed hydrozyzine PRN. MOB states that she is hopeful that going into this period the PRN medication is helpful. ??? Substance Use History:??CORIE states that she used to smoke THC recreationally in college, and reports that following a time when she smoked was when she had her first panic attack. CORIE reports that she has not used THC or any other substance since she has graduated from high school. ESAU denies substance use prior to and during . Family History:?ESAU states that his grandpa is an alcoholic. ESAU states that his father nor himself have problems or struggles with alcoholism. ? Drug Screens: ??No drug screens completed when completing chart review. Family/Social Stressors:? CORIE states that her only stressor at this time is worrying about her mental health going into this period. CORIE states that she is anticipating that she will struggle with some anxiety, and intrusive anxious thoughts during this time. CORIE states that she is aware of what helps her cope, and has talked to ESAU and other family members on ways they can support her during this time. CORIE states that she is also open to getting connected to mental health service providers if she feels as though she is really struggling with her mental health. Support Systems: CORIE states that ESAU and both sets of grandparents are her biggest supports. Depression/Shaken Baby/Safe Sleeping:? Crystal educated parents on signs and symptoms of baby blues and depression and anxiety. Sw explained that due to maternal mental health history she is more at risk for experiencing baby blues or symptoms. Parents express understanding. CORIE states that since baby has been born she has felt like herself, is happy and denies feeling down, blue or anxious. FOB states that he is able to read MOB like a book and knows how to help her get out of her head. Sw educated parents on shaken baby prevention and ABCs of safe sleep. Parents express understanding. ASSESSMENT:? MOB and baby admitted following labor and delivery. MOB with mental health history where she has struggled with anxiety/ panic attacks and intrusive anxious thoughts. MOB has sought help and guidance with these issues with her OBGYN and is prescribed PRN to help manage and struggles she may have during this period. MOB states that she is also open to getting connected to a mental health professional to also assist her. MOB and FOB were both present and engaging in conversation. MOB laying on bed comfortably and holding baby, feeding her, throughout assessment. FOB was sitting in bedside chair and was found to also be conversational during assessment. MOB was observred to hold baby lovingly and provide appropriate hands on care. Parents have all necessary baby supplies and have natural supports in place. PLAN:? No other services requested or indicated. MOB and baby to be discharged when medically ready. Parents were provided literature regarding: signs and symptoms of baby blues and mood and anxiety disorders, Help Me Grow, shaken baby prevention, ABCs of safe sleep and a list of county resources that are available for them should any needs present themselves. Tonia Leon, TELEVISION REPAIRMAN, CATTLE BRANDER
== END 2024-11-07 14:20 | disposition home or self-care (01) | DRG 806 ==
LOC: WPOUT 13:09 → WP 13:09
PROVIDERS: Admitting Provider Registered Nurse; PCP Family Medicine; Visit Provider Registered Nurse
DX: O99.02 Anemia complicating childbirth (principal); Z37.0 Single live birth; O23.43 Unspecified infection of urinary tract in pregnancy, third trimester; O99.354 Diseases of the nervous system complicating childbirth; O71.4 Obstetric high vaginal laceration alone; G90.A Postural orthostatic tachycardia syndrome [POTS]; F32.A Depression, unspecified; O99.214 Obesity complicating childbirth; F41.9 Anxiety disorder, unspecified; O99.344 Other mental disorders complicating childbirth; Z3A.40 40 weeks gestation of pregnancy; Z79.82 Long term (current) use of aspirin
CPT/HCPCS: 59025; 59050; 81002; 85025; 86780; 86850; 86900; 86901; 99221; G0378; J2405